=== PATIENT | female | born 1940 | race Caucasian/White ===

== ENCOUNTER → 2017-12-05 09:23 | Outpatient (CLI) | payer MEDICARE, OTHER, SELFPAY ==
[2017-12-05 10:15] LABS: Add Manual Diff / Slide Review NO; Basophils Percent Auto 2.5 % (0-2); Eosinophils Percent Auto 4.9 % (2-4); Hematocrit 39.7 % (36-46); Hemoglobin 13.7 g/dL (12.0-16.0); Mean Corpuscular HGB Conc 34.6 % (30-36); Mean Corpuscular Hemoglobin 31.8 PG (26-34); Monocytes Percent Auto 9.1 % (3-14); Neutrophils Absolute Auto 3900 /uL (3000-5900); Neutrophils Percent Auto 57.5 % (50-75); Platelet Count 231 X10^3/uL (150-400); Red Blood Cell Count 4.32 X10^6/uL (4.0-5.2); Red Cell Distribution Width 13.4 % (11.6-14.8); White Blood Cell Count 6.8 X10^3/uL (4.5-11.0)
[2017-12-05 10:31] LABS: BUN Creatinine Ratio 28.8 (6-22); Calcium 9.9 mg/dL (8.4-10.2); Estimated Glomerular Filt Rate > 60.0 mL/min (>60); Glucose 96 mg/dL (80-110); HEMOLYSIS < 15 (0-50); Potassium 4.2 mmol/L (3.4-5.1); Sodium 141 mmol/L (137-145)
== END ==
PROVIDERS: PCP Physician Assistant; Visit Provider Podiatrist
DX: Z01.818 Encounter for other preprocedural examination (principal); Z01.812 Encounter for preprocedural laboratory examination
CPT/HCPCS: 36415; 80048; 85025; 93005

== ENCOUNTER → 2018-02-27 11:41 | Outpatient (CLI) | payer MEDICARE, OTHER, SELFPAY ==
--- NOTE | 2018-02-27 | DI.MG.S_ITS ---
BILATERAL DIGITAL SCREENING MAMMOGRAM 3D/2D WITH CAD: 02/27/2018 CLINICAL: Routine screening. Family history of breast cancer. Comparison is made to exams dated: 02/12/2017 mammogram, 02/12/2016 mammogram, and 02/08/2015 mammogram - [facility]. There are scattered fibroglandular elements in both breasts. Current study was also evaluated with a Computer Aided Detection (CAD) system. No significant masses, calcifications, or other findings are seen in either breast. There has been no significant interval change. IMPRESSION: NEGATIVE There is no mammographic evidence of malignancy. A 1 year screening mammogram is recommended. This exam was interpreted at Station ID: [id number]. NOTE: For mammograms, a report in lay terms will be sent to the patient. Approximately 15% of breast malignancies will not be visualized mammographically. In the management of a palpable breast mass, a negative mammogram must not discourage biopsy of a clinically suspicious lesion. Electronically Signed By: Sherin sinha/jennifer:02/27/2018 14:54:34 letter sent: Normal Exam ACR BI-RADS Category 1: Negative [id number]
== END ==
PROVIDERS: Family Provider Physician Assistant; PCP Physician Assistant; Visit Provider Physician Assistant
DX: Z12.31 Encounter for screening mammogram for malignant neoplasm of breast (principal); Z80.3 Family history of malignant neoplasm of breast
CPT/HCPCS: 77063; 77067

== ENCOUNTER 2018-03-07 18:31 | Emergency (ER) | payer MEDICARE, OTHER, SELFPAY ==
[2018-03-07] VITALS (13 sets, daily range): BP systolic 156–206; BP diastolic 61–94; PULSE 88–104; RESP 14–20; TEMP 36.8; O2SAT 95–100; BMI 26.1
--- NOTE | 2018-03-07 18:52 | DI.RAD.S_ITS ---
PROCEDURE: XR CHEST 1V INDICATIONS: chest pain TECHNIQUE: One view of the chest was acquired. COMPARISON: [facility], , CHEST 1 VIEW, 04/12/2017, 6:09. FINDINGS: Surgical changes and devices: None. Lungs and pleura: No pleural effusions or pneumothorax. Lungs are clear. Mediastinum: Mediastinal contours appear normal. Heart size is normal. Bones and chest wall: No suspicious bony lesions. Overlying soft tissues appear unremarkable. IMPRESSION: No acute process. Dictated by: Emeli John M.D. on 03/07/2018 at 19:10 Approved by: Emeli John M.D. on 03/07/2018 at 19:11
[2018-03-07] MEDS: ASPIRIN 81 MG TAB 324 MG PO (18:55)
[2018-03-07 18:58] LABS: Add Manual Diff / Slide Review NO; Basophils Percent Auto 1.3 % (0-2); Eosinophils Percent Auto 5.8 % (2-4); Hemoglobin 14.3 g/dL (12.0-16.0); Lymphocytes Percent Auto 30.1 % (25-40); Mean Corpuscular Hemoglobin 31.5 PG (26-34); Mean Corpuscular Volume 92.5 fL (80-100); Monocytes Percent Auto 9.4 % (3-14); Neutrophils Absolute Auto 3900 /uL (3000-5900); Neutrophils Percent Auto 53.4 % (50-75); Platelet Count 296 X10^3/uL (150-400); Red Blood Cell Count 4.54 X10^6/uL (4.0-5.2); Red Cell Distribution Width 13.1 % (11.6-14.8); White Blood Cell Count 7.2 X10^3/uL (4.5-11.0)
[2018-03-07] MEDS: ONDANSETRON 4 MG/2 ML INJ IV (18:59)
[2018-03-07] MEDS: NITROGLYCERIN 0.4 MG SL TAB SL ×3 (19:00→19:24)
[2018-03-07 19:04] LABS: INR 0.9 (0.9-1.3); Prothrombin Time 9.7 SECONDS (10.1-12.7)
[2018-03-07 19:07] LABS: PTT Partial Thromboplastin Tim 27 SECONDS (26.4-36.2)
[2018-03-07 19:22] LABS: Troponin I < 0.012 ng/mL (0.01-0.034)
[2018-03-07 19:24] LABS: Creatine Kinase MB 2.25 ng/mL (<2.37)
--- NOTE | 2018-03-07 19:35 | ED.GENADULT ---
HPI - General Adult General Chief complaint: Hypertension Stated complaint: high BP Time Seen by Provider: 03/07/18 18:50 Source: patient Mode of arrival: ambulatory Limitations: no limitations History of Present Illness HPI narrative: 77-year-old female arrives to the emergency department for evaluation of nausea, abdominal tenderness, high blood pressure, generally not feeling very well, and which she describes as a chest discomfort and anxiety. Patient states that before noon today she started to have these symptoms. She states that it occurred after she had a large coffee with CBD oil in it. She states that she has had CBD well in the past and has never had any problems. She states that she took her blood pressure and states that it was ?high? she then laid down to try to sleep and calm down and after period of time took her blood pressure again and again she reported that it was higher than before. She then waited a little bit longer took her blood pressure again and was still continued to be high. She states that her symptoms were not improving so she came to the emergency department for evaluation. No prior cardiac history. Patient is a nonsmoker. She does have a history of high blood pressure and is taking her medicines for this. Is not a diabetic. Nonsmoker. Related Data Home Medications Medication Instructions Recorded Confirmed L. acidophilus-L. rhamnosus 1 cap PO DAILY 03/07/18 03/07/18 [Probiotic] azelastine 1 - 2 spray INTRANASAL BID PRN 03/07/18 03/07/18 Previous Rx's Medication Instructions Recorded potassium chloride 15 ml PO QDAY #450 ml 11/12/16 rosuvastatin 10 mg PO HS #90 tab 09/30/17 hydrochlorothiazide 25 mg PO QDAY #90 tab 11/18/17 levothyroxine 75 mcg tablet 75 mcg PO QDAY #90 tab 12/24/17 estradiol [Vagifem] 10 mcg VG 2XWEEKLY #12 tab 01/01/18 diltiazem HCl 300 mg PO QDAY #90 cap 03/05/18 lorazepam 0.5 mg PO BID-TID PRN #7 tab 03/07/18 Allergies Allergy/AdvReac Type Severity Reaction Status Date / Time lisinopril [LISINOPRIL] Allergy Severe COUGH Verified 03/07/18 18:55 meloxicam [MELOXICAM] Allergy Severe DYSPNEA Verified 03/07/18 18:55 olmesartan [OLMESARTAN] Allergy Severe DYSPNEA Verified 03/07/18 18:55 adhesive [ADHESIVE] Allergy Intermediate ITCHY RASH Verified 03/07/18 18:55 iodine [IODINE] Allergy Mild BLISTERS Verified 03/07/18 18:55 latex [LATEX] Allergy Mild ITCH Verified 03/07/18 18:55 amitriptyline [AMITRIPTYLINE] AdvReac Intermediate HALLUCINATI Verified 03/07/18 18:55 ON metoprolol [METOPROLOL] AdvReac Intermediate SEVERE Verified 03/07/18 18:55 COUGHING clarithromycin AdvReac Mild NAUSEA AND Verified 03/07/18 18:55 [CLARITHROMYCIN] FELT BAD Review of Systems Constitutional Denies chills, Reports fatigue, Denies headache(s) and Reports lethargy ENT Ears, Nose, Mouth, and Throat: Denies vertigo, Denies dizziness and Denies headache(s) Cardiovascular Reports chest pain, Denies syncope, Denies pedal edema, Denies edema, Denies irregular heart rhythm, Denies palpitations and Denies dyspnea Respiratory Denies cough and Denies dyspnea Gastrointestinal Gastrointestinal: Denies change in bowel habits, Denies diarrhea, Reports nausea and Denies vomiting Genitourinary Denies dysuria Musculoskeletal Denies back pain, Denies myalgias and Denies arthralgias Integumentary/Breasts Denies lesions and Denies rash Neurologic Denies vertigo, Denies dizziness, Denies syncope and Denies headache(s) Psychiatric Reports anxiety Endocrine Reports fatigue and Denies palpitations Hematologic/Lymphatic Denies easy bleeding and Denies easy bruising [facility] Medical History Hypertension (Acute) Hypothyroid (Acute) Surgical History No pertinent past surgical history (Acute) Social History Smoking Status: Never smoker Exam Initial Vital Signs Initial Vital Signs: Vital Signs Temperature 98.2 F 03/07/18 18:36 Pulse Rate 93 H 03/07/18 18:36 Respiratory Rate 20 03/07/18 18:36 Blood Pressure 204/94 H 03/07/18 18:36 Pulse Oximetry 98 03/07/18 18:36 Const General: cooperative, well developed, well groomed and No acute distress Orientation: alert, awake and oriented x3 HENMT Head: normal to inspection and normocephalic Resp Effort & Inspection: normal respiratory effort Auscultation: clear to auscultation bilaterally Cardio Rate: regular rate Rhythm: regular rhythm Heart Sounds: no murmurs Pulses: radial pulses present GI Inspection: normal to inspection and non-distended Palpation: soft, No firm and No tender Skin Lesions: no lesions Rashes: no rashes Neuro General: alert, awake and oriented x3 Cognition: normal cognition Speech: speech normal Extrem General: normal to inspection, capillary refill normal and No edema Psych Appearance: grossly normal and well kempt Affect: normal affect Attitude: cooperative Thought Process: normal Thought Content: normal Judgment: judgment good Scores GCS [place] coma scale eye opening: Spontaneous [place] coma scale verbal response: Orientated Levon coma scale motor response: Obey commands Levon coma scale total score: 15 HEART Score Heart Score history: Moderately Suspicious Heart Score EKG: Non-Specific repolarization disturbance Heart Score Age: > or = 65 years old Heart Score risk factors: 1-2 risk factors Heart Score troponin: < or = to normal limit Heart Score Total: 5 Course Orders Ordered: ED Orders 03/07/18 18:50 Complete Blood Count AUTO DIFF Stat Partial Thromboplastin Time Stat Prothrombin Time INR Stat 03/07/18 18:52 XR chest 1V Stat 03/07/18 19:25 Comprehensive Metabolic Panel Stat Lipase Stat TSH w/ Reflex to FT4 Stat Troponin & CK Cardiac Panel Stat 03/07/18 22:33 Troponin I Stat Discontinued Medications Aspirin (Aspirin Chew) 324 mg PO NOW ONE Stop: 03/07/18 18:53 Last Admin: 03/07/18 18:55 Dose: 324 mg Al Hydrox/Mg Hydrox/Simethicone 20 ml/ Lidocaine HCl 15 ml 0 ml PO NOW ONE Stop: 03/07/18 19:34 Last Admin: 03/07/18 19:37 Dose: 35 ml Lorazepam (Ativan) 0.5 mg PO NOW ONE Stop: 03/07/18 21:10 Last Admin: 03/07/18 21:27 Dose: 0.5 mg Nitroglycerin (Nitrostat) 0.4 mg SL [id number] PRN PRN Reason: Chest Pain Last Admin: 03/07/18 19:24 Dose: 0.4 mg Admin: 03/07/18 19:09 Dose: 0.4 mg Admin: 03/07/18 19:00 Dose: 0.4 mg Ondansetron HCl (Zofran) 4 mg IV NOW ONE Stop: 03/07/18 18:58 Last Admin: 03/07/18 18:59 Dose: 4 mg Vital Signs - 8 hr 03/07/18 18:36 03/07/18 18:57 03/07/18 19:00 Temperature 98.2 F Pulse Rate 93 H 88 94 H Respiratory Rate 20 14 Blood Pressure 204/94 H 181/70 H Blood Pressure [Left Arm] 190/71 H Blood Pressure [Right Arm] 206/67 H 181/70 H Pulse Oximetry 98 100 03/07/18 19:08 03/07/18 19:09 03/07/18 19:18 Temperature Pulse Rate 96 H 94 H Respiratory Rate 14 Blood Pressure 183/76 H 183/76 H Blood Pressure [Left Arm] Blood Pressure [Right Arm] 181/71 H Pulse Oximetry 96 03/07/18 19:21 03/07/18 19:24 03/07/18 19:34 Temperature Pulse Rate 95 H 95 H Respiratory Rate Blood Pressure 181/71 H 181/71 H 167/65 H Blood Pressure [Left Arm] Blood Pressure [Right Arm] Pulse Oximetry 03/07/18 19:57 03/07/18 20:30 03/07/18 22:44 Temperature Pulse Rate 90 104 H 92 H Respiratory Rate 14 14 14 Blood Pressure Blood Pressure [Left Arm] 173/64 H Blood Pressure [Right Arm] 167/65 H 193/74 H Pulse Oximetry 99 98 95 03/07/18 23:55 Temperature 98.2 F Pulse Rate 88 Respiratory Rate 14 Blood Pressure 156/61 H Blood Pressure [Left Arm] Blood Pressure [Right Arm] Pulse Oximetry 98 Medical Decision Making MDM Narrative Medical decision making narrative: Patient with a heart score of 5. EKGs today compared with 2 prior EKGs unremarkable. Has 2 negative troponins with the 1st and 2nd one greater than 6 hr after the onset of her symptoms. Patient reports minimal improvement after the nitro. Does report some improvement after the GI cocktail and reports a great improvement after the Ativan here in the ER. I discussed with her her risk factors and the concern I have regarding her presenting symptoms and the concern for ACS. After discussion with the patient she stated that she did not want to be admitted to the hospital because she had ?2 sick animals ?at home and no intent take care of them. She did agree to stay here in the emergency department for the 2nd troponin. I informed her that the unchanged EKG is in the 2 troponins were reassuring that this was not ACS however I did recommend to her that she stay here for admission to the hospital for a stress test however she again declined. She had a GCS of 15 in my opinion had the capacity to make decisions. She expressed her understanding of the risks she had with regard to ACS. She does have a senior data architect that she sees. She is taking an aspirin on a daily basis. Patient was instructed that she needed to call her primary care doctor on Friday and also her senior data architect to discuss an urgent stress test. She was given return precautions. Will send home with a couple doses of Ativan since that seemed to help her symptoms quite a bit. Also informed her that she should stop taking the CBD oil as this may also be the cause of some of her symptoms today. She expressed understanding and agreement with plan. She had a friend with her at bedside who also expressed agreement with plan. Lab Data Lab results reviewed: Yes I reviewed the patient's lab results. Result diagrams: 03/07/18 18:50 03/07/18 19:25 Lab Results 03/07/18 03/07/18 03/07/18 Range/Units 18:50 18:50 19:25 WBC 7.2 (4.5-11.0) X10^3/uL RBC 4.54 (4.0-5.2) X10^6/uL Hgb 14.3 (12.0-16.0) g/dL Hct 42.0 (36-46) % MCV 92.5 (80-100) fL MCH 31.5 (26-34) PG MCHC 34.0 (30-36) % RDW 13.1 (11.6-14.8) % Plt Count 296 (150-400) X10^3/uL Neut % (Auto) 53.4 (50-75) % Lymph % (Auto) 30.1 (25-40) % Mcminn % (Auto) 9.4 (3-14) % Eos % (Auto) 5.8 H (2-4) % Baso % (Auto) 1.3 (0-2) % Neut # (Auto) 3900 (1985-5186) /uL PT 9.7 L (10.1-12.7) SECONDS INR 0.9 (0.9-1.3) APTT 27 (26.4-36.2) SECONDS Sodium 137 (137-145) mmol/L Potassium 3.3 L (3.4-5.1) mmol/L Chloride 97 L (98-107) mmol/L Carbon Dioxide 31 (22-32) mmol/L BUN 23 H (7-17) mg/dL Creatinine 0.80 (0.52-1.04) mg/dL Estimated GFR > 60.0 (>60) mL/min BUN/Creatinine Ratio 28.8 H (6-22) Glucose 116 H (80-110) mg/dL Calcium 10.2 (8.4-10.2) mg/dL Total Bilirubin 0.5 (0.2-1.3) mg/dL AST 27 (14-36) IU/L ALT 28 (9-52) IU/L Alkaline Phosphatase 92 (38-126) U/L Total Creatine Kinase 113 (30-135) U/L CK-MB (CK-2) 2.25 (<2.37) ng/mL CK-MB (CK-2) Rel Index 2.0 (1.5-5.0) % Troponin I < 0.012 (0.01-0.034) ng/mL Total Protein 6.4 (6.3-8.2) g/dL Albumin 4.1 (3.5-5.0) g/dL Globulin 2.3 (1.7-4.1) g/dL Albumin/Globulin Ratio 1.8 (1.0-2.8) Lipase 108 (23-300) U/L TSH (0.47-4.68) uIU/mL 03/07/18 03/07/18 Range/Units 19:25 22:33 WBC (4.5-11.0) X10^3/uL RBC (4.0-5.2) X10^6/uL Hgb (12.0-16.0) g/dL Hct (36-46) % MCV (80-100) fL MCH (26-34) PG MCHC (30-36) % RDW (11.6-14.8) % Plt Count (150-400) X10^3/uL Neut % (Auto) (50-75) % Lymph % (Auto) (25-40) % Mcminn % (Auto) (3-14) % Eos % (Auto) (2-4) % Baso % (Auto) (0-2) % Neut # (Auto) (8729-6552) /uL PT (10.1-12.7) SECONDS INR (0.9-1.3) APTT (26.4-36.2) SECONDS Sodium (137-145) mmol/L Potassium (3.4-5.1) mmol/L Chloride (98-107) mmol/L Carbon Dioxide (22-32) mmol/L BUN (7-17) mg/dL Creatinine (0.52-1.04) mg/dL Estimated GFR (>60) mL/min BUN/Creatinine Ratio (6-22) Glucose (80-110) mg/dL Calcium (8.4-10.2) mg/dL Total Bilirubin (0.2-1.3) mg/dL AST (14-36) IU/L ALT (9-52) IU/L Alkaline Phosphatase (38-126) U/L Total Creatine Kinase (30-135) U/L CK-MB (CK-2) (<2.37) ng/mL CK-MB (CK-2) Rel Index (1.5-5.0) % Troponin I < 0.012 (0.01-0.034) ng/mL Total Protein (6.3-8.2) g/dL Albumin (3.5-5.0) g/dL Globulin (1.7-4.1) g/dL Albumin/Globulin Ratio (1.0-2.8) Lipase (23-300) U/L TSH 2.45 (0.47-4.68) uIU/mL Imaging Data Chest x-ray: Radiologist's impression: PROCEDURE: XR CHEST 1V INDICATIONS: chest pain TECHNIQUE: One view of the chest was acquired. COMPARISON: [facility], , CHEST 1 VIEW, 04/12/2017, 6:09. FINDINGS: Surgical changes and devices: None. Lungs and pleura: No pleural effusions or pneumothorax. Lungs are clear. Mediastinum: Mediastinal contours appear normal. Heart size is normal. Bones and chest wall: No suspicious bony lesions. Overlying soft tissues appear unremarkable. IMPRESSION: No acute process. Dictated by: Emeli John M.D. on 03/07/2018 at 19:10 Approved by: Emeli John M.D. on 03/07/2018 at 19:11 ECG Data Attestation: I personally reviewed and interpreted this ECG as follows: Prior ECG tracings: available for review Interpretation: Sinus rhythm Ventricular rate in 96 First degree AV block with as needed oval at 0221 Normal QRS Normal QTC Normal axis Nonspecific ST T wave changes Comparison EKG dated 12/05/2017 and also 04/12/2017 Minimal if any changes from today's EKG compared to these 2 prior EKGs Discharge Plan Departure Patient Disposition: Home Clinical Impression: Hypertension, Chest pain, Nausea Discharge Date/Time: 03/07/18 23:58 Interventions: ED Discharge Assessment Last Done: 03/07/18 23:55 Instructions: DI for High Blood Pressure, DI for Atypical Chest Pain Activity Restrictions/Additional Instructions: Continue all of your medications as directed. On Friday morning you do need to contact your primary doctor and/or senior data architect to discuss scheduling a stress test. Return to the emergency department for any new symptoms, worsening symptoms, shortness of breath, chest pain, or any other concerning symptoms. Prescriptions: New lorazepam 0.5 mg tablet 0.5 mg PO BID-TID PRN (Reason: anxiety) Qty: 7 RF: 0 No Action potassium chloride 20 MEQ/15 ML liquid 15 ml PO QDAY Qty: 450 RF: 3 rosuvastatin 10 MG tablet 10 mg PO HS Qty: 90 RF: 3 hydrochlorothiazide 25 mg tablet 25 mg PO QDAY Qty: 90 RF: 1 levothyroxine [Synthroid] 75 mcg tablet 75 mcg PO QDAY Qty: 90 RF: 1 estradiol [Vagifem] 10 mcg tablet 10 mcg VG 2XWEEKLY Qty: 12 RF: 3 diltiazem HCl 300 mg capsule,extended release 24hr 300 mg PO QDAY Qty: 90 RF: 3 L. acidophilus-L. rhamnosus [Probiotic] 15 billion cell Capsule 1 cap PO DAILY RF: 0 azelastine 137 mcg (0.1 %) aerosol,spray 1 - 2 spray Intranasal BID PRN (Reason: allergies) RF: 0
[2018-03-07] MEDS: MAG HYDROX/ALUMINUM/SIMETH SUS 20 ML, LIDOCAINE VISCOUS 2% 15 ML PO (19:37)
[2018-03-07 20:08] LABS: Alanine Aminotransferase 28 IU/L (9-52); Albumin 4.1 g/dL (3.5-5.0); Albumin Globulin Ratio 1.8 (1.0-2.8); Alkaline Phosphatase 92 U/L (38-126); Aspartate Aminotransferase 27 IU/L (14-36); BUN Creatinine Ratio 28.8 (6-22); Bilirubin Total 0.5 mg/dL (0.2-1.3); Blood Urea Nitrogen 23 mg/dL (7-17); Calcium 10.2 mg/dL (8.4-10.2); Carbon Dioxide 31 mmol/L (22-32); Chloride 97 mmol/L (98-107); Creatine Kinase 113 U/L (30-135); Estimated Glomerular Filt Rate > 60.0 mL/min (>60); Globulin 2.3 g/dL (1.7-4.1); Glucose 116 mg/dL (80-110); Lipase 108 U/L (23-300); Potassium 3.3 mmol/L (3.4-5.1); Sodium 137 mmol/L (137-145); Total Protein 6.4 g/dL (6.3-8.2)
[2018-03-07 20:11] LABS: HEMOLYSIS < 15 (0-50)
[2018-03-07 20:37] LABS: TSH w/ Reflex to FT4 2.45 uIU/mL (0.47-4.68)
[2018-03-07] MEDS: LORazepam 0.5 MG TABLET PO (21:27)
[2018-03-07 23:11] LABS: Troponin I < 0.012 ng/mL (0.01-0.034)
== END 2018-03-07 23:58 | disposition home or self-care (01) ==
PROVIDERS: Emergency Provider Emergency Medicine; Family Provider Physician Assistant; PCP Physician Assistant
DX: I10 Essential (primary) hypertension (principal); R07.89 Other chest pain; R11.0 Nausea
CPT/HCPCS: 36415; 36591; 71045; 80053; 82550; 82553; 83690; 84443; 84484; 85025; 85610; 85730; 93005; 93010; 96374; 99284; 99285; J2405

== ENCOUNTER → 2018-06-25 12:51 | Outpatient (CLI) | payer MEDICARE, OTHER, SELFPAY ==
--- NOTE | 2018-06-25 12:54 | DI.RAD.S_ITS ---
PROCEDURE: XR HIP W PEL IF DONE LT MIN 4V INDICATIONS: Bilateral hip pain L >R; suspect OA of left hip TECHNIQUE: AP pelvis with lateral view(s) of the left and right hip(s). COMPARISON: None. FINDINGS: Bones: No fractures or dislocations. Pelvic ring appears intact. No suspicious bony lesions. There is moderately severe bilateral hip and sacroiliac joint degeneration. Soft tissues: The visualized bowel gas pattern is normal. Soft tissue calcifications in pelvis are likely phleboliths. 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 Dictated by: Shannon Glaser M.D. on 06/25/2018 at 17:27 Approved by: Shannon Glaser M.D. on 06/25/2018 at 17:28
--- NOTE | 2018-06-25 12:54 | DI.RAD.S_ITS ---
PROCEDURE: XR LUMBAR SPINE MIN 4V INDICATIONS: Bilateral hip pain L >R; suspect OA of left hip TECHNIQUE: 5 views of the lumbar spine were acquired. COMPARISON: None. FINDINGS: Bones: 5 nonrib-bearing vertebrae are present. L5 is partially sacralized. Mild scoliosis. There is grade one anterolisthesis at L3-L4. Degenerative disc disease is present, severe at L4-L5, and mild at other levels. There is severe facet arthropathy at L3 at L4, L4-L5 and L5-S1. No vertebral body compression fractures. No suspicious bony lesions. Soft tissues: Overlying bowel gas pattern is normal. Vascular calcifications consistent with of osclerosis. There are cholecystectomy clips. Oblique images: No pars defects. IMPRESSION: 1. Transitional anatomy with sacralization of L5. 2. Degenerative disc and facet disease at described. If clinical symptoms persist or clinical suspicion for spinal stenosis or foraminal stenosis, advanced MRI is suggested for further evaluation. Dictated by: Shannon Glaser M.D. on 06/25/2018 at 16:31 Approved by: Shannon Glaser M.D. on 06/25/2018 at 16:35
== END ==
PROVIDERS: Family Provider Physician Assistant; PCP Physician Assistant; Visit Provider Physician Assistant
DX: M54.5 Low back pain (principal); M25.552 Pain in left hip; M16.0 Bilateral primary osteoarthritis of hip; M43.16 Spondylolisthesis, lumbar region; M47.816 Spondylosis without myelopathy or radiculopathy, lumbar region; M47.817 Spondylosis without myelopathy or radiculopathy, lumbosacral region; M47.818 Spondylosis without myelopathy or radiculopathy, sacral and sacrococcygeal region; M51.36 Other intervertebral disc degeneration, lumbar region; M43.27 Fusion of spine, lumbosacral region
CPT/HCPCS: 72110; 73522

== ENCOUNTER → 2018-07-09 12:40 | Outpatient (CLI) | payer MEDICARE, OTHER, SELFPAY ==
[2018-07-09 13:07] LABS: Add Manual Diff / Slide Review NO; Basophils Percent Auto 1.1 % (0-2); Eosinophils Percent Auto 5.3 % (2-4); Hematocrit 42.5 % (36-46); Hemoglobin 14.1 g/dL (12.0-16.0); Lymphocytes Percent Auto 32.5 % (25-40); Mean Corpuscular HGB Conc 33.3 % (30-36); Mean Corpuscular Hemoglobin 30.9 PG (26-34); Mean Corpuscular Volume 92.9 fL (80-100); Monocytes Percent Auto 8.9 % (3-14); Neutrophils Absolute Auto 4200 /uL (1500-7000); Neutrophils Percent Auto 52.2 % (50-75); Platelet Count 329 X10^3/uL (150-400); Red Blood Cell Count 4.57 X10^6/uL (4.0-5.2); Red Cell Distribution Width 13.4 % (11.6-14.8); White Blood Cell Count 8.1 X10^3/uL (4.5-11.0)
[2018-07-09 13:33] LABS: Alanine Aminotransferase 24 IU/L (9-52); Albumin 4.7 g/dL (3.5-5.0); Albumin Globulin Ratio 1.6 (1.0-2.8); Alkaline Phosphatase 111 U/L (38-126); Aspartate Aminotransferase 28 IU/L (14-36); BUN Creatinine Ratio 28.8 (6-22); Bilirubin Total 0.6 mg/dL (0.2-1.3); Blood Urea Nitrogen 23 mg/dL (7-17); Calcium 10.3 mg/dL (8.4-10.2); Carbon Dioxide 32 mmol/L (22-32); Chloride 97 mmol/L (98-107); Estimated Glomerular Filt Rate > 60.0 mL/min (>60); Glucose 103 mg/dL (80-110); HEMOLYSIS 21 (0-50); Potassium 3.6 mmol/L (3.4-5.1); Sodium 142 mmol/L (137-145); Total Protein 7.7 g/dL (6.3-8.2)
[2018-07-09 17:04] LABS: Thyroid Stimulating Hormone 2.56 uIU/mL (0.47-4.68)
== END ==
PROVIDERS: PCP Physician Assistant; Visit Provider Physician Assistant
DX: E03.9 Hypothyroidism, unspecified (principal); I10 Essential (primary) hypertension; R00.2 Palpitations; R53.83 Other fatigue
CPT/HCPCS: 36415; 80053; 84443; 85025

== ENCOUNTER → 2018-08-03 13:37 | Outpatient (CLI) | payer MEDICARE, OTHER, SELFPAY ==
--- NOTE | 2018-08-03 13:43 | DI.US.S_ITS ---
PROCEDURE: US CAROTID DOPPLER BI INDICATIONS: PALPITATIONS TECHNIQUE: Color and pulse Doppler interrogation was performed of both carotid systems, with image documentation and velocity measurements. COMPARISON: None. FINDINGS: Stenosis calculations are based on SRU (Society of Radiologists in Ultrasound) criteria. Right side: Brachial blood pressure: 193/83 mm Hg. Common carotid artery peak systolic velocity: 99 cm/sec. Internal carotid artery peak systolic velocity: 67 cm/sec. Internal carotid artery end diastolic velocity: 9 cm/sec. External carotid artery peak systolic velocity: 90 cm/sec. ICA/CCA peak systolic ratio: 0.7. Lobo scale imaging description: Mild scattered plaque. Percent internal carotid artery stenosis: Less than 50%. Vertebral artery: Flow direction is antegrade. Left side: Brachial blood pressure: 182/82 mm Hg. Common carotid artery peak systolic velocity: 103 cm/sec. Internal carotid artery peak systolic velocity: 98 cm/sec. Internal carotid artery end diastolic velocity: 21 cm/sec. External carotid artery peak systolic velocity: 101 cm/sec. ICA/CCA peak systolic ratio: 1.0. Lobo scale imaging description: Mild scattered plaque. Percent internal carotid artery stenosis: Less than 50%. Vertebral artery: Flow direction is antegrade. IMPRESSION: Less than 50% bilateral internal carotid artery stenosis. Hypertension at time of exam. Dictated by: Jay Cruz [facility] Interpreted: Angeliat Bruner MD on 08/03/2018 at 15:51 Approved by: Angelita Bruner M.D. on 08/03/2018 at 16:59
== END ==
PROVIDERS: PCP Physician Assistant; Visit Provider Physician Assistant
DX: R00.2 Palpitations (principal); I65.23 Occlusion and stenosis of bilateral carotid arteries; I10 Essential (primary) hypertension; E03.9 Hypothyroidism, unspecified; R53.83 Other fatigue
CPT/HCPCS: 93880

== ENCOUNTER → 2018-09-11 16:28 | Outpatient (CLI) | payer MEDICARE, OTHER, SELFPAY ==
[2018-09-15 08:02] LABS: Aldosterone/Renin Activity Rat 3.9 Ratio (0.9-28.9); Plama Renin, LC/MS/MS 3.05 ng/mL/h (0.25-5.82)
== END ==
PROVIDERS: PCP Physician Assistant; Visit Provider Internal Medicine Cardiovascular Disease
DX: I10 Essential (primary) hypertension (principal)
CPT/HCPCS: 36415; 82088; 84244

== ENCOUNTER → 2018-09-17 08:07 | Outpatient (CLI) | payer MEDICARE, OTHER, SELFPAY ==
--- NOTE | 2018-09-17 | DI.ECHO.S_ITS ---
[place] +---------+ [facility] +---------+ : : [address] : : : : [id number] : : : : Phone: [phone] Echocardiogram Report + + :Name: ELIZABETH FELIX Seth Study Date: 09/17/2018 Height: 66 in : :[facility] Weight: 167 lb : : Gender: Female BSA: 1.9 m2 : :: 1940 Age: 77 yrs BP: 164/64 mmHg: :Reason For Study: Murmur : :Ordering Physician: Baltazar : :All Escalera Performed By: Lynda Torres : :Referring: LEE ANN Spears : + + Interpretation Summary 1) Normal left ventricular thickness, size, wall motion, and systolic function (EF 60-65%). 2) Normal right ventricular size and function. 3) Diastolic parameters suggest a pseudonormalization pattern, consistent with probable elevated filling pressures. 4) No significant valvular abnormalities. 5) There is mild luminal irregularity and echogenicity in the abdominal aorta, suggestive of aortic atherosclerotic disease. 6) Hypertension present during the study (BP 164/64mmHg). 7) Compared to the Echo done 01/28/2017, no significant cardiac change. Procedure: A two-dimensional transthoracic echocardiogram with color flow and Doppler was performed. The study quality was technically adequate. Comparison is made with the echocardiogram of 01-28-17. The patient was in normal sinus rhythm during the exam. Left Ventricle: The left ventricle is normal in size, wall thickness, and systolic function without any focal wall motion abnormalities. Proximal septal thickening is noted. The ejection fraction is estimated to be 60-65%. Left ventricular systolic function is normal without focal wall motion abnormalities. Diastolic parameters suggest a pseudonormalization pattern, consistent with probable elevated filling pressures. Right Ventricle: The right ventricle grossly appears normal in size with probable normal systolic function. Atria: The left atrium is mildly dilated. Right atrial size is normal. The interatrial septum is intact with no evidence for an atrial septal defect. Mitral Valve: The mitral valve is normal in structure and function. There is no mitral regurgitation noted. Aortic Valve: The aortic valve opens well. The aortic valve is trileaflet. The aortic valve is slightly calcified. There is no aortic valve stenosis. No aortic regurgitation is present. Tricuspid Valve: The tricuspid valve is normal in structure and function. There is trace tricuspid regurgitation. The right ventricular systolic pressure is estimated to be at least 44 mmHg based on an estimated right atrial pressure of 3 mm Hg. Pulmonic Valve: The pulmonic valve is not well visualized. Great Vessels: The aortic root is normal size. The dimensions of the ascending aorta are normal. The aortic arch is normal in size. There is mild luminal irregularity and echogenicity in the abdominal aorta, suggestive of aortic atherosclerotic disease. The IVC is of normal diameter and collapses greater than 50% with a sniff. This suggests a low right atrial pressure of 3 mm Hg. Pericardium/ Pleura There is no pericardial effusion. There is no pleural effusion. MMode/2D Measurements & Calculations LVIDd: 3.8 cm Ao root diam: 2.7 cm LVIDs: 2.3 cm Aortic Jxn: 2.5 cm FS: 39.7 % asc Aorta Diam: 3.3 cm IVSd: 0.97 cm Ao Arch Diam (Prox Trans): 2.6 cm LVPWd: 1.0 cm LV khan. diameter/BSA (cm/m^2): 2.1 LV sys. diameter/BSA (cm/m^2): 1.3 LA dimension: 3.5 cm RA long axis: 4.7 cm LA A2 area: 18.1 cm2 RA area: 16.5 cm2 LA A4 area: 22.0 cm2 RA vol: 49.4 ml LA length (vol): 5.3 cm RA : 26.7 ml/m2 LA vol: 64.2 ml IVC diam: 0.76 cm LA vol index: 34.6 ml/m2 RVDd major: 5.2 cm RVD1 (basal): 4.0 cm RVD2 (mid): 3.7 cm Doppler Measurements & Calculations Ao V2 max: 173.2 cm/sec MV E max brendan: 100.6 cm/sec Ao V2 mean: 125.1 cm/sec MV A max brendan: 134.1 cm/sec Ao max P.0 mmHg MV E/A: 0.75 Ao mean P.9 mmHg Med Peak E' Brendan: 6.6 cm/sec Ao V2 VTI: 42.3 cm E/E' med: 15.2 Lat Peak E' Brendan: 8.0 cm/sec E/E' lat: 12.6 E/e' average: 13.9 MV dec time: 0.29 sec MV P1/2t: 85.9 msec TR max brendan: 319.9 cm/sec MV P1/2t max brendan: 100.9 cm/sec TR max P.9 mmHg MVA(P1/2t): 2.6 cm2 PA V2 max: 119.3 cm/sec PA V2 mean: 79.3 cm/sec PA mean P.9 mmHg PA Accel Time: 0.16 sec Reading Physician:02:24 PM
== END ==
PROVIDERS: PCP Physician Assistant; Visit Provider Internal Medicine Cardiovascular Disease
DX: R01.1 Cardiac murmur, unspecified (principal); I10 Essential (primary) hypertension
CPT/HCPCS: 93306

== ENCOUNTER → 2018-11-09 08:51 | Outpatient (CLI) | payer MEDICARE, OTHER, SELFPAY ==
[2018-11-09 10:40] LABS: BUN Creatinine Ratio 25.6 (6-22); Blood Urea Nitrogen 23 mg/dL (7-17); Carbon Dioxide 31 mmol/L (22-32); Chloride 102 mmol/L (98-107); Estimated Glomerular Filt Rate > 60.0 mL/min (>60); Glucose 75 mg/dL (80-110); HEMOLYSIS < 15 (0-50); Potassium 4.3 mmol/L (3.4-5.1); Sodium 140 mmol/L (137-145)
== END ==
PROVIDERS: PCP Physician Assistant; Visit Provider Internal Medicine Cardiovascular Disease
DX: I10 Essential (primary) hypertension (principal)
CPT/HCPCS: 36415; 80048

== ENCOUNTER → 2018-12-29 08:45 | Outpatient (CLI) | payer MEDICARE, OTHER, SELFPAY ==
[2018-12-29 10:30] LABS: Ferritin 54.1 ng/mL (11.1-264)
== END ==
PROVIDERS: PCP Physician Assistant; Visit Provider Nurse Practitioner Family
DX: G25.81 Restless legs syndrome (principal)
CPT/HCPCS: 36415; 82728

== ENCOUNTER → 2019-01-08 08:57 | Outpatient (CLI) | payer MEDICARE, OTHER, SELFPAY ==
[2019-01-08 10:43] LABS: BUN Creatinine Ratio 24.4 (6-22); Blood Urea Nitrogen 22 mg/dL (7-17); Calcium 10.2 mg/dL (8.4-10.2); Carbon Dioxide 33 mmol/L (22-32); Chloride 100 mmol/L (98-107); Cholesterol 178 mg/dL (140-199); Estimated Glomerular Filt Rate > 60.0 mL/min (>60); Glucose 94 mg/dL (80-110); HDL Cholesterol 98 mg/dL (40-60); HEMOLYSIS < 15 (0-50); LDL Cholesterol Calculated 62 mg/dL (<100); Potassium 4.3 mmol/L (3.4-5.1); Sodium 139 mmol/L (137-145); Triglycerides 90 mg/dL (35-150)
== END ==
PROVIDERS: PCP Physician Assistant; Visit Provider Internal Medicine Cardiovascular Disease
DX: E78.5 Hyperlipidemia, unspecified (principal); I10 Essential (primary) hypertension
CPT/HCPCS: 36415; 80048; 80061

== ENCOUNTER 2019-02-16 20:46 | Inpatient (IN) | payer MEDICARE, OTHER, SELFPAY ==
[2019-02-16 20:48] VITALS: BP 177/71; PULSE 91; RESP 20; TEMP 36.6; O2SAT 100; BMI 26.4
--- NOTE | 2019-02-16 21:10 | ED_ITS ---
HPI - Abdominal Pain General Chief Complaint: Abdominal Pain Stated Complaint: ABDOMINAL PAINS Time Seen by Provider: 02/16/19 20:49 Source: patient Mode of arrival: ambulatory Limitations: no limitations History of Present Illness HPI narrative: 78-year-old female whose had a history of a Calvin fundoplication, hysterectomy, cholecystectomy, appendectomy here for evaluation of abdominal pain and distention. Has also had some nausea but no vomiting. States symptoms have been going on for the past week if not little bit longer however worsening over the past 24 hours. No fevers. No vomiting. Still passing flatus. Also having small episodes of diarrhea. No urinary symptoms. States that symptoms do get worse after she eats. She feels like her abdomen is distended. Related Data Home Medications Medication Instructions Recorded Confirmed L. acidophilus-L. rhamnosus 1 cap PO DAILY 03/07/18 02/16/19 [Probiotic] azelastine 1 - 2 spray INTRANASAL BID PRN 03/07/18 02/16/19 CO-Q-10 See Rx Instructions .ROUTE .COMPLEX 04/06/18 02/16/19 Mylanta See Rx Instructions .ROUTE .COMPLEX 04/06/18 02/16/19 Tylenol Extra Strength See Rx Instructions .ROUTE .COMPLEX 04/06/18 02/16/19 vitamin B-12 See Rx Instructions .ROUTE .COMPLEX 04/06/18 02/16/19 cyclosporine 0.05 % eye drops 1 drop EYE-BOTH BID ml 06/25/18 02/16/19 naproxen sodium 220 mg capsule 220 mg PO DAILY PRN cap 06/25/18 02/16/19 cholecalciferol (vitamin D3) 2,000 See Rx Instructions PO DAILY 08/12/18 02/16/19 unit capsule losartan 100 mg tablet 100 mg PO DAILY 09/30/18 02/16/19 aspirin 81 mg tablet,delayed 81 mg PO DAILY 11/06/18 02/16/19 release diltiazem ER 420 mg capsule,24 420 mg PO DAILY 11/06/18 02/16/19 hr,extended release chlorthalidone 25 mg tablet 25 mg PO DAILY 01/13/19 02/16/19 omeprazole 20 mg PO DAILY 02/16/19 02/16/19 Previous Rx's Medication Instructions Recorded varicella-zoster glycoE vacc-[id number] 50 mcg IM ONCE #1 each 04/06/18 adj(PF) 50 mcg/0.5 mL IM susp, kit levothyroxine 75 mcg tablet 75 mcg PO QDAY #90 tab 06/22/18 lorazepam 0.5 mg tablet 0.5 mg PO BID-TID PRN #30 tab 07/09/18 rosuvastatin 10 mg PO HS #90 tab 09/07/18 buspirone 5 mg tablet 10 mg PO BID #180 tab 12/21/18 estradiol [Vagifem] 10 mcg VG 2XWEEKLY #12 tab 12/25/18 Allergies Allergy/AdvReac Type Severity Reaction Status Date / Time lisinopril [LISINOPRIL] Allergy Severe COUGH Verified 12/23/18 14:06 meloxicam [MELOXICAM] Allergy Severe DYSPNEA Verified 12/23/18 14:06 olmesartan [OLMESARTAN] Allergy Severe DYSPNEA Verified 12/23/18 14:06 adhesive [ADHESIVE] Allergy Intermediate ITCHY RASH Verified 12/23/18 14:06 iodine [IODINE] Allergy Mild BLISTERS Verified 12/23/18 14:06 latex [LATEX] Allergy Mild ITCH Verified 12/23/18 14:06 amitriptyline [AMITRIPTYLINE] AdvReac Intermediate HALLUCINATI Verified 12/23/18 14:06 ON metoprolol [METOPROLOL] AdvReac Intermediate SEVERE Verified 12/23/18 14:06 COUGHING sertraline AdvReac Intermediate it made Verified 12/23/18 14:06 me feel really bad like I was sick. clarithromycin AdvReac Mild NAUSEA AND Verified 12/23/18 14:06 [CLARITHROMYCIN] FELT BAD Review of Systems Constitutional Denies fever(s) Cardiovascular Denies chest pain and Denies dyspnea Respiratory Denies dyspnea Gastrointestinal Gastrointestinal: Reports abdominal pain, Reports bloating, Denies coffee ground emesis, Reports cramping, Reports diarrhea, Reports nausea and Denies vomiting Genitourinary Denies dysuria and Denies vaginal discharge Musculoskeletal Denies myalgias and Denies arthralgias Integumentary/Breasts Denies lesions and Denies rash Neurologic Denies behavioral changes Psychiatric Denies behavioral changes Hematologic/Lymphatic Denies easy bleeding and Denies easy bruising PFSH Medical History Snoring (Chronic) Fatigue (Chronic) Insomnia (Chronic) Obstructive sleep apnea of adult (Chronic) Asthma (Chronic) Depression (Chronic) GERD (gastroesophageal reflux disease) (Chronic) Graves disease (Chronic) Hyperlipemia (Chronic) Hypertension (Chronic) Hypothyroid (Chronic) Atrial flutter (Resolved ~05/2014) Hx of hysterectomy (Resolved 1985) Iron deficiency anemia (Resolved ~2013) Measles (Resolved) Mumps (Resolved) Osteopenia (Resolved ~2010) Surgical History History of knee replacement (Resolved 05/2008) Hx of cholecystectomy (Resolved 1996) Hx of hernia repair (Resolved 03/2011) Hx of knee surgery (Resolved 09/2008) Hx of knee surgery (Resolved 2006) Hx of rotator cuff surgery (Resolved 2004) Hx of surgical procedure (Resolved 1995) Hx of total knee arthroplasty (Resolved 2009) No pertinent past surgical history (Resolved) Social History Smoking Status: Former smoker Tobacco: How many years used: 6 Smokeless tobacco user: chewing tobacco second hand exposure: Yes (at the [employer] every Friday.) alcohol intake: current substance use type: does not use Social History Smoking Status: Former smoker Tobacco: How many years used: 6 Smokeless tobacco user: chewing tobacco second hand exposure: Yes (at the [employer] every Friday.) alcohol intake: current substance use type: does not use Exam Initial Vital Signs Initial Vital Signs: Vital Signs Temperature 97.8 F 02/16/19 20:48 Pulse Rate 91 H 02/16/19 20:48 Respiratory Rate 20 02/16/19 20:48 Blood Pressure 177/71 H 02/16/19 20:48 Pulse Oximetry 100 02/16/19 20:48 Const General: cooperative, comfortable, well developed, well groomed and No acute distress Orientation: alert, awake and oriented x3 HENMT Head: normal to inspection and normocephalic Resp Effort & Inspection: normal respiratory effort Auscultation: clear to auscultation bilaterally Cardio Rate: regular rate Rhythm: regular rhythm GI Inspection: distended Palpation: soft, No firm, No guarding and tender (Diffuse) Skin Lesions: no lesions Rashes: no rashes Neuro General: alert, awake and oriented x3 Cognition: normal cognition Speech: speech normal Motor: muscle tone normal throughout Sensory Exam: no sensory deficits noted Extrem General: normal to inspection and capillary refill normal Psych Appearance: grossly normal and well kempt Scores GCS Levon coma scale eye opening: Spontaneous Levon coma scale verbal response: Orientated Levon coma scale motor response: Obey commands [place] coma scale total score: 15 Course Orders Ordered: ED Orders 02/16/19 21:02 EKG-12 Lead Stat 02/16/19 21:11 CT abdomen pelvis w con Stat 02/16/19 21:14 Complete Blood Count AUTO DIFF Stat Comprehensive Metabolic Panel Stat Lipase Stat Partial Thromboplastin Time Stat Prothrombin Time INR Stat 02/16/19 22:59 Lactate (Lactic Acid) Stat 02/16/19 23:06 XR chest 1V Stat Discontinued Medications Sodium Chloride (Normal Saline 0.9%) 1,000 mls @ 1,000 mls/hr IV BOLUS ONE Stop: 02/16/19 22:10 Last Infusion: 02/16/19 22:10 Dose: 1,000 mls/hr Infusion: 02/16/19 21:42 Dose: 0 mls/hr Admin: 02/16/19 21:21 Dose: 1,000 mls/hr Morphine Sulfate (Morphine) 4 mg IV NOW ONE Stop: 02/16/19 21:12 Last Admin: 02/16/19 21:21 Dose: 4 mg Ondansetron HCl (Zofran) 4 mg IV NOW ONE Stop: 02/16/19 21:12 Last Admin: 02/16/19 21:21 Dose: 4 mg Vital Signs - 8 hr 02/16/19 20:48 02/16/19 21:30 02/16/19 22:00 Temperature 97.8 F Pulse Rate 91 H 80 81 Respiratory Rate 20 16 Blood Pressure 177/71 H Blood Pressure [Left Arm] 144/47 H 156/55 H Pulse Oximetry 100 96 96 02/16/19 22:30 Temperature Pulse Rate 88 Respiratory Rate 16 Blood Pressure Blood Pressure [Left Arm] 133/50 L Pulse Oximetry 96 MDM - Abdominal Pain Lab Data Attestation: I reviewed the patient's lab results. Result diagrams: 02/16/19 21:14 02/16/19 21:14 Lab Results 02/16/19 02/16/19 02/16/19 Range/Units 21:14 21:14 21:14 WBC 10.8 (4.5-11.0) X10^3/uL RBC 4.39 (4.0-5.2) X10^6/uL Hgb 13.8 (12.0-16.0) g/dL Hct 40.3 (36-46) % MCV 91.9 (80-100) fL MCH 31.4 (26-34) PG MCHC 34.2 (30-36) % RDW 12.8 (11.6-14.8) % Plt Count 321 (150-400) X10^3/uL Neut % (Auto) 82.4 H (50-75) % Lymph % (Auto) 11.5 L (25-40) % [place] % (Auto) 4.7 (3-14) % Eos % (Auto) 0.4 L (2-4) % Baso % (Auto) 1.0 (0-2) % Neut # (Auto) 8900 H (0643-5945) /uL Lymph # (Auto) 1200 (0664-1705) /uL [place] # (Auto) 500 (0-900) /uL Eos # (Auto) 0 (0-450) /uL Baso # (Auto) 100 (0-100) /uL PT 9.8 L (10.1-12.7) SECONDS INR 0.9 (0.9-1.3) APTT 28 (26.4-36.2) SECONDS Sodium 131 L (137-145) mmol/L Potassium 3.1 L (3.4-5.1) mmol/L Chloride 91 L (98-107) mmol/L Carbon Dioxide 30 (22-32) mmol/L BUN 25 H (7-17) mg/dL Creatinine 0.90 (0.52-1.04) mg/dL Estimated GFR > 60.0 (>60) mL/min BUN/Creatinine Ratio 27.8 H (6-22) Glucose 135 H (80-110) mg/dL Lactate (0.7-2.1) mmol/L Calcium 10.5 H (8.4-10.2) mg/dL Total Bilirubin 0.5 (0.2-1.3) mg/dL AST 32 (14-36) IU/L ALT 27 (9-52) IU/L Alkaline Phosphatase 125 (38-126) U/L Total Protein 7.9 (6.3-8.2) g/dL Albumin 4.6 (3.5-5.0) g/dL Globulin 3.3 (1.7-4.1) g/dL Albumin/Globulin Ratio 1.4 (1.0-2.8) Lipase 72 (23-300) U/L 02/16/19 Range/Units 22:59 WBC (4.5-11.0) X10^3/uL RBC (4.0-5.2) X10^6/uL Hgb (12.0-16.0) g/dL Hct (36-46) % MCV (80-100) fL MCH (26-34) PG MCHC (30-36) % RDW (11.6-14.8) % Plt Count (150-400) X10^3/uL Neut % (Auto) (50-75) % Lymph % (Auto) (25-40) % [place] % (Auto) (3-14) % Eos % (Auto) (2-4) % Baso % (Auto) (0-2) % Neut # (Auto) (8044-9044) /uL Lymph # (Auto) (9415-3072) /uL [place] # (Auto) (0-900) /uL Eos # (Auto) (0-450) /uL Baso # (Auto) (0-100) /uL PT (10.1-12.7) SECONDS INR (0.9-1.3) APTT (26.4-36.2) SECONDS Sodium (137-145) mmol/L Potassium (3.4-5.1) mmol/L Chloride (98-107) mmol/L Carbon Dioxide (22-32) mmol/L BUN (7-17) mg/dL Creatinine (0.52-1.04) mg/dL Estimated GFR (>60) mL/min BUN/Creatinine Ratio (6-22) Glucose (80-110) mg/dL Lactate 0.7 (0.7-2.1) mmol/L Calcium (8.4-10.2) mg/dL Total Bilirubin (0.2-1.3) mg/dL AST (14-36) IU/L ALT (9-52) IU/L Alkaline Phosphatase (38-126) U/L Total Protein (6.3-8.2) g/dL Albumin (3.5-5.0) g/dL Globulin (1.7-4.1) g/dL Albumin/Globulin Ratio (1.0-2.8) Lipase (23-300) U/L Imaging Data CT scan - abdomen: Radiologist's impression: [address] [address] [address] Scan Report Signed Patient: Nanci Lainez [facility]#: [id number] : 1941Acct:[id number] Age/Sex: 78 / FDate of Service: 02/16/19 Loc: ED Accession Number: [id number] Procedure: CT abdomen pelvis w con Ordering Provider: Mesfin Brambila D.O. PROCEDURE: CT ABDOMEN PELVIS W CON INDICATIONS: Generalized abdominal pain TECHNIQUE: After the administration of intravenous contrast, 5 mm thick sections acquired from the diaphragm to the symphysis. 5 mm coronal and sagittal reformats were acquired. For radiation dose reduction, the following was used: automated exposure control, adjustment of mA and/or kV according to patient size. COMPARISON: [facility], CT, ABDOMEN/PELVIS WITH CONTRAST, 02/08/2008, 9:48. FINDINGS: Image quality: Excellent. ABDOMEN: Lung bases: Lung bases are clear. Heart size is normal. Solid organs: Liver is normal in size and enhancement. Gallbladder is surgically absent. Biliary system is dilated. Pancreas enhances normally. Spleen is normal in size and enhancement. No adrenal nodules. Kidneys demonstrate normal size and enhancement, without hydronephrosis. Peritoneum and bowel: Post surgical changes in the left upper quadrant and GE junction. There is mild gaseous distention of stomach. Small intestines are distended and filled with fluid. There multiple air-fluid levels. There is a transitional point in the mid abdomen just left of midline. The distal small bowel and loops are decompressed. The CT findings are consistent with small bowel obstruction. No free fluid or air. Nodes and vessels: No retroperitoneal or mesenteric adenopathy by size criteria. Aorta and inferior vena cava are normal in size. Miscellaneous: No ventral hernias. PELVIS: Genitourinary: Bladder wall thickness is normal. Uterus is absent. Ovaries are not visualized. No pathological free fluid in cul-de-sac. Miscellaneous: No inguinal hernias or adenopathy. Bones: No suspicious bony lesions. No vertebral body compression fractures. Severe degenerative disc disease at L4-L5. 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 IMPRESSION: 1. High-grade small bowel obstruction. 2. There is intrahepatic and extrahepatic biliary dilation, likely related to cholecystectomy. Please correlate with serum to rule out biliary obstruction. The result was discussed with Dr. Brambila. Dictated by: Shannon Glaser M.D. on 02/16/2019 at 22:14 Approved by: Shannon Glaser M.D. on 02/16/2019 at 22:23 Chest x-ray: Attestation: I personally reviewed and interpreted this imaging study as follows: My impression: NG tube in appropriate position. No other acute pathology ECG Data Attestation: I personally reviewed and interpreted this ECG as follows: Prior ECG tracings: not available for review Interpretation: Sinus rhythm Ventricular rate 84 First degree AV block with APR interval of 232 milliseconds LVH Normal QTC Nonspecific ST T wave changes MDM Narrative Medical decision making narrative: Patient is nontoxic appearing. Has not been vomiting since arrival here in the emergency department. CT scan is concerning for small bowel obstruction. Discussed the case with Dr. Gilbert who evaluated the patient here in the emergency department and stated that she is not an emergent surgical issue. Discussed the case with ANA Nguyễn with Internal Medicine who will admit the patient for further evaluation and treatment. NG tube was placed. Patient was informed of diagnosis and need for admission. She expressed understanding and agreement with plan. Discharge Plan Departure Patient Disposition: Admitted As Inpatient Clinical Impression: Small bowel obstruction
[2019-02-16] MEDS: ONDANSETRON 4 MG/2 ML INJ IV (21:21)
[2019-02-16] MEDS: MORPHINE 4 MG/ML INJ IV (21:21)
[2019-02-16] MEDS: SODIUM CHLORIDE 0.9% 1,000 ML 1000 ML IV (21:21)
[2019-02-16 21:22] LABS: Add Manual Diff / Slide Review NO; Basophils Absolute Auto 100 /uL (0-100); Eosinophils Absolute Auto 0 /uL (0-450); Eosinophils Percent Auto 0.4 % (2-4); Hematocrit 40.3 % (36-46); Hemoglobin 13.8 g/dL (12.0-16.0); Lymphocytes Absolute Auto 1200 /uL (1100-4500); Lymphocytes Percent Auto 11.5 % (25-40); Mean Corpuscular HGB Conc 34.2 % (30-36); Mean Corpuscular Hemoglobin 31.4 PG (26-34); Mean Corpuscular Volume 91.9 fL (80-100); Monocytes Absolute Auto 500 /uL (0-900); Monocytes Percent Auto 4.7 % (3-14); Neutrophils Absolute Auto 8900 /uL (1500-7000); Neutrophils Percent Auto 82.4 % (50-75); Platelet Count 321 X10^3/uL (150-400); Red Blood Cell Count 4.39 X10^6/uL (4.0-5.2); Red Cell Distribution Width 12.8 % (11.6-14.8); White Blood Cell Count 10.8 X10^3/uL (4.5-11.0)
[2019-02-16 21:27] LABS: INR 0.9 (0.9-1.3); Prothrombin Time 9.8 SECONDS (10.1-12.7)
[2019-02-16 21:30] VITALS: BP 144/47; PULSE 80; RESP 16; O2SAT 96
[2019-02-16 21:30] LABS: PTT Partial Thromboplastin Tim 28 SECONDS (26.4-36.2)
[2019-02-16 21:36] LABS: Alanine Aminotransferase 27 IU/L (9-52); Albumin 4.6 g/dL (3.5-5.0); Albumin Globulin Ratio 1.4 (1.0-2.8); Alkaline Phosphatase 125 U/L (38-126); Aspartate Aminotransferase 32 IU/L (14-36); BUN Creatinine Ratio 27.8 (6-22); Bilirubin Total 0.5 mg/dL (0.2-1.3); Blood Urea Nitrogen 25 mg/dL (7-17); Calcium 10.5 mg/dL (8.4-10.2); Carbon Dioxide 30 mmol/L (22-32); Chloride 91 mmol/L (98-107); Estimated Glomerular Filt Rate > 60.0 mL/min (>60); Globulin 3.3 g/dL (1.7-4.1); Glucose 135 mg/dL (80-110); HEMOLYSIS < 15 (0-50); Lipase 72 U/L (23-300); Potassium 3.1 mmol/L (3.4-5.1); Sodium 131 mmol/L (137-145); Total Protein 7.9 g/dL (6.3-8.2)
[2019-02-16 22:00] VITALS: BP 156/55; PULSE 81; O2SAT 96
[2019-02-16 22:30] VITALS: BP 133/50; PULSE 88; RESP 16; O2SAT 96
--- NOTE | 2019-02-16 23:06 | DI.RAD.S_ITS ---
PROCEDURE: XR CHEST 1V INDICATIONS: Post NG tube placement TECHNIQUE: One view of the chest was acquired. COMPARISON: [facility], CR, XR CHEST 1V, 03/07/2018, 19:02. FINDINGS: Surgical changes and devices: Interval placement of a nasogastric tube is identified with the tip overlying expected location of the body of the stomach. Surgical clips at the gastroesophageal junction may be present. Lungs and pleura: Lungs are clear. No pleural effusions or pneumothorax. Mediastinum: Mediastinal contours appear normal. Heart size is normal. There is aortic atherosclerosis. Bones and chest wall: No suspicious bony lesions. Overlying soft tissues appear unremarkable. IMPRESSION: 1. NG tube appears to be a properly positioned. 2. No acute cardiopulmonary process is evident. Note: The preliminary ED physician interpretation and the final report are concordant. Dictated by: Abdoul Rodriguez M.D. on 02/17/2019 at 8:35 Approved by: Abdoul Rodriguez M.D. on 02/17/2019 at 8:36
[2019-02-16 23:17] LABS: Lactate (Lactic Acid) 0.7 mmol/L (0.7-2.1)
--- NOTE | 2019-02-16 23:21 | PC.NURSE ---
Dr. Gilbert at bedside.
--- NOTE | 2019-02-16 23:27 | PM.CN ---
History of Present Illness Date Patient Seen: 02/16/19 Time Patient Seen: 23:27 Chief complaint: ABDOMINAL PAINS Reason for consult: SBO Requesting provider: Mesfin Brambila Narrative: 78yo F accompanied by with increasing pain today after a few weeks of bowel bloating and nausea after eating. Variable response with meals for this, has never had similar symptoms. Had not vomited until today and got nothing but frothy fluid. She is currently in no distress and is fairly comfortable. Still having flatus and some diarrhea today. NGT just placed with gastric contents in cannister. CT shows fairly high grade SBO with no free fluid or signs of ischemia. She has mild electrolyte abnormalities but no elevated lactate nor leukotyosis but does have a left shift. Afebrile, vitals unremarkable. Abd exam with moderate distension but soft and no significant tenderness. Has had multiple abd surgeries, only hysterectomy open via pfannenstiel incision. Never had SBOs. Last colonoscopy was around 1.5 years ago and was unremarkable although she heard mention of a stricture of some kind. She was told she was clear and did not have to have it repeated. [facility] Medical History Snoring (Chronic) Fatigue (Chronic) Insomnia (Chronic) Obstructive sleep apnea of adult (Chronic) Asthma (Chronic) Depression (Chronic) GERD (gastroesophageal reflux disease) (Chronic) Graves disease (Chronic) Hyperlipemia (Chronic) Hypertension (Chronic) Hypothyroid (Chronic) Atrial flutter (Resolved ~05/2014) Hx of hysterectomy (Resolved 1985) Iron deficiency anemia (Resolved ~2013) Measles (Resolved) Mumps (Resolved) Osteopenia (Resolved ~2010) Surgical History History of knee replacement (Resolved 05/2008) Hx of cholecystectomy (Resolved 1996) Hx of hernia repair (Resolved 03/2011) Hx of knee surgery (Resolved 09/2008) Hx of knee surgery (Resolved 2006) Hx of rotator cuff surgery (Resolved 2004) Hx of surgical procedure (Resolved 1995) Hx of total knee arthroplasty (Resolved 2009) No pertinent past surgical history (Resolved) Social History Smoking Status: Former smoker Tobacco: How many years used: 6 Smokeless tobacco user: chewing tobacco second hand exposure: Yes (at [employer] every Friday[facility] alcohol intake: current substance use type: does not use Social History Smoking Status: Former smoker Tobacco: How many years used: 6 Smokeless tobacco user: chewing tobacco second hand exposure: Yes (at [employer] every Friday.) alcohol intake: current substance use type: does not use Meds Home Medications Medication Instructions Recorded Confirmed Type L. acidophilus-L. rhamnosus 1 cap PO DAILY 03/07/18 02/16/19 History [Probiotic] azelastine 1 - 2 spray INTRANASAL BID PRN 03/07/18 02/16/19 History CO-Q-10 See Rx Instructions .ROUTE .COMPLEX 04/06/18 02/16/19 History Mylanta See Rx Instructions .ROUTE .COMPLEX 04/06/18 02/16/19 History Tylenol Extra Strength See Rx Instructions .ROUTE .COMPLEX 04/06/18 02/16/19 History varicella-zoster glycoE vacc-[id number] 50 mcg IM ONCE #1 each 04/06/18 02/16/19 Rx adj(PF) 50 mcg/0.5 mL IM susp, kit vitamin B-12 See Rx Instructions .ROUTE .COMPLEX 04/06/18 02/16/19 History levothyroxine 75 mcg tablet 75 mcg PO QDAY #90 tab 06/22/18 02/16/19 Rx cyclosporine 0.05 % eye drops 1 drop EYE-BOTH BID ml 06/25/18 02/16/19 History naproxen sodium 220 mg capsule 220 mg PO DAILY PRN cap 06/25/18 02/16/19 History lorazepam 0.5 mg tablet 0.5 mg PO BID-TID PRN #30 tab 07/09/18 02/16/19 Rx cholecalciferol (vitamin D3) 2,000 See Rx Instructions PO DAILY 08/12/18 02/16/19 History unit capsule rosuvastatin 10 mg PO HS #90 tab 09/07/18 02/16/19 Rx losartan 100 mg tablet 100 mg PO DAILY 09/30/18 02/16/19 History aspirin 81 mg tablet,delayed 81 mg PO DAILY 11/06/18 02/16/19 History release diltiazem ER 420 mg capsule,24 420 mg PO DAILY 11/06/18 02/16/19 History hr,extended release buspirone 5 mg tablet 10 mg PO BID #180 tab 12/21/18 02/16/19 Rx estradiol [Vagifem] 10 mcg VG 2XWEEKLY #12 tab 12/25/18 02/16/19 Rx chlorthalidone 25 mg tablet 25 mg PO DAILY 01/13/19 02/16/19 History omeprazole 20 mg PO DAILY 02/16/19 02/16/19 History Allergies Allergy/AdvReac Type Severity Reaction Status Date / Time lisinopril [LISINOPRIL] Allergy Severe COUGH Verified 12/23/18 14:06 meloxicam [MELOXICAM] Allergy Severe DYSPNEA Verified 12/23/18 14:06 olmesartan [OLMESARTAN] Allergy Severe DYSPNEA Verified 12/23/18 14:06 adhesive [ADHESIVE] Allergy Intermediate ITCHY RASH Verified 12/23/18 14:06 iodine [IODINE] Allergy Mild BLISTERS Verified 12/23/18 14:06 latex [LATEX] Allergy Mild ITCH Verified 12/23/18 14:06 amitriptyline [AMITRIPTYLINE] AdvReac Intermediate HALLUCINATI Verified 12/23/18 14:06 ON metoprolol [METOPROLOL] AdvReac Intermediate SEVERE Verified 12/23/18 14:06 COUGHING sertraline AdvReac Intermediate it made Verified 12/23/18 14:06 me feel really bad like I was sick. clarithromycin AdvReac Mild NAUSEA AND Verified 12/23/18 14:06 [CLARITHROMYCIN] FELT BAD Review of Systems Constitutional Constitutional: Reports as per HPI Exam Vital Signs (past 8 hours): - 02/16/19 20:48 02/16/19 21:30 02/16/19 22:00 Temperature 97.8 F Pulse Rate 91 H 80 81 Respiratory Rate 20 16 Blood Pressure 177/71 H Blood Pressure [Left Arm] 144/47 H 156/55 H Pulse Oximetry 100 96 96 02/16/19 22:30 Temperature Pulse Rate 88 Respiratory Rate 16 Blood Pressure Blood Pressure [Left Arm] 133/50 L Pulse Oximetry 96 Oxygen Delivery Method Room Air Narrative Exam Narrative: AAO, NAD, overweight female EOMI, MMM, no scleral icterus NGT in place, light gastric contents in cannister unlabored RA soft, moderate distension, no signficant ttp MAEW visible skin dry and intact Objective Labs Result Diagrams: 02/16/19 21:14 02/16/19 21:14 Labs: Laboratory Results - last 24 hr 02/16/19 02/16/19 02/16/19 21:14 21:14 21:14 WBC 10.8 RBC 4.39 Hgb 13.8 Hct 40.3 MCV 91.9 MCH 31.4 MCHC 34.2 RDW 12.8 Plt Count 321 Neut % (Auto) 82.4 H Lymph % (Auto) 11.5 L [place] % (Auto) 4.7 Eos % (Auto) 0.4 L Baso % (Auto) 1.0 Neut # (Auto) 8900 H Lymph # (Auto) 1200 [place] # (Auto) 500 Eos # (Auto) 0 Baso # (Auto) 100 PT 9.8 L INR 0.9 APTT 28 Sodium 131 L Potassium 3.1 L Chloride 91 L Carbon Dioxide 30 BUN 25 H Creatinine 0.90 Estimated GFR > 60.0 BUN/Creatinine Ratio 27.8 H Glucose 135 H Lactate Calcium 10.5 H Total Bilirubin 0.5 AST 32 ALT 27 Alkaline Phosphatase 125 Total Protein 7.9 Albumin 4.6 Globulin 3.3 Albumin/Globulin Ratio 1.4 Lipase 72 02/16/19 22:59 WBC RBC Hgb Hct MCV MCH MCHC RDW Plt Count Neut % (Auto) Lymph % (Auto) [place] % (Auto) Eos % (Auto) Baso % (Auto) Neut # (Auto) Lymph # (Auto) [place] # (Auto) Eos # (Auto) Baso # (Auto) PT INR APTT Sodium Potassium Chloride Carbon Dioxide BUN Creatinine Estimated GFR BUN/Creatinine Ratio Glucose Lactate 0.7 Calcium Total Bilirubin AST ALT Alkaline Phosphatase Total Protein Albumin Globulin Albumin/Globulin Ratio Lipase Assessment & Plan Assessment & Plan narrative: - SBO, likely from adhesive disease given history --> sounds like this has been progressing for some time --> no distress, no peritoneal signs --> fairly impressive CT before decompression but no signs indicating ischemia or perforation --> exam benign - NPO except ice chips, NGT decompression, resuscitation then MIVFs - discussed plan with pt about decompression with surgery for worsening of exam or failure to improve, she understands and agrees
[2019-02-16 23:30] VITALS: BP 147/49; PULSE 85; RESP 16; O2SAT 100
--- NOTE | 2019-02-16 23:50 | PC.NURSE ---
GEOVANNA Nguyễn at bedside
[2019-02-16 23:52] VITALS: BMI 26.5
[2019-02-17] VITALS (9 sets, daily range): BP systolic 132–153; BP diastolic 51–85; PULSE 84–95; RESP 16–17; TEMP 36.6–37.1; O2SAT 96–100
[2019-02-17] MEDS: DEXTROSE 5%-0.9% NS 1,000 ML 100 ML IV (00:41)
--- NOTE | 2019-02-17 01:13 | PM.HP.1 ---
History of Present Illness Date Patient Seen: 02/16/19 Time Patient Seen: 23:40 Chief complaint: Abdominal pain found to have a SBO Narrative: Nanci Shoemaker is a 78-year-old female with a history of multiple abdominal surgeries including a Coy fundoplication, gallbladder removal who presented with fairly gradual onset abdominal distention, pain particularly with eating, diarrhea least with solid stool, passing gas, nausea for a number of months but worsening over the past several days. She states that eating certain foods or overeating seem to trigger becoming bloated. In the last couple of days she had Iron sure which triggered the pain and a bowl of soup which also triggered the pain. In the emergency department they did a CT scan which indicated a high grade small bowel obstruction with a transition point in the mid abdomen. They placed an NG tube and consulted Dr. Ricks of General surgery. The thought was to try to conservatively manage this but there may be possibility she may need surgery. The patient has past medical history of GERD, peripheral vascular disease, hypothyroidism, hypertension, a flutter, and sleep apnea that was recently diagnosed. Patient History Medical History Snoring (Chronic) Fatigue (Chronic) Insomnia (Chronic) Obstructive sleep apnea of adult (Chronic) Asthma (Chronic) Depression (Chronic) GERD (gastroesophageal reflux disease) (Chronic) Graves disease (Chronic) Hyperlipemia (Chronic) Hypertension (Chronic) Hypothyroid (Chronic) Atrial flutter (Resolved ~05/2014) Hx of hysterectomy (Resolved 1985) Iron deficiency anemia (Resolved ~2013) Measles (Resolved) Mumps (Resolved) Osteopenia (Resolved ~2010) Surgical History History of knee replacement (Resolved 05/2008) Hx of cholecystectomy (Resolved 1996) Hx of hernia repair (Resolved 03/2011) Hx of knee surgery (Resolved 09/2008) Hx of knee surgery (Resolved 2006) Hx of rotator cuff surgery (Resolved 2004) Hx of surgical procedure (Resolved 1995) Hx of total knee arthroplasty (Resolved 2009) No pertinent past surgical history (Resolved) Social History household members: family Smoking Status: Former smoker Tobacco: How many years used: 6 Smokeless tobacco user: chewing tobacco second hand exposure: [place] ([place] [employer] [place] alcohol intake: current substance use type: does not use Family & Social History Social History: household members family Prior Living Arrangements House Safety & Behavioral: Feels Safe in Current Yes Environment Been Physically Hurt or No Threatened By a Person Suicidal Ideation Description None Suicide Plan Description No Plan Tobacco & Substance use: Smoking Status Former smoker alcohol intake current alcohol intake frequency holiday/special occasion Substance Use Type does not use Meds Home Medications Medication Instructions Recorded Confirmed Type L. acidophilus-L. rhamnosus 1 cap PO DAILY 03/07/18 02/16/19 History [Probiotic] azelastine 1 - 2 spray INTRANASAL BID PRN 03/07/18 02/16/19 History CO-Q-10 See Rx Instructions .ROUTE .COMPLEX 04/06/18 02/16/19 History Mylanta See Rx Instructions .ROUTE .COMPLEX 04/06/18 02/16/19 History Tylenol Extra Strength See Rx Instructions .ROUTE .COMPLEX 04/06/18 02/16/19 History varicella-zoster glycoE vacc-[id number] 50 mcg IM ONCE #1 each 04/06/18 02/16/19 Rx adj(PF) 50 mcg/0.5 mL IM susp, kit vitamin B-12 See Rx Instructions .ROUTE .COMPLEX 04/06/18 02/16/19 History levothyroxine 75 mcg tablet 75 mcg PO QDAY #90 tab 06/22/18 02/16/19 Rx cyclosporine 0.05 % eye drops 1 drop EYE-BOTH BID ml 06/25/18 02/16/19 History naproxen sodium 220 mg capsule 220 mg PO DAILY PRN cap 06/25/18 02/16/19 History lorazepam 0.5 mg tablet 0.5 mg PO BID-TID PRN #30 tab 07/09/18 02/16/19 Rx cholecalciferol (vitamin D3) 2,000 See Rx Instructions PO DAILY 08/12/18 02/16/19 History unit capsule rosuvastatin 10 mg PO HS #90 tab 09/07/18 02/16/19 Rx losartan 100 mg tablet 100 mg PO DAILY 09/30/18 02/16/19 History aspirin 81 mg tablet,delayed 81 mg PO DAILY 11/06/18 02/16/19 History release diltiazem ER 420 mg capsule,24 420 mg PO DAILY 11/06/18 02/16/19 History hr,extended release buspirone 5 mg tablet 10 mg PO BID #180 tab 12/21/18 02/16/19 Rx estradiol [Vagifem] 10 mcg VG 2XWEEKLY #12 tab 12/25/18 02/16/19 Rx chlorthalidone 25 mg tablet 25 mg PO DAILY 01/13/19 02/16/19 History omeprazole 20 mg PO DAILY 02/16/19 02/16/19 History Allergies Allergy/AdvReac Type Severity Reaction Status Date / Time lisinopril [LISINOPRIL] Allergy Severe COUGH Verified 12/23/18 14:06 meloxicam [MELOXICAM] Allergy Severe DYSPNEA Verified 12/23/18 14:06 olmesartan [OLMESARTAN] Allergy Severe DYSPNEA Verified 12/23/18 14:06 adhesive [ADHESIVE] Allergy Intermediate ITCHY RASH Verified 12/23/18 14:06 iodine [IODINE] Allergy Mild BLISTERS Verified 12/23/18 14:06 latex [LATEX] Allergy Mild ITCH Verified 12/23/18 14:06 amitriptyline [AMITRIPTYLINE] AdvReac Intermediate HALLUCINATI Verified 12/23/18 14:06 ON metoprolol [METOPROLOL] AdvReac Intermediate SEVERE Verified 12/23/18 14:06 COUGHING sertraline AdvReac Intermediate it made Verified 12/23/18 14:06 me feel really bad like I was sick. clarithromycin AdvReac Mild NAUSEA AND Verified 12/23/18 14:06 [CLARITHROMYCIN] FELT BAD Review of Systems Review of Systems The patient states she has felt flushed on and off but denies fever, she does have chronic dry eye, she has an irritation on the right side of her throat from previous placement of NG tubes, she denies palpitations or chest pain, but does have a previous diagnosis of a flutter, she denies shortness of breath or cough, she does state she has significant heartburn, she denies dysuria or polyuria, she states that she does ache all over and has dry skin she denies any neurological symptoms, she states she has anxiety, she has a history of hypothyroidism, and she states she bruises easily. Exam Vital Signs (past 8 hours): - 02/16/19 20:48 02/16/19 21:30 02/16/19 22:00 Temperature 97.8 F Pulse Rate 91 H 80 81 Respiratory Rate 20 16 Blood Pressure 177/71 H Blood Pressure [Left Arm] 144/47 H 156/55 H Pulse Oximetry 100 96 96 02/16/19 22:30 02/16/19 23:30 02/17/19 00:05 Temperature Pulse Rate 88 85 90 Respiratory Rate 16 16 16 Blood Pressure Blood Pressure [Left Arm] 133/50 L 147/49 H 143/51 H Pulse Oximetry 96 100 100 02/17/19 00:23 Temperature 98.2 F Pulse Rate 90 Respiratory Rate 16 Blood Pressure 153/68 H Blood Pressure [Left Arm] Pulse Oximetry Oxygen Delivery Method Room Air Narrative Exam Narrative: Gen: Alert, oriented 78 y.o. well-developed female, appears slightly uncomfortable but is nontoxic appearing HEENT: normocephalic, atraumatic, conjunctiva clear, sclera non-icteric, oral mucosa pink and moist. NG tube is in place in the left nares and is draining clear fluid with brown flecks in it. Neck: supple, full ROM Resp: Lungs CTA, non-labored breathing CV: RRR, no murmur or rubs Abd: ypoactive bowel tones, diffusely tender, and mildly distended but soft Skin: Has a quarter sized bruise on her right dorsal wrist, no other lesions or rashes, dry and intact Neuro: Alert and oriented X 4 w/no focal deficits Extremities: moves all 4 extremities, is ambulatory Psyche: normal mood and affect. Objective Labs Result Diagrams: 02/16/19 21:14 02/16/19 21:14 Labs: Laboratory Results - last 24 hr 02/16/19 02/16/19 02/16/19 21:14 21:14 21:14 WBC 10.8 RBC 4.39 Hgb 13.8 Hct 40.3 MCV 91.9 MCH 31.4 MCHC 34.2 RDW 12.8 Plt Count 321 Neut % (Auto) 82.4 H Lymph % (Auto) 11.5 L [place] % (Auto) 4.7 Eos % (Auto) 0.4 L Baso % (Auto) 1.0 Neut # (Auto) 8900 H Lymph # (Auto) 1200 [place] # (Auto) 500 Eos # (Auto) 0 Baso # (Auto) 100 PT 9.8 L INR 0.9 APTT 28 Sodium 131 L Potassium 3.1 L Chloride 91 L Carbon Dioxide 30 BUN 25 H Creatinine 0.90 Estimated GFR > 60.0 BUN/Creatinine Ratio 27.8 H Glucose 135 H Lactate Calcium 10.5 H Total Bilirubin 0.5 AST 32 ALT 27 Alkaline Phosphatase 125 Total Protein 7.9 Albumin 4.6 Globulin 3.3 Albumin/Globulin Ratio 1.4 Lipase 72 02/16/19 22:59 WBC RBC Hgb Hct MCV MCH MCHC RDW Plt Count Neut % (Auto) Lymph % (Auto) [place] % (Auto) Eos % (Auto) Baso % (Auto) Neut # (Auto) Lymph # (Auto) [place] # (Auto) Eos # (Auto) Baso # (Auto) PT INR APTT Sodium Potassium Chloride Carbon Dioxide BUN Creatinine Estimated GFR BUN/Creatinine Ratio Glucose Lactate 0.7 Calcium Total Bilirubin AST ALT Alkaline Phosphatase Total Protein Albumin Globulin Albumin/Globulin Ratio Lipase Assessment & Plan Assessment & Plan narrative: Nanci Shoemaker will be admitted as an inpatient, her SBO will be medically managed. General surgery will be following. 1. High-grade small-bowel obstruction, acute, present on admission Dr. Gilbert has been notified and has already consulted on the patient. Patient will continue with NG tube and remain NPO Mild pain control with IV acetaminophen, moderate pain control with IV ketorolac, severe pain control with IV morphine. 2. Hypokalemia with a level of 3.1, acute, present on admission She is ordered for D5 half normal saline with 40 mEq KCL 3. Essential hypertension, stable IV hydralazine IV labetalol for elevated blood pressures. This is not ordered currently she is normotensive. 4. History of a flutter, chronic and stable, present on admission Patient will be on telemetry over night and discontinued in the morning if no events. She takes diltiazem for this. If she develops a flutter, we can treat with IV diltiazem 5. Hypothyroidism, chronic low, present on admission Levothyroxine is currently being held. If she needs to be NPO for more than 3 days, we will institute IV levothyroxine at 37.5 mg daily. 6. Anxiety, chronic, present on admission Buspirone is being held due to NPO status, she may have Ativan for acute events. 7. Recent diagnosis of obstructive sleep apnea, active, present on admission Due to the NG tube it is unlikely that the patient will be able to wear a CPAP mask. If she develops long pauses, respiratory therapy will be consulted for management. Patient is admitted as an inpatient as her stay is anticipated to exceed 2 midnights. FEN: D5 half normal saline with 40 mEq of K, NPO, chemistries in the morning. VTE Prophylaxis: Bilateral SCDs Disposition: Likely discharge to home eventually. Code status: Full code Admission time: 65 minutes Meds reconciled: Yes/No/Partial based on current med list Time Spent With Patient Time with patient: 25 - 35 minutes Quality VTE Deep Vein Thrombosis/Pulmonary Embolism Present on Admission: No
[2019-02-17] MEDS: DEXTROSE 5%-0.45NS W/KCL 40MEQ 1,000 ML 100 MEQ IV (01:26)
--- NOTE | 2019-02-17 01:26 | P.HP_ITS ---
History of Present Illness Date Patient Seen: 02/16/19 Time Patient Seen: 23:40 Chief complaint: Abdominal pain found to have a SBO Narrative: Nanci Shoemaker is a 78-year-old female with a history of multiple abdominal surgeries including a Coy fundoplication, gallbladder removal who presented with fairly gradual onset abdominal distention, pain particularly with eating, diarrhea least with solid stool, passing gas, nausea for a number of months but worsening over the past several days. She states that eating certain foods or overeating seem to trigger becoming bloated. In the last couple of days she had Iron sure which triggered the pain and a bowl of soup which also triggered the pain. In the emergency department they did a CT scan which indicated a high grade small bowel obstruction with a transition point in the mid abdomen. They placed an NG tube and consulted Dr. Ricks of General surgery. The thought was to try to conservatively manage this but there may be possibility she may need surgery. The patient has past medical history of GERD, peripheral vascular disease, hypothyroidism, hypertension, a flutter, and sleep apnea that was recently diagnosed. Patient History Medical History Snoring (Chronic) Fatigue (Chronic) Insomnia (Chronic) Obstructive sleep apnea of adult (Chronic) Asthma (Chronic) Depression (Chronic) GERD (gastroesophageal reflux disease) (Chronic) Graves disease (Chronic) Hyperlipemia (Chronic) Hypertension (Chronic) Hypothyroid (Chronic) Atrial flutter (Resolved ~05/2014) Hx of hysterectomy (Resolved 1985) Iron deficiency anemia (Resolved ~2013) Measles (Resolved) Mumps (Resolved) Osteopenia (Resolved ~2010) Surgical History History of knee replacement (Resolved 05/2008) Hx of cholecystectomy (Resolved 1996) Hx of hernia repair (Resolved 03/2011) Hx of knee surgery (Resolved 09/2008) Hx of knee surgery (Resolved 2006) Hx of rotator cuff surgery (Resolved 2004) Hx of surgical procedure (Resolved 1995) Hx of total knee arthroplasty (Resolved 2009) No pertinent past surgical history (Resolved) Social History household members: family Smoking Status: Former smoker Tobacco: How many years used: 6 Smokeless tobacco user: chewing tobacco second hand exposure: [place] ([place] [employer] [place] alcohol intake: current substance use type: does not use Family & Social History Social History: household members family Prior Living Arrangements House Safety & Behavioral: Feels Safe in Current Yes Environment Been Physically Hurt or No Threatened By a Person Suicidal Ideation Description None Suicide Plan Description No Plan Tobacco & Substance use: Smoking Status Former smoker alcohol intake current alcohol intake frequency holiday/special occasion Substance Use Type does not use Meds Home Medications Medication Instructions Recorded Confirmed Type L. acidophilus-L. rhamnosus 1 cap PO DAILY 03/07/18 02/16/19 History [Probiotic] azelastine 1 - 2 spray INTRANASAL BID PRN 03/07/18 02/16/19 History CO-Q-10 See Rx Instructions .ROUTE .COMPLEX 04/06/18 02/16/19 History Mylanta See Rx Instructions .ROUTE .COMPLEX 04/06/18 02/16/19 History Tylenol Extra Strength See Rx Instructions .ROUTE .COMPLEX 04/06/18 02/16/19 History varicella-zoster glycoE vacc-AS01B 50 mcg IM ONCE #1 each 04/06/18 02/16/19 Rx adj(PF) 50 mcg/0.5 mL IM susp, kit vitamin B-12 See Rx Instructions .ROUTE .COMPLEX 04/06/18 02/16/19 History levothyroxine 75 mcg tablet 75 mcg PO QDAY #90 tab 06/22/18 02/16/19 Rx cyclosporine 0.05 % eye drops 1 drop EYE-BOTH BID ml 06/25/18 02/16/19 History naproxen sodium 220 mg capsule 220 mg PO DAILY PRN cap 06/25/18 02/16/19 History lorazepam 0.5 mg tablet 0.5 mg PO BID-TID PRN #30 tab 07/09/18 02/16/19 Rx cholecalciferol (vitamin D3) 2,000 See Rx Instructions PO DAILY 08/12/18 02/16/19 History unit capsule rosuvastatin 10 mg PO HS #90 tab 09/07/18 02/16/19 Rx losartan 100 mg tablet 100 mg PO DAILY 09/30/18 02/16/19 History aspirin 81 mg tablet,delayed 81 mg PO DAILY 11/06/18 02/16/19 History release diltiazem ER 420 mg capsule,24 420 mg PO DAILY 11/06/18 02/16/19 History hr,extended release buspirone 5 mg tablet 10 mg PO BID #180 tab 12/21/18 02/16/19 Rx estradiol [Vagifem] 10 mcg VG 2XWEEKLY #12 tab 12/25/18 02/16/19 Rx chlorthalidone 25 mg tablet 25 mg PO DAILY 01/13/19 02/16/19 History omeprazole 20 mg PO DAILY 02/16/19 02/16/19 History Allergies Allergy/AdvReac Type Severity Reaction Status Date / Time lisinopril [LISINOPRIL] Allergy Severe COUGH Verified 12/23/18 14:06 meloxicam [MELOXICAM] Allergy Severe DYSPNEA Verified 12/23/18 14:06 olmesartan [OLMESARTAN] Allergy Severe DYSPNEA Verified 12/23/18 14:06 adhesive [ADHESIVE] Allergy Intermediate ITCHY RASH Verified 12/23/18 14:06 iodine [IODINE] Allergy Mild BLISTERS Verified 12/23/18 14:06 latex [LATEX] Allergy Mild ITCH Verified 12/23/18 14:06 amitriptyline [AMITRIPTYLINE] AdvReac Intermediate HALLUCINATI Verified 12/23/18 14:06 ON metoprolol [METOPROLOL] AdvReac Intermediate SEVERE Verified 12/23/18 14:06 COUGHING sertraline AdvReac Intermediate it made Verified 12/23/18 14:06 me feel really bad like I was sick. clarithromycin AdvReac Mild NAUSEA AND Verified 12/23/18 14:06 [CLARITHROMYCIN] FELT BAD Review of Systems Review of Systems The patient states she has felt flushed on and off but denies fever, she does have chronic dry eye, she has an irritation on the right side of her throat from previous placement of NG tubes, she denies palpitations or chest pain, but does have a previous diagnosis of a flutter, she denies shortness of breath or cough, she does state she has significant heartburn, she denies dysuria or polyuria, she states that she does ache all over and has dry skin she denies any neurological symptoms, she states she has anxiety, she has a history of hypothyroidism, and she states she bruises easily. Exam Vital Signs (past 8 hours): - 02/16/19 20:48 02/16/19 21:30 02/16/19 22:00 Temperature 97.8 F Pulse Rate 91 H 80 81 Respiratory Rate 20 16 Blood Pressure 177/71 H Blood Pressure [Left Arm] 144/47 H 156/55 H Pulse Oximetry 100 96 96 02/16/19 22:30 02/16/19 23:30 02/17/19 00:05 Temperature Pulse Rate 88 85 90 Respiratory Rate 16 16 16 Blood Pressure Blood Pressure [Left Arm] 133/50 L 147/49 H 143/51 H Pulse Oximetry 96 100 100 02/17/19 00:23 Temperature 98.2 F Pulse Rate 90 Respiratory Rate 16 Blood Pressure 153/68 H Blood Pressure [Left Arm] Pulse Oximetry Oxygen Delivery Method Room Air Narrative Exam Narrative: Gen: Alert, oriented 78 y.o. well-developed female, appears slightly uncomfortable but is nontoxic appearing HEENT: normocephalic, atraumatic, conjunctiva clear, sclera non-icteric, oral mucosa pink and moist. NG tube is in place in the left nares and is draining clear fluid with brown flecks in it. Neck: supple, full ROM Resp: Lungs CTA, non-labored breathing CV: RRR, no murmur or rubs Abd: ypoactive bowel tones, diffusely tender, and mildly distended but soft Skin: Has a quarter sized bruise on her right dorsal wrist, no other lesions or rashes, dry and intact Neuro: Alert and oriented X 4 w/no focal deficits Extremities: moves all 4 extremities, is ambulatory Psyche: normal mood and affect. Objective Labs Result Diagrams: 02/16/19 21:14 02/16/19 21:14 Labs: Laboratory Results - last 24 hr 02/16/19 02/16/19 02/16/19 21:14 21:14 21:14 WBC 10.8 RBC 4.39 Hgb 13.8 Hct 40.3 MCV 91.9 MCH 31.4 MCHC 34.2 RDW 12.8 Plt Count 321 Neut % (Auto) 82.4 H Lymph % (Auto) 11.5 L [place] % (Auto) 4.7 Eos % (Auto) 0.4 L Baso % (Auto) 1.0 Neut # (Auto) 8900 H Lymph # (Auto) 1200 [place] # (Auto) 500 Eos # (Auto) 0 Baso # (Auto) 100 PT 9.8 L INR 0.9 APTT 28 Sodium 131 L Potassium 3.1 L Chloride 91 L Carbon Dioxide 30 BUN 25 H Creatinine 0.90 Estimated GFR > 60.0 BUN/Creatinine Ratio 27.8 H Glucose 135 H Lactate Calcium 10.5 H Total Bilirubin 0.5 AST 32 ALT 27 Alkaline Phosphatase 125 Total Protein 7.9 Albumin 4.6 Globulin 3.3 Albumin/Globulin Ratio 1.4 Lipase 72 02/16/19 22:59 WBC RBC Hgb Hct MCV MCH MCHC RDW Plt Count Neut % (Auto) Lymph % (Auto) [place] % (Auto) Eos % (Auto) Baso % (Auto) Neut # (Auto) Lymph # (Auto) [place] # (Auto) Eos # (Auto) Baso # (Auto) PT INR APTT Sodium Potassium Chloride Carbon Dioxide BUN Creatinine Estimated GFR BUN/Creatinine Ratio Glucose Lactate 0.7 Calcium Total Bilirubin AST ALT Alkaline Phosphatase Total Protein Albumin Globulin Albumin/Globulin Ratio Lipase Assessment & Plan Assessment & Plan narrative: Nanci Shoemaker will be admitted as an inpatient, her SBO will be medically managed. General surgery will be following. 1. High-grade small-bowel obstruction, acute, present on admission * Dr. Gilbert has been notified and has already consulted on the patient. * Patient will continue with NG tube and remain NPO * Mild pain control with IV acetaminophen, moderate pain control with IV ketorolac, severe pain control with IV morphine. 2. Hypokalemia with a level of 3.1, acute, present on admission * She is ordered for D5 half normal saline with 40 mEq KCL 3. Essential hypertension, stable * IV hydralazine IV labetalol for elevated blood pressures. This is not ordered currently she is normotensive. 4. History of a flutter, chronic and stable, present on admission * Patient will be on telemetry over night and discontinued in the morning if no events. * She takes diltiazem for this. If she develops a flutter, we can treat with IV diltiazem 5. Hypothyroidism, chronic low, present on admission * Levothyroxine is currently being held. If she needs to be NPO for more than 3 days, we will institute IV levothyroxine at 37.5 mg daily. 6. Anxiety, chronic, present on admission * Buspirone is being held due to NPO status, she may have Ativan for acute events. 7. Recent diagnosis of obstructive sleep apnea, active, present on admission * Due to the NG tube it is unlikely that the patient will be able to wear a CPAP mask. If she develops long pauses, respiratory therapy will be consulted for management. Patient is admitted as an inpatient as her stay is anticipated to exceed 2 midnights. FEN: D5 half normal saline with 40 mEq of K, NPO, chemistries in the morning. VTE Prophylaxis: Bilateral SCDs Disposition: Likely discharge to home eventually. Code status: Full code Admission time: 65 minutes Meds reconciled: Yes/No/Partial based on current med list Time Spent With Patient Time with patient: 25 - 35 minutes Quality VTE Deep Vein Thrombosis/Pulmonary Embolism Present on Admission: No
[2019-02-17] MEDS: PHENOL LIQUID 100 SPRAYS/BOTTLE SPRAY MM (04:00)
--- NOTE | 2019-02-17 06:19 | PC.NURSE ---
Pt is AxOx3, VSS, slightly hypertensive, tolerating room air. NGT to right nare connected to Low intermittent suction as ordered by GEOVANNA Nguyễn. NGT with 150mL brownish green output. Complaints of a sore throat due to NGT. Sore throat spray ordered and given. IVF running as ordered. Kept NPO No complaints of nausea. Pt says her stomach feels a bit better however. Tele: NSR, 1st AVB
[2019-02-17 06:56] LABS: INR 0.9 (0.9-1.3); Prothrombin Time 10.7 SECONDS (10.1-12.7)
[2019-02-17 07:01] LABS: Alanine Aminotransferase 27 IU/L (9-52); Albumin Globulin Ratio 1.4 (1.0-2.8); Alkaline Phosphatase 88 U/L (38-126); Aspartate Aminotransferase 29 IU/L (14-36); BUN Creatinine Ratio 25.7 (6-22); Bilirubin Total 0.4 mg/dL (0.2-1.3); Blood Urea Nitrogen 18 mg/dL (7-17); Calcium 9.7 mg/dL (8.4-10.2); Carbon Dioxide 32 mmol/L (22-32); Chloride 91 mmol/L (98-107); Estimated Glomerular Filt Rate > 60.0 mL/min (>60); Globulin 2.8 g/dL (1.7-4.1); Glucose 123 mg/dL (80-110); HEMOLYSIS < 15 (0-50); Potassium 3.2 mmol/L (3.4-5.1); Sodium 133 mmol/L (137-145); Total Protein 6.8 g/dL (6.3-8.2)
[2019-02-17] MEDS: KCL 40 MEQ IN NS 1,000 ML 100 MEQ IV ×2 (09:39→19:29)
--- NOTE | 2019-02-17 11:11 | P.PN_ITS ---
Subjective Date Patient Seen: 02/17/19 Time Patient Seen: 09:40 Interval history: Doing well this morning, no abd pain, no nausea. Is still passing diarrhea. Gastric contents in NGT, only 350cc recorded output. Minimal distension of abd. Pt comfortable other than NGT throat irritation. Exam Vital Signs (past 8 hours): - 02/17/19 06:22 02/17/19 08:00 02/17/19 08:15 Temperature 97.9 F 98.7 F Pulse Rate 85 84 Respiratory Rate 16 16 Blood Pressure 139/64 132/59 L Pulse Oximetry 97 97 Oxygen Delivery Method Room Air Oxygen Flow Rate 0 Narrative Exam Narrative: AAO, NAD, overweight female EOMI, MMM, no scleral icterus unlabored RA NGT with low volume gastric contents in cannister soft, nt, minimal distension MAEW visible skin dry and intact Objective Labs Result Diagrams: 02/16/19 21:14 02/17/19 06:25 Labs: Laboratory Results - last 24 hr 02/16/19 02/16/19 02/16/19 21:14 21:14 21:14 WBC 10.8 RBC 4.39 Hgb 13.8 Hct 40.3 MCV 91.9 MCH 31.4 MCHC 34.2 RDW 12.8 Plt Count 321 Neut % (Auto) 82.4 H Lymph % (Auto) 11.5 L [place] % (Auto) 4.7 Eos % (Auto) 0.4 L Baso % (Auto) 1.0 Neut # (Auto) 8900 H Lymph # (Auto) 1200 [place] # (Auto) 500 Eos # (Auto) 0 Baso # (Auto) 100 PT 9.8 L INR 0.9 APTT 28 Sodium 131 L Potassium 3.1 L Chloride 91 L Carbon Dioxide 30 BUN 25 H Creatinine 0.90 Estimated GFR > 60.0 BUN/Creatinine Ratio 27.8 H Glucose 135 H Lactate Calcium 10.5 H Total Bilirubin 0.5 AST 32 ALT 27 Alkaline Phosphatase 125 Total Protein 7.9 Albumin 4.6 Globulin 3.3 Albumin/Globulin Ratio 1.4 Lipase 72 02/16/19 02/17/19 02/17/19 22:59 06:25 06:25 WBC RBC Hgb Hct MCV MCH MCHC RDW Plt Count Neut % (Auto) Lymph % (Auto) [place] % (Auto) Eos % (Auto) Baso % (Auto) Neut # (Auto) Lymph # (Auto) [place] # (Auto) Eos # (Auto) Baso # (Auto) PT 10.7 INR 0.9 APTT Sodium 133 L Potassium 3.2 L Chloride 91 L Carbon Dioxide 32 BUN 18 H Creatinine 0.70 Estimated GFR > 60.0 BUN/Creatinine Ratio 25.7 H Glucose 123 H Lactate 0.7 Calcium 9.7 Total Bilirubin 0.4 AST 29 ALT 27 Alkaline Phosphatase 88 Total Protein 6.8 Albumin 4.0 Globulin 2.8 Albumin/Globulin Ratio 1.4 Lipase Assessment & Plan Assessment & Plan narrative: - NGT for decompression, minimal output and ongoing diarrhea this morning --> may be relieving but has had a few weeks of intermittent symptoms and may be a partial obstruction that worsened acutely but has not fully resolved --> ok to clamp to ambulate and shower --> ok for ice chips, water sips, hard candies - prn chloraseptic spray for throat - SCDs, lovenox Quality VTE Deep Vein Thrombosis/Pulmonary Embolism Present on Admission: No
--- NOTE | 2019-02-17 16:04 | CM.DANOTE ---
Discharge Planning/Care Management DCP: assessment: case received, EMR reviewed. Discussed in Team Rounds. Documentation reveals that pt is a 78 year old female who admitted late last night to care of hospitalist team. [facility] team is consulting. DR. Ferrer saw pt today. PCP: Love Spears [facility] Admission status: INPT: confirmed by UR RN Chance. Pt is being treated for a small bowel obstruction and at this point is being managed medically. NGT is in place and ok'd today for clamping to ambulate and shower. She is ok'd for ice. Due to lateness of hour will check in with her in the morning to continue the dcp assessment process. CM Discharge Assessment Start: 02/17/19 16:03 Freq: Status: Active Protocol: Document 02/17/19 16:03 ITV (Rec: 02/17/19 16:04 ITV [id number]) Discharge Planning Assessment Advance Directives? No Has Patient been admitted in last 30 No days? Prior Living Arrangements House Household Members family Whiteboard Updated in Patient Room with Yes name and ext. # of Mis Director Review Status In Process
[2019-02-17] MEDS: ENOXAPARIN 40 MG/0.4 ML SYRINGE SUBCUT (17:14)
[2019-02-18] VITALS (7 sets, daily range): BP systolic 144–173; BP diastolic 73–90; PULSE 83–102; RESP 16; TEMP 36.3–37.1; O2SAT 95–98
[2019-02-18] MEDS: KETOROLAC 30 MG/ML VIAL 15 MG IV ×2 (05:03→18:38)
[2019-02-18] MEDS: KCL 40 MEQ IN NS 1,000 ML 100 MEQ IV ×2 (05:39→18:32)
--- NOTE | 2019-02-18 06:04 | PC.NURSE ---
Patient is doing well. No complaints of abdominal pain or nausea. Complained of a bad headache this morning and was given Toradol with some relief. Her BP at that time was 169/74. NGT with 150mL of brown gastric drainage. IVF running as ordered. Reports passing flatus. Ambulates in room independently
[2019-02-18 06:50] LABS: Add Manual Diff / Slide Review NO; Basophils Absolute Auto 100 /uL (0-100); Basophils Percent Auto 1.6 % (0-2); Eosinophils Absolute Auto 200 /uL (0-450); Eosinophils Percent Auto 3.4 % (2-4); Hematocrit 36.6 % (36-46); Hemoglobin 12.2 g/dL (12.0-16.0); Lymphocytes Absolute Auto 1200 /uL (1100-4500); Lymphocytes Percent Auto 23.7 % (25-40); Mean Corpuscular HGB Conc 33.4 % (30-36); Mean Corpuscular Hemoglobin 30.9 PG (26-34); Mean Corpuscular Volume 92.7 fL (80-100); Monocytes Absolute Auto 500 /uL (0-900); Monocytes Percent Auto 8.8 % (3-14); Neutrophils Absolute Auto 3300 /uL (1500-7000); Neutrophils Percent Auto 62.5 % (50-75); Platelet Count 246 X10^3/uL (150-400); Red Blood Cell Count 3.95 X10^6/uL (4.0-5.2); White Blood Cell Count 5.3 X10^3/uL (4.5-11.0)
[2019-02-18 06:59] LABS: BUN Creatinine Ratio 18.3 (6-22); Blood Urea Nitrogen 11 mg/dL (7-17); Calcium 9.1 mg/dL (8.4-10.2); Carbon Dioxide 31 mmol/L (22-32); Chloride 102 mmol/L (98-107); Estimated Glomerular Filt Rate > 60.0 mL/min (>60); Glucose 85 mg/dL (80-110); HEMOLYSIS < 15 (0-50); Potassium 4.1 mmol/L (3.4-5.1); Sodium 138 mmol/L (137-145)
[2019-02-18] MEDS: Cyclosporine [Restasis Multidose] 1 DROP 1 EACH EYE-BOTH ×2 (08:52→22:05)
[2019-02-18] MEDS: ENOXAPARIN 40 MG/0.4 ML SYRINGE SUBCUT (08:52)
--- NOTE | 2019-02-18 09:07 | CM.DPC ---
DCP: continued: met in followup with pt as planned. Introduced self and role. Pt still has NG to suction in place and small amount of brown liquid noted in canister. She says she feels well, wishes she was able to be home but understands she is not ready yet. She says she has been up independently in the room. Got ready at the sink; did a spit bath. She confirms that she does live alone but that Chidi Duarte, her self identified boyfriend: [phone] does live nearby (in [facility]) and is currently at her home attending to her ill elderly dog. P: at this point plan if home when medically stable for same. Will follow prn.
--- NOTE | 2019-02-18 13:17 | DI.RAD.S_ITS ---
PROCEDURE: XR ACUTE ABDOMEN SERIES INDICATIONS: small bowel obstruction TECHNIQUE: One view chest and two views of the abdomen were acquired. COMPARISON: [facility], CR, XR CHEST 1V, 02/16/2019, 23:05. FINDINGS: Surgical changes and devices: Esophagogastric tube extends in normal position into the gastric lumen. Chest: Lungs are abnormal with a mild interstitial prominence as has been previously present in this patient. Heart size is normal. No pleural effusions. No pneumoperitoneum. Abdomen: Bowel gas pattern is nonspecific but with gas prominence of multiple small bowel loops over the mid and lower abdomen. Colonic gas distention is not found. Ileus may explain this appearance. No suspicious calcifications. Visualized solid organ contours appear normal. Bones: No suspicious bony lesions. IMPRESSION: Suspect ileus as the cause of the small bowel gas prominence over the abdomen and upper pelvis. No free air found. Esophagogastric tube in normal position. Chronic mild interstitial prominence over the lung parenchyma. Dictated by: Jann Garland M.D. on 02/18/2019 at 13:52 Approved by: Jann Garland M.D. on 02/18/2019 at 13:53
--- NOTE | 2019-02-18 14:48 | P.PN_ITS ---
Subjective Date Patient Seen: 02/18/19 Interval history: The patient is a 78-year-old female admitted to the hospital for partial small-bowel obstruction. She has had significant decrease in her NG output. She reports some rumbling in feels hungry. She has had no further nausea, no further abdominal pain, patient is anxious to try and eat. Exam Vital Signs (past 8 hours): - 02/18/19 07:32 02/18/19 08:00 02/18/19 12:00 Temperature 98.0 F 98.0 F Pulse Rate 83 87 Respiratory Rate 16 16 Blood Pressure 157/73 H 144/90 H Pulse Oximetry 97 97 98 Oxygen Delivery Method Room Air Oxygen Flow Rate 0 Narrative Exam Narrative: Pleasant female resting comfortably Lungs: Clear to auscultation Cardiac exam: Regular rate and rhythm normal S1-S2 Abdomen: Soft, nontender, hypoactive bowel tones, no palpable masses no board- like rigidity Extremities: No edema Objective Labs Result Diagrams: 02/18/19 06:25 02/18/19 06:25 Labs: Laboratory Results - last 24 hr 02/18/19 02/18/19 06:25 06:25 WBC 5.3 D RBC 3.95 L Hgb 12.2 Hct 36.6 MCV 92.7 MCH 30.9 MCHC 33.4 RDW 13.0 Plt Count 246 Neut % (Auto) 62.5 Lymph % (Auto) 23.7 L [place] % (Auto) 8.8 Eos % (Auto) 3.4 Baso % (Auto) 1.6 Neut # (Auto) 3300 Lymph # (Auto) 1200 [place] # (Auto) 500 Eos # (Auto) 200 Baso # (Auto) 100 Sodium 138 Potassium 4.1 Chloride 102 Carbon Dioxide 31 BUN 11 Creatinine 0.60 Estimated GFR > 60.0 BUN/Creatinine Ratio 18.3 Glucose 85 Calcium 9.1 Assessment & Plan Assessment & Plan narrative: 1. Partial small-bowel obstruction. Await repeat x-ray and to determine whether NG tube should be removed. The patient will remain NPO. 2. Hypertension continue current treated 3. Hypothyroid continue Once the patient's diet can be advanced and she is able to tolerate this anticipate discharge home. Quality VTE Deep Vein Thrombosis/Pulmonary Embolism Present on Admission: No
--- NOTE | 2019-02-18 16:14 | DI.RAD.S_ITS ---
PROCEDURE: FL SMALL BOWEL FOLLOW THROUGH INDICATIONS: Small bowel follow thru/diagnostic/therapeutic/water soluble COMPARISON: None. FINDINGS: KUB: Preprocedural label printer film demonstrates a normal bowel gas pattern. No suspicious abdominal calcifications. Visualized solid organ contours appear normal. No suspicious bony abnormalities. Small bowel: There is normal transit time of barium through the small bowel. Small bowel loops are of normal caliber throughout. Mucosal folds are smooth and of normal thickness. No strictures, intraluminal masses, or extrinsic mass effects are noted. The terminal ileum is identified, and is normal in morphology. IMPRESSION: A normal small bowel follow-through utilizing water-soluble oral contrast through the esophagogastric tube. Oral contrast has transited into the colon at termination of the study approximately 2 hours after beginning. Note is made of right upper quadrant surgical clips consistent with prior cholecystectomy. Dictated by: Jann Garland M.D. on 02/18/2019 at 18:56 Approved by: Jann Garland M.D. on 02/18/2019 at 18:56
--- NOTE | 2019-02-18 16:24 | P.PN_ITS ---
Subjective Date Patient Seen: 02/18/19 Time Patient Seen: 16:22 Interval history: Patient was seen earlier today and again now. She is feeling pretty normal she said. Had a little bit of burning pain in her upper abdomen that is gone away. That she might have had some reflux through the night. She is not feeling particularly distended any longer and has no abdominal pain. Exam Vital Signs (past 8 hours): - 02/18/19 12:00 02/18/19 15:15 Temperature 98.0 F 98.8 F Pulse Rate 87 94 H Respiratory Rate 16 16 Blood Pressure 144/90 H 173/79 H Pulse Oximetry 98 97 Oxygen Delivery Method Room Air Oxygen Flow Rate 0 Narrative Exam Narrative: Her abdomen is soft there is no tenderness. It is not d istended. Objective Imaging Abdominal x-ray: My impression: Extensive amount of gas in the small bowel but is not particularly distended. Difficult to see gas in the colon. Gastric bubble is not particularly large. Labs Result Diagrams: 02/18/19 06:25 02/18/19 06:25 Labs: Laboratory Results - last 24 hr 02/18/19 02/18/19 06:25 06:25 WBC 5.3 D RBC 3.95 L Hgb 12.2 Hct 36.6 MCV 92.7 MCH 30.9 MCHC 33.4 RDW 13.0 Plt Count 246 Neut % (Auto) 62.5 Lymph % (Auto) 23.7 L [place] % (Auto) 8.8 Eos % (Auto) 3.4 Baso % (Auto) 1.6 Neut # (Auto) 3300 Lymph # (Auto) 1200 [place] # (Auto) 500 Eos # (Auto) 200 Baso # (Auto) 100 Sodium 138 Potassium 4.1 Chloride 102 Carbon Dioxide 31 BUN 11 Creatinine 0.60 Estimated GFR > 60.0 BUN/Creatinine Ratio 18.3 Glucose 85 Calcium 9.1 Assessment & Plan Assessment & Plan narrative: Suspect patient's problem is nearly resolved. However I would like to make sure with small-bowel follow-through with water contrast material. This is been ordered and will be done through the evening. I would like to see if there any points that are hung up or truly obstructed. If not then the contrast should get through fairly quickly and she may be able to have the NG tube out and start p.o. intake. Discussed the study with the radiology technicians. Quality VTE Deep Vein Thrombosis/Pulmonary Embolism Present on Admission: No
--- NOTE | 2019-02-18 16:37 | PC.NURSE ---
small bowel follow through 1628 NG clamped for small bowel follow through.
[2019-02-19] VITALS (10 sets, daily range): BP systolic 146–177; BP diastolic 69–91; PULSE 82–105; RESP 14–18; TEMP 36.4–37.1; O2SAT 95–99
[2019-02-19] MEDS: LORazepam 2 MG/ML INJ 0.5 MG IV (01:33)
[2019-02-19] MEDS: KETOROLAC 30 MG/ML VIAL 15 MG IV ×2 (01:34→07:34)
--- NOTE | 2019-02-19 02:35 | PC.NURSE ---
Addendum entered by Gutierrez Marcos R.N. 02/19/19 07:29: Pt had 1 more loose watery stool mixed w/ urine 400ml. Pt still has head pain this AM, Carlos AUSTIN notifed. Waiting for Dr. Alvarez to round and Surgical Dr. Flood. Addendum entered by Gutierrez Marcos R.N. 02/19/19 03:50: Pt has had 2 BM's of loose watery stool approximately 400ml each, could be mixed urine and stool. Addendum entered by Gutierrez Marcos R.N. 02/19/19 03:42: Pt denies nausea on this shift. If pt becomes nausea, unclamp NG and hook to intermittent suction. Original Note: Pt VSS, except hypertensive and Tachy, BP 177/91, P105, she states that she usually takes 420mg of diltiazem at home. Carlos AUSTIN notified of pt's BP, and HR and stated headache pain 7/10. Carlos ordered 0.5 ativan and changed the toradol to Q6 hrs. Pt given medications at 0134. Pt is now sleeping peacefully at 0230. Carlos instructed me to clamp NG tube this night, since there was low output, 50ml. Hoping to pull in the AM. Pt's lung sounds are clear. CMS intact, SCD's on.
[2019-02-19] MEDS: KCL 40 MEQ IN NS 1,000 ML 100 MEQ IV ×2 (04:37→17:16)
[2019-02-19] MEDS: ENOXAPARIN 40 MG/0.4 ML SYRINGE SUBCUT (07:35)
[2019-02-19] MEDS: Cyclosporine [Restasis Multidose] 1 DROP 1 EACH EYE-BOTH ×2 (07:35→21:18)
--- NOTE | 2019-02-19 11:58 | PC.NURSE ---
Addendum entered by Thao Gleason R.N. 02/19/19 13:37: Assessment after lunch, pt tolerated 100% of apple juice, broth, jello, and tea. Pt stated feeling her abdomen rumble more, no nausea, abd distention, cramping. Original Note: Day Shift- Pt NPO this Am, few ice chips given. Pt C/O sore throat and anterior headache 7/10. PRN Toradol given at 0734 with satisfactory effect. Headache decreased from 7/10 to 4-5/10. NGT currently clamped, pt denies abd pain, bloating, nausea. NGT removed per Dr's order at 1055, pt did have some nare bleeding after into kleenex. Pt then given chicken broth, apple, juice and water and asked pt to intake slowly. Checked in with pt at 1150, tolerated cup of chicken broth and apple juice, no change, asymptomatic at this time and states that her headache is also better, again for lunch time tray reminded to intake slowly.
--- NOTE | 2019-02-19 13:52 | PM.PN.1 ---
Subjective Date Patient Seen: 02/19/19 Interval history: Patient reports feeling much better. She has had several loose and formed bowel movements. She is hungry and anxious to have her NGT removed. No specific complaints at this time Exam Vital Signs (past 8 hours): - 02/19/19 07:15 02/19/19 08:00 02/19/19 12:00 Temperature 98.4 F 97.8 F Pulse Rate 92 H 92 H Respiratory Rate 16 18 Blood Pressure 159/69 H 147/77 H Pulse Oximetry 97 97 97 Oxygen Delivery Method Room Air Oxygen Flow Rate 0 Narrative Exam Narrative: Pleasant female in no distress Lungs: clear to auscultation CV: RRR nl Sl S2 2/6 MERVIN ABd: soft/ non tender/ non distended, no rigidity or rebound tenderness No palpable masses Ext: no edema Objective Labs Result Diagrams: 02/18/19 06:25 02/18/19 06:25 Assessment & Plan Assessment & Plan narrative: 1. Partial Small Bowel Obstruction- Abdominal XRAy: Bowel gas pattern is nonspecific but with gas prominence of multiple small bowel loops over the mid and lower abdomen. Colonic gas distention is not found. Ileus may explain this appearance. No suspicious calcifications. Visualized solid organ contours appear normal. Bones: No suspicious bony lesions. IMPRESSION: Suspect ileus as the cause of the small bowel gas prominence over the abdomen and upper pelvis. No free air found. Esophagogastric tube in normal position. Plan: Advance Diet per surgery, NGT clamped at this time Hypertension-Continue diltiazem, when taking PO Hypothyroidism-continue Levothyroxine when taking PO Hyperlipidemia- resume rosuvastatin GERD-resume omeprazole Chronic mild interstitial prominence over the lung parenchyma. Small Bowel Study Quality VTE Deep Vein Thrombosis/Pulmonary Embolism Present on Admission: No
--- NOTE | 2019-02-19 17:15 | PM.PN.1 ---
Subjective Date Patient Seen: 02/19/19 Time Patient Seen: 13:00 Interval history: Patient seen earlier today. I reviewed her x-ray tests from yesterday. Contrast flowed without difficulty into the cyst colon. It was there within 2 hours. There is not really any dilatation of her intestine. She has no complaints of pain. Exam Vital Signs (past 8 hours): - 02/19/19 12:00 02/19/19 16:00 Temperature 97.8 F 98.1 F Pulse Rate 92 H 82 Respiratory Rate 18 14 Blood Pressure 147/77 H 157/73 H Pulse Oximetry 97 96 Oxygen Delivery Method Room Air Oxygen Flow Rate 0 Narrative Exam Narrative: Abdomen is soft nontender without mass. Objective Labs Result Diagrams: 02/18/19 06:25 02/18/19 06:25 Assessment & Plan Assessment & Plan narrative: Small bowel obstruction which appears to have been partial seems to have resolved. She has been begun on a diet. Will advance as tolerated. We will sign off at this time. Please re-consult if condition worsens. Quality VTE Deep Vein Thrombosis/Pulmonary Embolism Present on Admission: No
[2019-02-19] MEDS: SODIUM CHLORIDE 0.9% FLUSH 10 ML IV (17:17)
[2019-02-20 00:55] VITALS: BP 150/73; PULSE 83; RESP 18; TEMP 36.6; O2SAT 95
[2019-02-20 04:00] VITALS: BP 157/68; PULSE 80; RESP 18; TEMP 36.9; O2SAT 96
[2019-02-20] MEDS: KETOROLAC 30 MG/ML VIAL 15 MG IV (04:08)
[2019-02-20 07:28] VITALS: O2SAT 98
--- NOTE | 2019-02-20 07:31 | PC.NURSE ---
PATIENT IS WITHOUT COMPLAINTS. ABD SOFT AND NON-TENDER, POSITIVE BOWEL TONES, PASSING FLATUS, YELLOW LIQUID STOOLS. PER MD, IF TOLERATES DIET FOR BREAKFAST, MAY DC HOME.
[2019-02-20 08:00] VITALS: BP 149/69; PULSE 80; RESP 16; TEMP 36.5; O2SAT 97
--- NOTE | 2019-02-20 09:01 | PM.DS.1 ---
History of Present Illness Date Patient Seen: 02/20/19 Chief complaint: Abdominal pain found to have a SBO Narrative: bdominal pain found to have a SBO Narrative: Nanci Shoemaker is a 78-year-old female with a history of multiple abdominal surgeries including a Ocy fundoplication, gallbladder removal who presented with fairly gradual onset abdominal distention, pain particularly with eating, diarrhea least with solid stool, passing gas, nausea for a number of months but worsening over the past several days. She states that eating certain foods or overeating seem to trigger becoming bloated. In the last couple of days she had Iron sure which triggered the pain and a bowl of soup which also triggered the pain. In the emergency department they did a CT scan which indicated a high grade small bowel obstruction with a transition point in the mid abdomen. They placed an NG tube and consulted Dr. Ricks of General surgery. The thought was to try to conservatively manage this but there may be possibility she may need surgery. The patient has past medical history of GERD, peripheral vascular disease, hypothyroidism, hypertension, a flutter, and sleep apnea that was recently diagnosed. Discharge Providers Date of admission: 02/16/19 23:36 Discharge Date: 02/20/19 Primary care physician: Daniela Spears PA-C Consults: 02/17/19 00:16 Consult to Physician Routine Comment: Consulting Provider: Roxana Gilbert Reason for consultation: SBO Has provider been notified: Yes Discharge provider: Lavinia Alvarez MD Summary Discharge Diagnosis: 1. Partial small-bowel obstruction 2. Hypertension 3. Hypothyroidism 4. Hyperlipidemia 5. GERD 6. History of atrial flutter 7. History of Ocy fundoplication 8. Remote cholecystectomy 9. Obstructive sleep apnea Hospital Course: The patient is a 78-year-old female with a history of a Coy fundoplication, cholecystectomy who presented with abrupt onset abdominal pain distension and vomiting. CT scan of the abdomen confirmed a small-bowel obstruction. The patient was seen in consultation by General surgery. NG tube was placed to low intermittent suction. Patient was given IV hydration antiemetics, and pain medication. Slowly but surely she had improvement of her symptoms. The patient underwent an upper GI study with small bowel follow showed some mild abnormalities. Ultimately she was able to have her diet advanced. She did have a bowel movement she had decreased abdominal distention. Her NG tube was clamped. It she tolerate this without difficulty and was deemed appropriate for discharge home. Exam Vital Signs (past 8 hours): - 02/20/19 04:00 02/20/19 07:28 Temperature 98.5 F Pulse Rate 80 Respiratory Rate 18 Blood Pressure 157/68 H Pulse Oximetry 96 98 Oxygen Delivery Method Room Air Oxygen Flow Rate 0 Narrative Exam Narrative: Pleasant female resting comfortably in no distress Lungs: Clear to auscultation Cardiac exam: Regular rate and rhythm normal S1-S2 with a 2/6 systolic ejection murmur Abdomen: Soft, nontender, nondistended no board-like rigidity, no masses palpated normoactive bowel tones Extremities: No edema Objective Labs Result Diagrams: 02/18/19 06:25 02/18/19 06:25 Discharge Plan Discharge Plan Discharge Problem: Small bowel obstruction Patient Disposition: Home Discharge Med Rec/Prescriptions Prescriptions: Continued CO-Q-10 See Patient Comments .ROUTE .COMPLEX RF: 0 vitamin B-12 See Patient Comments .ROUTE .COMPLEX RF: 0 Mylanta See Patient Comments .ROUTE .COMPLEX RF: 0 Tylenol Extra Strength See Patient Comments .ROUTE .COMPLEX RF: 0 cholecalciferol (vitamin D3) 2,000 unit capsule See Patient Comments PO DAILY RF: 0 cyclosporine [Restasis MultiDose] 0.05 % drops 1 drop EYE-BOTH BID RF: 0 naproxen sodium [Aleve] 220 mg capsule 220 mg PO DAILY PRN (Reason: Pain (Scale Score 1-3)) RF: 0 lorazepam 0.5 mg tablet 0.5 mg PO BID-TID PRN (Reason: anxiety) Qty: 30 RF: 0 levothyroxine [Synthroid] 75 mcg tablet 75 mcg PO QDAY Qty: 90 RF: 2 rosuvastatin 10 mg tablet 10 mg PO HS Qty: 90 RF: 3 buspirone 5 mg tablet 10 mg PO BID Qty: 180 RF: 0 estradiol [Vagifem] 10 mcg tablet 10 mcg VG 2XWEEKLY Qty: 12 RF: 3 chlorthalidone 25 mg tablet 25 mg PO DAILY RF: 0 omeprazole 20 mg capsule,delayed release(DR/EC) 20 mg PO DAILY RF: 0 Probiotic 15 billion cell Capsule 1 cap PO DAILY RF: 0 azelastine 137 mcg (0.1 %) aerosol,spray 1 - 2 spray Intranasal BID PRN (Reason: allergies) RF: 0 losartan 100 mg tablet 100 mg PO DAILY RF: 0 aspirin 81 mg tablet,delayed release (DR/EC) 81 mg PO DAILY RF: 0 diltiazem HCl 420 mg capsule,extended release 24 hr 420 mg PO DAILY RF: 0 Discontinued varicella-zoster [id number] (PF) [Shingrix (PF)] 50 mcg/0.5 mL suspension for reconstitution 50 mcg IM ONCE Qty: 1 RF: 1 Follow up/Referrals: Daniela Spears PA-C [Primary Care Provider] - Provider Discharge Instructions Diet: Low-fat and Low-sodium Discharge Data Primary Care Provider: Daniela Spears Attending Provider: Chely Nguyễn Admit Date/Time: 02/16/19 23:36 Quality VTE Deep Vein Thrombosis/Pulmonary Embolism Present on Admission: No
--- NOTE | 2019-02-20 09:07 | PC.NURSE ---
Addendum entered by Yamileth Gordon R.N. 02/20/19 09:39: continues to tolerate her breakfast, eager to dc hm. her boyfriend is present. reviewed all dc paperwork w/ patient. she confirms understanding. left ambulatory w/ this public relations writer to escort in no s/sx's of distress. Original Note: ATE 100% OF BREAKFAST WITHOUT ADVERSE S/SX'S. MD STATED PATIENT COULD DC HOME IF TOLERATED BREAKFAST. IV OCCLUDED, DC'D INTACT.
--- NOTE | 2019-02-20 16:34 | CM.DPC ---
DCP Cont: Patient was discharged home. Called patient to check on her, for she had not signed IMM, had already left. She gave a verbal ok, regarding the IMM, did not dispute discharge, and was pleased with the care she received here. P: Patient was discharged home today, verbal given on her IMM. Erika Robert RN/Flanging Machine Operator
== END 2019-02-20 09:42 | disposition home or self-care (01) | DRG 389 ==
LOC: ED 22:13 → AC 23:37
PROVIDERS: Internal Medicine; Admitting Provider Nurse Practitioner Family; Emergency Provider Emergency Medicine; PCP Physician Assistant; Visit Provider Nurse Practitioner Family
DX: K56.51 Intestinal adhesions [bands], with partial obstruction (principal); I48.92 Unspecified atrial flutter; E87.6 Hypokalemia; G47.33 Obstructive sleep apnea (adult) (pediatric); I10 Essential (primary) hypertension; I73.9 Peripheral vascular disease, unspecified; K21.9 Gastro-esophageal reflux disease without esophagitis; E03.9 Hypothyroidism, unspecified; F41.9 Anxiety disorder, unspecified
CPT/HCPCS: 36415; 36591; 71045; 74022; 74177; 74250; 80048; 80053; 83605; 83690; 85025; 85610; 85730; 93005; 96374; 96375; 99222; 99231; 99284; 99285; J1650; J1885; J2060; J2270; J2405; J3480; Q9967

== ENCOUNTER → 2019-03-04 16:32 | Outpatient (CLI) | payer MEDICARE, OTHER, SELFPAY ==
[2019-02-16 23:52] VITALS: BMI 26.5
--- NOTE | 2019-03-04 | DI.MG.S_ITS ---
BILATERAL DIGITAL SCREENING MAMMOGRAM 3D/2D WITH CAD: 03/04/2019 CLINICAL: Routine screening. Family history of breast cancer. Comparison is made to exams dated: 02/27/2018 mammogram, 02/12/2017 mammogram, 02/12/2016 mammogram, 02/08/2015 mammogram, 06/20/2014, and 12/17/2013 mammogram - Located Within [facility]. There are scattered fibroglandular elements in both breasts. Current study was also evaluated with a Computer Aided Detection (CAD) system. No significant masses, calcifications, or other findings are seen in either breast. There has been no significant interval change. IMPRESSION: NEGATIVE There is no mammographic evidence of malignancy. A 1 year screening mammogram is recommended. This exam was interpreted at Station ID: [id number]. NOTE: For mammograms, a report in lay terms will be sent to the patient. Approximately 15% of breast malignancies will not be visualized mammographically. In the management of a palpable breast mass, a negative mammogram must not discourage biopsy of a clinically suspicious lesion. Electronically Signed By: Luis sepulveda/jennifer:03/05/2019 08:23:52 letter sent: Normal Exam ACR BI-RADS Category 1: Negative [id number]
== END ==
PROVIDERS: Family Provider Physician Assistant; PCP Physician Assistant; Visit Provider Physician Assistant
DX: Z12.31 Encounter for screening mammogram for malignant neoplasm of breast (principal); Z80.3 Family history of malignant neoplasm of breast
CPT/HCPCS: 77063; 77067

== ENCOUNTER → 2019-05-04 08:27 | Outpatient (CLI) | payer MEDICARE, OTHER, SELFPAY ==
[2019-05-04 09:36] LABS: BUN Creatinine Ratio 27.5 (6-22); Blood Urea Nitrogen 22 mg/dL (7-17); Calcium 10.3 mg/dL (8.4-10.2); Carbon Dioxide 34 mmol/L (22-32); Chloride 98 mmol/L (98-107); Estimated Glomerular Filt Rate > 60.0 mL/min (>60); Glucose 82 mg/dL (80-110); HEMOLYSIS < 15 (0-50); Potassium 4.2 mmol/L (3.4-5.1); Sodium 139 mmol/L (137-145)
== END ==
PROVIDERS: Family Provider Physician Assistant; PCP Physician Assistant; Visit Provider Internal Medicine Cardiovascular Disease
DX: I10 Essential (primary) hypertension (principal)
CPT/HCPCS: 36415; 80048

== ENCOUNTER → 2019-07-02 16:15 | Outpatient (CLI) | payer MEDICARE, OTHER, SELFPAY ==
--- NOTE | 2019-07-02 16:17 | DI.RAD.S_ITS ---
PROCEDURE: XR CHEST 2V INDICATIONS: Persistant cough; chest congestion TECHNIQUE: 2 views of the chest were acquired. COMPARISON: [facility], CT, CT ABDOMEN PELVIS W CON, 02/16/2019, 21:37. [facility], CR, XR CHEST 1V, 02/16/2019, 23:05. FINDINGS: Surgical changes and devices: None. Lungs and pleura: Scattered subsegmental atelectasis and/or scarring. No focal consolidation. No pleural effusions or pneumothorax. Subcentimeter nodule opacity with associated calcification projects in the right lung base, technically non-specific although appears slightly more conspicuous. This measures approximately 4-5 mm. Mediastinum: Mediastinal contours are normal. Heart size is normal. Bones and chest wall: No suspicious bony abnormalities. Right shoulder calcific tendinitis. Soft tissues appear unremarkable. IMPRESSION: Scattered subsegmental atelectasis and/or scarring. No focal consolidation Ill-defined partially calcified subcentimeter nodule opacity projects in the right lung base. As clinically warranted, 6 month interval followup with PA and lateral chest radiograph recommended to exclude early malignant or metastatic possibilities. Dictated by: Robert Nguyễn M.D. on 07/02/2019 at 17:32 Approved by: Robert Nguyễn M.D. on 07/02/2019 at 17:36
[2019-07-02 16:47] LABS: Add Manual Diff / Slide Review NO; Basophils Absolute Auto 0 /uL (0-100); Basophils Percent Auto 0.4 % (0-2); Eosinophils Absolute Auto 500 /uL (0-450); Eosinophils Percent Auto 5.6 % (2-4); Hematocrit 39.7 % (36-46); Hemoglobin 13.4 g/dL (12.0-16.0); Lymphocytes Absolute Auto 2900 /uL (1100-4500); Lymphocytes Percent Auto 31.8 % (25-40); Mean Corpuscular HGB Conc 33.7 % (30-36); Mean Corpuscular Hemoglobin 31.6 PG (26-34); Mean Corpuscular Volume 93.7 fL (80-100); Monocytes Absolute Auto 900 /uL (0-900); Monocytes Percent Auto 9.5 % (3-14); Neutrophils Absolute Auto 4800 /uL (1500-7000); Neutrophils Percent Auto 52.7 % (50-75); Platelet Count 305 X10^3/uL (150-400); Red Blood Cell Count 4.23 X10^6/uL (4.0-5.2); White Blood Cell Count 9.1 X10^3/uL (4.5-11.0)
== END ==
PROVIDERS: PCP Physician Assistant; Visit Provider Physician Assistant
DX: R05 Cough (principal); J01.90 Acute sinusitis, unspecified; R09.89 Other specified symptoms and signs involving the circulatory and respiratory systems; R91.1 Solitary pulmonary nodule
CPT/HCPCS: 36415; 71046; 85025

== ENCOUNTER → 2019-07-29 11:43 | Outpatient (CLI) | payer MEDICARE, OTHER, SELFPAY ==
--- NOTE | 2019-07-29 11:55 | DI.CT.S_ITS ---
PROCEDURE: CT SINUS SCREEN WO CON INDICATIONS: Recurrent sinusitis TECHNIQUE: Noncontrast 3.0 mm axial images acquired from the frontal sinuses to the mid-sella, with coronal and sagittal reformats. For radiation dose reduction, the following was used: automated exposure control, adjustment of mA and/or kV according to patient size. COMPARISON: [facility], CT, HEAD WITHOUT CONTRAST, 04/12/2017, 7:56. [facility], CT, SINUS SCREEN WO CONTRAST, 11/26/2012, 10:20. FINDINGS: Image quality: Excellent. Maxillary Sinuses: Moderate mucosal thickening is seen within the inferior maxillary sinuses, right worse than left and no definite abnormal bony remodeling can be seen. Ethmoid Air Cells: No bony remodeling or destruction. Sinuses are clear. Inferiorly projecting ethmoid air cells can be seen. Sphenoid Sinuses: No bony remodeling or destruction. Sinuses are clear. Frontal Sinuses: No bony remodeling or destruction. Sinuses are clear. Ostiomeatal Complexes: Ostiomeatal complexes are patent. However, they are constitutionally narrowed by inferiorly projecting ethmoid air cells, particularly on the left side. Miscellaneous: Visualized intra-orbital contents are normal. No curt bullosa or paradoxical turbinate curvature. There is mild leftward nasal septal deviation. IMPRESSION: Focal maxillary sinus disease. Narrowed ostiomeatal complexes, with posteriorly projecting ethmoid air cells. Previously seen focal sphenoid sinus disease has resolved. Dictated by: Cresencio Cordova M.D. on 07/29/2019 at 11:58 Approved by: Cresencio Cordova M.D. on 07/29/2019 at 12:00
== END ==
PROVIDERS: PCP Physician Assistant; Visit Provider Physician Assistant
DX: J01.11 Acute recurrent frontal sinusitis (principal); J32.0 Chronic maxillary sinusitis; R19.7 Diarrhea, unspecified
CPT/HCPCS: 70486; 87493

== ENCOUNTER 2019-12-21 09:00 | Inpatient (IN) | payer MEDICARE, OTHER, SELFPAY ==
[2019-12-21] VITALS (9 sets, daily range): BP systolic 143–179; BP diastolic 61–77; PULSE 86–110; RESP 11–18; TEMP 36.3–36.8; O2SAT 93–100; BMI 26.4
--- NOTE | 2019-12-21 09:31 | DI.RAD.S_ITS ---
PROCEDURE: XR ABDOMEN MIN 2V INDICATIONS: severe pain, hx obstruction TECHNIQUE: 2 views of the abdomen were acquired. COMPARISON: [facility], CR, XR ACUTE ABDOMEN SERIES, 02/18/2019, 13:20. FINDINGS: Surgical changes and devices: Previously identified nasogastric tube has been removed in the interim. Multiple surgical clips are seen within the upper abdomen. Bowel: No pneumoperitoneum. Multiple air-filled distended small bowel loops are seen within the upper abdomen demonstrating air-fluid levels with small bowel loops measuring up to at least 5 cm in diameter. There is relative paucity of bowel gas within the colon. No definite air or stool is seen overlying the expected location of the rectum. Soft tissues: No masses; visualized solid organ contours appear normal in size. No suspicious abdominal calcifications. Bones: No suspicious bony abnormalities. IMPRESSION: Findings are suggestive of a small bowel obstruction. A CT of the abdomen/pelvis with oral and intravenous contrast would be helpful for better characterization. Dictated by: Abdoul Rodriguez M.D. on 12/21/2019 at 9:29 Approved by: Abdoul Rodriguez M.D. on 12/21/2019 at 9:31
--- NOTE | 2019-12-21 09:41 | ED_ITS ---
HPI - Abdominal Pain General Chief Complaint: Abdominal Pain Stated Complaint: stomach pain/nausea Time Seen by Provider: 12/21/19 09:00 Source: patient and family Mode of arrival: Ambulatory Limitations: no limitations History of Present Illness HPI narrative: 79-year-old female former smoker with history of hypertension, prior bowel obstructions, GERD presents with her in the chief complaint of severe right-sided abdominal pain nausea and vomiting since this morning. She went to bed in her normal state of health and awoke with this pain. Her pain is worse with motion and improves with rest. It is generally on the right side and she denies radiation of the pain. She has had no fever or chills. She denies chest pain or shortness of breath. She denies exposure to persons known to have COVID-19 nor has she had symptoms herself. Her most recent hospitalization for bowel obstruction was about 4-5 years ago and thought to be secondary to adhesions from her multiple abdominal surgeries. She had similar symptoms a few weeks ago that resolved on their own. She attempted to have a bowel movement this morning but was unable and states that she has been passing gas. Her last oral intake was some home and milk this morning to help settle her stomach. MD complaint: abdominal pain Onset (ago): hour(s) Pain Consistency: constant Location: RUQ and RLQ Severity: severe Severity scale (1-10): 9 Quality: cramping, stabbing and aching Radiation: none Relieving factors: nothing Exacerbating factors: movement Associated symptoms: nausea and vomiting Related Data Home Medications Medication Instructions Recorded Confirmed Probiotic 1 cap PO DAILY 03/07/18 07/27/19 CO-Q-10 See Rx Instructions .ROUTE .COMPLEX 04/06/18 07/27/19 Mylanta See Rx Instructions .ROUTE .COMPLEX 04/06/18 07/27/19 Tylenol Extra Strength See Rx Instructions .ROUTE .COMPLEX 04/06/18 07/27/19 vitamin B-12 See Rx Instructions .ROUTE .COMPLEX 04/06/18 07/27/19 cyclosporine 0.05 % eye drops 1 drop EYE-BOTH BID ml 06/25/18 07/27/19 naproxen sodium 220 mg capsule 220 mg PO DAILY PRN cap 06/25/18 07/27/19 cholecalciferol (vitamin D3) 50 See Rx Instructions PO DAILY 08/12/18 07/27/19 mcg (2,000 unit) capsule losartan 100 mg tablet 100 mg PO DAILY 09/30/18 07/27/19 aspirin 81 mg tablet,delayed 81 mg PO DAILY 11/06/18 07/27/19 release diltiazem HCl 420 mg capsule,24 420 mg PO DAILY 11/06/18 07/27/19 hr,extended release chlorthalidone 25 mg tablet 25 mg PO DAILY 01/13/19 07/27/19 omeprazole 20 mg PO DAILY 02/16/19 07/27/19 cetirizine 10 mg tablet 10 mg PO DAILY PRN tab 03/01/19 07/27/19 simethicone 125 mg chewable tablet 125 mg PO ONCE PRN tab 03/01/19 07/27/19 Stool softener See Rx Instructions .ROUTE .COMPLEX 04/08/19 07/27/19 Previous Rx's Medication Instructions Recorded polyethylene glycol 3350 17 17 gram PO DAILY #527 gram 03/01/19 gram/dose oral powder lorazepam 0.5 mg tablet 0.5 mg PO BID-TID PRN #30 tab 05/05/19 azelastine 137 mcg (0.1 %) nasal See Rx Instructions .ROUTE 05/18/19 spray aerosol .COMPLEX #30 milliliter estradiol 10 mcg vaginal tablet 10 mcg VAGINAL 2XW PRN #12 tab 06/09/19 buspirone 10 mg tablet 10 mg PO BID #180 tab 06/10/19 levothyroxine 75 mcg tablet 75 mcg PO DAILY #90 tab 08/24/19 rosuvastatin 10 mg tablet See Rx Instructions .ROUTE 12/01/19 .COMPLEX #90 tablet Allergies Allergy/AdvReac Type Severity Reaction Status Date / Time lisinopril [LISINOPRIL] Allergy Severe COUGH Verified 07/27/19 09:04 meloxicam [MELOXICAM] Allergy Severe DYSPNEA Verified 07/27/19 09:04 olmesartan [OLMESARTAN] Allergy Severe DYSPNEA Verified 07/27/19 09:04 adhesive [ADHESIVE] Allergy Intermediate ITCHY RASH Verified 07/27/19 09:04 iodine [IODINE] Allergy Mild BLISTERS Verified 07/27/19 09:04 latex [LATEX] Allergy Mild ITCH Verified 07/27/19 09:04 amitriptyline [AMITRIPTYLINE] AdvReac Intermediate HALLUCINATI Verified 07/27/19 09:04 ON metoprolol [METOPROLOL] AdvReac Intermediate SEVERE Verified 07/27/19 09:04 COUGHING sertraline AdvReac Intermediate it made Verified 07/27/19 09:04 me feel really bad like I was sick. clarithromycin AdvReac Mild NAUSEA AND Verified 07/27/19 09:04 [CLARITHROMYCIN] FELT BAD Review of Systems Constitutional Constitutional: Denies chills, Denies fatigue, Denies fever(s), Denies frequent falls, Denies lethargy and Denies weakness Eyes Eyes: Denies change in vision, Denies eye discharge, Denies irritation and Denies loss of vision ENT Ears, Nose, Mouth, and Throat: Denies change in voice, Denies dizziness, Denies neck pain, Denies sore throat and Denies throat swelling Cardiovascular Cardiovascular: Denies chest pain, Denies irregular heart rhythm, Denies l ightheadedness, Denies palpitations, Denies dyspnea, Denies dyspnea on exertion and Denies orthopnea Respiratory Respiratory: Denies cough, Denies dyspnea, Denies dyspnea on exertion and Denies wheezing Gastrointestinal Gastrointestinal: Reports abdominal pain, Denies change in bowel habits, Denies diarrhea, Reports nausea and Reports vomiting Genitourinary Genitourinary: Denies hematuria, Denies flank pain, Denies urinary incontinence and Denies urinary urgency Musculoskeletal Musculoskeletal: Denies back pain, Denies muscle weakness, Denies neck pain, Denies numbness and Denies tingling Integumentary/Breasts Skin/Breast: Denies pruritus, Denies erythema, Denies rash and Denies wounds Neurologic Neurologic: Denies behavioral changes, Denies confusion, Denies dizziness, Denies frequent falls, Denies loss of vision, Denies numbness, Denies tingling and Denies weakness Psychiatric Psychiatric: Denies anxiety, Denies behavioral changes, Denies confusion, Denies depression, Denies homicidal ideation and Denies suicidal ideation Endocrine Endocrine: Denies fatigue, Denies flushing and Denies palpitations Hematologic/Lymphatic Hematologic/Lymphatic: Denies easy bruising Allergic/Immunologic Allergic/Immunologic: Denies urticaria, Denies throat swelling and Denies whee zing Patient History Medical History Asthma (Chronic) Atrial flutter (Resolved ~05/2014) Depression (Chronic) Fatigue (Resolved) GERD (gastroesophageal reflux disease) (Chronic) Graves disease (Chronic) Hyperlipemia (Chronic) Hypertension (Chronic) Hypothyroid (Chronic) Insomnia (Resolved) Iron deficiency anemia (Resolved ~2013) Measles (Resolved) Mumps (Resolved) Obstructive sleep apnea of adult (Chronic) Osteopenia (Resolved ~2010) Restless legs syndrome (RLS) (Suspected) Snoring (Resolved) Surgical History History of knee replacement (Resolved 05/2008) Hx of cholecystectomy (Resolved 1996) Hx of hernia repair (Resolved 03/2011) Hx of hysterectomy (Resolved 1985) Hx of knee surgery (Resolved 09/2008) Hx of knee surgery (Resolved 2006) Hx of rotator cuff surgery (Resolved 2004) Hx of surgical procedure (Resolved 1995) Hx of total knee arthroplasty (Resolved 2009) No pertinent past surgical history (Resolved) Family History Mother Diabetes mellitus CVA (cerebral vascular accident) Sister Diabetes mellitus Father Malignant neoplasm of mesothelial tissue Social History household members: family Smoking Status: Former smoker Tobacco: How many years used: 6 Smokeless tobacco user: chewing tobacco second hand exposure: Yes (at the [employer] [facility] every Friday.) alcohol intake: current substance use type: does not use Smoking Status: Former smoker alcohol intake frequency: holidays/special occasions only Substance Use Type: does not use Exam Narrative Exam Narrative: GENERAL: [79] year old patient appears stated age. Well-n ourished, well-developed patient, in obvious distress. Walking slowly, unable to stand upright HEAD: Atraumatic. Normocephalic. EYES: Pupils equal round and reactive. Extraocular motions intact. No scleral icterus. No injection or drainage. ENT: Nose without bleeding, purulent drainage. Throat without erythema, tonsillar hypertrophy or exudate. Airway patent. NECK: Trachea midline. Non tender CARDIOVASCULAR: Regular rate and rhythm without murmurs, gallops, or rubs. RESPIRATORY: Clear to auscultation. Breath sounds equal bilaterally. No wheezes, rales, or rhonchi. GASTROINTESTINAL: Abdomen soft, generally tender, but moreso on Right side, moderate distention. Decreased Bowel sounds on left lower abdomen, typmany on right EXTREMITIES: No edema or joint tenderness. BACK: Nontender without deformity or crepitance. No flank tenderness. NEURO: AOx3. SKIN: No rash or erythema of visible areas Initial Vital Signs Initial Vital Signs: Vital Signs Temperature 97.3 F L 12/21/19 09:05 Pulse Rate 110 H 12/21/19 09:05 Respiratory Rate 15 12/21/19 09:05 Blood Pressure 179/77 H 12/21/19 09:05 Pulse Oximetry 97 12/21/19 09:05 Course Orders Ordered: ED Orders 12/21/19 09:19 Lactate (Lactic Acid) Stat 12/21/19 09:31 XR abdomen min 2V Stat 12/21/19 09:50 Complete Blood Count AUTO DIFF Stat Comprehensive Metabolic Panel Stat Lipase Stat 12/21/19 11:13 XR abdomen 1V Stat Discontinued Medications Hydromorphone HCl (Dilaudid) 0.5 mg IV NOW ONE Stop: 12/21/19 09:31 Last Admin: 12/21/19 09:43 Dose: 0.5 mg Documented by: JOSHUA Sodium Chloride (Normal Saline 0.9%) 1,000 mls @ 1,000 mls/hr IV BOLUS ONE Stop: 12/21/19 10:29 Last Infusion: 12/21/19 11:26 Dose: 0 mls/hr Documented by: Admin: 12/21/19 09:42 Dose: 1,000 mls/hr Documented by: JOSHUA Ondansetron HCl (Zofran) 4 mg IV NOW ONE Stop: 12/21/19 09:31 Last Admin: 12/21/19 09:42 Dose: 4 mg Documented by: JOSHUA Consultations Consultation #1: call to gen surgery and NG placed on completion of Xray given improvement with NG, lack of elevated WBC or lactate and history of resolving obstruction without surgery he recommends against CT for now, and admission to medicine with consult if needed to surgery Dr. Alvarez is happy to accept Vital Signs Vital signs: Vital Signs - 8 hr 12/21/19 09:05 12/21/19 09:30 12/21/19 10:15 Temperature 97.3 F L Pulse Rate 110 H 88 86 Respiratory Rate 15 11 L 15 Blood Pressure 179/77 H Blood Pressure [Right Arm] 166/74 H 157/71 H Pulse Oximetry 97 96 100 06/02/20 11:00 12/21/19 11:30 Temperature Pulse Rate 93 H 92 H Respiratory Rate 12 11 L Blood Pressure Blood Pressure [Right Arm] 167/72 H 159/69 H Pulse Oximetry 96 98 MDM - Abdominal Pain Lab Data Result diagrams: 12/21/19 09:50 12/21/19 09:50 Labs: Lab Results 12/21/19 12/21/19 12/21/19 Range/Units 09:19 09:50 09:50 WBC 9.6 (4.5-11.0) X10^3/uL RBC 4.64 (4.0-5.2) X10^6/uL Hgb 14.9 (12.0-16.0) g/dL Hct 42.8 (36-46) % MCV 92.1 (80-100) fL MCH 32.1 (26-34) PG MCHC 34.8 (30-36) % RDW 12.8 (11.6-14.8) % Plt Count 323 (150-400) X10^3/uL Neut % (Auto) 83.7 H (50-75) % Lymph % (Auto) 9.8 L (25-40) % Brooks % (Auto) 5.2 (3-14) % Eos % (Auto) 0.4 L (2-4) % Baso % (Auto) 0.9 (0-2) % Neut # (Auto) 8000 H (6753-2687) /uL Lymph # (Auto) 900 L (3158-6405) /uL Brooks # (Auto) 500 (0-900) /uL Eos # (Auto) 0 (0-450) /uL Baso # (Auto) 100 (0-100) /uL Sodium 132 L (137-145) mmol/L Potassium 3.4 (3.4-5.1) mmol/L Chloride 88 L (98-107) mmol/L Carbon Dioxide 34 H (22-32) mmol/L BUN 25 H (7-17) mg/dL Creatinine 1.02 (0.52-1.04) mg/dL Estimated GFR 52.5 L (>60) mL/min BUN/Creatinine Ratio 24.5 H (6-22) Glucose 148 H (80-110) mg/dL Lactate 1.3 (0.7-2.1) mmol/L Calcium 11.3 H (8.4-10.2) mg/dL Total Bilirubin 0.5 (0.2-1.3) mg/dL AST 34 (14-36) IU/L ALT 23 (<35) IU/L Alkaline Phosphatase 119 (38-126) U/L Total Protein 8.4 H (6.3-8.2) g/dL Albumin 5.0 (3.5-5.0) g/dL Globulin 3.4 (1.7-4.1) g/dL Albumin/Globulin Ratio 1.5 (1.0-2.8) Lipase 115 (23-300) U/L Discharge Plan Departure Patient Disposition: Admitted As Inpatient Clinical Impression: Bowel obstruction Qualifiers: Intestinal obstruction type: unspecified Intestinal obstruction extent: unspecified extent Qualified Code(s): K56.609 - Unspecified intestinal obstruction, unspecified as to partial versus complete obstruction Referrals: Daniela Spears PA-C [Primary Care Provider] - Admit Date/Time: 12/21/19 11:45 Admit Provider: Lavinia Alvarez
[2019-12-21] MEDS: ONDANSETRON 4 MG/2 ML INJ IV ×2 (09:42→16:17)
[2019-12-21] MEDS: SODIUM CHLORIDE 0.9% 1,000 ML 1000 ML IV (09:42)
[2019-12-21] MEDS: HYDROMORPHONE 0.5 MG INJ IV (09:43)
[2019-12-21 09:45] LABS: Lactate (Lactic Acid) 1.3 mmol/L (0.7-2.1)
[2019-12-21 10:05] LABS: Add Manual Diff / Slide Review NO; Basophils Absolute Auto 100 /uL (0-100); Basophils Percent Auto 0.9 % (0-2); Eosinophils Absolute Auto 0 /uL (0-450); Eosinophils Percent Auto 0.4 % (2-4); Hematocrit 42.8 % (36-46); Hemoglobin 14.9 g/dL (12.0-16.0); Lymphocytes Absolute Auto 900 /uL (1100-4500); Lymphocytes Percent Auto 9.8 % (25-40); Mean Corpuscular HGB Conc 34.8 % (30-36); Mean Corpuscular Hemoglobin 32.1 PG (26-34); Mean Corpuscular Volume 92.1 fL (80-100); Monocytes Absolute Auto 500 /uL (0-900); Monocytes Percent Auto 5.2 % (3-14); Neutrophils Absolute Auto 8000 /uL (1500-7000); Neutrophils Percent Auto 83.7 % (50-75); Platelet Count 323 X10^3/uL (150-400); Red Blood Cell Count 4.64 X10^6/uL (4.0-5.2); Red Cell Distribution Width 12.8 % (11.6-14.8); White Blood Cell Count 9.6 X10^3/uL (4.5-11.0)
[2019-12-21 10:21] LABS: Alanine Aminotransferase 23 IU/L (<35); Albumin Globulin Ratio 1.5 (1.0-2.8); Alkaline Phosphatase 119 U/L (38-126); Aspartate Aminotransferase 34 IU/L (14-36); BUN Creatinine Ratio 24.5 (6-22); Bilirubin Total 0.5 mg/dL (0.2-1.3); Blood Urea Nitrogen 25 mg/dL (7-17); Calcium 11.3 mg/dL (8.4-10.2); Carbon Dioxide 34 mmol/L (22-32); Chloride 88 mmol/L (98-107); Estimated Glomerular Filt Rate 52.5 mL/min (>60); Globulin 3.4 g/dL (1.7-4.1); Glucose 148 mg/dL (80-110); HEMOLYSIS < 15 (0-50); Lipase 115 U/L (23-300); Potassium 3.4 mmol/L (3.4-5.1); Sodium 132 mmol/L (137-145); Total Protein 8.4 g/dL (6.3-8.2)
--- NOTE | 2019-12-21 11:13 | DI.RAD.S_ITS ---
PROCEDURE: XR ABDOMEN 1V INDICATIONS: ng tube placement TECHNIQUE: One view of the abdomen acquired. COMPARISON: [facility], CR, XR ABDOMEN MIN 2V, 12/21/2019, 9:53. FINDINGS: Surgical changes and devices: Tip of NG tube adjacent to GE junction with side-port in the distal esophagus. NG tube could be advanced 8-10 cm. Bowel: Multiple dilated loops of small bowel noted with loops dilated up to 4.1 cm compatible with small bowel obstruction. Soft tissues: No suspicious abdominal calcifications. Visualized solid organ contours appear normal in size. Bones: No suspicious bony lesions. IMPRESSION: Tip of NG tube at GE junction with side-port in distal esophagus. Dictated by: Laly Clark MD, PhD on 12/21/2019 at 11:46 Approved by: Laly Clark MD, PhD on 12/21/2019 at 11:48
--- NOTE | 2019-12-21 12:23 | PC.NURSE ---
Pt feeling better after 800ml out NT tube,pt having burning. Dr Maza aware
--- NOTE | 2019-12-21 14:28 | PC.ADMIT ---
[email or web address] Admission Note: The patient,Nanci Lainez,79 y/o, was given written information regarding hospital policies, unit procedures and contact persons. Patient's smoking status: Former smoker. Vital Signs - 8 hr 12/21/19 09:05 12/21/19 09:30 12/21/19 10:15 Temperature 97.3 F L Pulse Rate 110 H 88 86 Respiratory Rate 15 11 L 15 Blood Pressure 179/77 H Blood Pressure [Right Arm] 166/74 H 157/71 H Pulse Oximetry 97 96 100 12/21/19 11:00 12/21/19 11:30 12/21/19 12:30 Temperature Pulse Rate 93 H 92 H 98 H Respiratory Rate 12 11 L 15 Blood Pressure Blood Pressure [Right Arm] 167/72 H 159/69 H 155/67 H Pulse Oximetry 96 98 98 12/21/19 13:15 Temperature 98.3 F Pulse Rate 109 H Respiratory Rate 18 Blood Pressure 143/76 H Blood Pressure [Right Arm] Pulse Oximetry 99 PATIENT AWAKE, CONVERSANT. RATES ABD PAIN RUQ 5/10. DENIES N/V AT THIS TIME. NGT TO LIS. NPO. AWAITING FURTHER ORDERS FROM DR. DE LEON.
--- NOTE | 2019-12-21 16:00 | P.HP_ITS ---
History of Present Illness History of Present Illness Date Patient Seen: 12/21/19 Chief complaint: stomach pain/nausea Narrative: The patient is a 79-year-old female with a history of small-bowel obstruction related to adhesions. She has had a cholecystectomy, hysterectomy, Coy fundoplication. The patient states that last evening she noted abdominal distension. She is on BiPAP at night which at times causes this. However today she developed severe pain radiating around to her back. She had nausea and dry heaves. No fever. She did have some chills. She was nauseated. She had no hematemesis melena or bright red blood per rectum. The patient was brought into the emergency room for evaluation in the ED the patient was found to have a small-bowel obstruction. She has previously been admitted for bowel obstructions they resolved with NG tube decompression and IV fluids. Surgery was consulted from the emergency department and recommended conservative medical management. The patient is admitted to the hospital for further evaluation. Patient History Medical History Asthma (Chronic) Atrial flutter (Resolved ~05/2014) Depression (Chronic) Fatigue (Resolved) GERD (gastroesophageal reflux disease) (Chronic) Graves disease (Chronic) Hyperlipemia (Chronic) Hypertension (Chronic) Hypothyroid (Chronic) Insomnia (Resolved) Iron deficiency anemia (Resolved ~2013) Measles (Resolved) Mumps (Resolved) Obstructive sleep apnea of adult (Chronic) Osteopenia (Resolved ~2010) Restless legs syndrome (RLS) (Suspected) Snoring (Resolved) Surgical History History of knee replacement (Resolved 05/2008) Hx of cholecystectomy (Resolved 1996) Hx of hernia repair (Resolved 03/2011) Hx of hysterectomy (Resolved 1985) Hx of knee surgery (Resolved 09/2008) Hx of knee surgery (Resolved 2006) Hx of rotator cuff surgery (Resolved 2004) Hx of surgical procedure (Resolved 1995) Hx of total knee arthroplasty (Resolved 2009) No pertinent past surgical history (Resolved) Family & Social History Family History Mother Diabetes mellitus CVA (cerebral vascular accident) Sister Diabetes mellitus Father Malignant neoplasm of mesothelial tissue Social History: household members none Prior Living Arrangements House Safety & Behavioral: Feels Safe in Current Yes Environment Been Physically Hurt or No Threatened By a Person Suicidal Ideation Description None Suicide Plan Description No Plan Tobacco & Substance use: Smoking Status Former smoker alcohol intake current alcohol intake frequency holiday/special occasion Substance Use Type does not use Meds Home Medications and Allergies Home Medications Medication Instructions Recorded Confirmed Type Probiotic 1 cap PO DAILY 03/07/18 12/21/19 History CO-Q-10 See Rx Instructions .ROUTE .COMPLEX 04/06/18 12/21/19 History Mylanta See Rx Instructions .ROUTE .COMPLEX 04/06/18 12/21/19 History Tylenol Extra Strength See Rx Instructions .ROUTE .COMPLEX 04/06/18 12/21/19 History vitamin B-12 See Rx Instructions .ROUTE .COMPLEX 04/06/18 12/21/19 History cyclosporine 0.05 % eye drops 1 drop EYE-BOTH BID ml 06/25/18 12/21/19 History naproxen sodium 220 mg capsule 220 mg PO DAILY PRN cap 06/25/18 12/21/19 History cholecalciferol (vitamin D3) 50 See Rx Instructions PO DAILY 08/12/18 12/21/19 History mcg (2,000 unit) capsule losartan 100 mg tablet 100 mg PO BEDTIME 09/30/18 12/21/19 History aspirin 81 mg tablet,delayed 81 mg PO DAILY 11/06/18 12/21/19 History release diltiazem HCl 420 mg capsule,24 420 mg PO DAILY 11/06/18 12/21/19 History hr,extended release chlorthalidone 25 mg tablet 25 mg PO DAILY 01/13/19 12/21/19 History omeprazole 20 mg PO DAILY 02/16/19 12/21/19 History cetirizine 10 mg tablet 10 mg PO DAILY PRN tab 03/01/19 12/21/19 History simethicone 125 mg chewable tablet 125 mg PO ONCE PRN tab 03/01/19 12/21/19 History Stool softener See Rx Instructions .ROUTE .COMPLEX 04/08/19 12/21/19 History lorazepam 0.5 mg tablet 0.5 mg PO BID-TID PRN #30 tab 05/05/19 12/21/19 Rx azelastine 137 mcg (0.1 %) nasal See Rx Instructions .ROUTE 05/18/19 12/21/19 Rx spray aerosol .COMPLEX #30 milliliter estradiol 10 mcg vaginal tablet 10 mcg VAGINAL 2XW PRN #12 tab 06/09/19 12/21/19 Rx buspirone 10 mg tablet 10 mg PO BID #180 tab 06/10/19 12/21/19 Rx levothyroxine 75 mcg tablet 75 mcg PO DAILY #90 tab 08/24/19 12/21/19 Rx rosuvastatin 10 mg tablet See Rx Instructions .ROUTE 12/01/19 12/21/19 Rx .COMPLEX #90 tablet docusate sodium 100 mg PO BID 12/21/19 12/21/19 History Allergies Allergy/AdvReac Type Severity Reaction Status Date / Time lisinopril [LISINOPRIL] Allergy Severe COUGH Verified 07/27/19 09:04 meloxicam [MELOXICAM] Allergy Severe DYSPNEA Verified 07/27/19 09:04 olmesartan [OLMESARTAN] Allergy Severe DYSPNEA Verified 07/27/19 09:04 adhesive [ADHESIVE] Allergy Intermediate ITCHY RASH Verified 07/27/19 09:04 iodine [IODINE] Allergy Mild BLISTERS Verified 07/27/19 09:04 latex [LATEX] Allergy Mild ITCH Verified 07/27/19 09:04 amitriptyline [AMITRIPTYLINE] AdvReac Intermediate HALLUCINATI Verified 07/27/19 09:04 ON metoprolol [METOPROLOL] AdvReac Intermediate SEVERE Verified 07/27/19 09:04 COUGHING sertraline AdvReac Intermediate it made Verified 07/27/19 09:04 me feel really bad like I was sick. clarithromycin AdvReac Mild NAUSEA AND Verified 07/27/19 09:04 [CLARITHROMYCIN] FELT BAD Review of Systems Review of Systems Narrative: Patient reports chronic arthritis all other review of systems is negative ROS: Yes All systems reviewed with the patient and are negative except as otherwise documented Exam Vital Signs (past 8 hours): - 12/21/19 09:05 12/21/19 09:30 12/21/19 10:15 Temperature 97.3 F L Pulse Rate 110 H 88 86 Respiratory Rate 15 11 L 15 Blood Pressure 179/77 H Blood Pressure [Right Arm] 166/74 H 157/71 H Pulse Oximetry 97 96 100 12/21/19 11:00 12/21/19 11:30 12/21/19 12:30 Temperature Pulse Rate 93 H 92 H 98 H Respiratory Rate 12 11 L 15 Blood Pressure Blood Pressure [Right Arm] 167/72 H 159/69 H 155/67 H Pulse Oximetry 96 98 98 12/21/19 13:15 Temperature 98.3 F Pulse Rate 109 H Respiratory Rate 18 Blood Pressure 143/76 H Blood Pressure [Right Arm] Pulse Oximetry 99 Oxygen Delivery Method Room Air Oxygen Flow Rate 0 Narrative Exam Narrative: Ill-appearing female lying in bed in no obvious distress HEENT: Normocephalic atraumatic, sclerae anicteric, oropharynx is clear, moist mucous membrane, neck is supple without adenopathy Lungs: Clear to auscultation Cardiac exam: Regular rate and rhythm normal S1-S2 with a 2/6 systolic ejection murmur Abdomen: Distended, soft tender to palpation, hyperactive bowel tones are noted no palpable masses, no board-like rigidity, no rebound tenderness Extremities: No edema Neuro exam: Nonfocal Objective Labs Result Diagrams: 12/21/19 09:50 12/21/19 09:50 Labs: Laboratory Results - last 24 hr 12/21/19 12/21/19 12/21/19 09:19 09:50 09:50 WBC 9.6 RBC 4.64 Hgb 14.9 Hct 42.8 MCV 92.1 MCH 32.1 MCHC 34.8 RDW 12.8 Plt Count 323 Neut % (Auto) 83.7 H Lymph % (Auto) 9.8 L [place] % (Auto) 5.2 Eos % (Auto) 0.4 L Baso % (Auto) 0.9 Neut # (Auto) 8000 H Lymph # (Auto) 900 L [place] # (Auto) 500 Eos # (Auto) 0 Baso # (Auto) 100 Sodium 132 L Potassium 3.4 Chloride 88 L Carbon Dioxide 34 H BUN 25 H Creatinine 1.02 Estimated GFR 52.5 L BUN/Creatinine Ratio 24.5 H Glucose 148 H Lactate 1.3 Calcium 11.3 H Total Bilirubin 0.5 AST 34 ALT 23 Alkaline Phosphatase 119 Total Protein 8.4 H Albumin 5.0 Globulin 3.4 Albumin/Globulin Ratio 1.5 Lipase 115 Assessment & Plan Assessment & Plan narrative: Impression 1. 79-year-old female admitted to the hospital with small bowel obstruction -SBO confirmed on x-ray -patient with multiple abdominal surgeries putting her at risk for adhesion -will concert surgery -continue IV hydration, antiemetics and pain medication, NPO, NG tube -no CT of the abdomen at this time, will defer to surgery whether upper GI small-bowel follow-through is indicated 2. Hypertension -all oral meds are on hold -will utilize IV hydralazine if needed as needed 3. Hypothyroid -given the long half-life of Synthroid will hold at this time -consider IV L-thyroxine if the patient remains NPO in 2-3 days 4. GERD -continue PPI IV 5. Hyperlipidemia -statin on hold while the patient remains NPO Patient indicates she is a full code, will note that her record accordingly Anticipate patient will be here for more than 2 days. Patient will be an inpatient Quality VTE Deep Vein Thrombosis/Pulmonary Embolism Present on Admission: No
[2019-12-21] MEDS: HYDROMORPHONE 1 MG INJ IV (16:17)
[2019-12-21] MEDS: KCL 20 MEQ IN NS 1,000 ML 100 MEQ IV (17:05)
--- NOTE | 2019-12-21 18:57 | PC.NURSE ---
Addendum entered by Zoë Ortiz R.N. 12/21/19 20:10: Patient setting up in bed, talking on the phone. Denies any pain. Original Note: Patient has been resting in bed this shift. Dozing off occasionally. IVP dilaudid and zofran effective for pain and nausea. Ng tube with brown fluid, on low intermittent suction. Patient has been A&O, calm and cooperative.
--- NOTE | 2019-12-21 21:43 | PM.CN ---
History of Present Illness Consult details Date Patient Seen: 12/21/19 Time Patient Seen: 21:44 Chief complaint: stomach pain/nausea Reason for consult: SBO Requesting provider: Carlos Maza Narrative: The patient is a woman who has been having intermittent symptoms of bowel obstructions. A couple weeks ago she started to have similar symptoms today but they resolved on their own. She developed abdominal pain this morning with dry heaves and persistent nausea. She is very cognizant of the symptoms and came to the emergency room. She has had a Calvin fundoplication laparoscopic cholecystectomy hysterectomy followed by re-exploration shortly after the hysterectomy for complication. She had pain earlier today but that has resolved she is not in pain at all right now. She had tightness and swelling of her upper abdomen earlier today and that too has improved. Meds Home Medications and Allergies Home Medications Medication Instructions Recorded Confirmed Type Probiotic 1 cap PO DAILY 03/07/18 12/21/19 History CO-Q-10 See Rx Instructions .ROUTE .COMPLEX 04/06/18 12/21/19 History Mylanta See Rx Instructions .ROUTE .COMPLEX 04/06/18 12/21/19 History Tylenol Extra Strength See Rx Instructions .ROUTE .COMPLEX 04/06/18 12/21/19 History vitamin B-12 See Rx Instructions .ROUTE .COMPLEX 04/06/18 12/21/19 History cyclosporine 0.05 % eye drops 1 drop EYE-BOTH BID ml 06/25/18 12/21/19 History naproxen sodium 220 mg capsule 220 mg PO DAILY PRN cap 06/25/18 12/21/19 History cholecalciferol (vitamin D3) 50 See Rx Instructions PO DAILY 08/12/18 12/21/19 History mcg (2,000 unit) capsule losartan 100 mg tablet 100 mg PO BEDTIME 09/30/18 12/21/19 History aspirin 81 mg tablet,delayed 81 mg PO DAILY 11/06/18 12/21/19 History release diltiazem HCl 420 mg capsule,24 420 mg PO DAILY 11/06/18 12/21/19 History hr,extended release chlorthalidone 25 mg tablet 25 mg PO DAILY 01/13/19 12/21/19 History omeprazole 20 mg PO DAILY 02/16/19 12/21/19 History cetirizine 10 mg tablet 10 mg PO DAILY PRN tab 03/01/19 12/21/19 History simethicone 125 mg chewable tablet 125 mg PO ONCE PRN tab 03/01/19 12/21/19 History Stool softener See Rx Instructions .ROUTE .COMPLEX 04/08/19 12/21/19 History lorazepam 0.5 mg tablet 0.5 mg PO BID-TID PRN #30 tab 05/05/19 12/21/19 Rx azelastine 137 mcg (0.1 %) nasal See Rx Instructions .ROUTE 05/18/19 12/21/19 Rx spray aerosol .COMPLEX #30 milliliter estradiol 10 mcg vaginal tablet 10 mcg VAGINAL 2XW PRN #12 tab 06/09/19 12/21/19 Rx buspirone 10 mg tablet 10 mg PO BID #180 tab 06/10/19 12/21/19 Rx levothyroxine 75 mcg tablet 75 mcg PO DAILY #90 tab 08/24/19 12/21/19 Rx rosuvastatin 10 mg tablet See Rx Instructions .ROUTE 12/01/19 12/21/19 Rx .COMPLEX #90 tablet docusate sodium 100 mg PO BID 12/21/19 12/21/19 History Allergies Allergy/AdvReac Type Severity Reaction Status Date / Time lisinopril [LISINOPRIL] Allergy Severe COUGH Verified 07/27/19 09:04 meloxicam [MELOXICAM] Allergy Severe DYSPNEA Verified 07/27/19 09:04 olmesartan [OLMESARTAN] Allergy Severe DYSPNEA Verified 07/27/19 09:04 adhesive [ADHESIVE] Allergy Intermediate ITCHY RASH Verified 07/27/19 09:04 iodine [IODINE] Allergy Mild BLISTERS Verified 07/27/19 09:04 latex [LATEX] Allergy Mild ITCH Verified 07/27/19 09:04 amitriptyline [AMITRIPTYLINE] AdvReac Intermediate HALLUCINATI Verified 07/27/19 09:04 ON metoprolol [METOPROLOL] AdvReac Intermediate SEVERE Verified 07/27/19 09:04 COUGHING sertraline AdvReac Intermediate it made Verified 07/27/19 09:04 me feel really bad like I was sick. clarithromycin AdvReac Mild NAUSEA AND Verified 07/27/19 09:04 [CLARITHROMYCIN] FELT BAD Review of Systems Review of Systems Narrative: She does not have any breathing issues at this time. No cough or cold. No chest pain. No she does have hypertension. No black or bloody bowel movements. She did have a small bowel movement this afternoon and her upper abdomen was swollen and hard earlier today but it is softened. No seizures or blackouts. Exam Vital Signs (past 8 hours): - 12/21/19 16:02 12/21/19 19:37 Temperature 97.6 F 98.0 F Pulse Rate 102 H 97 H Respiratory Rate 16 16 Blood Pressure 146/66 H 146/61 H Pulse Oximetry 97 93 Oxygen Delivery Method Room Air Oxygen Flow Rate 0 Narrative Exam Narrative: Cooperative pleasant woman in no apparent distress she has an NG-tube in. It is on intermittent suction. Her eyes are nonicteric. Lungs are clear to auscultation without rales or rhonchi. Heart regular rate and rhythm no murmur gallop. No bruit in the neck. Abdomen is little distended in the upper abdomen and scaphoid in the lower. There is no tenderness. I do not appreciate any hernias. No masses are felt. She is alert and oriented x3. Speech rate and content are appropriate. Affect is appropriate. Objective Labs Result Diagrams: 12/21/19 09:50 12/21/19 09:50 Labs: Laboratory Results - last 24 hr 12/21/19 12/21/19 12/21/19 09:19 09:50 09:50 WBC 9.6 RBC 4.64 Hgb 14.9 Hct 42.8 MCV 92.1 MCH 32.1 MCHC 34.8 RDW 12.8 Plt Count 323 Neut % (Auto) 83.7 H Lymph % (Auto) 9.8 L [place] % (Auto) 5.2 Eos % (Auto) 0.4 L Baso % (Auto) 0.9 Neut # (Auto) 8000 H Lymph # (Auto) 900 L [place] # (Auto) 500 Eos # (Auto) 0 Baso # (Auto) 100 Sodium 132 L Potassium 3.4 Chloride 88 L Carbon Dioxide 34 H BUN 25 H Creatinine 1.02 Estimated GFR 52.5 L BUN/Creatinine Ratio 24.5 H Glucose 148 H Lactate 1.3 Calcium 11.3 H Total Bilirubin 0.5 AST 34 ALT 23 Alkaline Phosphatase 119 Total Protein 8.4 H Albumin 5.0 Globulin 3.4 Albumin/Globulin Ratio 1.5 Lipase 115 Assessment & Plan Assessment & Plan narrative: X-rays were reviewed. Patient has evidence of a small-bowel obstruction. With decompression of her stomach her upper abdomen by her history has improved and she is presently pain-free. We will repeat her x-rays in the morning. If there is persistent evidence of some obstruction will perform a small bowel follow-through. In the interim keep her NPO continue IV fluids and correct any electrolyte abnormalities. Blood pressure control etc up by the primary providers.
[2019-12-22] VITALS (8 sets, daily range): BP systolic 134–151; BP diastolic 59–76; PULSE 86–98; RESP 14–18; TEMP 35.8–37.1; O2SAT 92–100
[2019-12-22] MEDS: KCL 20 MEQ IN NS 1,000 ML 100 MEQ IV ×2 (03:42→13:16)
[2019-12-22 05:55] LABS: Add Manual Diff / Slide Review NO; Basophils Absolute Auto 100 /uL (0-100); Basophils Percent Auto 1.1 % (0-2); Eosinophils Absolute Auto 200 /uL (0-450); Hematocrit 34.5 % (36-46); Hemoglobin 12.1 g/dL (12.0-16.0); Lymphocytes Absolute Auto 2000 /uL (1100-4500); Lymphocytes Percent Auto 25.7 % (25-40); Mean Corpuscular Hemoglobin 32.2 PG (26-34); Monocytes Absolute Auto 800 /uL (0-900); Monocytes Percent Auto 10.2 % (3-14); Neutrophils Absolute Auto 4800 /uL (1500-7000); Platelet Count 246 X10^3/uL (150-400); Red Blood Cell Count 3.75 X10^6/uL (4.0-5.2); Red Cell Distribution Width 12.9 % (11.6-14.8); White Blood Cell Count 7.9 X10^3/uL (4.5-11.0)
[2019-12-22 05:56] LABS: Alanine Aminotransferase 15 IU/L (<35); Albumin 3.4 g/dL (3.5-5.0); Albumin Globulin Ratio 1.4 (1.0-2.8); Alkaline Phosphatase 72 U/L (38-126); Aspartate Aminotransferase 25 IU/L (14-36); BUN Creatinine Ratio 22.5 (6-22); Bilirubin Total 0.4 mg/dL (0.2-1.3); Blood Urea Nitrogen 18 mg/dL (7-17); Calcium 8.9 mg/dL (8.4-10.2); Carbon Dioxide 33 mmol/L (22-32); Chloride 98 mmol/L (98-107); Estimated Glomerular Filt Rate > 60.0 mL/min (>60); Globulin 2.4 g/dL (1.7-4.1); Glucose 90 mg/dL (80-110); HEMOLYSIS < 15 (0-50); Potassium 3.3 mmol/L (3.4-5.1); Sodium 136 mmol/L (137-145); Total Protein 5.8 g/dL (6.3-8.2)
--- NOTE | 2019-12-22 07:50 | DI.RAD.S_ITS ---
PROCEDURE: XR ACUTE ABDOMEN SERIES INDICATIONS: Follow-up small bowel obstruction TECHNIQUE: One view chest and two views of the abdomen were acquired. COMPARISON: [facility], CR, XR ABDOMEN MIN 2V, 12/21/2019, 9:53. [facility], CR, XR ACUTE ABDOMEN SERIES, 02/18/2019, 13:20. FINDINGS: Surgical changes and devices: NG tube extends just beyond the GE junction. Chest: Lungs are clear. Heart size is normal. No pleural effusions. No pneumoperitoneum. Abdomen: Bowel gas pattern is significantly improved. There is a single prominent loop of bowel in the midabdomen, likely transverse colon. Bones: No suspicious bony lesions. IMPRESSION: 1. NG tube extends just beyond the GE junction. Advancement may be helpful. 2. Significant interval improvement in bowel gas pattern. Dictated by: Jamari Hdez M.D. on 12/22/2019 at 10:00 Approved by: Jamari Hdez M.D. on 12/22/2019 at 10:04
[2019-12-22] MEDS: ENOXAPARIN 40 MG/0.4 ML SYRINGE SUBCUT (08:23)
[2019-12-22] MEDS: HYDROMORPHONE 1 MG INJ IV (08:23)
[2019-12-22] MEDS: PANTOPRAZOLE 40 MG VIAL IV (08:24)
--- NOTE | 2019-12-22 11:25 | PC.NURSE ---
Pt sitting up in chair c/o mid-epigastric/sub-sternal pain that spreads across her chest. Denies nausea, shortness of breath, or dizziness. States the pain has decreased to 3/10 and describes pain as a burning pain, denies movement of pain up her jaw or down her arms. Dr. Rosario aware-Pt commented on this when he was removing her NG. Dr. Alvarez notified and stat EKG performed.
--- NOTE | 2019-12-22 11:30 | P.PN_ITS ---
Subjective Subjective Date Patient Seen: 12/22/19 Time Patient Seen: 11:30 Interval history: The patient is a woman who was admitted for small bowel obstruction. She had a bowel movement yesterday and is still passing flatus. She says her abdomen feels pretty normal. She has lot of pain due to the NG in swallowing. But she also has some midsternal chest pain that is radiating up across her chest. Exam Vital Signs (past 8 hours): - 12/22/19 07:30 12/22/19 11:00 Temperature 98.8 F 97.2 F L Pulse Rate 88 91 H Respiratory Rate 16 14 Blood Pressure 142/61 H 142/72 H Pulse Oximetry 95 100 Oxygen Delivery Method Room Air Oxygen Flow Rate 0 Narrative Exam Narrative: Abdomen is mildly protuberant but quite soft and nontender with vigorous exam. Objective Imaging Abdominal x-ray: My impression: X-rays markedly improved. I think they gas pattern is a ctually pretty normal at this time. Radiologist's impression: Similar to my own Labs Result Diagrams: 12/22/19 04:58 12/22/19 04:58 Labs: Laboratory Results - last 24 hr 12/22/19 12/22/19 04:58 04:58 WBC 7.9 RBC 3.75 L Hgb 12.1 Hct 34.5 L MCV 92.0 MCH 32.2 MCHC 35.0 RDW 12.9 Plt Count 246 Neut % (Auto) 61.0 D Lymph % (Auto) 25.7 [place] % (Auto) 10.2 Eos % (Auto) 2.0 Baso % (Auto) 1.1 Neut # (Auto) 4800 Lymph # (Auto) 2000 [place] # (Auto) 800 Eos # (Auto) 200 Baso # (Auto) 100 Sodium 136 L Potassium 3.3 L Chloride 98 Carbon Dioxide 33 H BUN 18 H Creatinine 0.80 Estimated GFR > 60.0 BUN/Creatinine Ratio 22.5 H Glucose 90 Calcium 8.9 Total Bilirubin 0.4 AST 25 ALT 15 Alkaline Phosphatase 72 Total Protein 5.8 L Albumin 3.4 L Globulin 2.4 Albumin/Globulin Ratio 1.4 Assessment & Plan Assessment & Plan narrative: I removed her NG tube. I alerted nursing to her chest pain and asked that they contact her primary doctor who should manage any issues here. I am not familiar enough with her medical issues to intervene in a significant way though I will do so if they are in and able to reach the doctor promptly Quality VTE Deep Vein Thrombosis/Pulmonary Embolism Present on Admission: No
--- NOTE | 2019-12-22 11:32 | PC.NURSE ---
Pt denies pain, nausea, chest pain, dizziness, or shortness of breath. Pt reports pain lasted about 5 minutes and is now gone.
[2019-12-22 12:11] LABS: Creatine Kinase 56 U/L (30-135)
[2019-12-22 12:24] LABS: Troponin I < 0.012 ng/mL (0.01-0.034)
--- NOTE | 2019-12-22 13:11 | PM.PN.1 ---
Subjective Subjective Date Patient Seen: 12/22/19 Interval history: 79-year-old female admitted to the hospital for small bowel obstruction. Patient has had significant output from the NG tube. It she had significant pain with the NG tube. She is had significant flatus. A repeat KUB today showed improvement in her bowel obstruction. The patient did complain of some substernal chest pain. This lasted about 5 minutes. It was about 8/10 in intensity and radiated to her back. She had no other associated symptoms including shortness of breath or palpitations. She felt this pain was different from her usual pain from reflux and from the NG tube. Patient has no history of myocardial infarction. Exam Vital Signs (past 8 hours): - 12/22/19 07:30 12/22/19 11:00 Temperature 98.8 F 97.2 F L Pulse Rate 88 91 H Respiratory Rate 16 14 Blood Pressure 142/61 H 142/72 H Pulse Oximetry 95 100 Oxygen Delivery Method Room Air Oxygen Flow Rate 0 Narrative Exam Narrative: Pleasant female resting comfortably in no obvious distress Her lungs: Are clear to auscultation Cardiac exam: Regular rate and rhythm normal S1-S2 Abdomen: Soft nontender nondistended, no rebound tenderness, no board-like rigidity, its normal active bowel tones, overall belly exam improved since yesterday Extremities: No edema Objective Labs Result Diagrams: 12/22/19 04:58 12/22/19 04:58 Labs: Laboratory Results - last 24 hr 12/22/19 12/22/19 12/22/19 04:58 04:58 11:39 WBC 7.9 RBC 3.75 L Hgb 12.1 Hct 34.5 L MCV 92.0 MCH 32.2 MCHC 35.0 RDW 12.9 Plt Count 246 Neut % (Auto) 61.0 D Lymph % (Auto) 25.7 [place] % (Auto) 10.2 Eos % (Auto) 2.0 Baso % (Auto) 1.1 Neut # (Auto) 4800 Lymph # (Auto) 2000 [place] # (Auto) 800 Eos # (Auto) 200 Baso # (Auto) 100 Sodium 136 L Potassium 3.3 L Chloride 98 Carbon Dioxide 33 H BUN 18 H Creatinine 0.80 Estimated GFR > 60.0 BUN/Creatinine Ratio 22.5 H Glucose 90 Calcium 8.9 Total Bilirubin 0.4 AST 25 ALT 15 Alkaline Phosphatase 72 Total Creatine Kinase 56 CK-MB (CK-2) TNP CK-MB (CK-2) Rel Index TNP Troponin I < 0.012 Total Protein 5.8 L Albumin 3.4 L Globulin 2.4 Albumin/Globulin Ratio 1.4 Assessment & Plan Assessment & Plan narrative: Impression 1. 79-year-old female with a history of hypertension hyperlipidemia who developed abrupt onset of chest pain -12 lead EKG reviewed reveals sinus rhythm with first-degree AV block and moderate ST depression in the lateral leads. This was compared to her prior EKG and is essentially unchanged -cardiac enzymes including troponin and CPK were obtained and are negative -patient's pain completely resolved -recommend following the patient symptomatically. She would she have recurrent chest pain will consider stress test prior to discharge 2. Small-bowel obstruction -improved -NG tube removed -continue IV hydration -advance diet per surgery 3. Hypertension -resume usual oral medication 4. Hyperlipidemia -resume statin Anticipate discharge home in 1-2 days once the patient has resumed a regular diet without any recurrence of her bowel obstruction . Will continue to monitor her chest pain. Recommend outpatient stress test. Quality VTE Deep Vein Thrombosis/Pulmonary Embolism Present on Admission: No
[2019-12-22] MEDS: POTASSIUM CHLORIDE 40 MEQ in SODIUM CHLORIDE 0.9% 500 ML 130 ML IV (13:28)
--- NOTE | 2019-12-22 15:06 | CM.DANOTE ---
Patient is a 79 year old female who was admitted on 12/21/19 for SBO. Pt has MCR and [employer] for insurance and her PCP is Dr. Dnaiela Spears. EMR was reviewed. Per MD, pt with bipap at baseline and hx of SBO and per Surgeon pt with current SBO and recommending conservative tx of NG tube and fluids. Pt with new chest pain and Hospitalist following and pt on tele but has not had more pain. Per RN, Surgeon rounded this afternoon and pt's NG tube removed and good bowel sounds. SW met bedside with pt and explained role and she confirms that she lives alone in [place] with local supportive friends and boyfriend who can assist if needed and pt has two sisters near [place] and her DPOA is her son in [place]. Pt states she plans to update her Living Will and DPOA pwk but she doesn't plan to change her DPOA. Pt denies any hx of HH or SNF and is quite active in her garden and with local friends and does not anticipate any needs at d/c. Pt is aware of in-home CG agencies, HH, etc as her needed these resources. Plan: SW to follow for pt's advancing diet to confirm she can tolerate and safe d/c home with no needs. Pt's boyfriend can provide transport at d/c. APPLE Br[place] Discharge Planning/Care Management Advanced directive, confirm from FAMILY Start: 12/21/19 13:55 Freq: Q24H Status: Active Protocol: Document 12/21/19 13:55 [facility] (Rec: 12/21/19 13:55 [facility] [id number]) Advance Directive, confirm on record Time 13:55 Person contacted PATIENT Copy received No CM Discharge Assessment Start: 12/22/19 15:04 Freq: Status: Active Protocol: Document 12/22/19 15:04 BF (Rec: 12/22/19 15:06 BF [id number]) Discharge Planning Assessment Assigned [employer] Furn[employer] APPLE Guerra DPOA/Assigned Designee Name son in [place] Advance Directives? Yes Advance Directives on File No History Provided By Patient,Medical Record Has Patient been admitted in last 30 No days? Prior Living Arrangements House Household Members none Type of transporation used prior to Drives own vehicle admit Comment Lives alone independently with supportive friends locally Independent with ADL's Yes Is patient alert and oriented? Yes Caregiver for Another No Barriers to Discharge No Discharge Plan Home Transportation Arrangement Boyfriend can provide transport at d/c Referrals Initiated None needed Whiteboard Updated in Patient Room with Yes name and ext. # of [employer] Operator Review Status In Process Please Provide Date Initial DC 12/22/19 Assessment Was Performed Next Review Type Continued Stay Review
[2019-12-23] MEDS: KCL 20 MEQ IN NS 1,000 ML 100 MEQ IV ×3 (03:35→22:43)
[2019-12-23 05:17] LABS: Blood Urea Nitrogen 13 mg/dL (7-17); Carbon Dioxide 27 mmol/L (22-32); Chloride 103 mmol/L (98-107); Estimated Glomerular Filt Rate > 60.0 mL/min (>60); Glucose 86 mg/dL (80-110); HEMOLYSIS < 15 (0-50); Potassium 3.9 mmol/L (3.4-5.1); Sodium 136 mmol/L (137-145)
[2019-12-23 05:19] VITALS: BP 143/70; PULSE 84; RESP 16; TEMP 36.6; O2SAT 95
[2019-12-23 07:45] VITALS: BP 150/69; PULSE 86; RESP 18; TEMP 36.4; O2SAT 96
--- NOTE | 2019-12-23 08:57 | PC.NURSE ---
Addendum entered by Tiffanie Taylor R.N. 12/23/19 12:14: Up ambulating in [place], flatus +. Denies pain, continues with clear liquids and no concerns. Addendum entered by Tiffanie Taylor R.N. 12/23/19 10:47: 1030-Pt given clear liquids per order. Tolerating well with no c/o nausea or pain. Original Note: Am shift Pt A/o x4, expresses frustration about not being able to advance diet now that NG is out. Will address with Surgeon as Pt is hopeful to d/c today or tomorrow.BT+ R side more than left. Flatus + no further BM over night. Denies pain or nausea.
--- NOTE | 2019-12-23 11:36 | CM.DPC ---
DCP: continued: case received, EMR reviewed and met pt today during Team Rounds. Introduced self and role. Dr. Alvarez confirmed that pt is progressing well and that the team will continue to defer to Dr. Rosario for diet advancement, etc. Pt expresses eagerness to go home and is hopeful this will be later today or tomorrow. P: remains: home when stable for same. Pt anticipates that her friend Chidi Duarte: [phone] will be taking her home at d/c.
--- NOTE | 2019-12-23 11:42 | PC.NURSE ---
Pt. went for a walk and was steady on her feet
[2019-12-23] MEDS: ENOXAPARIN 40 MG/0.4 ML SYRINGE SUBCUT (12:13)
[2019-12-23] MEDS: PANTOPRAZOLE 40 MG VIAL IV (12:13)
[2019-12-23] MEDS: HYDROMORPHONE 1 MG INJ IV (13:27)
--- NOTE | 2019-12-23 13:34 | PM.PN.1 ---
Subjective Subjective Date Patient Seen: 12/23/19 Interval history: The patient is a 79-year-old female who was admitted to the hospital for small bowel obstruction. Patient had her NG tube removed yesterday. She reports having flatus, and decreased abdominal distension. She feels much better. She has been able to ambulate. Her diet has been upgraded to a clear liquid diet. She has no significant abdominal pain. Exam Vital Signs (past 8 hours): - 12/23/19 07:45 Temperature 97.6 F Pulse Rate 86 Respiratory Rate 18 Blood Pressure 150/69 H Pulse Oximetry 96 Oxygen Delivery Method Room Air Oxygen Flow Rate 0 Narrative Exam Narrative: Pleasant female resting comfortably in no obvious distress Lungs: Clear to auscultation Cardiac exam: Regular rate and rhythm normal S1-S2 Abdomen soft, nondistended, nontender, no board-like rigidity, no rebound tenderness, no palpable masses Extremities: No edema Objective Labs Result Diagrams: 12/22/19 04:58 12/23/19 04:52 Labs: Laboratory Results - last 24 hr 12/23/19 04:52 Sodium 136 L Potassium 3.9 Chloride 103 Carbon Dioxide 27 BUN 13 Creatinine 0.65 Estimated GFR > 60.0 BUN/Creatinine Ratio 20.0 Glucose 86 Calcium 9.0 Assessment & Plan Assessment & Plan narrative: 9-year-old female admitted to the hospital with small bowel obstruction -significant improvement based on x-ray yes -improved abdominal pain, positive flatus, no further abdominal distension, NG tube pulled yesterday -clear liquid diet today 2. Hypertension -continue usual home medication 3. Hypothyroid -resume L-thyroxine 4. GERD -continue PPI will switch to p.o. 5. Hyperlipidemia -will resume statin Will advance diet to full liquid diet later and possible low residue diet tomorrow. Patient will be discharged home once she is able to tolerate a regular diet without pain or further abdominal distension Quality VTE Deep Vein Thrombosis/Pulmonary Embolism Present on Admission: No
[2019-12-23 15:31] VITALS: BP 152/72; PULSE 81; RESP 18; TEMP 36.4
[2019-12-23 15:35] VITALS: BP 162/91; PULSE 87; RESP 18; TEMP 36.3; O2SAT 99
[2019-12-23] MEDS: dilTIAZem CD 180 MG CAP PO (15:41)
[2019-12-23] MEDS: dilTIAZem CD 240 MG CAP PO (15:41)
[2019-12-23 19:52] VITALS: BP 148/63; PULSE 82; RESP 20; TEMP 36.1
[2019-12-23] MEDS: BUSPIRONE 5 MG TABLET 10 MG PO (21:24)
[2019-12-23] MEDS: MAGNESIUM HYDROXIDE 30 ML UDC PO (21:24)
[2019-12-23] MEDS: ROSUVASTATIN 10 MG TABLET PO (21:24)
[2019-12-24 00:07] VITALS: BP 131/63; PULSE 76; RESP 18; TEMP 36.7; O2SAT 97
--- NOTE | 2019-12-24 02:16 | PC.NURSE ---
Patient passed two small formed brown bowel mora without difficulty.
[2019-12-24 05:50] VITALS: BP 136/63; PULSE 76; RESP 16; TEMP 36.4; O2SAT 94
[2019-12-24] MEDS: PANTOPRAZOLE 20 MG TABLET PO (06:23)
[2019-12-24] MEDS: LEVOTHYROXINE 75 MCG TABLET PO (06:23)
[2019-12-24 08:05] VITALS: BP 140/68; PULSE 73; RESP 17; TEMP 36.3; O2SAT 99
[2019-12-24] MEDS: LOSARTAN 50 MG TABLET 100 MG PO (08:24)
[2019-12-24] MEDS: dilTIAZem CD 240 MG CAP PO ×2 (08:24→10:30)
[2019-12-24] MEDS: ENOXAPARIN 40 MG/0.4 ML SYRINGE SUBCUT (08:24)
[2019-12-24] MEDS: BUSPIRONE 5 MG TABLET 10 MG PO (08:24)
[2019-12-24] MEDS: dilTIAZem CD 180 MG CAP PO ×2 (08:24→10:30)
[2019-12-24 12:07] VITALS: BP 136/63; PULSE 68; RESP 16; TEMP 36.2; O2SAT 100
--- NOTE | 2019-12-24 13:32 | PM.DS.1 ---
History of Present Illness History of Present Illness Date Patient Seen: 12/24/19 Time Patient Seen: 13:32 Chief complaint: stomach pain/nausea Narrative: The patient is a 79-year-old female with a history of small-bowel obstruction related to adhesions. She has had a cholecystectomy, hysterectomy, Coy fundoplication. The patient states that last evening she noted abdominal distension. She is on BiPAP at night which at times causes this. However today she developed severe pain radiating around to her back. She had nausea and dry heaves. No fever. She did have some chills. She was nauseated. She had no hematemesis melena or bright red blood per rectum. The patient was brought into the emergency room for evaluation in the ED the patient was found to have a small-bowel obstruction. She has previously been admitted for bowel obstructions they resolved with NG tube decompression and IV fluids. Surgery was consulted from the emergency department and recommended conservative medical management. The patient is admitted to the hospital for further evaluation. Discharge Providers Provider Date of admission: 12/21/19 11:45 Discharge Date: 12/24/19 Primary care physician: Daniela Spears PA-C Consults: 12/21/19 13:54 Consult to Pastoral Services Routine Comment: PER PATIENT REQUEST 12/21/19 16:43 Consult to Physician Routine Comment: Consulting Provider: Lemuel Rosario Reason for consultation: SBO Has provider been notified: Yes Discharge provider: Sara Poole MD Summary Hospital Course Discharge Diagnosis: 1. Small bowel obstruction 2. Hypertension 3. Hypothyroid 4. GERD 5. Hyperlipidemia Hospital Course: 1. 79-year-old female admitted to the hospital with Small bowel obstruction -6/5 resolved, eating regular diet today -NGT and bowel rest/IVF effective -appreciate general surgery consultation 2. Hypertension -continue usual home medication 3. Hypothyroid -continue L-thyroxine 4. GERD -continue PPI 5. Hyperlipidemia -continue statin Status at Discharge Cognitive/behavioral status at discharge: oriented Functional status at discharge: independent ambulation Overall status at discharge: patient is back to baseline Time Spent with Patient Time spent: Less than 30 minutes Exam Vital Signs (past 8 hours): - 12/24/19 05:50 12/24/19 08:05 12/24/19 12:07 Temperature 97.5 F L 97.4 F L 97.1 F L Pulse Rate 76 73 68 Respiratory Rate 16 17 16 Blood Pressure 136/63 140/68 136/63 Pulse Oximetry 94 99 100 Oxygen Delivery Method Room Air Oxygen Flow Rate 0 Narrative Exam Narrative: Alert and oriented x3 without apparent distress Heart is regular rate and rhythm without murmur Lungs are clear to auscultation bilaterally Extremities have no ankle edema Abdomen is soft, bowel sounds positive, nontender, no organomegaly. Objective Labs Result Diagrams: 12/22/19 04:58 12/23/19 04:52 Discharge Plan Discharge Plan Patient Disposition: Home Discharge comment: Follow up with your new primary care doctor soon. Discharge orders & Medications Prescriptions: Continued CO-Q-10 See Rx Instructions .ROUTE .COMPLEX RF: 0 vitamin B-12 See Rx Instructions .ROUTE .COMPLEX RF: 0 Mylanta See Rx Instructions .ROUTE .COMPLEX RF: 0 Tylenol Extra Strength See Rx Instructions .ROUTE .COMPLEX RF: 0 cholecalciferol (vitamin D3) 2,000 unit capsule See Rx Instructions PO DAILY RF: 0 cyclosporine [Restasis MultiDose] 0.05 % drops 1 drop EYE-BOTH BID RF: 0 naproxen sodium [Aleve] 220 mg capsule 220 mg PO DAILY PRN (Reason: Pain (Scale Score 1-3)) RF: 0 chlorthalidone 25 mg tablet 25 mg PO DAILY RF: 0 azelastine 137 mcg (0.1 %) aerosol,spray See Rx Instructions .ROUTE .COMPLEX Qty: 30 RF: 12 estradiol 10 mcg tablet 10 mcg vaginal 2XW PRN (Reason: atrophic vaginitis) Qty: 12 RF: 6 buspirone 10 mg tablet 10 mg PO BID Qty: 180 RF: 3 levothyroxine 75 mcg tablet 75 mcg PO DAILY Qty: 90 RF: 4 rosuvastatin 10 mg tablet See Rx Instructions .ROUTE .COMPLEX Qty: 90 RF: 3 cetirizine [Zyrtec] 10 mg tablet 10 mg PO DAILY PRN (Reason: Allergic Symptoms) RF: 0 simethicone [Gas-X Extra Strength] 125 mg tablet,chewable 125 mg PO ONCE PRN (Reason: Indigestion) RF: 0 Stool softener See Rx Instructions .ROUTE .COMPLEX RF: 0 lorazepam 0.5 mg tablet 0.5 mg PO BID-TID PRN (Reason: anxiety) Qty: 30 RF: 0 omeprazole 20 mg capsule,delayed release(DR/EC) 20 mg PO DAILY RF: 0 Probiotic 15 billion cell Capsule 1 cap PO DAILY RF: 0 docusate sodium 100 mg Capsule 100 mg PO BID RF: 0 losartan 100 mg tablet 100 mg PO BEDTIME RF: 0 aspirin 81 mg tablet,delayed release (DR/EC) 81 mg PO DAILY RF: 0 diltiazem HCl 420 mg capsule,extended release 24 hr 420 mg PO DAILY RF: 0 Follow up/Referrals: Daniela Spears PA-C [Primary Care Provider] - Visit Report/Discharge Packet Instructions: DI for Small Bowel Obstruction Visit Report Forms: Patient Portal/API, Stroke Signs & Symptoms Discharge Data Primary Care Provider: Daniela Spears Discharges patient from system. Discharge Date/Time: 12/24/19 14:17 Quality VTE Deep Vein Thrombosis/Pulmonary Embolism Present on Admission: No
--- NOTE | 2019-12-24 14:03 | PC.NURSE ---
Addendum entered by Yamileth Gordon R.N. 12/24/19 14:16: PATIENT LEFT BY WC W/ ALL BELONGINGS AND PAPERWORK IN NO S/SX'S OF DISTRESS W/ MATTRESS AND FOUNDATION SEWER ESCORT. Original Note: DISCHARGE: PATIENT TOLERATED FULL LIQUID BREAKFAST W/O N/V AND WITHOUT ABD PAIN OR TENDERNESS. ADVANCED TO REGULAR DIET FOR LUNCH BY MD. PATIENT TOLERATED SAME WITHOUT ANY PROBLEMS AT ALL. MD NOTIFIED AND WROTE [facility] HOME INSTRUCTIONS. PATIENT EAGER TO BE GOING HOME AND STATES SHE FEELS COMPLETELY RESOLVED. VERBALIZES UNDERSTANDING OF ALL [facility] HOME INSTRUCTIONS.
== END 2019-12-24 14:17 | disposition home or self-care (01) | DRG 390 ==
LOC: ED 11:14 → AC 11:46
PROVIDERS: Admitting Provider Internal Medicine; Emergency Provider Emergency Medicine; PCP Physician Assistant; Referring Provider Emergency Medicine; Visit Provider Internal Medicine
DX: K56.50 Intestinal adhesions [bands], unspecified as to partial versus complete obstruction (principal); I44.0 Atrioventricular block, first degree; I10 Essential (primary) hypertension; E03.9 Hypothyroidism, unspecified; G47.33 Obstructive sleep apnea (adult) (pediatric); G25.81 Restless legs syndrome; E78.5 Hyperlipidemia, unspecified; F32.9 Major depressive disorder, single episode, unspecified; K21.9 Gastro-esophageal reflux disease without esophagitis; R07.9 Chest pain, unspecified; Z87.891 Personal history of nicotine dependence
CPT/HCPCS: 36415; 74018; 74019; 74022; 80048; 80053; 82550; 83605; 83690; 84484; 85025; 93005; 93010; 94760; 94762; 96361; 96374; 96375; 99284; 99285; C9113; J1170; J1650; J2405; J3480

== ENCOUNTER 2020-03-02 18:52 | Inpatient (IN) | payer MEDICARE, OTHER, SELFPAY ==
[2019-12-21 13:36] VITALS: BMI 26.4
[2020-03-02] VITALS (12 sets, daily range): BP systolic 140–163; BP diastolic 57–69; PULSE 78–91; RESP 13–25; TEMP 36.2–37.2; O2SAT 92–100; BMI 25.9
--- NOTE | 2020-03-02 19:13 | DI.RAD.S_ITS ---
PROCEDURE: XR ACUTE ABDOMEN SERIES INDICATIONS: Abdominal pain, hx SBO TECHNIQUE: One view chest and two views of the abdomen were acquired. COMPARISON: [facility], CR, XR ACUTE ABDOMEN SERIES, 12/22/2019, 9:33. FINDINGS: Surgical changes and devices: None. Chest: Lungs are clear. Heart size is normal. No pleural effusions. No pneumoperitoneum. Abdomen: Bowel gas pattern demonstrates significantly dilated loops of small bowel with air-fluid levels. No suspicious calcifications. Visualized solid organ contours appear normal. Bones: No suspicious bony lesions. IMPRESSION: Significantly dilated loops of small bowel with air-fluid levels most consistent with small bowel obstruction. Dictated by: Angelita Bruner M.D. on 03/02/2020 at 19:44 Approved by: Angelita Bruner M.D. on 03/02/2020 at 19:44
[2020-03-02] MEDS: ONDANSETRON 4 MG/2 ML INJ IV (19:21)
[2020-03-02 19:36] LABS: INR 0.9 (0.9-1.3); Prothrombin Time 10.3 SECONDS (10.1-12.7)
[2020-03-02 19:37] LABS: Add Manual Diff / Slide Review NO; Basophils Absolute Auto 100 /uL (0-100); Basophils Percent Auto 0.4 % (0-2); Eosinophils Absolute Auto 100 /uL (0-450); Eosinophils Percent Auto 0.4 % (2-4); Hematocrit 40.9 % (36-46); Hemoglobin 14.2 g/dL (12.0-16.0); Lymphocytes Absolute Auto 1200 /uL (1100-4500); Lymphocytes Percent Auto 7.3 % (25-40); Mean Corpuscular HGB Conc 34.7 % (30-36); Mean Corpuscular Hemoglobin 31.8 PG (26-34); Mean Corpuscular Volume 91.7 fL (80-100); Monocytes Absolute Auto 800 /uL (0-900); Monocytes Percent Auto 4.8 % (3-14); Neutrophils Absolute Auto 13700 /uL (1500-7000); Neutrophils Percent Auto 87.1 % (50-75); Platelet Count 433 X10^3/uL (150-400); Red Blood Cell Count 4.46 X10^6/uL (4.0-5.2); Red Cell Distribution Width 13.2 % (11.6-14.8); White Blood Cell Count 15.8 X10^3/uL (4.5-11.0)
[2020-03-02 19:39] LABS: Alanine Aminotransferase 22 IU/L (<35); Albumin 4.9 g/dL (3.5-5.0); Albumin Globulin Ratio 1.3 (1.0-2.8); Alkaline Phosphatase 155 U/L (38-126); Aspartate Aminotransferase 36 IU/L (14-36); BUN Creatinine Ratio 21.7 (6-22); Bilirubin Total 0.6 mg/dL (0.2-1.3); Blood Urea Nitrogen 23 mg/dL (7-17); Calcium 10.9 mg/dL (8.4-10.2); Carbon Dioxide 32 mmol/L (22-32); Chloride 84 mmol/L (98-107); Estimated Glomerular Filt Rate 50.3 mL/min (>60); Globulin 3.7 g/dL (1.7-4.1); Glucose 161 mg/dL (80-110); HEMOLYSIS 15 (0-50); Lipase 109 U/L (23-300); PTT Partial Thromboplastin Tim 27 SECONDS (26.4-36.2); Potassium 3.3 mmol/L (3.4-5.1); Sodium 128 mmol/L (137-145); Total Protein 8.6 g/dL (6.3-8.2)
--- NOTE | 2020-03-02 19:40 | ED.ABDPAIN ---
HPI - Abdominal Pain General Chief Complaint: Abdominal Pain Stated Complaint: thinks possible bowel obstruction Time Seen by Provider: 03/02/20 19:08 Source: patient Mode of arrival: Ambulatory Limitations: no limitations History of Present Illness HPI narrative: 79-year-old female former smoker with a history of prior bowel obstructions, Calvin fundoplication, cholecystectomy, hysterectomy, appendectomy presents with a chief complaint of severe, worsening abdominal pain over the course the day with nausea and decreased bowel output. She has had bowel obstructions before and states this feels the same. She was last admitted in December under similar circumstances, and was admitted for a few days and had resolution without surgical intervention. She denies any runny nose, sore throat, cough or chest pain. She denies any fever or chills. MD complaint: abdominal pain Onset (ago): hour(s) Pain Consistency: constant Location: diffuse Severity: severe Radiation: none Relieving factors: nothing Exacerbating factors: movement Associated symptoms: nausea and vomiting Related Data Home Medications Medication Instructions Recorded Confirmed Probiotic 1 cap PO DAILY 03/07/18 01/07/20 CO-Q-10 See Rx Instructions .ROUTE .COMPLEX 04/06/18 01/07/20 Mylanta See Rx Instructions .ROUTE .COMPLEX 04/06/18 01/07/20 Tylenol Extra Strength See Rx Instructions .ROUTE .COMPLEX 04/06/18 01/07/20 vitamin B-12 See Rx Instructions .ROUTE .COMPLEX 04/06/18 01/07/20 cyclosporine 0.05 % eye drops 1 drop EYE-BOTH BID ml 06/25/18 01/07/20 naproxen sodium 220 mg capsule 220 mg PO DAILY PRN cap 06/25/18 01/07/20 cholecalciferol (vitamin D3) 50 See Rx Instructions PO DAILY 08/12/18 01/07/20 mcg (2,000 unit) capsule losartan 100 mg tablet 100 mg PO BEDTIME 09/30/18 01/07/20 aspirin 81 mg tablet,delayed 81 mg PO DAILY 11/06/18 01/07/20 release diltiazem HCl 420 mg capsule,24 420 mg PO DAILY 11/06/18 01/07/20 hr,extended release chlorthalidone 25 mg tablet 25 mg PO DAILY 01/13/19 01/07/20 omeprazole 20 mg PO DAILY 02/16/19 01/07/20 cetirizine 10 mg tablet 10 mg PO DAILY PRN tab 03/01/19 01/07/20 simethicone 125 mg chewable tablet 125 mg PO ONCE PRN tab 03/01/19 01/07/20 Stool softener See Rx Instructions .ROUTE .COMPLEX 04/08/19 01/07/20 docusate sodium 100 mg PO BID 12/21/19 01/07/20 Previous Rx's Medication Instructions Recorded azelastine 137 mcg (0.1 %) nasal See Rx Instructions .ROUTE 05/18/19 spray aerosol .COMPLEX #30 milliliter estradiol 10 mcg vaginal tablet 10 mcg VAGINAL 2XW PRN #12 tab 06/09/19 buspirone 10 mg tablet 10 mg PO BID #180 tab 06/10/19 levothyroxine 75 mcg tablet 75 mcg PO DAILY #90 tab 08/24/19 rosuvastatin 10 mg tablet See Rx Instructions .ROUTE 12/01/19 .COMPLEX #90 tablet polyethylene glycol 3350 17 17 gram PO DAILY #527 gram 12/30/19 gram/dose oral powder hydroxyzine pamoate 25 mg capsule 25 mg PO QID PRN #30 cap 01/07/20 lorazepam 0.5 mg tablet 0.5 mg PO BID-TID PRN #30 tab 01/07/20 Allergies Allergy/AdvReac Type Severity Reaction Status Date / Time lisinopril [LISINOPRIL] Allergy Severe COUGH Verified 01/07/20 09:08 meloxicam [MELOXICAM] Allergy Severe DYSPNEA Verified 01/07/20 09:08 olmesartan [OLMESARTAN] Allergy Severe DYSPNEA Verified 01/07/20 09:08 adhesive [ADHESIVE] Allergy Intermediate ITCHY RASH Verified 01/07/20 09:08 iodine [IODINE] Allergy Mild BLISTERS Verified 01/07/20 09:08 latex [LATEX] Allergy Mild ITCH Verified 01/07/20 09:08 amitriptyline [AMITRIPTYLINE] AdvReac Intermediate HALLUCINATI Verified 01/07/20 09:08 ON metoprolol [METOPROLOL] AdvReac Intermediate SEVERE Verified 01/07/20 09:08 COUGHING sertraline AdvReac Intermediate it made Verified 01/07/20 09:08 me feel really bad like I was sick. clarithromycin AdvReac Mild NAUSEA AND Verified 01/07/20 09:08 [CLARITHROMYCIN] FELT BAD Review of Systems Constitutional Constitutional: Denies chills, Denies fatigue, Denies fever(s), Denies frequent falls, Denies lethargy and Denies weakness Eyes Eyes: Denies change in vision, Denies eye discharge, Denies irritation and Denies loss of vision ENT Ears, Nose, Mouth, and Throat: Denies change in voice, Denies dizziness, Denies neck pain, Denies sore throat and Denies throat swelling Cardiovascular Cardiovascular: Denies chest pain, Denies irregular heart rhythm, Denies lightheadedness, Denies palpitations, Denies dyspnea, Denies dyspnea on exertion and Denies orthopnea Respiratory Respiratory: Denies cough, Denies dyspnea, Denies dyspnea on exertion and Denies wheezing Gastrointestinal Gastrointestinal: Reports abdominal pain, Reports change in bowel habits, Denies diarrhea, Reports nausea and Reports vomiting Musculoskeletal Musculoskeletal: Denies neck pain and Denies numbness Integumentary/Breasts Skin/Breast: Denies pruritus, Denies erythema, Denies rash and Denies wounds Neurologic Neurologic: Denies behavioral changes, Denies confusion, Denies dizziness, Denies frequent falls, Denies loss of vision, Denies numbness and Denies weakness Psychiatric Psychiatric: Denies anxiety, Denies behavioral changes, Denies confusion, Denies depression, Denies homicidal ideation and Denies suicidal ideation Endocrine Endocrine: Denies fatigue, Denies flushing and Denies palpitations Hematologic/Lymphatic Hematologic/Lymphatic: Denies easy bruising Allergic/Immunologic Allergic/Immunologic: Denies urticaria, Denies throat swelling and Denies wheezing Patient History Medical History Abdominal adhesions (Acute) Asthma (Chronic) Atrial flutter (Resolved ~05/2014) Chronic constipation (Acute) Depression (Chronic) Fatigue (Resolved) GERD (gastroesophageal reflux disease) (Chronic) Graves disease (Chronic) Hard stool (Acute) Hyperlipemia (Chronic) Hypertension (Chronic) Hypothyroid (Chronic) Insomnia (Resolved) Iron deficiency anemia (Resolved ~2013) Measles (Resolved) Mumps (Resolved) Obstructive sleep apnea of adult (Chronic) Osteopenia (Resolved ~2010) Restless legs syndrome (RLS) (Suspected) Snoring (Resolved) Surgical History H/O abdominal surgery (Acute) History of knee replacement (Resolved 05/2008) Hx of cholecystectomy (Resolved 1996) Hx of hernia repair (Resolved 03/2011) Hx of hysterectomy (Resolved 1985) Hx of knee surgery (Resolved 09/2008) Hx of knee surgery (Resolved 2006) Hx of rotator cuff surgery (Resolved 2004) Hx of surgical procedure (Resolved 1995) Hx of total knee arthroplasty (Resolved 2009) No pertinent past surgical history (Resolved) Family History Mother Diabetes mellitus CVA (cerebral vascular accident) Sister Diabetes mellitus Father Malignant neoplasm of mesothelial tissue Social History household members: none Smoking Status: Former smoker Tobacco: How many years used: 6 Smokeless tobacco user: chewing tobacco second hand exposure: [place] alcohol intake: current substance use type: does not use Smoking Status: Former smoker alcohol intake frequency: holidays/special occasions only Substance Use Type: does not use Exam Narrative Exam Narrative: GENERAL: [79] year old patient appears stated age. Well-nourished, well-developed patient, in obvious distress. Complaining of abdominal pain, holding an emesis bag HEAD: Atraumatic. Normocephalic. EYES: Pupils equal round and reactive. Extraocular motions intact. No scleral icterus. No injection or drainage. ENT: Nose without bleeding, purulent drainage. Throat without erythema, tonsillar hypertrophy or exudate. Airway patent. NECK: Trachea midline. Non tender CARDIOVASCULAR: Regular rate and rhythm without murmurs, gallops, or rubs. RESPIRATORY: Clear to auscultation. Breath sounds equal bilaterally. No wheezes, rales, or rhonchi. GASTROINTESTINAL: Abdomen soft, significantly tender, decrease bowel sounds, distended EXTREMITIES: No edema or joint tenderness. BACK: Nontender without deformity or crepitance. No flank tenderness. NEURO: AOx3. SKIN: No rash or erythema of visible areas Initial Vital Signs Initial Vital Signs: Vital Signs Temperature 97.2 F L 03/02/20 18:58 Pulse Rate 85 03/02/20 18:58 Respiratory Rate 25 H 03/02/20 18:58 Blood Pressure 160/68 H 03/02/20 18:58 Pulse Oximetry 96 03/02/20 18:58 Course Orders Ordered: ED Orders 03/02/20 18:55 EKG-12 Lead Stat 03/02/20 19:06 Complete Blood Count AUTO DIFF Stat Comprehensive Metabolic Panel Stat Lactate (Lactic Acid) Stat Lipase Stat Partial Thromboplastin Time Stat Prothrombin Time INR Stat 03/02/20 19:13 XR acute abdomen series Stat 03/02/20 20:08 CT abdomen pelvis w con Stat 03/02/20 21:35 Respiratory Panel (Film Array) Stat Discontinued Medications Diphenhydramine HCl (Benadryl) 25 mg IV NOW ONE Stop: 03/02/20 20:12 Last Admin: 03/02/20 20:18 Dose: 25 mg Documented by: MACO Hydromorphone HCl (Dilaudid) 0.5 mg IV NOW ONE Stop: 03/02/20 19:37 Last Admin: 03/02/20 19:45 Dose: 0.5 mg Documented by: MACO Sodium Chloride (Normal Saline 0.9%) 1,000 mls @ 1,000 mls/hr IV BOLUS ONE Stop: 03/02/20 20:46 Last Infusion: 03/02/20 22:09 Dose: 0 mls/hr Documented by: Admin: 03/02/20 20:20 Dose: 1,000 mls/hr Documented by: MACO Famotidine (Pepcid) 20 mg in 50 mls @ 200 mls/hr IV NOW ONE Stop: 03/02/20 20:26 Last Infusion: 03/02/20 20:41 Dose: 0 mls/hr Documented by: Admin: 03/02/20 20:17 Dose: 200 mls/hr Documented by: MACO Methylprednisolone (Solu-Medrol 125 Mg Vial) 125 mg IV NOW ONE Stop: 03/02/20 20:12 Last Admin: 03/02/20 20:18 Dose: 125 mg Documented by: MACO Ondansetron HCl (Zofran) 4 mg IV NOW ONE Stop: 03/02/20 19:18 Last Admin: 03/02/20 19:21 Dose: 4 mg Documented by: MACO Vital Signs Vital signs: Vital Signs - 8 hr 03/02/20 18:58 03/02/20 18:59 03/02/20 19:00 Temperature 97.2 F L Pulse Rate 85 86 85 Respiratory Rate 25 H 24 14 Blood Pressure 160/68 H 163/69 H Pulse Oximetry 96 99 95 03/02/20 19:34 03/02/20 20:00 03/02/20 20:01 Temperature Pulse Rate 78 81 82 Respiratory Rate 20 20 Blood Pressure 140/64 Pulse Oximetry 98 96 99 03/02/20 20:30 03/02/20 20:54 03/02/20 21:00 Temperature Pulse Rate 82 84 Respiratory Rate 16 13 Blood Pressure 145/67 H 151/68 H 155/67 H Pulse Oximetry 100 92 100 03/02/20 21:30 Temperature Pulse Rate 81 Respiratory Rate 16 Blood Pressure 153/67 H Pulse Oximetry 95 MDM - Abdominal Pain Lab Data Result diagrams: 03/02/20 19:06 03/02/20 19:06 Labs: Lab Results 03/02/20 03/02/20 03/02/20 Range/Units 19:06 19:06 19:06 WBC 15.8 H (4.5-11.0) X10^3/uL RBC 4.46 (4.0-5.2) X10^6/uL Hgb 14.2 (12.0-16.0) g/dL Hct 40.9 (36-46) % MCV 91.7 (80-100) fL MCH 31.8 (26-34) PG MCHC 34.7 (30-36) % RDW 13.2 (11.6-14.8) % Plt Count 433 H (150-400) X10^3/uL Neut % (Auto) 87.1 H (50-75) % Lymph % (Auto) 7.3 L (25-40) % Sheridan % (Auto) 4.8 (3-14) % Eos % (Auto) 0.4 L (2-4) % Baso % (Auto) 0.4 (0-2) % Neut # (Auto) 74520 H (4413-6917) /uL Lymph # (Auto) 1200 (7099-6097) /uL Sheridan # (Auto) 800 (0-900) /uL Eos # (Auto) 100 (0-450) /uL Baso # (Auto) 100 (0-100) /uL PT 10.3 (10.1-12.7) SECONDS INR 0.9 (0.9-1.3) APTT 27 (26.4-36.2) SECONDS Sodium 128 L (137-145) mmol/L Potassium 3.3 L (3.4-5.1) mmol/L Chloride 84 L (98-107) mmol/L Carbon Dioxide 32 (22-32) mmol/L BUN 23 H (7-17) mg/dL Creatinine 1.06 H (0.52-1.04) mg/dL Estimated GFR 50.3 L (>60) mL/min BUN/Creatinine Ratio 21.7 (6-22) Glucose 161 H (80-110) mg/dL Lactate (0.7-2.1) mmol/L Calcium 10.9 H (8.4-10.2) mg/dL Total Bilirubin 0.6 (0.2-1.3) mg/dL AST 36 (14-36) IU/L ALT 22 (<35) IU/L Alkaline Phosphatase 155 H (38-126) U/L Total Protein 8.6 H (6.3-8.2) g/dL Albumin 4.9 (3.5-5.0) g/dL Globulin 3.7 (1.7-4.1) g/dL Albumin/Globulin Ratio 1.3 (1.0-2.8) Lipase 109 (23-300) U/L COVID-19 PCR (Negative) 03/02/20 03/02/20 Range/Units 19:06 20:07 WBC (4.5-11.0) X10^3/uL RBC (4.0-5.2) X10^6/uL Hgb (12.0-16.0) g/dL Hct (36-46) % MCV (80-100) fL MCH (26-34) PG MCHC (30-36) % RDW (11.6-14.8) % Plt Count (150-400) X10^3/uL Neut % (Auto) (50-75) % Lymph % (Auto) (25-40) % Sheridan % (Auto) (3-14) % Eos % (Auto) (2-4) % Baso % (Auto) (0-2) % Neut # (Auto) (2929-2887) /uL Lymph # (Auto) (1373-2576) /uL Sheridan # (Auto) (0-900) /uL Eos # (Auto) (0-450) /uL Baso # (Auto) (0-100) /uL PT (10.1-12.7) SECONDS INR (0.9-1.3) APTT (26.4-36.2) SECONDS Sodium (137-145) mmol/L Potassium (3.4-5.1) mmol/L Chloride (98-107) mmol/L Carbon Dioxide (22-32) mmol/L BUN (7-17) mg/dL Creatinine (0.52-1.04) mg/dL Estimated GFR (>60) mL/min BUN/Creatinine Ratio (6-22) Glucose (80-110) mg/dL Lactate 1.6 (0.7-2.1) mmol/L Calcium (8.4-10.2) mg/dL Total Bilirubin (0.2-1.3) mg/dL AST (14-36) IU/L ALT (<35) IU/L Alkaline Phosphatase (38-126) U/L Total Protein (6.3-8.2) g/dL Albumin (3.5-5.0) g/dL Globulin (1.7-4.1) g/dL Albumin/Globulin Ratio (1.0-2.8) Lipase (23-300) U/L COVID-19 PCR Negative (Negative) Imaging Data Abdominal x-ray: Attestation: I personally reviewed and interpreted this imaging study as follows: Radiologist's Impression: [address] [address] XRay Report Signed Patient: Nanci Lainez [facility]#: [id number] : 3Acct:[id number] Age/Sex: 79 / FDate of Service: 03/02/20 Loc: ED Accession Number: [id number] Procedure: XR acute abdomen series Ordering Provider: Carlos Maza D.O. PROCEDURE: XR ACUTE ABDOMEN SERIES INDICATIONS: Abdominal pain, hx SBO TECHNIQUE: One view chest and two views of the abdomen were acquired. COMPARISON: [facility], , XR ACUTE ABDOMEN SERIES, 12/22/2019, 9:33. FINDINGS: Surgical changes and devices: None. Chest: Lungs are clear. Heart size is normal. No pleural effusions. No pneumoperitoneum. Abdomen: Bowel gas pattern demonstrates significantly dilated loops of small bowel with air-fluid levels. No suspicious calcifications. Visualized solid organ contours appear normal. Bones: No suspicious bony lesions. IMPRESSION: Significantly dilated loops of small bowel with air-fluid levels most consistent with small bowel obstruction. Dictated by: Angelita Bruner M.D. on 03/02/2020 at 19:44 CT scan - abdomen/pelvis: Radiologist's Impression: Nanci Lainez 79 F [address] [address] [address] Scan Report Signed Patient: Nanci Lainez DMR#: [id number] : 1940cct:[id number] Age/Sex: 79 / FDate of Service: 03/02/20 Loc: ED Accession Number: [id number] Procedure: CT abdomen pelvis w con Ordering Provider: Carlos Maza D.O. PROCEDURE: CT ABDOMEN PELVIS W CON INDICATIONS: recurrent bowel obstruction TECHNIQUE: After the administration of intravenous contrast, 5 mm thick sections acquired from the diaphragm to the symphysis. 5 mm coronal and sagittal reformats were acquired. For radiation dose reduction, the following was used: automated exposure control, adjustment of mA and/or kV according to patient size. COMPARISON: [facility], CT, CT ABDOMEN PELVIS W CON, 02/16/2019, 21:37. [facility], CR, XR ACUTE ABDOMEN SERIES, 03/02/2020, 19:04. FINDINGS: Image quality: Excellent. ABDOMEN: Lung bases: Lung bases are clear. Heart size is normal. Solid organs: Liver is normal in size and enhancement. Gallbladder has been removed . Common bile duct is mildly prominent measuring 15 mm. Mild intrahepatic biliary dilation is identified. Overall appearance is not changed since 2019. Pancreas enhances normally. Spleen is normal in size and enhancement. No adrenal nodules. Kidneys demonstrate normal size and enhancement, without hydronephrosis. Peritoneum and bowel: There are markedly dilated fluid-filled loops of small bowel with air-fluid levels. Largest bowel loop diameter is in the right lower pelvis measuring 6.1 cm in transverse dimension. Colon is collapsed. Transition point is not clearly identified although potentially within the right lower abdomen. Nasogastric tube is present within the stomach. Nodes and vessels: No retroperitoneal or mesenteric adenopathy by size criteria. Aorta and inferior vena cava are normal in size. Miscellaneous: No ventral hernias. PELVIS: Genitourinary: Bladder wall thickness is normal. Miscellaneous: No inguinal hernias or adenopathy. Bones: No suspicious bony lesions. No vertebral body compression fractures. IMPRESSION: 1. Significant small bowel obstruction with dilated, fluid-filled loops of small bowel as above. No free air. Dictated by: Angelita Bruner M.D. on 03/02/2020 at 20:55 Approved by: Angelita Bruner M.D. on 03/02/2020 at 20:59 MDM Narrative Medical decision making narrative: severe pain worsening over the day. Feels like prior SBO. Xray notes significant SBO. Improved after NG. CT shows no fluid or free air. Rahel happy to accept. Patient and in complete agreement with diagnosis and plan. Discharge Plan Departure Clinical Impression: Bowel obstruction, Acute hyponatremia, Acute hypokalemia Admit Date/Time: 03/02/20 21:35 Admit Provider: Alber Mcginnis
[2020-03-02] MEDS: HYDROMORPHONE 0.5 MG INJ IV (19:45)
--- NOTE | 2020-03-02 20:08 | DI.CT.S_ITS ---
PROCEDURE: CT ABDOMEN PELVIS W CON INDICATIONS: recurrent bowel obstruction TECHNIQUE: After the administration of intravenous contrast, 5 mm thick sections acquired from the diaphragm to the symphysis. 5 mm coronal and sagittal reformats were acquired. For radiation dose reduction, the following was used: automated exposure control, adjustment of mA and/or kV according to patient size. COMPARISON: [facility], CT, CT ABDOMEN PELVIS W CON, 02/16/2019, 21:37. [facility], CR, XR ACUTE ABDOMEN SERIES, 03/02/2020, 19:04. FINDINGS: Image quality: Excellent. ABDOMEN: Lung bases: Lung bases are clear. Heart size is normal. Solid organs: Liver is normal in size and enhancement. Gallbladder has been removed . Common bile duct is mildly prominent measuring 15 mm. Mild intrahepatic biliary dilation is identified. Overall appearance is not changed since 2019. Pancreas enhances normally. Spleen is normal in size and enhancement. No adrenal nodules. Kidneys demonstrate normal size and enhancement, without hydronephrosis. Peritoneum and bowel: There are markedly dilated fluid-filled loops of small bowel with air-fluid levels. Largest bowel loop diameter is in the right lower pelvis measuring 6.1 cm in transverse dimension. Colon is collapsed. Transition point is not clearly identified although potentially within the right lower abdomen. Nasogastric tube is present within the stomach. Nodes and vessels: No retroperitoneal or mesenteric adenopathy by size criteria. Aorta and inferior vena cava are normal in size. Miscellaneous: No ventral hernias. PELVIS: Genitourinary: Bladder wall thickness is normal. Miscellaneous: No inguinal hernias or adenopathy. Bones: No suspicious bony lesions. No vertebral body compression fractures. IMPRESSION: 1. Significant small bowel obstruction with dilated, fluid-filled loops of small bowel as above. No free air. Dictated by: Angelita Bruner M.D. on 03/02/2020 at 20:55 Approved by: Angelita Bruner M.D. on 03/02/2020 at 20:59
[2020-03-02 20:09] LABS: Lactate (Lactic Acid) 1.6 mmol/L (0.7-2.1)
[2020-03-02] MEDS: FAMOTIDINE 20 MG/50 ML PIGGYBACK 200 MG IV (20:17)
[2020-03-02] MEDS: methylPREDNISolone 125 MG/2 ML VIAL IV (20:18)
[2020-03-02] MEDS: diphenhydrAMINE 50 MG/ML VIAL 25 MG IV (20:18)
[2020-03-02] MEDS: SODIUM CHLORIDE 0.9% 1,000 ML 1000 ML IV (20:20)
[2020-03-02 21:35] LABS: COVID19 -Nasal RAPID Negative (Negative)
[2020-03-02] MEDS: SODIUM CHLORIDE 0.9% 1,000 ML 125 ML IV (23:57)
[2020-03-03] VITALS (13 sets, daily range): BP systolic 138–158; BP diastolic 59–84; PULSE 89–96; RESP 16–18; TEMP 36.6–37.4; O2SAT 93–97
[2020-03-03] MEDS: HYDROMORPHONE 0.5 MG INJ IV ×3 (03:21→15:44)
[2020-03-03] MEDS: ONDANSETRON 4 MG/2 ML INJ IV (03:21)
--- NOTE | 2020-03-03 06:52 | DI.RAD.S_ITS ---
PROCEDURE: FL SMALL BOWEL FOLLOW THROUGH INDICATIONS: small bowel obstruction. Perform with gastrografin COMPARISON: [facility], CT, CT ABDOMEN PELVIS W CON, 03/02/2020, 20:31. FINDINGS: KUB: Preprocedural primer inserting machine adjuster film demonstrates a normal bowel gas pattern. No suspicious abdominal calcifications. Visualized solid organ contours appear normal. No suspicious bony abnormalities. Small bowel: Small bowel loops are dilated measuring up to 5 cm. There is mildly delayed transit time of barium through the small bowel. Mucosal folds are smooth and of normal thickness. No strictures, intraluminal masses, or extrinsic mass effects are noted. The terminal ileum is suboptimally visualized due to dilated small bowel loops. IMPRESSION: 1. Moderately dilated dilated small intestine and delayed small bowel transit time consistent with partial small bowel obstruction. 2. Terminal ileum is suboptimally visualized because of dilated small intestine. Barium has reached to colon in approximately 2-1/2 hours. Dictated by: Shannon Glaser M.D. on 03/03/2020 at 17:04 Approved by: Shannon Glaser M.D. on 03/03/2020 at 17:11
--- NOTE | 2020-03-03 07:17 | PM.HP.1 ---
History of Present Illness History of Present Illness Date Patient Seen: 03/03/20 Time Patient Seen: 07:17 Chief complaint: thinks possible bowel obstruction Narrative: This is a 79-year-old woman who is seen in consultation for a small-bowel obstruction. She has a history of cholecystectomy, Calvin fundoplication, hysterectomy in who's had multiple small bowel obstructions which have resolved without surgical intervention. Her most recent obstruction was December 2019. Yesterday she developed abdominal pain distension nausea and dry heaving and was presented to the emergency room. She said that she was having some small amount of bowel movement yesterday. A CT abdomen pelvis was performed which demonstrates small-bowel obstruction with significantly dilated loops of small bowel. Nasogastric tube was placed yesterday and she feels better this morning but not resolved. Currently not passing flatus. Patient History Medical History Abdominal adhesions (Acute) Asthma (Chronic) Atrial flutter (Resolved ~05/2014) Chronic constipation (Acute) Depression (Chronic) Fatigue (Resolved) GERD (gastroesophageal reflux disease) (Chronic) Graves disease (Chronic) Hard stool (Acute) Hyperlipemia (Chronic) Hypertension (Chronic) Hypothyroid (Chronic) Insomnia (Resolved) Iron deficiency anemia (Resolved ~2013) Measles (Resolved) Mumps (Resolved) Obstructive sleep apnea of adult (Chronic) Osteopenia (Resolved ~2010) Restless legs syndrome (RLS) (Suspected) Snoring (Resolved) Surgical History H/O abdominal surgery (Acute) History of knee replacement (Resolved 05/2008) Hx of cholecystectomy (Resolved 1996) Hx of hernia repair (Resolved 03/2011) Hx of hysterectomy (Resolved 1985) Hx of knee surgery (Resolved 09/2008) Hx of knee surgery (Resolved 2006) Hx of rotator cuff surgery (Resolved 2004) Hx of surgical procedure (Resolved 1995) Hx of total knee arthroplasty (Resolved 2009) No pertinent past surgical history (Resolved) Family & Social History Family History Mother Diabetes mellitus CVA (cerebral vascular accident) Sister Diabetes mellitus Father Malignant neoplasm of mesothelial tissue Social History: household members none Prior Living Arrangements House Safety & Behavioral: Feels Safe in Current Yes Environment Been Physically Hurt or No Threatened By a Person Suicidal Ideation Description None Suicide Plan Description No Plan Tobacco & Substance use: Smoking Status Former smoker alcohol intake current alcohol intake frequency holiday/special occasion Substance Use Type does not use Meds Home Medications and Allergies Home Medications Medication Instructions Recorded Confirmed Type Probiotic 1 cap PO DAILY 03/07/18 03/02/20 History CO-Q-10 1 tab BEDTIME 04/06/18 03/02/20 History Mylanta See Rx Instructions .ROUTE .COMPLEX 04/06/18 03/02/20 History Tylenol Extra Strength 500 mg PO TID-QID PRN 04/06/18 03/02/20 History vitamin B-12 See Rx Instructions .ROUTE .COMPLEX 04/06/18 03/02/20 History cyclosporine 0.05 % eye drops 1 drop EYE-BOTH BID ml 06/25/18 03/02/20 History naproxen sodium 220 mg capsule 220 mg PO DAILY PRN cap 06/25/18 03/02/20 History cholecalciferol (vitamin D3) 50 See Rx Instructions PO DAILY 08/12/18 03/02/20 History mcg (2,000 unit) capsule losartan 100 mg tablet 100 mg PO BEDTIME 09/30/18 03/02/20 History aspirin 81 mg tablet,delayed 81 mg PO DAILY 11/06/18 03/02/20 History release diltiazem HCl 420 mg capsule,24 420 mg PO DAILY 11/06/18 03/02/20 History hr,extended release chlorthalidone 25 mg tablet 25 mg PO DAILY 01/13/19 03/02/20 History omeprazole 20 mg PO DAILY 02/16/19 03/02/20 History cetirizine 10 mg tablet 10 mg PO DAILY PRN tab 03/01/19 03/02/20 History simethicone 125 mg chewable tablet 125 mg PO ONCE PRN tab 03/01/19 03/02/20 History azelastine 137 mcg (0.1 %) nasal See Rx Instructions .ROUTE 05/18/19 03/02/20 Rx spray aerosol .COMPLEX #30 milliliter estradiol 10 mcg vaginal tablet 10 mcg VAGINAL 2XW PRN #12 tab 06/09/19 03/02/20 Rx buspirone 10 mg tablet 10 mg PO BID #180 tab 06/10/19 03/02/20 Rx levothyroxine 75 mcg tablet 75 mcg PO DAILY #90 tab 08/24/19 03/02/20 Rx rosuvastatin 10 mg tablet See Rx Instructions .ROUTE 12/01/19 03/02/20 Rx .COMPLEX #90 tablet docusate sodium 100 mg PO BID 12/21/19 03/02/20 History polyethylene glycol 3350 17 17 gram PO DAILY #527 gram 12/30/19 03/02/20 Rx gram/dose oral powder hydroxyzine pamoate 25 mg capsule 25 mg PO QID PRN #30 cap 01/07/20 01/07/20 Rx lorazepam 0.5 mg tablet 0.5 mg PO BID-TID PRN #30 tab 01/07/20 03/02/20 Rx Allergies Allergy/AdvReac Type Severity Reaction Status Date / Time lisinopril [LISINOPRIL] Allergy Severe COUGH Verified 01/07/20 09:08 meloxicam [MELOXICAM] Allergy Severe DYSPNEA Verified 01/07/20 09:08 olmesartan [OLMESARTAN] Allergy Severe DYSPNEA Verified 01/07/20 09:08 adhesive [ADHESIVE] Allergy Intermediate ITCHY RASH Verified 01/07/20 09:08 iodine [IODINE] Allergy Mild BLISTERS Verified 01/07/20 09:08 latex [LATEX] Allergy Mild ITCH Verified 01/07/20 09:08 amitriptyline [AMITRIPTYLINE] AdvReac Intermediate HALLUCINATI Verified 01/07/20 09:08 ON metoprolol [METOPROLOL] AdvReac Intermediate SEVERE Verified 01/07/20 09:08 COUGHING sertraline AdvReac Intermediate it made Verified 01/07/20 09:08 me feel really bad like I was sick. clarithromycin AdvReac Mild NAUSEA AND Verified 01/07/20 09:08 [CLARITHROMYCIN] FELT BAD Review of Systems Review of Systems Narrative: A 10 point review of systems is negative except as noted in the HPI Exam Vital Signs (past 8 hours): - 03/02/20 23:45 03/03/20 04:10 03/03/20 06:50 Temperature 98.9 F 99.3 F Pulse Rate 85 91 H Respiratory Rate 18 18 Blood Pressure 144/57 H 139/64 Pulse Oximetry 98 96 96 Oxygen Delivery Method Room Air Oxygen Flow Rate 0 Narrative Exam Narrative: General-no acute distress, well nourished elderly female HEENT-moist mucous membranes, no scleral icterus Neck-supple, no lymphadenopathy Chest- non labored respirations, clear to auscultation bilaterally Cardiac-regular rate no peripheral edema Abdomen-moderately distended compressible no peritonitis, nasogastric tube with gastric content Extremities-warm, well perfused Neurological-alert and oriented, no focal deficits Objective Labs Result Diagrams: 03/02/20 19:06 03/02/20 19:06 Labs: Laboratory Results - last 24 hr 03/02/20 03/02/20 03/02/20 19:06 19:06 19:06 WBC 15.8 H RBC 4.46 Hgb 14.2 Hct 40.9 MCV 91.7 MCH 31.8 MCHC 34.7 RDW 13.2 Plt Count 433 H Neut % (Auto) 87.1 H Lymph % (Auto) 7.3 L [place] % (Auto) 4.8 Eos % (Auto) 0.4 L Baso % (Auto) 0.4 Neut # (Auto) 37132 H Lymph # (Auto) 1200 [place] # (Auto) 800 Eos # (Auto) 100 Baso # (Auto) 100 PT 10.3 INR 0.9 APTT 27 Sodium 128 L Potassium 3.3 L Chloride 84 L Carbon Dioxide 32 BUN 23 H Creatinine 1.06 H Estimated GFR 50.3 L BUN/Creatinine Ratio 21.7 Glucose 161 H Lactate Calcium 10.9 H Total Bilirubin 0.6 AST 36 ALT 22 Alkaline Phosphatase 155 H Total Protein 8.6 H Albumin 4.9 Globulin 3.7 Albumin/Globulin Ratio 1.3 Lipase 109 COVID-19 PCR 03/02/20 03/02/20 19:06 20:07 WBC RBC Hgb Hct MCV MCH MCHC RDW Plt Count Neut % (Auto) Lymph % (Auto) [place] % (Auto) Eos % (Auto) Baso % (Auto) Neut # (Auto) Lymph # (Auto) [place] # (Auto) Eos # (Auto) Baso # (Auto) PT INR APTT Sodium Potassium Chloride Carbon Dioxide BUN Creatinine Estimated GFR BUN/Creatinine Ratio Glucose Lactate 1.6 Calcium Total Bilirubin AST ALT Alkaline Phosphatase Total Protein Albumin Globulin Albumin/Globulin Ratio Lipase COVID-19 PCR Negative Assessment & Plan Assessment and plan (1) Bowel obstruction: Status: Acute Assessment & Plan narrative: 79-year-old woman with history of multiple prior abdominal surgeries here with a small-bowel obstruction likely secondary to adhesive disease. She is afebrile without peritonitis and can be treated with non operative management at this time. -NPO NG tube IV fluids -small-bowel follow-through ordered -SCDs for VT prophylaxis Quality VTE Deep Vein Thrombosis/Pulmonary Embolism Present on Admission: No
[2020-03-03] MEDS: METOPROLOL TARTRATE 5 MG/5 ML INJ IV ×3 (07:54→18:56)
[2020-03-03] MEDS: SODIUM CHLORIDE 0.9% 1,000 ML 125 ML IV (07:57)
--- NOTE | 2020-03-03 14:59 | PC.NURSE ---
Day shift note: Patient off floor to DI for sm. bowel follow through, for 3rd time at 1500. Awake, alert, and very pleasant. NGT to right nare, IVF infusing. Calls appropriately for staff assist. Abdomen mildly distended, firm, active BS, and non tender, + flatus, states distention is much improved from previous day and overall feels better.
--- NOTE | 2020-03-03 15:07 | CM.DANOTE ---
Discharge Planning/Care Management DCP: case received, EMR reviewed and met just now with pt and her long time male friend Chidi Duarte for brief introduction of self and role. Pt was just being taken back down to radiology for further imaging. NGT in place. Pt is a 79 year old female who admitted late last night to care of [facility]: Dr. Mcginnis. She has a history of bowel obstructions which has always resolved with medical treatment and is hoping for same outcome this time. PCP: was Love Spears. Love is no longer at [facility] and she has been assigned to Reena Sun and has seen her her in clinic. Payer: Medicare and [facility] Admission status: in review: per UR RN Rukhsana Pt is described in EMR as active and independent but have not yet been able to confirm this with her. DCP team will be following to assist with any d/c needs that may arise. Chidi will be taking her home at d/c. cell: [phone]. When pt was last here in December she lived alone in her home. This is likely still the same but not verified at this time. Advanced directive, confirm from FAMILY Start: 03/02/20 23:02 Freq: Q24H Status: Active Protocol: Document 03/03/20 06:54 DL (Rec: 03/03/20 06:54 DL [id number]) Advance Directive, confirm on record Time 06:53 Person contacted patient Copy received No Advanced directive available on record No CM Discharge Assessment Start: 03/03/20 15:05 Freq: Status: Active Protocol: Document 03/03/20 15:05 ITV (Rec: 03/03/20 15:06 ITV [id number]) Discharge Planning Assessment Advance Directives? Yes Advance Directives on File No History Provided By Patient,Medical Record Prior Living Arrangements House Household Members none Is patient alert and oriented? Yes Review Status In Process
[2020-03-03 16:57] LABS: Add Manual Diff / Slide Review NO; Basophils Absolute Auto 0 /uL (0-100); Basophils Percent Auto 0.1 % (0-2); Eosinophils Absolute Auto 0 /uL (0-450); Hematocrit 38.1 % (36-46); Hemoglobin 13.1 g/dL (12.0-16.0); Lymphocytes Absolute Auto 800 /uL (1100-4500); Lymphocytes Percent Auto 7.1 % (25-40); Mean Corpuscular HGB Conc 34.4 % (30-36); Mean Corpuscular Hemoglobin 31.5 PG (26-34); Mean Corpuscular Volume 91.6 fL (80-100); Monocytes Absolute Auto 800 /uL (0-900); Monocytes Percent Auto 7.3 % (3-14); Neutrophils Absolute Auto 9300 /uL (1500-7000); Neutrophils Percent Auto 85.5 % (50-75); Platelet Count 373 X10^3/uL (150-400); Red Blood Cell Count 4.15 X10^6/uL (4.0-5.2); Red Cell Distribution Width 13.3 % (11.6-14.8); White Blood Cell Count 10.9 X10^3/uL (4.5-11.0)
[2020-03-03 17:08] LABS: Phosphorous 2.8 mg/dL (2.8-4.1)
[2020-03-03 17:21] LABS: BUN Creatinine Ratio 20.2 (6-22); Blood Urea Nitrogen 20 mg/dL (7-17); Calcium 9.6 mg/dL (8.4-10.2); Carbon Dioxide 35 mmol/L (22-32); Chloride 99 mmol/L (98-107); Estimated Glomerular Filt Rate 54.4 mL/min (>60); Glucose 123 mg/dL (80-110); HEMOLYSIS < 15 (0-50); Magnesium 2.2 mg/dL (1.6-2.3); Potassium 3.5 mmol/L (3.4-5.1); Sodium 137 mmol/L (137-145)
[2020-03-03 17:27] LABS: Procalcitonin < 0.05 ng/mL (<0.5)
[2020-03-03] MEDS: KCL 40 MEQ IN NS 1,000 ML 100 MEQ IV (18:55)
[2020-03-03] MEDS: HEPARIN 5,000 UNIT/ML VIAL 5000 UNIT SUBCUT (20:27)
[2020-03-03] MEDS: CYCLOSPORINE 0.05% 0.05 EACH EYE-BOTH (20:27)
[2020-03-03] MEDS: LOSARTAN 50 MG TABLET 100 MG PO (20:27)
[2020-03-03] MEDS: dilTIAZem CD 180 MG CAP PO (20:28)
[2020-03-03] MEDS: BUSPIRONE 5 MG TABLET 10 MG PO (20:34)
--- NOTE | 2020-03-03 22:12 | PC.NURSE ---
Pt has had several loose stools, denies pain and nausea and enjoyed a clear liquid diet this evening. + BT x 4 and passing gas. She is voiding qs. S1, S2, LS clear. VSS, A and O x 4.
[2020-03-04 01:15] VITALS: BP 132/72; PULSE 82; RESP 16; TEMP 36.7; O2SAT 95
[2020-03-04] MEDS: METOPROLOL TARTRATE 5 MG/5 ML INJ IV (01:20)
[2020-03-04 02:00] VITALS: O2SAT 95
[2020-03-04 06:00] VITALS: O2SAT 97
[2020-03-04 06:17] LABS: BUN Creatinine Ratio 21.4 (6-22); Blood Urea Nitrogen 18 mg/dL (7-17); Calcium 8.7 mg/dL (8.4-10.2); Carbon Dioxide 34 mmol/L (22-32); Chloride 96 mmol/L (98-107); Estimated Glomerular Filt Rate > 60.0 mL/min (>60); Glucose 90 mg/dL (80-110); HEMOLYSIS < 15 (0-50); Phosphorous 2.8 mg/dL (2.8-4.1); Potassium 3.2 mmol/L (3.4-5.1); Sodium 133 mmol/L (137-145)
[2020-03-04 06:24] LABS: Add Manual Diff / Slide Review NO; Basophils Absolute Auto 100 /uL (0-100); Basophils Percent Auto 0.7 % (0-2); Eosinophils Absolute Auto 0 /uL (0-450); Eosinophils Percent Auto 0.3 % (2-4); Hemoglobin 11.3 g/dL (12.0-16.0); Lymphocytes Absolute Auto 2200 /uL (1100-4500); Mean Corpuscular HGB Conc 34.3 % (30-36); Mean Corpuscular Hemoglobin 31.5 PG (26-34); Mean Corpuscular Volume 91.7 fL (80-100); Monocytes Absolute Auto 1000 /uL (0-900); Monocytes Percent Auto 8.9 % (3-14); Neutrophils Absolute Auto 7800 /uL (1500-7000); Neutrophils Percent Auto 70.1 % (50-75); Platelet Count 292 X10^3/uL (150-400); Red Blood Cell Count 3.59 X10^6/uL (4.0-5.2); Red Cell Distribution Width 13.3 % (11.6-14.8); White Blood Cell Count 11.2 X10^3/uL (4.5-11.0)
[2020-03-04 06:25] VITALS: BP 124/54; PULSE 78; RESP 16; TEMP 36.9; O2SAT 97
[2020-03-04] MEDS: LEVOTHYROXINE 75 MCG TABLET PO (06:51)
[2020-03-04 07:50] VITALS: BP 147/68; PULSE 72; RESP 16; TEMP 36.2; O2SAT 99
[2020-03-04] MEDS: POTASSIUM CHLORIDE 20 MEQ TAB 40 MEQ PO (09:01)
[2020-03-04] MEDS: CHLORTHALIDONE 25 MG TABLET PO (09:01)
[2020-03-04] MEDS: ROSUVASTATIN 10 MG TABLET PO (09:01)
[2020-03-04] MEDS: PANTOPRAZOLE 40 MG VIAL IV (09:01)
[2020-03-04] MEDS: BUSPIRONE 5 MG TABLET 10 MG PO (09:01)
[2020-03-04] MEDS: CYCLOSPORINE 0.05% 0.05 EACH EYE-BOTH (09:02)
[2020-03-04] MEDS: HEPARIN 5,000 UNIT/ML VIAL 5000 UNIT SUBCUT (09:02)
[2020-03-04] MEDS: dilTIAZem CD 240 MG CAP PO (09:34)
[2020-03-04 10:00] VITALS: O2SAT 99
--- NOTE | 2020-03-04 10:55 | PC.NURSE ---
Addendum entered by Gutierrez Marcos R.N. 03/04/20 11:39: Discharge teaching done about low residual diet/low fiber, small bowel obstruction, VTE prophylaxis and Signs and symptoms of stroke. Patient and verbalized understanding. Patient will be leaving via wheelchair and private vehicle with . Patient does not have any prescriptions to bring home. Original Note: Patient passing gas and watery stools. Bowel tones positive in all quadrants, belly soft and tender, mild distention. Denies nausea, has some cramping. VSS, lung sounds clear.
--- NOTE | 2020-03-04 11:01 | P.DS_ITS ---
History of Present Illness History of Present Illness Date Patient Seen: 03/04/20 Time Patient Seen: 11:01 Chief complaint: thinks possible bowel obstruction Narrative: Admission HPI: This is a 79-year-old woman who is seen in consultation for a small-bowel obstruction. She has a history of cholecystectomy, Calvin fundoplication, hysterectomy in who's had multiple small bowel obstructions which have resolved without surgical intervention. Her most recent obstruction was December 2019. Yesterday she developed abdominal pain distension nausea and dry heaving and was presented to the emergency room. She said that she was having some small amount of bowel movement yesterday. A CT abdomen pelvis was performed which demonstrates small-bowel obstruction with significantly dilated loops of small bowel. Nasogastric tube was placed yesterday and she feels better this morning but not resolved. Currently not passing flatus. PE: General-no acute distress, well nourished elderly female HEENT-moist mucous membranes, no scleral icterus Neck-supple, no lymphadenopathy Chest- non labored respirations, clear to auscultation bilaterally Cardiac-regular rate no peripheral edema Abdomen-moderately distended compressible no peritonitis, nasogastric tube with gastric content Extremities-warm, well perfused Neurological-alert and oriented, no focal deficits Discharge Providers Provider Date of admission: 03/02/20 21:35 Discharge Date: 03/04/20 Primary care physician: GEOVANNA Shen Discharge provider: Lynne Porras MD Summary Hospital Course Discharge Diagnosis: SBO Hospital Course: Admitted for SBO. Treated with IV fluids, NGT, SBFT. Resolved SBO and passing gas/stool on HD2. Advanced to fulls. Tolerated well. Exam Vital Signs (past 8 hours): - 03/04/20 06:00 03/04/20 06:25 03/04/20 07:50 Temperature 98.4 F 97.2 F L Pulse Rate 78 72 Respiratory Rate 16 16 Blood Pressure 124/54 L 147/68 H Pulse Oximetry 97 97 99 03/04/20 10:00 Temperature Pulse Rate Respiratory Rate Blood Pressure Pulse Oximetry 99 Oxygen Delivery Method Room Air Oxygen Flow Rate 0 Narrative Exam Narrative: GENERAL: Alert, comfortable. Appears stated age. Answers questions promptly and appropriately. Vital signs noted. HENT: Normocephalic, atraumatic. Hearing intact. EYES: Conjunctiva pink, sclera white, no periorbital swelling. CARDIOVASCULAR: Regular rate. No pedal edema. RESPIRATORY: Non-tachypneic, breathing comfortably on room air. GASTROINTESTINAL: Abdomen soft and non-distended GENITALURINARY: No flank tenderness. MUSCULOSKELETAL: Equal tone and mass bilaterally. SKIN: Warm, dry, soft, appropriate color for ethnicity. No other lesions, rashes, or wounds. NEURO: Alert and Oriented X 3. No gross sensory deficits, or cognitive issues. PSYCH: Appropriate affect and mood. Objective Imaging Abdominal x-ray: My impression: SBFT: contrast passing through to colon Radiologist's impression: [address] [address] XRay Report Signed Patient: Nanci Lainez [facility]#: [id number] : 3Acct:[id number] Age/Sex: 79 / FDate of Service: 03/03/20 Loc: [id number] Accession Number: [id number] Procedure: FL small bowel follow through Ordering Provider: Alber Mcginnis MD PROCEDURE: FL SMALL BOWEL FOLLOW THROUGH INDICATIONS: small bowel obstruction. Perform with gastrografin COMPARISON: [facility], CT, CT ABDOMEN PELVIS W CON, 03/02/2020, 20:31. 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 No suspicious abdominal calcifications. Visualized solid organ contours appear normal. No suspicious bony abnormalities. Small bowel: Small bowel loops are dilated measuring up to 5 cm. There is mildly delayed transit time of barium through the small bowel. Mucosal folds are smooth and of normal thickness. No strictures, intraluminal masses, or extrinsic mass effects are noted. The terminal ileum is suboptimally visualized due to dilated small bowel loops. IMPRESSION: 1. Moderately dilated dilated small intestine and delayed small bowel transit t urmila consistent with partial small bowel obstruction. 2. Terminal ileum is suboptimally visualized because of dilated small intestine. Barium has reached to colon in approximately 2-1/2 hours. Dictated by: Shannon Glaser M.D. on 03/03/2020 at 17:04 Approved by: Shannon Glaser M.D. on 03/03/2020 at 17:11 Labs Result Diagrams: 03/04/20 05:45 03/04/20 05:45 Labs: Laboratory Results - last 24 hr 03/03/20 03/03/20 03/03/20 16:45 16:45 16:45 WBC 10.9 RBC 4.15 Hgb 13.1 Hct 38.1 MCV 91.6 MCH 31.5 MCHC 34.4 RDW 13.3 Plt Count 373 Neut % (Auto) 85.5 H Lymph % (Auto) 7.1 L [place] % (Auto) 7.3 Eos % (Auto) 0.0 L Baso % (Auto) 0.1 Neut # (Auto) 9300 H Lymph # (Auto) 800 L [place] # (Auto) 800 Eos # (Auto) 0 Baso # (Auto) 0 Sodium 137 Potassium 3.5 Chloride 99 Carbon Dioxide 35 H BUN 20 H Creatinine 0.99 Estimated GFR 54.4 L BUN/Creatinine Ratio 20.2 Glucose 123 H Calcium 9.6 Phosphorus Magnesium 2.2 Procalcitonin < 0.05 03/03/20 03/04/20 03/04/20 16:45 05:45 05:45 WBC 11.2 H RBC 3.59 L Hgb 11.3 L Hct 33.0 L MCV 91.7 MCH 31.5 MCHC 34.3 RDW 13.3 Plt Count 292 Neut % (Auto) 70.1 Lymph % (Auto) 20.0 L [place] % (Auto) 8.9 Eos % (Auto) 0.3 L Baso % (Auto) 0.7 Neut # (Auto) 7800 H Lymph # (Auto) 2200 [place] # (Auto) 1000 H Eos # (Auto) 0 Baso # (Auto) 100 Sodium 133 L Potassium 3.2 L Chloride 96 L Carbon Dioxide 34 H BUN 18 H Creatinine 0.84 Estimated GFR > 60.0 BUN/Creatinine Ratio 21.4 Glucose 90 Calcium 8.7 Phosphorus 2.8 2.8 Magnesium 2.0 Procalcitonin Discharge Assessment & Plan Assessment and Plan Assessment: Clinically resolved SBO. Pt feels much better. Passing gas and stool. Tolerating PO. Plan of Treatment: Discharge home on full liquid diet, advance as tolerated to low residual. Follow up PRN. Keep well hydrated. Low residual diet. Discharge Plan Discharge Plan Patient Disposition: Home Discharge comment: You were admitted for a small bowel obstruction. You have had recurrent bowel obstructions, and you may have another in the future. The things you can do to reduce the risk of recurrent bowel obstructions are: 1) keep well hydrated 2) avoid hard to digest foods such as uncooked/raw vegetables, fruit peels, and hard meats/steak (follow low residual diet) 3) If you start to get any obstructive symptoms, switch to clear liquids until the symptoms pass. If the symptoms do not pass, come into the ER. 4) Metamucil daily with 8 oz of water 5) Miralax as needed for hard stools/constipation (will not prevent or resolve small bowel obstruction) Discharge orders & Medications Prescriptions: Continued CO-Q-10 1 tab BEDTIME RF: 0 vitamin B-12 See Rx Instructions .ROUTE .COMPLEX RF: 0 Mylanta See Rx Instructions .ROUTE .COMPLEX RF: 0 Tylenol Extra Strength 500 mg PO TID-QID PRN (Reason: Moderate Pain (Scale Score 5-6)) RF: 0 cholecalciferol (vitamin D3) 2,000 unit capsule See Rx Instructions PO DAILY RF: 0 cyclosporine [Restasis MultiDose] 0.05 % drops 1 drop EYE-BOTH BID RF: 0 naproxen sodium [Aleve] 220 mg capsule 220 mg PO DAILY PRN (Reason: Pain (Scale Score 1-3)) RF: 0 chlorthalidone 25 mg tablet 25 mg PO DAILY RF: 0 azelastine 137 mcg (0.1 %) aerosol,spray See Rx Instructions .ROUTE .COMPLEX Qty: 30 RF: 12 estradiol 10 mcg tablet 10 mcg vaginal 2XW PRN (Reason: atrophic vaginitis) Qty: 12 RF: 6 buspirone 10 mg tablet 10 mg PO BID Qty: 180 RF: 3 levothyroxine 75 mcg tablet 75 mcg PO DAILY Qty: 90 RF: 4 rosuvastatin 10 mg tablet See Rx Instructions .ROUTE .COMPLEX Qty: 90 RF: 3 cetirizine [Zyrtec] 10 mg tablet 10 mg PO DAILY PRN (Reason: Allergic Symptoms) RF: 0 simethicone [Gas-X Extra Strength] 125 mg tablet,chewable 125 mg PO ONCE PRN (Reason: Indigestion) RF: 0 polyethylene glycol 3350 [Miralax] 17 gram/dose powder 17 gram PO DAILY Qty: 527 RF: 11 lorazepam 0.5 mg tablet 0.5 mg PO BID-TID PRN (Reason: anxiety) Qty: 30 RF: 0 omeprazole 20 mg capsule,delayed release(DR/EC) 20 mg PO DAILY RF: 0 Probiotic 15 billion cell Capsule 1 cap PO DAILY RF: 0 docusate sodium 100 mg Capsule 100 mg PO BID RF: 0 Restasis MultiDose 0.05 % Drops 0.05 % OPHTHALMIC (EYE) BID RF: 0 losartan 100 mg tablet 100 mg PO BEDTIME RF: 0 aspirin 81 mg tablet,delayed release (DR/EC) 81 mg PO DAILY RF: 0 diltiazem HCl 420 mg capsule,extended release 24 hr 420 mg PO DAILY RF: 0 Follow up/Referrals: Reena Sun ARNP [Primary Care Provider] - Diet/Activity/Treatments Diet: Diet as Tolerated Diet comment: Low residual diet Activity: Activity as tolerated Visit Report/Discharge Packet Instructions: Small Bowel Obstruction, Low-Fiber/Low-Residue Diet Discharge Data Primary Care Provider: Reena Sun Quality VTE Deep Vein Thrombosis/Pulmonary Embolism Present on Admission: No
== END 2020-03-04 11:49 | disposition home or self-care (01) | DRG 390 ==
LOC: ED 21:34 → AC 21:35
PROVIDERS: Surgery; Admitting Provider Surgery; Emergency Provider Emergency Medicine; PCP Nurse Practitioner; Referring Provider Nurse Practitioner; Visit Provider Surgery
DX: K56.50 Intestinal adhesions [bands], unspecified as to partial versus complete obstruction (principal); F32.9 Major depressive disorder, single episode, unspecified; E03.9 Hypothyroidism, unspecified; E78.5 Hyperlipidemia, unspecified; I10 Essential (primary) hypertension; K21.9 Gastro-esophageal reflux disease without esophagitis; Z11.59 Encounter for screening for other viral diseases
CPT/HCPCS: 36415; 36592; 74022; 74177; 74250; 80048; 80053; 83605; 83690; 83735; 84100; 84145; 85025; 85610; 85730; 87635; 93005; 96361; 96365; 96375; 99222; 99238; 99285; C9113; J1170; J1200; J1644; J2405; J2930; J3480; Q9967

== ENCOUNTER → 2020-03-07 10:38 | Outpatient (CLI) | payer MEDICARE, OTHER, SELFPAY ==
[2019-12-21 13:36] VITALS: BMI 26.4
[2020-03-02 21:39] VITALS: BMI 25.9
--- NOTE | 2020-03-07 | DI.MG.S_ITS ---
BILATERAL DIGITAL SCREENING MAMMOGRAM 3D/2D WITH CAD: 03/07/2020 CLINICAL: Routine screening. Family history of breast cancer. Comparison is made to exams dated: 03/04/2019 mammogram, 02/27/2018 mammogram, and 02/12/2017 mammogram - [facility]. There are scattered fibroglandular elements in both breasts. Current study was also evaluated with a Computer Aided Detection (CAD) system. There are benign calcifications in both breasts. No significant masses, calcifications, or other findings are seen in either breast. There has been no significant interval change. IMPRESSION: BENIGN There is no mammographic evidence of malignancy. A 1 year screening mammogram is recommended. This exam was interpreted at Station ID: [id number]. NOTE: For mammograms, a report in lay terms will be sent to the patient. Approximately 15% of breast malignancies will not be visualized mammographically. In the management of a palpable breast mass, a negative mammogram must not discourage biopsy of a clinically suspicious lesion. Electronically Signed By: Fabian gonzalez/jennifer:03/07/2020 12:18:55 letter sent: Normal Exam ACR BI-RADS Category 2: Benign Finding(s) 3342F
== END ==
PROVIDERS: PCP Nurse Practitioner; Referring Provider Nurse Practitioner; Visit Provider Nurse Practitioner
DX: Z12.31 Encounter for screening mammogram for malignant neoplasm of breast (principal); Z80.3 Family history of malignant neoplasm of breast
CPT/HCPCS: 77063; 77067

== ENCOUNTER 2020-04-18 14:58 | Inpatient (IN) | payer MEDICARE, OTHER, SELFPAY ==
[2020-03-02 21:39] VITALS: BMI 25.9
[2020-04-18] VITALS (16 sets, daily range): BP systolic 142–201; BP diastolic 62–90; PULSE 97–122; RESP 12–35; TEMP 36.6–36.8; O2SAT 93–100; BMI 23.3
--- NOTE | 2020-04-18 | DI.RAD.S_ITS ---
PROCEDURE: XR CHEST 1V INDICATIONS: NGT retracted and advanced; check placement TECHNIQUE: One view of the chest was acquired. COMPARISON: [facility], CR, XR CHEST 1V, 04/18/2020, 20:28. FINDINGS: Surgical changes and devices: The nasogastric tube is advanced. The tip is seen within the stomach.. Lungs and pleura: Lungs are clear. No pleural effusions or pneumothorax. Mediastinum: Mediastinal contours appear normal. Heart size is normal. Bones and chest wall: No suspicious bony lesions. Overlying soft tissues appear unremarkable. Calcification over the right humeral head suggest calcific tendinitis of the rotator cuff tendons. IMPRESSION: The tip of the nasogastric tube is within the stomach. Dictated by: Shannon Glaser M.D. on 04/18/2020 at 22:00 Approved by: Shannon Glaser M.D. on 04/18/2020 at 22:01
--- NOTE | 2020-04-18 15:15 | ED_ITS ---
HPI - Abdominal Pain General Chief Complaint: Abdominal Pain Stated Complaint: thinks getting a bowel obstruction Time Seen by Provider: 04/18/20 15:09 Source: patient Mode of arrival: Ambulatory Limitations: no limitations History of Present Illness HPI narrative: The patient presents with abdominal distention, abdominal discomfort, and nausea vomiting. Onset of symptoms started yesterday, increased today. She has nausea and vomiting. She did have a bowel movement today. She had no hematemesis. She has a prior history of 2 SBOs. She has a history of multiple surgeries. She had a hysterectomy due to endometriosis. She has also undergone use Infant location, cholecystectomy, and hernia repair. She has no respiratory illness. She has no fever chills. Related Data Home Medications Medication Instructions Recorded Confirmed Probiotic 1 cap PO DAILY 03/07/18 03/02/20 CO-Q-10 1 tab BEDTIME 04/06/18 03/02/20 Mylanta See Rx Instructions .ROUTE .COMPLEX 04/06/18 03/02/20 Tylenol Extra Strength 500 mg PO TID-QID PRN 04/06/18 03/02/20 vitamin B-12 See Rx Instructions .ROUTE .COMPLEX 04/06/18 03/02/20 cyclosporine 0.05 % eye drops 1 drop EYE-BOTH BID ml 06/25/18 03/02/20 naproxen sodium 220 mg capsule 220 mg PO DAILY PRN cap 06/25/18 03/02/20 cholecalciferol (vitamin D3) 50 See Rx Instructions PO DAILY 08/12/18 03/02/20 mcg (2,000 unit) capsule losartan 100 mg tablet 100 mg PO BEDTIME 09/30/18 03/02/20 aspirin 81 mg tablet,delayed 81 mg PO DAILY 11/06/18 03/02/20 release diltiazem HCl 420 mg capsule,24 420 mg PO DAILY 11/06/18 03/02/20 hr,extended release chlorthalidone 25 mg tablet 25 mg PO DAILY 01/13/19 03/02/20 omeprazole 20 mg PO DAILY 02/16/19 03/02/20 cetirizine 10 mg tablet 10 mg PO DAILY PRN tab 03/01/19 03/02/20 simethicone 125 mg chewable tablet 125 mg PO ONCE PRN tab 03/01/19 03/02/20 docusate sodium 100 mg PO BID 12/21/19 03/02/20 Restasis MultiDose 0.05 % OPHTHALMIC (EYE) BID 03/03/20 03/03/20 Previous Rx's Medication Instructions Recorded azelastine 137 mcg (0.1 %) nasal See Rx Instructions .ROUTE 05/18/19 spray aerosol .COMPLEX #30 milliliter estradiol 10 mcg vaginal tablet 10 mcg VAGINAL 2XW PRN #12 tab 06/09/19 buspirone 10 mg tablet 10 mg PO BID #180 tab 06/10/19 levothyroxine 75 mcg tablet 75 mcg PO DAILY #90 tab 08/24/19 rosuvastatin 10 mg tablet See Rx Instructions .ROUTE 12/01/19 .COMPLEX #90 tablet polyethylene glycol 3350 17 17 gram PO DAILY #527 gram 12/30/19 gram/dose oral powder lorazepam 0.5 mg tablet 0.5 mg PO BID-TID PRN #30 tab 01/07/20 Allergies Allergy/AdvReac Type Severity Reaction Status Date / Time lisinopril [LISINOPRIL] Allergy Severe COUGH Verified 01/07/20 09:08 meloxicam [MELOXICAM] Allergy Severe DYSPNEA Verified 01/07/20 09:08 olmesartan [OLMESARTAN] Allergy Severe DYSPNEA Verified 01/07/20 09:08 adhesive [ADHESIVE] Allergy Intermediate ITCHY RASH Verified 01/07/20 09:08 iodine [IODINE] Allergy Mild BLISTERS Verified 01/07/20 09:08 latex [LATEX] Allergy Mild ITCH Verified 01/07/20 09:08 amitriptyline [AMITRIPTYLINE] AdvReac Intermediate HALLUCINATI Verified 01/07/20 09:08 ON metoprolol [METOPROLOL] AdvReac Intermediate SEVERE Verified 01/07/20 09:08 COUGHING sertraline AdvReac Intermediate it made Verified 01/07/20 09:08 me feel really bad like I was sick. clarithromycin AdvReac Mild NAUSEA AND Verified 01/07/20 09:08 [CLARITHROMYCIN] FELT BAD Review of Systems Constitutional Constitutional: Denies chills, Denies fever(s) and Denies weakness ENT Ears, Nose, Mouth, and Throat: Denies vertigo, Denies dizziness and Denies sore throat Cardiovascular Cardiovascular: Denies chest pain, Denies irregular heart rhythm, Denies lightheadedness, Denies dyspnea and Denies dyspnea on exertion Respiratory Respiratory: Denies cough, Denies dyspnea, Denies dyspnea on exertion and Denies wheezing Gastrointestinal Gastrointestinal: Reports as per HPI Genitourinary Genitourinary: Denies dysuria and Denies urinary urgency Genitourinary: Denies dysuria and Denies urinary urgency Musculoskeletal Musculoskeletal: Denies back pain Integumentary/Breasts Skin/Breast: Denies erythema and Denies rash Neurologic Neurologic: Denies vertigo, Denies dizziness and Denies weakness Allergic/Immunologic Allergic/Immunologic: Denies wheezing Patient History Medical History Abdominal adhesions (Acute) Asthma (Chronic) Atrial flutter (Resolved ~05/2014) Chronic constipation (Acute) Depression (Chronic) Fatigue (Resolved) GERD (gastroesophageal reflux disease) (Chronic) Graves disease (Chronic) Hard stool (Acute) Hyperlipemia (Chronic) Hypertension (Chronic) Hypothyroid (Chronic) Insomnia (Resolved) Iron deficiency anemia (Resolved ~2013) Measles (Resolved) Mumps (Resolved) Obstructive sleep apnea of adult (Chronic) Osteopenia (Resolved ~2010) Restless legs syndrome (RLS) (Suspected) Snoring (Resolved) Surgical History H/O abdominal surgery (Acute) History of knee replacement (Resolved 05/2008) Hx of cholecystectomy (Resolved 1996) Hx of hernia repair (Resolved 03/2011) Hx of hysterectomy (Resolved 1985) Hx of knee surgery (Resolved 09/2008) Hx of knee surgery (Resolved 2006) Hx of rotator cuff surgery (Resolved 2004) Hx of surgical procedure (Resolved 1995) Hx of total knee arthroplasty (Resolved 2009) No pertinent past surgical history (Resolved) Family History Mother Diabetes mellitus CVA (cerebral vascular accident) Sister Diabetes mellitus Father Malignant neoplasm of mesothelial tissue Social History household members: none Smoking Status: Former smoker Tobacco: How many years used: 6 Smokeless tobacco user: chewing tobacco second hand exposure: [place] [employer] [place] alcohol intake: current substance use type: does not use Smoking Status: Former smoker alcohol intake frequency: holidays/special occasions only Substance Use Type: does not use Exam Initial Vital Signs Initial Vital Signs: Vital Signs Temperature 97.8 F 04/18/20 15:03 Pulse Rate 111 H 04/18/20 15:03 Respiratory Rate 20 04/18/20 15:03 Blood Pressure 201/90 H 04/18/20 15:03 Pulse Oximetry 93 04/18/20 15:03 Const General: cooperative and well developed Nutritional Appearance: well nourished [facility] Mouth: oral mucosae normal and mucous membranes abnormal Eyes Conjunctivae: conjunctivae normal Sclera: sclerae normal Neck Neck: No lymphadenopathy and No JVD Chest Chest: normal inspection of the chest Resp Effort & Inspection: normal respiratory effort, able to speak in complete sentences, no respiratory distress and no use of accessory muscles Auscultation: clear to auscultation bilaterally, no rales, no rhonchi and no wheezes Cardio Rate: regular rate Rhythm: regular rhythm Heart Sounds: S1 normal, S2 normal, no click, no gallops, no murmurs and no rubs Pulses: normal peripheral pulses GI Other: Distension. Generalized tenderness. Guarding without rebound. Decreased bowel sounds. No mass Back/Spine/Pelvis Back: normal to inspection Skin General: no rashes or lesions noted, No jaundice and No petechiae Neuro General: patient alert, patient awake, patient oriented x3 and no focal motor deficits Extrem General: No no pedal edema and No no calf tenderness Psych Appearance: well kempt Mental Status: mental status grossly normal Attitude: cooperative Thought Content: normal Judgment: judgment good Course Course Course Narrative: A high-grade Small-bowel obstruction was confirmed by CT. NG was placed. Labs and CT findings reviewed with surgery, Dr. Sullivan. The patient will be admitted. It is noted that she has hypertension, she is on multiple agents. She has tachycardia upon arrival with blood pressures in the 170s to 190s range. It is noted she has hypertension, with mild tachycardia. One her regular medications, Cardizem was given IV. Orders Ordered: ED Orders 04/18/20 15:14 CT abdomen pelvis wo con Stat 04/18/20 15:15 Complete Blood Count AUTO DIFF Stat Comprehensive Metabolic Panel Stat Lipase Stat Partial Thromboplastin Time Stat Prothrombin Time INR Stat 04/18/20 15:25 EKG-12 Lead Stat 04/18/20 18:39 COVID19 -ED/INPAT/OR/L&D Stat Discontinued Medications Diltiazem HCl (Cardizem) 10 mg IV NOW ONE Stop: 04/18/20 18:43 Last Admin: 04/18/20 18:49 Dose: 10 mg Documented by: BERHANE Hydromorphone HCl (Dilaudid) 0.5 mg IV NOW ONE Stop: 04/18/20 15:15 Last Admin: 04/18/20 15:24 Dose: 0.5 mg Documented by: BERHANE Hydromorphone HCl (Dilaudid) 1 mg IV NOW ONE Stop: 04/18/20 18:37 Last Admin: 04/18/20 18:48 Dose: 1 mg Documented by: BERHANE Sodium Chloride (Normal Saline 0.9%) 500 mls @ 1,000 mls/hr IV BOLUS ONE Stop: 04/18/20 15:42 Last Infusion: 04/18/20 18:18 Dose: 0 mls/hr Documented by: Admin: 04/18/20 15:25 Dose: 1,000 mls/hr Documented by: BERHANE Ondansetron HCl (Zofran) 4 mg IV NOW ONE Stop: 04/18/20 15:15 Last Admin: 04/18/20 15:25 Dose: 4 mg Documented by: BERHANE Vital Signs Vital signs: Vital Signs - 8 hr 04/18/20 15:03 04/18/20 15:09 04/18/20 15:30 Temperature 97.8 F Pulse Rate 111 H 122 H 98 H Respiratory Rate 20 35 H 25 H Blood Pressure 201/90 H Pulse Oximetry 93 98 100 04/18/20 15:54 04/18/20 16:00 04/18/20 16:30 Temperature Pulse Rate 98 H 97 H 100 H Respiratory Rate 17 15 13 Blood Pressure 187/81 H 171/76 H Pulse Oximetry 99 94 97 04/18/20 17:00 04/18/20 17:30 04/18/20 18:00 Temperature Pulse Rate 105 H 116 H 107 H Respiratory Rate 14 20 18 Blood Pressure Pulse Oximetry 98 96 96 04/18/20 18:30 04/18/20 18:49 Temperature Pulse Rate 107 H 102 H Respiratory Rate 18 12 Blood Pressure 148/67 H Pulse Oximetry 95 93 MDM - Abdominal Pain Lab Data Result diagrams: 04/18/20 15:15 04/18/20 15:15 Labs: Lab Results 04/18/20 04/18/20 04/18/20 Range/Units 15:15 15:15 15:15 WBC 9.7 (4.5-11.0) X10^3/uL RBC 4.37 (4.0-5.2) X10^6/uL Hgb 13.9 (12.0-16.0) g/dL Hct 40.4 (36-46) % MCV 92.6 (80-100) fL MCH 31.8 (26-34) PG MCHC 34.4 (30-36) % RDW 13.5 (11.6-14.8) % Plt Count 400 (150-400) X10^3/uL Neut % (Auto) 68.1 (50-75) % Lymph % (Auto) 19.8 L (25-40) % [place] % (Auto) 9.6 (3-14) % Eos % (Auto) 2.3 (2-4) % Baso % (Auto) 0.2 (0-2) % Neut # (Auto) 6600 (6527-8005) /uL Lymph # (Auto) 1900 (8182-4775) /uL [place] # (Auto) 900 (0-900) /uL Eos # (Auto) 200 (0-450) /uL Baso # (Auto) 0 (0-100) /uL PT 10.2 (10.1-12.7) SECONDS INR 0.9 (0.9-1.3) APTT 31 D (26.4-36.2) SECONDS Sodium 134 L (137-145) mmol/L Potassium 3.5 (3.4-5.1) mmol/L Chloride 89 L (98-107) mmol/L Carbon Dioxide 35 H (22-32) mmol/L BUN 24 H (7-17) mg/dL Creatinine 1.13 H (0.52-1.04) mg/dL Estimated GFR 46.7 L (>60) mL/min BUN/Creatinine Ratio 21.2 (6-22) Glucose 116 H (80-110) mg/dL Calcium 11.0 H (8.4-10.2) mg/dL Total Bilirubin 0.4 (0.2-1.3) mg/dL AST 34 (14-36) IU/L ALT 25 (<35) IU/L Alkaline Phosphatase 144 H (38-126) U/L Total Protein 8.2 (6.3-8.2) g/dL Albumin 4.9 (3.5-5.0) g/dL Globulin 3.3 (1.7-4.1) g/dL Albumin/Globulin Ratio 1.5 (1.0-2.8) Lipase 107 (23-300) U/L COVID-19 PCR (Negative) 04/18/20 Range/Units 18:39 WBC (4.5-11.0) X10^3/uL RBC (4.0-5.2) X10^6/uL Hgb (12.0-16.0) g/dL Hct (36-46) % MCV (80-100) fL MCH (26-34) PG MCHC (30-36) % RDW (11.6-14.8) % Plt Count (150-400) X10^3/uL Neut % (Auto) (50-75) % Lymph % (Auto) (25-40) % [place] % (Auto) (3-14) % Eos % (Auto) (2-4) % Baso % (Auto) (0-2) % Neut # (Auto) (2202-3348) /uL Lymph # (Auto) (5754-1950) /uL [place] # (Auto) (0-900) /uL Eos # (Auto) (0-450) /uL Baso # (Auto) (0-100) /uL PT (10.1-12.7) SECONDS INR (0.9-1.3) APTT (26.4-36.2) SECONDS Sodium (137-145) mmol/L Potassium (3.4-5.1) mmol/L Chloride (98-107) mmol/L Carbon Dioxide (22-32) mmol/L BUN (7-17) mg/dL Creatinine (0.52-1.04) mg/dL Estimated GFR (>60) mL/min BUN/Creatinine Ratio (6-22) Glucose (80-110) mg/dL Calcium (8.4-10.2) mg/dL Total Bilirubin (0.2-1.3) mg/dL AST (14-36) IU/L ALT (<35) IU/L Alkaline Phosphatase (38-126) U/L Total Protein (6.3-8.2) g/dL Albumin (3.5-5.0) g/dL Globulin (1.7-4.1) g/dL Albumin/Globulin Ratio (1.0-2.8) Lipase (23-300) U/L COVID-19 PCR Negative (Negative) Imaging Data CT scan - abdomen/pelvis: Radiologist's Impression: 232 Adebayo Geronimo MD Find Patient Imaging - Nanci Lainez 79 F 1940 ACTIVITY DATE EXAM STATUS AUTHOR 04/18/20 15:[address] [address] [address] Scan Report Signed Patient: Nanci Lainez DMR#: [id number] : 3Acct:[id number] Age/Sex: 79 / FDate of Service: 04/18/20 Loc: ED Accession Number: [id number] Procedure: CT abdomen pelvis wo con Ordering Provider: Adebayo Geronimo MD PROCEDURE: CT ABDOMEN PELVIS WO CON INDICATIONS: Abdominal pain. Suspect SBO. TECHNIQUE: Noncontrast 5 mm thick sections acquired from the diaphragms to the symphysis. 5 mm coronal and sagittal reformats were then performed. For radiation dose reduction, the following was used: automated exposure control, adjustment of mA and/or kV according to patient size. COMPARISON: None. FINDINGS: Image quality: Excellent. ABDOMEN: Lung bases: Lung bases are clear. Heart size is normal. Solid organs: Liver is normal in size. Gallbladder has been previously resected . Pancreas is normal in contours. Spleen is normal in size. No adrenal nodules. Kidneys are normal in size, without hydronephrosis or nephrolithiasis. Peritoneum and bowel: Unenhanced bowel loops demonstrate normal wall thickness and the colon demonstrates small caliber. The stomach and small bowel is abnormally dilated through the abdomen and much of the pelvis, with a relative collapse of the small bowel as it approaches the ileocecal valve. The colon is relatively collapsed over its entire length. No free fluid or air. Nodes and vessels: No retroperitoneal or mesenteric adenopathy by size criteria. Aorta and inferior vena cava are normal in caliber. Miscellaneous: No ventral hernias. PELVIS: Genitourinary: Bladder wall thickness is normal. Miscellaneous: No inguinal hernias or adenopathy. Bones: No suspicious bony lesions. No vertebral body compression fractures. IMPRESSION: High-grade small-bowel obstruction, with the small bowel prominently dilated measuring up to 5.6 cm in maximal dimension. The stomach also is abnormally dilated. The exact etiology of this asymmetric distention of the small bowel is uncertain, but a discrete mass, volvulus, or intussusception is not seen. An adhesive band or internal hernia is a potential cause in this clinical circumstance. The colon is essentially decompressed completely, small in caliber, indicating a degree of chronicity of the small bowel obstructive process. Abscess or bowel perforation is not seen. Dictated by: Jann Garland M.D. on 04/18/2020 at 16:21 Approved by: Jann Garland M.D. on 04/18/2020 at 16:25 Discharge Plan Departure Patient Disposition: Admitted to Surgery Clinical Impression: Complete small bowel obstruction Hypertension Qualifiers: Hypertension type: essential hypertension Qualified Code(s): I10 - Essential (primary) hypertension Admit Date/Time: 04/18/20 19:24 Admit Provider: Lynne Porras
[2020-04-18 15:24] LABS: Add Manual Diff / Slide Review NO; Basophils Absolute Auto 0 /uL (0-100); Basophils Percent Auto 0.2 % (0-2); Eosinophils Absolute Auto 200 /uL (0-450); Eosinophils Percent Auto 2.3 % (2-4); Hematocrit 40.4 % (36-46); Hemoglobin 13.9 g/dL (12.0-16.0); Lymphocytes Absolute Auto 1900 /uL (1100-4500); Lymphocytes Percent Auto 19.8 % (25-40); Mean Corpuscular HGB Conc 34.4 % (30-36); Mean Corpuscular Hemoglobin 31.8 PG (26-34); Mean Corpuscular Volume 92.6 fL (80-100); Monocytes Absolute Auto 900 /uL (0-900); Monocytes Percent Auto 9.6 % (3-14); Neutrophils Absolute Auto 6600 /uL (1500-7000); Neutrophils Percent Auto 68.1 % (50-75); Platelet Count 400 X10^3/uL (150-400); Red Blood Cell Count 4.37 X10^6/uL (4.0-5.2); Red Cell Distribution Width 13.5 % (11.6-14.8); White Blood Cell Count 9.7 X10^3/uL (4.5-11.0)
[2020-04-18] MEDS: HYDROMORPHONE 0.5 MG INJ IV ×2 (15:24→21:35)
[2020-04-18] MEDS: SODIUM CHLORIDE 0.9% 500 ML 1000 ML IV (15:25)
[2020-04-18] MEDS: ONDANSETRON 4 MG/2 ML INJ IV ×2 (15:25→21:35)
[2020-04-18 15:31] LABS: INR 0.9 (0.9-1.3); Prothrombin Time 10.2 SECONDS (10.1-12.7)
[2020-04-18 15:34] LABS: PTT Partial Thromboplastin Tim 31 SECONDS (26.4-36.2)
[2020-04-18 15:36] LABS: Alanine Aminotransferase 25 IU/L (<35); Albumin 4.9 g/dL (3.5-5.0); Albumin Globulin Ratio 1.5 (1.0-2.8); Alkaline Phosphatase 144 U/L (38-126); Aspartate Aminotransferase 34 IU/L (14-36); BUN Creatinine Ratio 21.2 (6-22); Bilirubin Total 0.4 mg/dL (0.2-1.3); Blood Urea Nitrogen 24 mg/dL (7-17); Carbon Dioxide 35 mmol/L (22-32); Chloride 89 mmol/L (98-107); Estimated Glomerular Filt Rate 46.7 mL/min (>60); Globulin 3.3 g/dL (1.7-4.1); Glucose 116 mg/dL (80-110); HEMOLYSIS < 15 (0-50); Lipase 107 U/L (23-300); Potassium 3.5 mmol/L (3.4-5.1); Sodium 134 mmol/L (137-145); Total Protein 8.2 g/dL (6.3-8.2)
--- NOTE | 2020-04-18 18:18 | PC.NURSE ---
Checked on patient and noted to have hard distended abdomen, reports 10/10 pain and increased nausea, Dr Geronimo made aware. awaiting new orders.
[2020-04-18] MEDS: HYDROMORPHONE 1 MG INJ IV (18:48)
[2020-04-18] MEDS: ONDANSETRON 4 MG/2 ML INJ (18:49)
[2020-04-18] MEDS: dilTIAZem 5 MG/ML SDV 10 MG IV (18:49)
[2020-04-18 19:12] LABS: COVID19 -Nasal RAPID Negative (Negative)
--- NOTE | 2020-04-18 19:42 | PC.NURSE ---
Medication reconciliation attempted pt states she is unaware of mediations dosages as she just came in here and doesn't have it with me. Pt states will try to have get med list for her.
--- NOTE | 2020-04-18 20:24 | DI.RAD.S_ITS ---
PROCEDURE: XR CHEST 1V INDICATIONS: NG tube placement TECHNIQUE: One view of the chest was acquired. COMPARISON: [facility], CT, CT ABDOMEN PELVIS W CON, 03/02/2020, 20:31. [facility], CR, XR CHEST 1V, 02/16/2019, 23:05. FINDINGS: Surgical changes and devices: There is a nasogastric tube with the tip at the GE junction. Lungs and pleura: Lungs are clear. No pleural effusions or pneumothorax. Mediastinum: Mediastinal contours appear normal. Heart size is normal. Bones and chest wall: Note is made of marked small bowel dilation. No suspicious bony lesions. Overlying soft tissues appear unremarkable. IMPRESSION: The tip of the nasogastric tube is at the GE junction. Dictated by: Shannon Glaser M.D. on 04/18/2020 at 21:26 Approved by: Shannon Glaser M.D. on 04/18/2020 at 21:28
--- NOTE | 2020-04-18 20:39 | PM.HP.1 ---
History of Present Illness History of Present Illness Date Patient Seen: 03/04/20 Time Patient Seen: 11:01 Chief complaint: thinks getting a bowel obstruction Narrative: This is a 79-year-old woman who is seen in consultation for a small-bowel obstruction. She has a history of cholecystectomy, Calvin fundoplication, hysterectomy, and multiple small bowel obstructions which have resolved without surgical intervention. Her most recent obstructions were December and February of 2020. Since her discharge in mid February she's been doing well and without obstructive symptoms until this afternoon, when she suddenly became bloated, nauseated, and vomiting. Her last flatus was this morning, and her last BM was this evening. She reports feeling very bloated and tight in her upper abdomen and extremely uncomfortable. A CT abdomen pelvis was performed which demonstrates small-bowel obstruction with significantly dilated loops of small bowel. Nasogastric tube was placed but she does not feel any better. ROS: Constitutional: Denies chills, Denies fever(s) and Denies weakness Ears, Nose, Mouth, and Throat: Denies vertigo, Denies dizziness and Denies sore throat Cardiovascular: Denies chest pain, Denies irregular heart rhythm, Denies lightheadedness, Denies dyspnea and Denies dyspnea on exertion Respiratory: Denies cough, Denies dyspnea, Denies dyspnea on exertion and Denies wheezing Gastrointestinal: Reports as per HPI Genitourinary: Denies dysuria and Denies urinary urgency Musculoskeletal: Denies back pain Skin/Breast: Denies erythema and Denies rash Neurologic: Denies vertigo, Denies dizziness and Denies weakness Allergic/Immunologic: Denies wheezing PE: General-moderate distress due to epigastric pain and fullness, well nourished elderly female HEENT-moist mucous membranes dry, no scleral icterus Neck-supple, no lymphadenopathy Chest- non tachypneic, breathing comfortably on room air Cardiac-mild tachycardia at 104; no peripheral edema Abdomen-moderately distended; mild diffuse TTP; no peritoneal signs, nasogastric tube in place with no output; no return with flush and return to suction Extremities-warm, well perfused Neurological-alert and oriented, no focal deficits Patient History Medical History Abdominal adhesions (Acute) Asthma (Chronic) Atrial flutter (Resolved ~05/2014) Chronic constipation (Acute) Depression (Chronic) Fatigue (Resolved) GERD (gastroesophageal reflux disease) (Chronic) Graves disease (Chronic) Hard stool (Acute) Hyperlipemia (Chronic) Hypertension (Chronic) Hypothyroid (Chronic) Insomnia (Resolved) Iron deficiency anemia (Resolved ~2013) Measles (Resolved) Mumps (Resolved) Obstructive sleep apnea of adult (Chronic) Osteopenia (Resolved ~2010) Restless legs syndrome (RLS) (Suspected) Snoring (Resolved) Surgical History H/O abdominal surgery (Acute) History of knee replacement (Resolved 05/2008) Hx of cholecystectomy (Resolved 1996) Hx of hernia repair (Resolved 03/2011) Hx of hysterectomy (Resolved 1985) Hx of knee surgery (Resolved 09/2008) Hx of knee surgery (Resolved 2006) Hx of rotator cuff surgery (Resolved 2004) Hx of surgical procedure (Resolved 1995) Hx of total knee arthroplasty (Resolved 2009) No pertinent past surgical history (Resolved) Family & Social History Family History Mother Diabetes mellitus CVA (cerebral vascular accident) Sister Diabetes mellitus Father Malignant neoplasm of mesothelial tissue Social History: household members none Tobacco & Substance use: Smoking Status Former smoker alcohol intake current alcohol intake frequency holiday/special occasion Substance Use Type does not use Meds Home Medications and Allergies Home Medications Medication Instructions Recorded Confirmed Type Probiotic 1 cap PO DAILY 03/07/18 03/02/20 History CO-Q-10 1 tab BEDTIME 04/06/18 03/02/20 History Mylanta See Rx Instructions .ROUTE .COMPLEX 04/06/18 03/02/20 History Tylenol Extra Strength 500 mg PO TID-QID PRN 04/06/18 03/02/20 History vitamin B-12 See Rx Instructions .ROUTE .COMPLEX 04/06/18 03/02/20 History cyclosporine 0.05 % eye drops 1 drop EYE-BOTH BID ml 06/25/18 03/02/20 History naproxen sodium 220 mg capsule 220 mg PO DAILY PRN cap 06/25/18 03/02/20 History cholecalciferol (vitamin D3) 50 See Rx Instructions PO DAILY 08/12/18 03/02/20 History mcg (2,000 unit) capsule losartan 100 mg tablet 100 mg PO BEDTIME 09/30/18 03/02/20 History aspirin 81 mg tablet,delayed 81 mg PO DAILY 11/06/18 03/02/20 History release diltiazem HCl 420 mg capsule,24 420 mg PO DAILY 11/06/18 03/02/20 History hr,extended release chlorthalidone 25 mg tablet 25 mg PO DAILY 01/13/19 03/02/20 History omeprazole 20 mg PO DAILY 02/16/19 03/02/20 History cetirizine 10 mg tablet 10 mg PO DAILY PRN tab 03/01/19 03/02/20 History simethicone 125 mg chewable tablet 125 mg PO ONCE PRN tab 03/01/19 03/02/20 History azelastine 137 mcg (0.1 %) nasal See Rx Instructions .ROUTE 05/18/19 03/02/20 Rx spray aerosol .COMPLEX #30 milliliter estradiol 10 mcg vaginal tablet 10 mcg VAGINAL 2XW PRN #12 tab 06/09/19 03/02/20 Rx buspirone 10 mg tablet 10 mg PO BID #180 tab 06/10/19 03/02/20 Rx levothyroxine 75 mcg tablet 75 mcg PO DAILY #90 tab 08/24/19 03/02/20 Rx rosuvastatin 10 mg tablet See Rx Instructions .ROUTE 12/01/19 03/02/20 Rx .COMPLEX #90 tablet docusate sodium 100 mg PO BID 12/21/19 03/02/20 History polyethylene glycol 3350 17 17 gram PO DAILY #527 gram 12/30/19 03/02/20 Rx gram/dose oral powder lorazepam 0.5 mg tablet 0.5 mg PO BID-TID PRN #30 tab 01/07/20 03/02/20 Rx Restasis MultiDose 0.05 % OPHTHALMIC (EYE) BID 03/03/20 03/03/20 History Allergies Allergy/AdvReac Type Severity Reaction Status Date / Time lisinopril [LISINOPRIL] Allergy Severe COUGH Verified 01/07/20 09:08 meloxicam [MELOXICAM] Allergy Severe DYSPNEA Verified 01/07/20 09:08 olmesartan [OLMESARTAN] Allergy Severe DYSPNEA Verified 01/07/20 09:08 adhesive [ADHESIVE] Allergy Intermediate ITCHY RASH Verified 01/07/20 09:08 iodine [IODINE] Allergy Mild BLISTERS Verified 01/07/20 09:08 latex [LATEX] Allergy Mild ITCH Verified 01/07/20 09:08 amitriptyline [AMITRIPTYLINE] AdvReac Intermediate HALLUCINATI Verified 01/07/20 09:08 ON metoprolol [METOPROLOL] AdvReac Intermediate SEVERE Verified 01/07/20 09:08 COUGHING sertraline AdvReac Intermediate it made Verified 01/07/20 09:08 me feel really bad like I was sick. clarithromycin AdvReac Mild NAUSEA AND Verified 01/07/20 09:08 [CLARITHROMYCIN] FELT BAD Exam Vital Signs (past 8 hours): - 04/18/20 15:03 04/18/20 15:09 04/18/20 15:30 Temperature 97.8 F Pulse Rate 111 H 122 H 98 H Respiratory Rate 20 35 H 25 H Blood Pressure 201/90 H Pulse Oximetry 93 98 100 04/18/20 15:54 04/18/20 16:00 04/18/20 16:30 Temperature Pulse Rate 98 H 97 H 100 H Respiratory Rate 17 15 13 Blood Pressure 187/81 H 171/76 H Pulse Oximetry 99 94 97 04/18/20 17:00 04/18/20 17:30 04/18/20 18:00 Temperature Pulse Rate 105 H 116 H 107 H Respiratory Rate 14 20 18 Blood Pressure Pulse Oximetry 98 96 96 04/18/20 18:30 04/18/20 18:49 04/18/20 19:00 Temperature Pulse Rate 107 H 102 H 97 H Respiratory Rate 18 12 18 Blood Pressure 148/67 H 146/67 H Pulse Oximetry 95 93 94 04/18/20 19:30 04/18/20 20:00 Temperature 98.3 F Pulse Rate 99 H 104 H Respiratory Rate 13 16 Blood Pressure 166/72 H 169/71 H Pulse Oximetry 96 98 Oxygen Delivery Method Room Air Objective Imaging CT scan - abdomen: Radiologist's impression: [address] [address] [address] Scan Report Signed Patient: Nanci Lainez [facility]#: [id number] : 3Acct:[id number] Age/Sex: 79 / FDate of Service: 04/18/20 Loc: ED Accession Number: [id number] Procedure: CT abdomen pelvis wo con Ordering Provider: Adebayo Geronimo MD PROCEDURE: CT ABDOMEN PELVIS WO CON INDICATIONS: Abdominal pain. Suspect SBO. TECHNIQUE: Noncontrast 5 mm thick sections acquired from the diaphragms to the symphysis. 5 mm coronal and sagittal reformats were then performed. For radiation dose reduction, the following was used: automated exposure control, adjustment of mA and/or kV according to patient size. COMPARISON: None. FINDINGS: Image quality: Excellent. ABDOMEN: Lung bases: Lung bases are clear. Heart size is normal. Solid organs: Liver is normal in size. Gallbladder has been previously resected . Pancreas is normal in contours. Spleen is normal in size. No adrenal nodules. Kidneys are normal in size, without hydronephrosis or nephrolithiasis. Peritoneum and bowel: Unenhanced bowel loops demonstrate normal wall thickness and the colon demonstrates small caliber. The stomach and small bowel is abnormally dilated through the abdomen and much of the pelvis, with a relative collapse of the small bowel as it approaches the ileocecal valve. The colon is relatively collapsed over its entire length. No free fluid or air. Nodes and vessels: No retroperitoneal or mesenteric adenopathy by size criteria. Aorta and inferior vena cava are normal in caliber. Miscellaneous: No ventral hernias. PELVIS: Genitourinary: Bladder wall thickness is normal. Miscellaneous: No inguinal hernias or adenopathy. Bones: No suspicious bony lesions. No vertebral body compression fractures. IMPRESSION: High-grade small-bowel obstruction, with the small bowel prominently dilated measuring up to 5.6 cm in maximal dimension. The stomach also is abnormally dilated. The exact etiology of this asymmetric distention of the small bowel is uncertain, but a discrete mass, volvulus, or intussusception is not seen. An adhesive band or internal hernia is a potential cause in this clinical circumstance. The colon is essentially decompressed completely, small in caliber, indicating a degree of chronicity of the small bowel obstructive process. Abscess or bowel perforation is not seen. Dictated by: Jann Garland M.D. on 04/18/2020 at 16:21 Approved by: Jann Garland M.D. on 04/18/2020 at 16:25 Labs Result Diagrams: 04/18/20 15:15 04/18/20 15:15 Labs: Laboratory Results - last 24 hr 04/18/20 04/18/20 04/18/20 15:15 15:15 15:15 WBC 9.7 RBC 4.37 Hgb 13.9 Hct 40.4 MCV 92.6 MCH 31.8 MCHC 34.4 RDW 13.5 Plt Count 400 Neut % (Auto) 68.1 Lymph % (Auto) 19.8 L [place] % (Auto) 9.6 Eos % (Auto) 2.3 Baso % (Auto) 0.2 Neut # (Auto) 6600 Lymph # (Auto) 1900 [place] # (Auto) 900 Eos # (Auto) 200 Baso # (Auto) 0 PT 10.2 INR 0.9 APTT 31 D Sodium 134 L Potassium 3.5 Chloride 89 L Carbon Dioxide 35 H BUN 24 H Creatinine 1.13 H Estimated GFR 46.7 L BUN/Creatinine Ratio 21.2 Glucose 116 H Calcium 11.0 H Total Bilirubin 0.4 AST 34 ALT 25 Alkaline Phosphatase 144 H Total Protein 8.2 Albumin 4.9 Globulin 3.3 Albumin/Globulin Ratio 1.5 Lipase 107 COVID-19 PCR 04/18/20 18:39 WBC RBC Hgb Hct MCV MCH MCHC RDW Plt Count Neut % (Auto) Lymph % (Auto) [place] % (Auto) Eos % (Auto) Baso % (Auto) Neut # (Auto) Lymph # (Auto) [place] # (Auto) Eos # (Auto) Baso # (Auto) PT INR APTT Sodium Potassium Chloride Carbon Dioxide BUN Creatinine Estimated GFR BUN/Creatinine Ratio Glucose Calcium Total Bilirubin AST ALT Alkaline Phosphatase Total Protein Albumin Globulin Albumin/Globulin Ratio Lipase COVID-19 PCR Negative Assessment & Plan Assessment and plan (1) Complete small bowel obstruction: Status: Acute (2) Hypertension: Qualifiers: Hypertension type: essential hypertension Qualified Code(s): I10 - Essential (primary) hypertension Status: Acute (3) H/O abdominal surgery: Status: Acute (4) Heart murmur: Problem details: due to atrial sclerosus per Dr. Escalera consult dated 04/2019 Status: Chronic (5) Obstructive sleep apnea of adult: Status: Chronic (6) Hypothyroidism: Status: Chronic Assessment & Plan narrative: 79-year-old woman admitted to the hospital with small bowel obstruction. This is her third admission for SBO in three months. NGT is in place with minimal output. Plan: CXR to check tube placement NGT to LIWS NPO except meds; clamp NGT 30 minutes after giving med PO with sip of water Ambulate IV fluids PRN pain med and antiemetic AM labs hold DVT ppx for possible OR tomorrow Addendum: CXR showed NGT kinked in distal esophagus; put in order for nurse Kristie to retract and re-advance the NGT; she did this and got 1.5L of NGT output; repeat CXR pending COVID-19 COVID-19 status: Negative Result date/Date tested (Pos, Neg/Pending): 04/18/20 Time Spent With Patient Time with patient: 25 - 35 minutes Quality VTE Deep Vein Thrombosis/Pulmonary Embolism Present on Admission: No
[2020-04-18] MEDS: SODIUM CHLORIDE 0.9% 1,000 ML 120 ML IV (21:31)
[2020-04-18] MEDS: BUSPIRONE 5 MG TABLET 10 MG PO (22:25)
[2020-04-18] MEDS: LOSARTAN 50 MG TABLET 100 MG PO (22:26)
--- NOTE | 2020-04-18 22:41 | PC.NURSE ---
Evening Shift Note Patient with continual complaint of pain and nausea despite pain/nausea medication. No significant output from NG tube upon arrival to floor. Verbal order for x-ray to verify placement, per Dr Porras. X-ray ordered and placement of NG tube not in stomach. Per Dr Porras VTORB to pull NG tube 15-20cm and advance 20-30cm. NG tube advanced by this RN per MD orders with immediate output through NG tube. Repeat x-ray ordered to confirm new placement. Per second x-ray NG tube in stomach, ok to give PO medications and clamp NG tube for 30min post administration of meds. Will continue to monitor. NG tube currently at [facility].
[2020-04-19] VITALS (19 sets, daily range): BP systolic 113–154; BP diastolic 47–75; PULSE 82–102; RESP 10–20; TEMP 36.1–36.7; O2SAT 93–100
[2020-04-19] MEDS: HYDROMORPHONE 0.5 MG INJ IV ×4 (00:07→23:34)
[2020-04-19 05:51] LABS: Add Manual Diff / Slide Review NO; Basophils Absolute Auto 0 /uL (0-100); Basophils Percent Auto 0.2 % (0-2); Eosinophils Absolute Auto 0 /uL (0-450); Hemoglobin 12.7 g/dL (12.0-16.0); Lymphocytes Absolute Auto 600 /uL (1100-4500); Lymphocytes Percent Auto 4.2 % (25-40); Mean Corpuscular HGB Conc 34.3 % (30-36); Mean Corpuscular Hemoglobin 31.7 PG (26-34); Mean Corpuscular Volume 92.5 fL (80-100); Monocytes Absolute Auto 600 /uL (0-900); Monocytes Percent Auto 4.4 % (3-14); Neutrophils Absolute Auto 12200 /uL (1500-7000); Neutrophils Percent Auto 91.2 % (50-75); Platelet Count 339 X10^3/uL (150-400); Red Cell Distribution Width 13.4 % (11.6-14.8); White Blood Cell Count 13.4 X10^3/uL (4.5-11.0)
[2020-04-19] MEDS: SODIUM CHLORIDE 0.9% 1,000 ML 120 ML IV (05:54)
[2020-04-19] MEDS: LEVOTHYROXINE 25 MCG TABLET 37.5 MCG PO (05:54)
[2020-04-19 06:02] LABS: Blood Urea Nitrogen 25 mg/dL (7-17); Calcium 9.6 mg/dL (8.4-10.2); Chloride 91 mmol/L (98-107); Estimated Glomerular Filt Rate 51.4 mL/min (>60); Glucose 133 mg/dL (80-110); HEMOLYSIS < 15 (0-50); Magnesium 1.9 mg/dL (1.6-2.3); Phosphorous 5.1 mg/dL (2.8-4.1); Potassium 3.2 mmol/L (3.4-5.1); Sodium 136 mmol/L (137-145)
[2020-04-19 06:28] LABS: Carbon Dioxide 36 mmol/L (22-32)
--- NOTE | 2020-04-19 06:34 | PC.NURSE ---
0554 NGT clamped & admin. Synthroid & placed on suctioned @ 0625. Did not C/O nausea when NGT was clamped. Will cont. POC & monitor,
[2020-04-19] MEDS: KCL 40 MEQ IN NS 1,000 ML 125 MEQ IV ×3 (06:48→23:34)
[2020-04-19] MEDS: MAGNESIUM SULFATE 2 GM/50 ML PIGGYBACK IV ×2 (06:59→17:59)
--- NOTE | 2020-04-19 07:55 | P.PN_ITS ---
Subjective Subjective Date Patient Seen: 04/19/20 Time Patient Seen: 07:55 Interval history: Pt feels much better this AM as NGT was repositioned last night and put out 2600. She denies pain, also denies passing flatus or stool. Exam Vital Signs (past 8 hours): - 04/19/20 00:05 04/19/20 04:54 Temperature 97.8 F 98.1 F Pulse Rate 102 H 101 H Respiratory Rate 18 18 Blood Pressure 146/69 H 152/75 H Pulse Oximetry 98 96 Oxygen Delivery Method Room Air Oxygen Flow Rate 0 Narrative Exam Narrative: GENERAL: Alert, comfortable. Appears stated age. Answers questions promptly and appropriately. Vital signs noted. HENT: Normocephalic, atraumatic. Hearing intact. NGT in place and sumping with bilious output EYES: Conjunctiva pink, sclera white, no periorbital swelling. CARDIOVASCULAR: Tachy at 101, No pedal edema. RESPIRATORY: Non-tachypneic, breathing comfortably on room air. GASTROINTESTINAL: Abdomen soft, mildly TTP, distension much improved GENITALURINARY: No flank tenderness. MUSCULOSKELETAL: Equal tone and mass bilaterally. SKIN: Warm, dry, soft, appropriate color for ethnicity. No other lesions, rashes, or wounds. NEURO: Alert and Oriented X 3. No gross sensory deficits, or cognitive issues. PSYCH: Appropriate affect and mood. Objective Labs Result Diagrams: 04/19/20 05:20 04/19/20 05:20 Labs: Laboratory Results - last 24 hr 04/18/20 04/18/20 04/18/20 15:15 15:15 15:15 WBC 9.7 RBC 4.37 Hgb 13.9 Hct 40.4 MCV 92.6 MCH 31.8 MCHC 34.4 RDW 13.5 Plt Count 400 Neut % (Auto) 68.1 Lymph % (Auto) 19.8 L [place] % (Auto) 9.6 Eos % (Auto) 2.3 Baso % (Auto) 0.2 Neut # (Auto) 6600 Lymph # (Auto) 1900 [place] # (Auto) 900 Eos # (Auto) 200 Baso # (Auto) 0 PT 10.2 INR 0.9 APTT 31 D Sodium 134 L Potassium 3.5 Chloride 89 L Carbon Dioxide 35 H BUN 24 H Creatinine 1.13 H Estimated GFR 46.7 L BUN/Creatinine Ratio 21.2 Glucose 116 H Calcium 11.0 H Phosphorus Magnesium Total Bilirubin 0.4 AST 34 ALT 25 Alkaline Phosphatase 144 H Total Protein 8.2 Albumin 4.9 Globulin 3.3 Albumin/Globulin Ratio 1.5 Lipase 107 COVID-19 PCR 04/18/20 04/19/20 04/19/20 18:39 05:20 05:20 WBC 13.4 H RBC 4.00 Hgb 12.7 Hct 37.0 MCV 92.5 MCH 31.7 MCHC 34.3 RDW 13.4 Plt Count 339 Neut % (Auto) 91.2 H D Lymph % (Auto) 4.2 L [place] % (Auto) 4.4 Eos % (Auto) 0.0 L Baso % (Auto) 0.2 Neut # (Auto) 09[address] H Lymph # (Auto) 600 L [place] # (Auto) 600 Eos # (Auto) 0 Baso # (Auto) 0 PT INR APTT Sodium 136 L Potassium 3.2 L Chloride 91 L Carbon Dioxide 36 H BUN 25 H Creatinine 1.04 Estimated GFR 51.4 L BUN/Creatinine Ratio 24.0 H Glucose 133 H Calcium 9.6 Phosphorus 5.1 H Magnesium 1.9 Total Bilirubin AST ALT Alkaline Phosphatase Total Protein Albumin Globulin Albumin/Globulin Ratio Lipase COVID-19 PCR Negative Assessment & Plan Assessment and plan (1) Complete small bowel obstruction: Status: Acute (2) Hypertension: Problem details: home meds with a sip of water Qualifiers: Hypertension type: essential hypertension Qualified Code(s): I10 - Essential (primary) hypertension Status: Acute (3) Acute hypokalemia: Problem details: repleting potassium and mag today Status: Acute (4) H/O abdominal surgery: Status: Acute (5) Obstructive sleep apnea of adult: Problem details: O2 PRN at night Status: Chronic (6) Essential hypertension: Status: Chronic (7) Hypothyroidism: Problem details: home dose levothyroxine Status: Chronic Assessment & Plan narrative: 79 yo woman with third sbo in three months, history of multiple abdominal surgeries. This morning we discussed doing SBFT vs going ahead with laparoscopic/possible open lysis of adhesions. She refused SBFT and is leaning towards surgery. We will hold DVT ppx and plan for laparoscopic possible open lysis of adhesions, with possible bowel resection this afternoon. I discussed with her the risks of bleeding, infection, damage to nearby s tructures, recurrence of obstruction, prolonged hospital stay, prolonged post op ileus, need for bowel resection, need for ostomy. We will discuss this again later today after she has had time to think about it and discuss with her boyfriend. NPO, NGT, IV fluids replete electrolytes, ambulate, NGT on LIWS; ok to clamp for pills and ambulation Hold DVT ppx for possible surgery COVID-19 COVID-19 status: Negative Result date/Date tested (Pos, Neg/Pending): 04/18/20 Time Spent With Patient Time with patient: 15-24 minutes Quality VTE Deep Vein Thrombosis/Pulmonary Embolism Present on Admission: No
[2020-04-19] MEDS: PANTOPRAZOLE 40 MG VIAL IV (08:52)
[2020-04-19] MEDS: POTASSIUM CHLORIDE 30 MEQ in SODIUM CHLORIDE 0.9% 250 ML 88.333 ML IV (08:52)
[2020-04-19] MEDS: dilTIAZem CD 240 MG CAP PO (08:53)
[2020-04-19] MEDS: dilTIAZem CD 180 MG CAP PO (08:53)
[2020-04-19] MEDS: CHLORTHALIDONE 25 MG TABLET PO (08:53)
[2020-04-19] MEDS: BUSPIRONE 5 MG TABLET 10 MG PO ×2 (09:10→20:11)
--- NOTE | 2020-04-19 09:32 | PC.NURSE ---
Addendum entered by Rebecca Mosher R.N. 04/19/20 12:38: Patient left for surgery around 1215. NG tube clamped and k+rider sent down with patient. Original Note: Patient is pleasant and cooperative with care. She states that her abdomen is not painful at this time but she has a slight headache. NG tube is paced correctly and to low intermittant suction. NG tube clamped at this time for 30 minutes as patient was given her medications oral by small sip of water, she was able to swallow them slowly. Patients abdomen is distended and her bowel tones are only present in her left upper quad. She is putting out green/brown colored bile in suction canister. Up to commode x1 with 1 person assist. She is resting comfortably now.
[2020-04-19] MEDS: LACTATED RINGERS 1,000 ML 42 ML IV ×2 (12:54→14:18)
[2020-04-19] MEDS: PIPERACILLIN-TAZO 3.375 GM/50 ML FROZ.PIGGY IV (13:14)
[2020-04-19] MEDS: BUPIVACAINE 0.25% W/ EPI 30 ML VIAL INJ ×2 (13:40→14:59)
--- NOTE | 2020-04-19 14:01 | SUR.OPER ---
Supine on padded OR bed, head on pillow, arms padded and tucked at side, legs uncrossed, safety belt at thigh, tape over blanket over lower legs .pillow under bilat knees
--- NOTE | 2020-04-19 14:20 | CM.DPC ---
DCP/Brief Assessment: Reviewed chart. Patient is a 79yr old female admitted to [facility] with SBO. PCP listed is Reena Sun. Primary payor is 1)Medicare 2)Alicja Szymanski. Attempted to meet with patient this AM. Per sharepoint web developerpulmonology technician scheduled for 3:45pm today? However, patient off floor at time of visit around noon. P: CM team to assess patient after surgery on 04-19-20 for d/c planning needs. AP[facility] Discharge Planning/Care Management CM Discharge Assessment Start: 04/19/20 12:12 Freq: Status: Active Protocol: Document 04/19/20 14:05 KJS (Rec: 04/19/20 14:20 [id number]) Discharge Planning Assessment Assigned Real Estate Rep AP[facility] Contact Information Angelina Palmer (sister) # [phone] Advance Directives? Yes Advance Directives on File No History Provided By Patient,Medical Record Prior Living Arrangements House Household Members none Is patient alert and oriented? Patient off floor for surgery at time of visit. Comment Care Management assessment pending. Patient has h/o SBO's . One in December and another in February 2020. Patient is currently off floor for surgery. Discharge Plan Home Transportation Arrangement Boyfriend can provide transport at d/c Referrals Initiated None needed Whiteboard Updated in Patient Room with Yes name and ext. # of Real Estate Rep Comment Left name/number of CM valve steamer on whiteboard. Review Status In Process Next Review Type Continued Stay Review
[2020-04-19] MEDS: BUPIVACAINE LIPOSOME 266 MG/20 ML VIAL INJ (14:58)
--- NOTE | 2020-04-19 15:31 | PM.OP.1 ---
Operative Date/Time/Diagnoses Date of procedure: 04/19/20 Time of procedure: 15:31 Pre-op diagnosis: SBO Post-op diagnosis: same Procedure & Clinicians Procedure: Laparoscopic hand assisted lysis of adhesions Same procedure as scheduled: Yes Indications: This is a 79 yo woman with history of multiple SBO's, now with recurrent SBO Surgeon: Lynne Porras Click Yes if Unassisted: Yes Anesthesia Type: General Operative Notes Findings: Dense adhesions in the right lower quadrant with a clear transition point Specimen(s): none sent Estimated Blood Loss (mL): 1 Blood products transfused: none Procedure in detail: The patient was brought into the operating room and placed supine on the OR table. Sequential compression devices were placed on both legs and turned on. Appropriate perioperative antibiotics were given prior to the start of surgery. General anesthesia was induced the patient was intubated. Navas catheter was placed sterilely in the bladder. The abdomen was prepped and draped in sterile fashion. Surgical time-out was conducted. Local anesthetic was injected under the skin just superior to the umbilicus and a 5 mm vertical incision was made at this site. The umbilical stalk was grasped with a Vladimir and elevated. A 5mm zero degree scope was used to place a 5mm laparoscopic port under direct visualization. Once proper positionw as verified, the abdomen was then insufflated in the usual fashion. Once the abdomen was insufflated, I took a look around. There was no injury from port placement. Two additional ports were placed in a similar fashion in the suprapubic position and left lower quadrant. The patient was placed in Trendelenburg position with right side up. Several loops of dilated bowel were seen. The omentum and small bowel was swept the left and the deep right side of the pelvis was exposed. There were dense adhesions contorting loops of small bowel, with adhesions to the pelvis sidewall also evident in the right pelvis. The dilated bowel was too delicate to be handled safely with atraumatic bowel graspers, so a hand port was placed. A new 5mm camera port was placed in the epigastric midline and a hand port was placed in the periumbilical midline. This was done by first injecting the skin with local anesthetic, and then dissecting down to the fascia using a 15 blade. Once the skin and fascia were opened for the full length of the incision, a [employer] handport was placed. I then resinsufflated the abdomen and using my right hand in the hand port I was able to safely maneuver the dilated bowel to address the adhesions. Using ligasure and laparoscopic scissors I took down the adhesions of the bowel to the abdominal wall and the interloop adhesions in the right lower quadrant. As I took down the adhesions, the dilated loops of bowel began to decompress, and the decompressed loops became slightly dilated and gas filled. Once the adhesions were freed, I brought the bowel up through the hand port and ran the bowel from ligament of Trietz to ileocecal valve. I took down remaining clinically relevant adhesions, and then replaced the bowel into the abdomen. The fascia of the midline incision was then infiltrated with the remaining 0.25% Marcaine with epi, for a total of 60mL, and 20 mL of Exparel in small aliquots. The fascia was then closed with running 0-PDS and reinforced with 0-Vicryl figure of 8's. The skin of the midline incision and the port sites were then closed with 4-0 Monocryl and all were sealed with Dermabond. This concluded the procedure. At this point the needle sponge and instrument counts were correct. The patient was awakened from anesthesia and extubated. The navas catheter was removed. The patient was transferred to the postanesthesia care unit in stable condition. Complications: none Post-operative Condition: stable Disposition: PACU
[2020-04-19] MEDS: fentaNYL 100 MCG/2 ML INJ IV ×2 (15:54→16:04)
[2020-04-19] MEDS: HYDROMORPHONE 2 MG INJ IV (16:06)
[2020-04-19 16:10] LABS: BUN Creatinine Ratio 22.9 (6-22); Blood Urea Nitrogen 22 mg/dL (7-17); Calcium 8.4 mg/dL (8.4-10.2); Carbon Dioxide 35 mmol/L (22-32); Chloride 97 mmol/L (98-107); Estimated Glomerular Filt Rate 56.4 mL/min (>60); Glucose 158 mg/dL (80-110); HEMOLYSIS < 15 (0-50); Magnesium 1.9 mg/dL (1.6-2.3); Phosphorous 2.9 mg/dL (2.8-4.1); Potassium 2.9 mmol/L (3.4-5.1); Sodium 136 mmol/L (137-145)
--- NOTE | 2020-04-19 16:14 | SUR.PHASEI ---
Assumed care from ALCIRA Romeo to LIS. States pain is there but bearable. Chap stick applied to lips and mouth swabbed with cool water.
[2020-04-19] MEDS: POTASSIUM CHLORIDE 30 MEQ in SODIUM CHLORIDE 0.9% 250 ML 44.167 ML IV (18:00)
[2020-04-19] MEDS: LOSARTAN 50 MG TABLET 100 MG PO (20:10)
[2020-04-19] MEDS: BENZOCAINE/MENTHOL 1 LOZ PKT 1 EACH PO (20:10)
[2020-04-20] MEDS: POTASSIUM CHLORIDE 30 MEQ in SODIUM CHLORIDE 0.9% 250 ML 44.167 ML IV (00:39)
--- NOTE | 2020-04-20 00:49 | PC.NURSE ---
Seen and assessed at 2338. Is alert and oriented. Breath sounds diminished but CTA with RA sat of 93%. HRR. Denies nausea. NG patent; on intermittent suction. BT hypoactive; patient states she has passed a little flatus but none recently. Laps sites X 4 to abdomen are dermabonded and without redness. Abdomen is soft but tender. Did complain pain was increasing and at 6/10 so medicated with Dilaudid. Denies dysuria, frequency or urgency with urination. Is able to turn herself in bed. SBA when up to [facility] for safety although patient denies unsteadiness or weakness. Wearing bilateral calf SCD's. Fall risk score is moderate and bed alarm is activated.
[2020-04-20] MEDS: HYDROMORPHONE 0.5 MG INJ IV ×4 (04:07→23:51)
--- NOTE | 2020-04-20 04:11 | PC.NURSE ---
Patient reports abd. pain and throat discomfort 7-02/27. Medicated with Dilaudid 0.5mg IV.
[2020-04-20 05:32] LABS: Add Manual Diff / Slide Review NO; Basophils Absolute Auto 0 /uL (0-100); Basophils Percent Auto 0.3 % (0-2); Eosinophils Absolute Auto 0 /uL (0-450); Hematocrit 33.9 % (36-46); Hemoglobin 11.3 g/dL (12.0-16.0); Lymphocytes Absolute Auto 600 /uL (1100-4500); Lymphocytes Percent Auto 4.5 % (25-40); Mean Corpuscular HGB Conc 33.3 % (30-36); Mean Corpuscular Hemoglobin 31.4 PG (26-34); Mean Corpuscular Volume 94.3 fL (80-100); Monocytes Absolute Auto 1300 /uL (0-900); Monocytes Percent Auto 9.5 % (3-14); Neutrophils Absolute Auto 11800 /uL (1500-7000); Neutrophils Percent Auto 85.7 % (50-75); Platelet Count 278 X10^3/uL (150-400); Red Blood Cell Count 3.59 X10^6/uL (4.0-5.2); Red Cell Distribution Width 13.6 % (11.6-14.8); White Blood Cell Count 13.8 X10^3/uL (4.5-11.0)
[2020-04-20] MEDS: LEVOTHYROXINE 25 MCG TABLET 37.5 MCG PO (05:37)
[2020-04-20 05:42] LABS: Blood Urea Nitrogen 17 mg/dL (7-17); Calcium 8.2 mg/dL (8.4-10.2); Carbon Dioxide 33 mmol/L (22-32); Chloride 102 mmol/L (98-107); Estimated Glomerular Filt Rate > 60.0 mL/min (>60); Glucose 134 mg/dL (80-110); HEMOLYSIS < 15 (0-50); Magnesium 2.4 mg/dL (1.6-2.3); Phosphorous 2.8 mg/dL (2.8-4.1); Potassium 4.8 mmol/L (3.4-5.1); Sodium 136 mmol/L (137-145)
[2020-04-20 05:47] VITALS: BP 116/54; PULSE 77; RESP 18; TEMP 36.9; O2SAT 92
[2020-04-20] MEDS: SODIUM CHLORIDE 0.9% 1,000 ML 100 ML IV ×2 (07:20→15:42)
[2020-04-20 08:40] VITALS: BP 129/60; PULSE 85; RESP 16; TEMP 36.7; O2SAT 95
--- NOTE | 2020-04-20 08:52 | PM.PN.1 ---
Subjective Subjective Date Patient Seen: 04/20/20 Time Patient Seen: 08:52 Interval history: No acute events overnight. Pt feels much better, but sore in the abdominal wall. Denies flatus, nausea, vomiting. Reports some gurgling in the abdomen; denies crampy pain. Has not been up to ambulate. Exam Vital Signs (past 8 hours): - 04/20/20 05:47 Temperature 98.4 F Pulse Rate 77 Respiratory Rate 18 Blood Pressure 116/54 L Pulse Oximetry 92 Oxygen Delivery Method Room Air Oxygen Flow Rate 0 Narrative Exam Narrative: GENERAL: Alert, comfortable. Appears stated age. Answers questions promptly and appropriately. Vital signs noted. HENT: Normocephalic, atraumatic. Hearing intact. NGT in place and sumping with scant bilious output EYES: Conjunctiva pink, sclera white, no periorbital swelling. CARDIOVASCULAR: normal rate, No pedal edema. RESPIRATORY: Non-tachypneic, breathing comfortably on room air. GASTROINTESTINAL: Abdomen soft, mildly TTP, distension much improved; incisions c/d/i GENITALURINARY: No flank tenderness. MUSCULOSKELETAL: Equal tone and mass bilaterally. SKIN: Warm, dry, soft, appropriate color for ethnicity. No other lesions, rashes, or wounds. NEURO: Alert and Oriented X 3. No gross sensory deficits, or cognitive issues. PSYCH: Appropriate affect and mood. Objective Labs Result Diagrams: 04/20/20 05:20 04/20/20 05:20 Labs: Laboratory Results - last 24 hr 04/19/20 04/19/20 04/20/20 15:49 15:49 05:20 WBC 13.8 H RBC 3.59 L Hgb 11.3 L Hct 33.9 L MCV 94.3 MCH 31.4 MCHC 33.3 RDW 13.6 Plt Count 278 Neut % (Auto) 85.7 H Lymph % (Auto) 4.5 L [place] % (Auto) 9.5 Eos % (Auto) 0.0 L Baso % (Auto) 0.3 Neut # (Auto) 00114 H Lymph # (Auto) 600 L [place] # (Auto) 1300 H Eos # (Auto) 0 Baso # (Auto) 0 Sodium 136 L Potassium 2.9 L Chloride 97 L Carbon Dioxide 35 H BUN 22 H Creatinine 0.96 Estimated GFR 56.4 L BUN/Creatinine Ratio 22.9 H Glucose 158 H Calcium 8.4 Phosphorus 2.9 D Magnesium 1.9 04/20/20 05:20 WBC RBC Hgb Hct MCV MCH MCHC RDW Plt Count Neut % (Auto) Lymph % (Auto) [place] % (Auto) Eos % (Auto) Baso % (Auto) Neut # (Auto) Lymph # (Auto) [place] # (Auto) Eos # (Auto) Baso # (Auto) Sodium 136 L Potassium 4.8 D Chloride 102 Carbon Dioxide 33 H BUN 17 Creatinine 0.74 Estimated GFR > 60.0 BUN/Creatinine Ratio 23.0 H Glucose 134 H Calcium 8.2 L Phosphorus 2.8 Magnesium 2.4 H Assessment & Plan Assessment and plan (1) Complete small bowel obstruction: Status: Acute (2) Hypertension: Problem details: home meds with a sip of water Qualifiers: Hypertension type: essential hypertension Qualified Code(s): I10 - Essential (primary) hypertension Status: Acute (3) Acute hypokalemia: Problem details: repleting potassium and mag today Status: Acute (4) H/O abdominal surgery: Status: Acute (5) Obstructive sleep apnea of adult: Problem details: O2 PRN at night Status: Chronic (6) Essential hypertension: Status: Chronic (7) Hypothyroidism: Problem details: home dose levothyroxine Status: Chronic Assessment & Plan narrative: 79 yo woman with third sbo in three months, history of multiple abdominal surgeries. She is now POD#1 s/p laparoscopic lysis of adhesions. Feeling better but now has ileus, as expected after SBO and FAZAL. Will keep NGT until passing flatus or BM. NPO, NGT, IV fluids ambulate, NGT on LIWS; ok to clamp for pills and ambulation DVTppx home meds pain meds PRN anti emetic PRN throat lozenges PRN COVID-19 COVID-19 status: Negative Result date/Date tested (Pos, Neg/Pending): 04/18/20 Time Spent With Patient Time with patient: 15-24 minutes Quality VTE Deep Vein Thrombosis/Pulmonary Embolism Present on Admission: No
[2020-04-20] MEDS: ENOXAPARIN 40 MG/0.4 ML SYRINGE SUBCUT (09:36)
[2020-04-20] MEDS: CHLORTHALIDONE 25 MG TABLET PO (09:37)
[2020-04-20] MEDS: BUSPIRONE 5 MG TABLET 10 MG PO ×2 (09:37→19:08)
[2020-04-20] MEDS: BENZOCAINE/MENTHOL 1 LOZ PKT 1 EACH PO ×4 (09:37→23:57)
[2020-04-20] MEDS: PANTOPRAZOLE 40 MG VIAL IV (09:37)
[2020-04-20] MEDS: BISACODYL 10 MG SUPP PR (09:37)
[2020-04-20] MEDS: dilTIAZem CD 240 MG CAP PO (09:38)
[2020-04-20] MEDS: dilTIAZem CD 180 MG CAP PO (09:38)
--- NOTE | 2020-04-20 10:50 | CM.DPNOTE ---
DCP Cont Patient now POD#1 s/p laparoscopic lysis of adhesions. Met w/patient and her friend/partner Chidi, introduced SW role. Patient appreciative of visit, explains she does not expect any needs from this [employer] upon DC. patient indp at baseline, states she does not have any adult children but partner Chidi can assist her as needed. Patient hopeful this surgery will bring her relief since she has had multiple SBOs in a few months time. P: DC home expected when medically cleared Will follow closely for any DC needs or concerns that may arise. KEVIN
[2020-04-20 15:35] VITALS: BP 133/55; PULSE 82; RESP 17; TEMP 37; O2SAT 92
[2020-04-20] MEDS: LOSARTAN 50 MG TABLET 100 MG PO (19:07)
[2020-04-20 19:39] VITALS: BP 143/67; PULSE 89; RESP 17; TEMP 37; O2SAT 91
[2020-04-20 23:45] VITALS: BP 139/63; PULSE 87; RESP 18; TEMP 36.9; O2SAT 92
[2020-04-21] MEDS: SODIUM CHLORIDE 0.9% 1,000 ML 100 ML IV (01:57)
[2020-04-21] MEDS: BENZOCAINE/MENTHOL 1 LOZ PKT 1 EACH PO ×2 (05:32→12:49)
[2020-04-21] MEDS: HYDROMORPHONE 0.5 MG INJ IV ×4 (05:32→19:18)
[2020-04-21] MEDS: LEVOTHYROXINE 25 MCG TABLET 37.5 MCG PO (05:33)
[2020-04-21 05:55] LABS: Add Manual Diff / Slide Review NO; Basophils Absolute Auto 100 /uL (0-100); Basophils Percent Auto 0.5 % (0-2); Eosinophils Absolute Auto 100 /uL (0-450); Eosinophils Percent Auto 0.4 % (2-4); Hematocrit 34.4 % (36-46); Hemoglobin 11.3 g/dL (12.0-16.0); Lymphocytes Absolute Auto 1700 /uL (1100-4500); Lymphocytes Percent Auto 11.8 % (25-40); Mean Corpuscular Hemoglobin 31.1 PG (26-34); Mean Corpuscular Volume 94.3 fL (80-100); Monocytes Absolute Auto 1100 /uL (0-900); Monocytes Percent Auto 7.7 % (3-14); Neutrophils Absolute Auto 11700 /uL (1500-7000); Neutrophils Percent Auto 79.6 % (50-75); Platelet Count 283 X10^3/uL (150-400); Red Blood Cell Count 3.65 X10^6/uL (4.0-5.2); Red Cell Distribution Width 13.7 % (11.6-14.8); White Blood Cell Count 14.7 X10^3/uL (4.5-11.0)
[2020-04-21 06:02] LABS: Chloride 101 mmol/L (98-107); HEMOLYSIS < 15 (0-50)
[2020-04-21 06:05] LABS: BUN Creatinine Ratio 18.8 (6-22); Blood Urea Nitrogen 15 mg/dL (7-17); Calcium 8.9 mg/dL (8.4-10.2); Carbon Dioxide 30 mmol/L (22-32); Estimated Glomerular Filt Rate > 60.0 mL/min (>60); Glucose 92 mg/dL (80-110); Magnesium 1.9 mg/dL (1.6-2.3); Phosphorous 2.4 mg/dL (2.8-4.1); Potassium 3.7 mmol/L (3.4-5.1); Sodium 136 mmol/L (137-145)
--- NOTE | 2020-04-21 07:01 | PC.NURSE ---
Pt. C/P throat pain /10 even after a dose od Dilaudid 0.[address] Rosario documentation supervisor for Dr. Porras. He ordered TYlenol elixer 650 mg. every 6 hrs. prn. Will notify day RN.
--- NOTE | 2020-04-21 07:27 | DI.RAD.S_ITS ---
PROCEDURE: XR KUB INDICATIONS: ileus TECHNIQUE: One view of the abdomen acquired. COMPARISON: [facility], CT, CT ABDOMEN PELVIS WO CON, 04/18/2020, 16:09. [facility], CR, XR ACUTE ABDOMEN SERIES, 03/02/2020, 19:04. FINDINGS: Surgical changes and devices: Enteric tube is seen with the tip projecting in the stomach. Bowel: Numerous diffuse dilated bowel loops, and moderate stool. No specific transition point. Overall, this appears similar to minimally improved to recent CT from 04/18/20. Soft tissues: No suspicious abdominal calcifications. Visualized solid organ contours appear normal in size. Bones: No suspicious bony lesions. IMPRESSION: Diffuse dilated small and large bowel loops. No specific transition point identified however cannot entirely exclude distal obstruction versus ileus. This appears grossly unchanged to minimally improved. If the patient's symptoms do not improve, continued surveillance with abdominal series radiographs could be performed. Enteric tube with the tip projecting in the stomach. Dictated by: Robert Nguyễn M.D. on 04/21/2020 at 8:46 Approved by: Robert Nguyễn M.D. on 04/21/2020 at 9:10
[2020-04-21] MEDS: KCL 40 MEQ IN NS 1,000 ML 100 MEQ IV ×2 (07:43→23:43)
[2020-04-21] MEDS: ACETAMINOPHEN SUSP 650 MG/20.3 ML UDC PO (07:48)
[2020-04-21] MEDS: MAGNESIUM SULFATE 2 GM/50 ML PIGGYBACK IV (07:50)
[2020-04-21] MEDS: ENOXAPARIN 40 MG/0.4 ML SYRINGE SUBCUT (08:22)
[2020-04-21] MEDS: BISACODYL 10 MG SUPP PR (08:23)
[2020-04-21] MEDS: CHLORTHALIDONE 25 MG TABLET PO (08:23)
[2020-04-21] MEDS: PANTOPRAZOLE 40 MG VIAL IV (08:23)
[2020-04-21] MEDS: dilTIAZem CD 180 MG CAP PO (08:24)
[2020-04-21] MEDS: dilTIAZem CD 240 MG CAP PO (08:24)
[2020-04-21] MEDS: BUSPIRONE 5 MG TABLET 10 MG PO ×2 (08:29→21:42)
[2020-04-21 09:00] VITALS: BP 134/62; PULSE 83; RESP 16; TEMP 36.8; O2SAT 92
--- NOTE | 2020-04-21 09:56 | PC.NURSE ---
Day shift note: Patient up out of bed and encouraged to ambulate, small amount of watery yellow stool this am. Active BS to Left UQ and LQ, hypoctive to Right UQ,LQ. No flatus as of this am. IVF infusing and electrolyte replacements initiated as ordered. C/O pain to RLQ, described as an ache, surrounding RLQ lap site. C/O throat discomfort, described as soreness and burning, Lozenges admin for relief. NGT to LIS as ordered. No nausea or vomiting. Uses call light appropriately.
[2020-04-21] MEDS: POTASSIUM PHOSPHATE 15 MMOL in DEXTROSE 5% IN WATER 250 ML 63.75 ML IV (10:40)
[2020-04-21 12:50] VITALS: BP 144/60; PULSE 90; RESP 16; TEMP 36.8; O2SAT 93
[2020-04-21] MEDS: METOCLOPRAMIDE 10 MG/2 ML INJ IV ×2 (13:41→21:42)
--- NOTE | 2020-04-21 13:59 | P.PN_ITS ---
Subjective Subjective Date Patient Seen: 04/21/20 Time Patient Seen: 12:25 Interval history: The patient is complaining of significant pain in her sinuses in her throat and her neck. She denies passing any gas or stool. Exam Vital Signs (past 8 hours): - 04/21/20 09:00 04/21/20 12:50 Temperature 98.2 F 98.2 F Pulse Rate 83 90 Respiratory Rate 16 16 Blood Pressure 134/62 144/60 H Pulse Oximetry 92 93 Oxygen Delivery Method Room Air Oxygen Flow Rate 0 Narrative Exam Narrative: GENERAL: Alert, in moderate distress due to her NG tube. Appears stated age. Answers questions promptly and appropriately. Vital signs noted. HENT: Normocephalic, atraumatic. Hearing intact. NGT in place and sumping with scant bilious output. NG tube removed during exam. EYES: Conjunctiva pink, sclera white, no periorbital swelling. CARDIOVASCULAR: normal rate, No pedal edema. RESPIRATORY: Non-tachypneic, breathing comfortably on room air. GASTROINTESTINAL: Abdomen soft, mildly TTP, distension much improved; incisions c/d/i GENITALURINARY: No flank tenderness. MUSCULOSKELETAL: Equal tone and mass bilaterally. SKIN: Warm, dry, soft, appropriate color for ethnicity. No other lesions, rashes, or wounds. NEURO: Alert and Oriented X 3. No gross sensory deficits, or cognitive issues. PSYCH: Appropriate affect and mood. Objective Imaging Abdominal x-ray: My impression: Significant ileus Radiologist's impression: Unchanged from prior Labs Result Diagrams: 04/21/20 05:45 04/21/20 05:45 Labs: Laboratory Results - last 24 hr 04/21/20 04/21/20 05:45 05:45 WBC 14.7 H RBC 3.65 L Hgb 11.3 L Hct 34.4 L MCV 94.3 MCH 31.1 MCHC 33.0 RDW 13.7 Plt Count 283 Neut % (Auto) 79.6 H Lymph % (Auto) 11.8 L [place] % (Auto) 7.7 Eos % (Auto) 0.4 L Baso % (Auto) 0.5 Neut # (Auto) 20846 H Lymph # (Auto) 1700 [place] # (Auto) 1100 H Eos # (Auto) 100 Baso # (Auto) 100 Sodium 136 L Potassium 3.7 Chloride 101 Carbon Dioxide 30 BUN 15 Creatinine 0.80 Estimated GFR > 60.0 BUN/Creatinine Ratio 18.8 Glucose 92 Calcium 8.9 Phosphorus 2.4 L Magnesium 1.9 Assessment & Plan Assessment and plan (1) Complete small bowel obstruction: Status: Acute (2) Hypertension: Problem details: home meds with a sip of water Qualifiers: Hypertension type: essential hypertension Qualified Code(s): I10 - Essential (primary) hypertension Status: Acute (3) Acute hypokalemia: Problem details: repleting potassium and mag today Status: Acute (4) H/O abdominal surgery: Status: Acute (5) Obstructive sleep apnea of adult: Problem details: O2 PRN at night Status: Chronic (6) Essential hypertension: Status: Chronic (7) Hypothyroidism: Problem details: home dose levothyroxine Status: Chronic Assessment & Plan narrative: 79 yo woman with third sbo in three months, history of multiple abdominal surgeries. She is now POD#2 s/p laparoscopic lysis of adhesions. Reglan was started today. She appears to have an ongoing ileus, but after the NG tube was removed, she did pass some stool. She denies any nausea with the NG tube out for about 5 hours. We will advance her to clear liquid diet. Continue IV fluids until taking adequate p.o. Ambulate 20 minutes 3 times a day DVTppx home meds pain meds PRN anti emetic PRN throat lozenges PRN COVID-19 COVID-19 status: Negative Result date/Date tested (Pos, Neg/Pending): 04/18/20 Time Spent With Patient Time with patient: 15-24 minutes Quality VTE Deep Vein Thrombosis/Pulmonary Embolism Present on Admission: No
[2020-04-21 15:35] VITALS: BP 125/52; PULSE 78; RESP 17; TEMP 36.9; O2SAT 93
[2020-04-21] MEDS: ONDANSETRON 4 MG/2 ML INJ IV (19:18)
[2020-04-21 19:22] VITALS: BP 153/64; PULSE 84; RESP 17; TEMP 37.1; O2SAT 95
[2020-04-21 21:42] VITALS: BP 153/64; PULSE 85
[2020-04-21] MEDS: LOSARTAN 50 MG TABLET 100 MG PO (21:42)
[2020-04-21 23:45] VITALS: BP 129/55; PULSE 75; RESP 12; TEMP 37.3; O2SAT 91
[2020-04-22] VITALS (8 sets, daily range): BP systolic 137–173; BP diastolic 56–78; PULSE 82–90; RESP 16–18; TEMP 36.6–37.1; O2SAT 89–99
--- NOTE | 2020-04-22 00:16 | PC.NURSE ---
Addendum entered by Na Mariscal R.N. 04/22/20 06:25: Patient started passing flatus this morning. Addendum entered by Na Mariscal R.N. 04/22/20 05:03: Patient's O2 sat 89% earlier so rechecked now and is 94%. Patient states she has sleep apnea and uses a CPAP at home. Discussed importance of having CPAP brought in for her to use. Is reluctant to do so as it's so big. Addendum entered by Na Mariscal R.N. 04/22/20 01:21: Complains of 7/10 abdominal/back pain; medicated with Dilaudid. Original Note: 2345 Patient is alert and oriented. Breath sounds CTA with RA sat of 91%. HRR w/murmur. Denies nausea. BT hypoactive and denies flatus but did have 2 BM's on previous shift. Is voiding on toilet; denies dysuria, frequency or urgency. Is able to turn herself. Up to bathroom with SBA for safety; denies weakness. Lap sites x 4 to abdomen are well approximated with surrounding bruising. Abdomen is soft but tender and mildly distended. Refusing SCD's so reminded to ankle wave. States incisional pain is 6/10 but tolerable and declines offer of pain medication. Fall risk score is moderate and bed alarm is activated.
[2020-04-22] MEDS: HYDROMORPHONE 0.5 MG INJ IV (01:19)
[2020-04-22] MEDS: LEVOTHYROXINE 25 MCG TABLET 37.5 MCG PO (06:20)
[2020-04-22] MEDS: METOCLOPRAMIDE 10 MG/2 ML INJ IV ×3 (06:20→20:09)
[2020-04-22 06:48] LABS: Add Manual Diff / Slide Review NO; Basophils Absolute Auto 100 /uL (0-100); Basophils Percent Auto 0.6 % (0-2); Eosinophils Absolute Auto 300 /uL (0-450); Eosinophils Percent Auto 3.2 % (2-4); Hematocrit 34.6 % (36-46); Hemoglobin 11.6 g/dL (12.0-16.0); Lymphocytes Absolute Auto 1200 /uL (1100-4500); Lymphocytes Percent Auto 14.6 % (25-40); Mean Corpuscular HGB Conc 33.6 % (30-36); Mean Corpuscular Hemoglobin 31.4 PG (26-34); Mean Corpuscular Volume 93.4 fL (80-100); Monocytes Absolute Auto 700 /uL (0-900); Monocytes Percent Auto 8.8 % (3-14); Neutrophils Absolute Auto 5800 /uL (1500-7000); Neutrophils Percent Auto 72.8 % (50-75); Platelet Count 271 X10^3/uL (150-400); Red Cell Distribution Width 13.7 % (11.6-14.8)
[2020-04-22 06:53] LABS: BUN Creatinine Ratio 13.5 (6-22); Blood Urea Nitrogen 10 mg/dL (7-17); Calcium 8.9 mg/dL (8.4-10.2); Carbon Dioxide 29 mmol/L (22-32); Chloride 101 mmol/L (98-107); Estimated Glomerular Filt Rate > 60.0 mL/min (>60); Glucose 85 mg/dL (80-110); HEMOLYSIS < 15 (0-50); Magnesium 1.7 mg/dL (1.6-2.3); Phosphorous 2.4 mg/dL (2.8-4.1); Potassium 3.7 mmol/L (3.4-5.1); Sodium 135 mmol/L (137-145)
--- NOTE | 2020-04-22 07:28 | DI.RAD.S_ITS ---
PROCEDURE: XR KUB INDICATIONS: ileus; equivocal return of bowel function TECHNIQUE: One view of the abdomen acquired. COMPARISON: [facility], , XR KUB, 04/21/2020, 7:05. FINDINGS: Surgical changes and devices: The previously seen enteric tube has been removed. Surgical clips are again seen in the right upper quadrant. Bowel: Multiple dilated air-filled loops of small and large bowel are again seen throughout the abdomen and pelvis, not significantly changed when compared to the radiographs from 04/21/2020. Soft tissues: No suspicious abdominal calcifications. Visualized solid organ contours appear normal in size. Bones: No suspicious bony lesions. IMPRESSION: Dilated air-filled loops of small and large bowel are again seen throughout the abdomen, not significantly changed when compared to the radiographs from the day prior. Dictated by: Stevo Kruger M.D. on 04/22/2020 at 8:03 Approved by: Stevo Kruger M.D. on 04/22/2020 at 8:06
[2020-04-22] MEDS: MAGNESIUM SULFATE 2 GM/50 ML PIGGYBACK IV (07:50)
[2020-04-22] MEDS: CHLORTHALIDONE 25 MG TABLET PO (08:03)
[2020-04-22] MEDS: dilTIAZem CD 180 MG CAP PO (08:03)
[2020-04-22] MEDS: PANTOPRAZOLE 40 MG VIAL IV (08:03)
[2020-04-22] MEDS: dilTIAZem CD 240 MG CAP PO (08:03)
[2020-04-22] MEDS: BUSPIRONE 5 MG TABLET 10 MG PO ×2 (08:03→20:08)
[2020-04-22] MEDS: BISACODYL 10 MG SUPP PR (08:04)
[2020-04-22] MEDS: ENOXAPARIN 40 MG/0.4 ML SYRINGE SUBCUT (08:04)
[2020-04-22] MEDS: POTASSIUM PHOSPHATE 15 MMOL in DEXTROSE 5% IN WATER 250 ML 63.75 ML IV (09:52)
--- NOTE | 2020-04-22 11:21 | PM.PNPO.1 ---
Subjective Subjective Date Patient Seen: 04/22/20 Time Patient Seen: 11:21 Interval history: No acute overnight events. Had bowel movement and is passing flatus. Exam Vital Signs (past 8 hours): - 04/22/20 04:50 04/22/20 05:03 04/22/20 07:37 Temperature 98.4 F 97.9 F Pulse Rate 90 87 Respiratory Rate 16 18 Blood Pressure 151/58 H 173/78 H Pulse Oximetry 89 L 94 99 Oxygen Delivery Method Room Air Oxygen Flow Rate 0 Narrative Exam Narrative: General adult female alert oriented no acute distress Abdomen appropriately tender to palpation incisions clean dry intact mild distension Objective Labs Result Diagrams: 04/22/20 06:30 04/22/20 06:30 Labs: Laboratory Results - last 24 hr 04/22/20 04/22/20 04/22/20 06:30 06:30 06:30 WBC 8.0 RBC 3.70 L Hgb 11.6 L Hct 34.6 L MCV 93.4 MCH 31.4 MCHC 33.6 RDW 13.7 Plt Count 271 Neut % (Auto) 72.8 Lymph % (Auto) 14.6 L [place] % (Auto) 8.8 Eos % (Auto) 3.2 Baso % (Auto) 0.6 Neut # (Auto) 5800 Lymph # (Auto) 1200 [place] # (Auto) 700 Eos # (Auto) 300 Baso # (Auto) 100 Sodium 135 L Potassium 3.7 Chloride 101 Carbon Dioxide 29 BUN 10 Creatinine 0.74 Estimated GFR > 60.0 BUN/Creatinine Ratio 13.5 Glucose 85 Calcium 8.9 Phosphorus 2.4 L Magnesium 1.7 Assessment & Plan Post-op Postoperative Procedures: Procedures Operation Date: 04/19/20 15:45 Actual Procedures Side Surgeon p Laparoscopy Poss. Open Poss. Lysis of adhesions, poss. bowel resection Lynne Porras MD Postoperative plan narrative: 79-year-old female postoperative day 3 after a lysis of adhesions for small-bowel obstruction. She is recovering from the operation appropriately. She has had return of bowel function. Plan -transitional diet -out of bed ambulate -VT prophylaxis -anticipate discharge home tomorrow if tolerates diet. Quality VTE Deep Vein Thrombosis/Pulmonary Embolism Present on Admission: No
[2020-04-22] MEDS: LOSARTAN 50 MG TABLET 100 MG PO (20:08)
[2020-04-22] MEDS: OXYCODONE IR 5 MG TABLET PO (23:40)
--- NOTE | 2020-04-23 00:39 | PC.NURSE ---
Patient seen at 2340. Is alert and oriented. Last noc found patient to have O2 sat in 80's upon waking and she reports hx of sleep apnea but does not have CPAP with her so currently is on oxygen at 0.5L/min per NC for sleep and sat is 97%. HRR w/murmur. Denies nausea. BT hypoactive but has passed flatus and stool. Remains distended and tender with pain increasing from 4/10 to 6/10 with movement; medicated with Oxycodone. Denies dysuria, frequency or urgency with urination. Able to move self in bed and gets up with walker and SBA. Lap sites/incision to abdomen all dermabonded and well approximated; midline incision and lap site to left of midline with slight pinkness surrounding. Fall risk score is moderate and bed alarm is activated for safety.
[2020-04-23 03:35] VITALS: BP 141/70; PULSE 90; RESP 16; TEMP 36.7; O2SAT 95
[2020-04-23 05:46] LABS: BUN Creatinine Ratio 10.7 (6-22); Blood Urea Nitrogen 8 mg/dL (7-17); Carbon Dioxide 34 mmol/L (22-32); Chloride 97 mmol/L (98-107); Estimated Glomerular Filt Rate > 60.0 mL/min (>60); Glucose 102 mg/dL (80-110); HEMOLYSIS < 15 (0-50); Magnesium 1.7 mg/dL (1.6-2.3); Phosphorous 3.4 mg/dL (2.8-4.1); Potassium 3.4 mmol/L (3.4-5.1); Sodium 134 mmol/L (137-145)
[2020-04-23] MEDS: LEVOTHYROXINE 25 MCG TABLET 37.5 MCG PO (06:04)
[2020-04-23] MEDS: METOCLOPRAMIDE 10 MG/2 ML INJ IV (06:05)
[2020-04-23] MEDS: SODIUM CHLORIDE 0.9% FLUSH 10 ML IV ×2 (06:05→08:26)
[2020-04-23 07:11] VITALS: BP 143/65; PULSE 84; RESP 18; TEMP 36.4; O2SAT 95
[2020-04-23] MEDS: dilTIAZem CD 180 MG CAP PO (08:26)
[2020-04-23] MEDS: ENOXAPARIN 40 MG/0.4 ML SYRINGE SUBCUT (08:26)
[2020-04-23] MEDS: PANTOPRAZOLE 40 MG VIAL IV (08:26)
[2020-04-23] MEDS: dilTIAZem CD 240 MG CAP PO (08:26)
[2020-04-23] MEDS: CHLORTHALIDONE 25 MG TABLET PO (08:26)
[2020-04-23] MEDS: BUSPIRONE 5 MG TABLET 10 MG PO (08:26)
[2020-04-23] MEDS: BISACODYL 10 MG SUPP PR (08:27)
--- NOTE | 2020-04-23 08:58 | PC.NURSE ---
Addendum entered by Thao Gleason R.N. 04/23/20 11:13: pt did not want prn med prior to discharge home. Discharge summary packet reviewed with pt and her . Pt aware to potato picker Oxycodone prescription at [facility], aware to call Dr. Porras's office to make follow up appointment. Reviewed S/S of infection. Pt going to [facility] to get stool softeners. No further voiced concerns. States has all her belongings. Pt left unit via wheelchair at 1112 in no distress with [employer]ANIT[employer] escort. Her is present to drive her home. Addendum entered by Thao Gleason R.N. 04/23/20 09:34: pt states having a good amount of BM after scheduled suppository this AM. BM was soft, moderate size, unseen by staff, pt had flushed toilet already. Original Note: Day Shift- Pt A&OX4, able to make her needs known using call light. Ambulating in room indep without issue. Pt states has 4/10 pain to abd with movement, pain management plan discussed, PRN Oxycodone and Tylenol offered, pt declined at this time. Abd lap sites X3 and midline small incision well approximated with surgical glue, incisions area dry and healing. Bruising surrounding incisions. Abd slightly distended, BSX4, pt states passing flatus. Denies nausea. Tolerated breakfast, stating the food is not to her liking, JANITOR and this RN offered alternative choices. Pt states the breakfast has not been my favorite meals here. Pt states has numbness to base of right thumb, starting after her 1st PIV placement. Pt did not have prior to admission. No redness or edema noted, will monitor, non distressing to pt.
--- NOTE | 2020-04-23 10:39 | PM.DS.1 ---
History of Present Illness History of Present Illness Date Patient Seen: 04/23/20 Time Patient Seen: 10:40 Chief complaint: thinks getting a bowel obstruction Narrative: 79-year-old female history of abdominal surgery presented with a recurrent small-bowel obstruction. Discharge Providers Provider Date of admission: 04/18/20 19:24 Discharge Date: 04/23/20 Primary care physician: GEOVANNA Shen Discharge provider: Alber Mcginnis MD Summary Hospital Course Discharge Diagnosis: Small-bowel obstruction Hospital Course: She is taken to the operating room underwent a laparoscopic hand assisted lysis of adhesions. No bowel resection was required. She had a postoperative ileus and this resolved spontaneously. At discharge she is tolerant of a regular diet passing flatus having bowel movements pain is well controlled with oral medication. Status at Discharge Cognitive/behavioral status at discharge: oriented Exam Vital Signs (past 8 hours): - 04/23/20 03:35 04/23/20 07:11 Temperature 98.0 F 97.6 F Pulse Rate 90 84 Respiratory Rate 16 18 Blood Pressure 141/70 H 143/65 H Pulse Oximetry 95 95 Oxygen Delivery Method Room Air Oxygen Flow Rate 0 Narrative Exam Narrative: General elderly woman alert oriented no acute distress Abdomen soft appropriately tender to palpation midline incision clean dry intact. Objective Labs Result Diagrams: 04/22/20 06:30 04/23/20 05:15 Labs: Laboratory Results - last 24 hr 04/23/20 05:15 Sodium 134 L Potassium 3.4 Chloride 97 L Carbon Dioxide 34 H BUN 8 Creatinine 0.75 Estimated GFR > 60.0 BUN/Creatinine Ratio 10.7 Glucose 102 Calcium 9.0 Phosphorus 3.4 D Magnesium 1.7 Discharge Plan Discharge Plan Patient Disposition: Home Discharge orders & Medications Prescriptions: New oxycodone 5 mg tablet 5 mg PO Q6H PRN (Reason: pain) Qty: 20 RF: 0 Continued CO-Q-10 1 tab PO BEDTIME RF: 0 vitamin B-12 1,000 mcg PO DAILY RF: 0 Mylanta See Rx Instructions .ROUTE .COMPLEX RF: 0 Tylenol Extra Strength 500 mg PO QID PRN (Reason: Pain (Scale Score 4-6)) RF: 0 cholecalciferol (vitamin D3) 2,000 unit capsule 2,000 mcg PO DAILY RF: 0 cyclosporine [Restasis MultiDose] 0.05 % drops 1 drop EYE-BOTH BID RF: 0 naproxen sodium [Aleve] 220 mg capsule 220 mg PO DAILY PRN (Reason: Pain (Scale Score 1-3)) RF: 0 chlorthalidone 25 mg tablet 25 mg PO DAILY RF: 0 azelastine 137 mcg (0.1 %) aerosol,spray See Rx Instructions .ROUTE .COMPLEX Qty: 30 RF: 12 estradiol 10 mcg tablet 10 mcg vaginal 2XW PRN (Reason: atrophic vaginitis) Qty: 12 RF: 6 buspirone 10 mg tablet 10 mg PO BID Qty: 180 RF: 3 levothyroxine 75 mcg tablet 75 mcg PO DAILY Qty: 90 RF: 4 rosuvastatin 10 mg tablet See Rx Instructions .ROUTE .COMPLEX Qty: 90 RF: 3 cetirizine [Zyrtec] 10 mg tablet 10 mg PO DAILY PRN (Reason: Allergic Symptoms) RF: 0 simethicone [Gas-X Extra Strength] 125 mg tablet,chewable 125 mg PO DAILY PRN (Reason: Indigestion) RF: 0 polyethylene glycol 3350 [Miralax] 17 gram/dose powder 17 gram PO DAILY Qty: 527 RF: 11 lorazepam 0.5 mg tablet 0.5 mg PO BID-TID PRN (Reason: anxiety) Qty: 30 RF: 0 omeprazole 20 mg capsule,delayed release(DR/EC) 20 mg PO DAILY RF: 0 aspirin 81 mg Tablet,Chewable 81 mg PO DAILY RF: 0 Probiotic 15 billion cell Capsule 1 cap PO DAILY RF: 0 docusate sodium 100 mg Capsule 100 mg PO DAILY PRN (Reason: Constipation) RF: 0 losartan 100 mg tablet 100 mg PO BEDTIME RF: 0 diltiazem HCl 420 mg capsule,extended release 24 hr 420 mg PO DAILY RF: 0 Follow up/Referrals: Reena Sun ARNP [Primary Care Provider] - Lynne Porras MD [Physician] - (Please call office on FridayApril 24 to make a Follow Up appointment for 1-2 weeks) Diet/Activity/Treatments Diet: Diet as Tolerated and Regular Skin/Wound/Dressing Care Report to your healthcare provider any signs of infection, such as:: increased pain Visit Report/Discharge Packet Instructions: DI for Small Bowel Obstruction, DI for Lysis of Adhesions, DI for Postoperative Pain, Oxycodone, [facility]: Wound Care Visit Report Forms: Patient Portal/API, Stroke Signs & Symptoms Discharge Data Primary Care Provider: Reena Sun VTE Deep Vein Thrombosis/Pulmonary Embolism Present on Admission: No
== END 2020-04-23 11:12 | disposition home or self-care (01) | DRG 337 ==
LOC: ED 15:09 → AC 19:25
PROVIDERS: Admitting Provider Surgery; Emergency Provider Emergency Medicine; PCP Nurse Practitioner; Referring Provider Emergency Medicine; Visit Provider Surgery
PROC: 0DN80ZZ Release Small Intestine, Open Approach (ICD-10-PCS; CPT 49320; principal; 2020-04-19 15:45)
DX: K56.52 Intestinal adhesions [bands] with complete obstruction (principal); E87.6 Hypokalemia; K56.7 Ileus, unspecified; G47.33 Obstructive sleep apnea (adult) (pediatric); F32.9 Major depressive disorder, single episode, unspecified; K21.9 Gastro-esophageal reflux disease without esophagitis; E78.5 Hyperlipidemia, unspecified; I10 Essential (primary) hypertension; E03.9 Hypothyroidism, unspecified; Z87.891 Personal history of nicotine dependence; Z11.59 Encounter for screening for other viral diseases
CPT/HCPCS: 36415; 36592; 44180; 71045; 74018; 74176; 80048; 80053; 83690; 83735; 84100; 85025; 85610; 85730; 87635; 93005; 94762; 96361; 96374; 96375; 96376; 99222; 99284; C9113; C9290; J0330; J1100; J1170; J1650; J2405; J2543; J2704; J2765; J3010; J3480

== ENCOUNTER → 2020-05-08 09:25 | Outpatient (CLI) | payer MEDICARE, OTHER, SELFPAY ==
[2020-04-18 21:04] VITALS: BMI 23.3
[2020-05-08 10:14] LABS: Add Manual Diff / Slide Review NO; Basophils Absolute Auto 200 /uL (0-100); Basophils Percent Auto 3.5 % (0-2); Eosinophils Absolute Auto 100 /uL (0-450); Eosinophils Percent Auto 2.3 % (2-4); Hematocrit 35.8 % (36-46); Hemoglobin 12.5 g/dL (12.0-16.0); Lymphocytes Absolute Auto 1600 /uL (1100-4500); Lymphocytes Percent Auto 26.8 % (25-40); Mean Corpuscular Hemoglobin 32.6 PG (26-34); Mean Corpuscular Volume 93.3 fL (80-100); Monocytes Absolute Auto 500 /uL (0-900); Monocytes Percent Auto 8.6 % (3-14); Neutrophils Absolute Auto 3600 /uL (1500-7000); Neutrophils Percent Auto 58.8 % (50-75); Platelet Count 433 X10^3/uL (150-400); Red Blood Cell Count 3.84 X10^6/uL (4.0-5.2); Red Cell Distribution Width 13.3 % (11.6-14.8); White Blood Cell Count 6.1 X10^3/uL (4.5-11.0)
[2020-05-08 10:25] LABS: BUN Creatinine Ratio 18.9 (6-22); Blood Urea Nitrogen 20 mg/dL (7-17); Calcium 9.8 mg/dL (8.4-10.2); Carbon Dioxide 33 mmol/L (22-32); Chloride 92 mmol/L (98-107); Cholesterol 177 mg/dL (140-199); Estimated Glomerular Filt Rate 50.3 mL/min (>60); Glucose 124 mg/dL (80-110); HDL Cholesterol 66 mg/dL (40-60); HEMOLYSIS < 15 (0-50); LDL Cholesterol Calculated 90 mg/dL (<100); Potassium 3.3 mmol/L (3.4-5.1); Sodium 131 mmol/L (137-145); Triglycerides 107 mg/dL (35-150)
== END ==
PROVIDERS: PCP Nurse Practitioner; Referring Provider Internal Medicine Cardiovascular Disease; Visit Provider Internal Medicine Cardiovascular Disease
DX: I10 Essential (primary) hypertension (principal)
CPT/HCPCS: 36415; 80048; 80061; 85025

== ENCOUNTER → 2020-05-09 10:33 | Outpatient (CLI) | payer MEDICARE, OTHER, SELFPAY ==
[2020-04-18 21:04] VITALS: BMI 23.3
--- NOTE | 2020-05-09 10:34 | DI.RAD.S_ITS ---
PROCEDURE: FL BARIUM SWALLOW INDICATIONS: Dysphagia, prior Calvin fundoplication COMPARISON: [facility] , BARIUM SWALLOW, 11/16/2009, 11:25. FINDINGS: Function: There is normal esophageal peristalsis. No elicited gastroesophageal reflux. There is 1.3 minute delayed transit of a calibrated barium tablet through the esophagus into the stomach. Morphology: Air-contrast images demonstrate normal mucosal morphology. Single contrast views show no inflammatory or neoplastic appearing esophageal strictures, extrinsic mass effects, or diverticula. The patient has undergone a fundoplication with expected morphology at the esophagus 0 gastric junction, with persistent narrowing, resulting in a 1.3 minute delay of transit of the barium tablet discussed above into the gastric lumen, assisted by additional water drinking. Limited images of the stomach demonstrate normal appearance. IMPRESSION: Appreciable delay in, transit of a 13 mm calibrated barium tablet through the area of fundoplication, delayed by approximately 1.3 minutes. No reflux found, no malignant-appearing stricture identified. Dictated by: Jann Garland M.D. on 05/09/2020 at 11:25 Approved by: Jann Garland M.D. on 05/09/2020 at 11:27
== END ==
PROVIDERS: PCP Nurse Practitioner; Referring Provider Nurse Practitioner; Visit Provider Surgery
DX: R13.10 Dysphagia, unspecified (principal); Z98.890 Other specified postprocedural states
CPT/HCPCS: 74220

== ENCOUNTER → 2020-05-16 08:21 | Outpatient (CLI) | payer MEDICARE, OTHER, SELFPAY ==
[2020-04-18 21:04] VITALS: BMI 23.3
[2020-05-16 09:18] LABS: BUN Creatinine Ratio 16.3 (6-22); Blood Urea Nitrogen 16 mg/dL (7-17); Calcium 9.8 mg/dL (8.4-10.2); Carbon Dioxide 33 mmol/L (22-32); Chloride 95 mmol/L (98-107); Glucose 80 mg/dL (80-110); HEMOLYSIS < 15 (0-50); Potassium 3.7 mmol/L (3.4-5.1); Sodium 134 mmol/L (137-145)
== END ==
PROVIDERS: PCP Nurse Practitioner; Referring Provider Internal Medicine Cardiovascular Disease; Visit Provider Internal Medicine Cardiovascular Disease
DX: I10 Essential (primary) hypertension (principal)
CPT/HCPCS: 36415; 80048

== ENCOUNTER → 2020-09-06 10:27 | Outpatient (CLI) | payer MEDICARE, OTHER, SELFPAY ==
[2020-04-18 21:04] VITALS: BMI 23.3
== END ==
PROVIDERS: PCP Nurse Practitioner; Referring Provider Nurse Practitioner; Visit Provider Nurse Practitioner
DX: E03.9 Hypothyroidism, unspecified (principal); Z79.899 Other long term (current) drug therapy
CPT/HCPCS: 36415; 84443

== ENCOUNTER 2020-10-10 22:12 | Inpatient (IN) | payer MEDICARE, OTHER, SELFPAY ==
[2020-04-18 21:04] VITALS: BMI 23.3
[2020-10-10] VITALS (13 sets, daily range): BP systolic 157–184; BP diastolic 55–79; PULSE 85–98; RESP 16–28; TEMP 36; O2SAT 96–99
--- NOTE | 2020-10-10 22:10 | PC.NURSE ---
Pt awake opening eyes. Does not appear in distress from the tube. able to follow directions. able to answer yes and no questions with head nods. able to move all extremities with deliberate purposeful movements.
[2020-10-10] MEDS: SODIUM CHLORIDE 0.9% 1,000 ML 125 ML IV (22:20)
--- NOTE | 2020-10-10 22:22 | ED_ITS ---
HPI - General Adult General Chief complaint: Unresponsive Stated complaint: Found unconscious Time Seen by Provider: 10/10/20 22:22 Source: EMS Mode of arrival: EMS Limitations: altered mental status History of Present Illness HPI narrative: Patient is a 79-year-old female who was arrived intubated by EMS after they were called by the patient's boyfriend. Report was that the patient was at her normal state of health. She got up to go to the bathroom and after 30 minutes of not returning her boyfriend went to go check on her and found her lying on the floor. EMS was called. They report that initially she had a GCS of 6. Her blood glucose was greater than 200. She was only minimally responsive to sternal rub. She was intubated with succinylcholine and ketamine with a 7.5 tube. EMS reports that it was a easy intubation with 1st pass success. They reported a bruise on her forehead but no other signs of trauma. No reports of any anticoagulation. Minimal medical history available initially. Related Data Home Medications Medication Instructions Recorded Confirmed Probiotic 1 cap PO DAILY 03/07/18 05/04/20 CO-Q-10 1 tab PO BEDTIME 04/06/18 05/04/20 Mylanta See Rx Instructions .ROUTE .COMPLEX 04/06/18 05/04/20 Tylenol Extra Strength 500 mg PO QID PRN 04/06/18 05/04/20 vitamin B-12 1,000 mcg PO DAILY 04/06/18 05/04/20 cyclosporine 0.05 % eye drops 1 drop EYE-BOTH BID ml 06/25/18 05/04/20 naproxen sodium 220 mg capsule 220 mg PO DAILY PRN cap 06/25/18 05/04/20 cholecalciferol (vitamin D3) 50 2,000 mcg PO DAILY 08/12/18 05/04/20 mcg (2,000 unit) capsule losartan 100 mg tablet 100 mg PO BEDTIME 09/30/18 05/04/20 diltiazem HCl 420 mg capsule,24 420 mg PO DAILY 11/06/18 05/04/20 hr,extended release chlorthalidone 25 mg tablet 25 mg PO DAILY 01/13/19 05/04/20 omeprazole 20 mg PO DAILY 02/16/19 05/04/20 cetirizine 10 mg tablet 10 mg PO DAILY PRN tab 03/01/19 05/04/20 simethicone 125 mg chewable tablet 125 mg PO DAILY PRN tab 03/01/19 05/04/20 docusate sodium 100 mg PO DAILY PRN 12/21/19 05/04/20 aspirin 81 mg PO DAILY 04/22/20 05/04/20 Previous Rx's Medication Instructions Recorded rosuvastatin 10 mg tablet See Rx Instructions .ROUTE 12/01/19 .COMPLEX #90 tablet polyethylene glycol 3350 17 17 gram PO DAILY #527 gram 12/30/19 gram/dose oral powder lorazepam 0.5 mg tablet 0.5 mg PO BID-TID PRN #30 tab 01/07/20 oxycodone 5 mg PO Q6H PRN #20 tab 04/23/20 buspirone 10 mg tablet 10 mg PO BID #180 tab 04/24/20 estradiol 10 mcg vaginal tablet 10 mcg VAGINAL 2XW PRN #12 tab 06/06/20 azelastine 137 mcg (0.1 %) nasal See Rx Instructions .ROUTE 07/03/20 spray aerosol .COMPLEX #30 milliliter levothyroxine 75 mcg tablet 75 mcg PO DAILY #90 tab 09/06/20 Allergies Allergy/AdvReac Type Severity Reaction Status Date / Time lisinopril [LISINOPRIL] Allergy Severe COUGH Verified 05/04/20 11:43 meloxicam [MELOXICAM] Allergy Severe DYSPNEA Verified 05/04/20 11:43 olmesartan [OLMESARTAN] Allergy Severe DYSPNEA Verified 05/04/20 11:43 adhesive [ADHESIVE] Allergy Intermediate ITCHY RASH Verified 05/04/20 11:43 iodine [IODINE] Allergy Mild BLISTERS Verified 05/04/20 11:43 latex [LATEX] Allergy Mild ITCH Verified 05/04/20 11:43 amitriptyline [AMITRIPTYLINE] AdvReac Intermediate HALLUCINATI Verified 05/04/20 11:43 ON metoprolol [METOPROLOL] AdvReac Intermediate SEVERE Verified 05/04/20 11:43 COUGHING sertraline AdvReac Intermediate it made Verified 05/04/20 11:43 me feel really bad like I was sick. clarithromycin AdvReac Mild NAUSEA AND Verified 05/04/20 11:43 [CLARITHROMYCIN] FELT BAD Review of Systems Review of Systems ROS Unobtainable: Unobtainable due to medical condition Patient History Medical History Acute hypokalemia Acute hyponatremia Asthma Atrial flutter (~05/2014) Bowel obstruction Chronic constipation Complete small bowel obstruction Depression Fatigue GERD (gastroesophageal reflux disease) Graves disease Hard stool Hyperlipemia Hypertension Hypothyroid Insomnia Iron deficiency anemia (~2013) Measles Mumps Obstructive sleep apnea of adult Osteopenia (~2010) Restless legs syndrome (RLS) Snoring Surgical History H/O abdominal surgery History of knee replacement (05/2008) Hx of cholecystectomy (1996) Hx of hernia repair (03/2011) Hx of hysterectomy (1985) Hx of knee surgery (09/2008) Hx of knee surgery (2006) Hx of rotator cuff surgery (2004) Hx of surgical procedure (1995) Hx of total knee arthroplasty (2009) No pertinent past surgical history Family History Mother Diabetes mellitus CVA (cerebral vascular accident) Sister Diabetes mellitus Father Malignant neoplasm of mesothelial tissue Social History household members: none Smoking Status: Former smoker Tobacco: How many years used: 6 Smokeless tobacco user: chewing tobacco second hand exposure: [place] ([place] [employer] [place] alcohol intake: current substance use type: does not use Smoking Status: Former smoker alcohol intake frequency: holidays/special occasions only Substance Use Type: does not use Exam Initial Vital Signs Initial Vital Signs: Vital Signs Pulse Rate 97 H 10/10/20 22:17 Respiratory Rate 23 10/10/20 22:17 Pulse Oximetry 98 10/10/20 22:17 Const General: well developed and patient mechanically ventilated Limitations: altered mental status HENMT Head: contusion (Left forehead) Nose: external nose normal Face and sinus: normal facial exam Eyes Pupils: PERRL and pupil size bilaterally 3 Chest Chest: No crepitus Resp Effort & Inspection: other (Intubated) Auscultation: clear to auscultation bilaterally Cardio Rate: regular rate Rhythm: regular rhythm GI Inspection: non-distended Palpation: soft Other: Prior surgical incisions appear well without signs of infection Back/Spine/Pelvis Back: No ecchymosis Cervical Spine: No step off deformity Skin General: No erythema and No jaundice Other: Contusion left forehead Neuro Other: Upon arrival patient is unresponsive. Does not move extremities spontaneously Extrem General: capillary refill normal and No edema Psych Appearance: well kempt Scores GCS Orchard coma scale eye opening: None Orchard coma scale verbal response: None Levon coma scale motor response: None Levon coma scale total score: 3 Course Orders Ordered: ED Orders 10/10/20 22:13 COVID19 - ADMIT (DIGITAL INTERN swab/PCR) Stat 10/10/20 22:24 CT cervical spine wo con Stat CT head/brain wo con Stat Urinalysis and Microscopic Stat Urine Drug Screen, Rapid Stat 10/10/20 22:25 XR chest 1V Stat EKG-12 Lead Stat RT Consult Eval and Treat Now 10/10/20 22:35 Complete Blood Count AUTO DIFF Stat Comprehensive Metabolic Panel Stat Ethanol (ETOH) Stat Lipase Stat Partial Thromboplastin Time Stat Prothrombin Time INR Stat Thyroid Stimulating Hormone Stat Troponin & CK Cardiac Panel Stat 10/10/20 22:37 Arterial Blood Gas Stat 10/10/20 22:50 Ammonia (NH3) Stat 10/10/20 23:05 Blood Culture Stat Propofol (Propofol) 1,000 mg in 100 mls @ 2.301 mls/hr IV TITRATE DENISSE; Protocol Last Admin: 10/11/20 01:13 Dose: Not Given Documented by: RASHID Sodium Chloride (Normal Saline 0.9%) 1,000 mls @ 125 mls/hr IV CONT DENISSE Last Infusion: 10/11/20 01:00 Dose: 125 mls/hr Documented by: Admin: 10/10/20 22:20 Dose: 125 mls/hr Documented by: RASHID Potassium Chloride 40 meq/ (Sodium Chloride) 520 mls @ 130 mls/hr IV NOW ONE Stop: 10/11/20 04:43 Ondansetron HCl (Ondansetron 4 Mg/2 Ml Inj) 4 mg IV Q6HR PRN PRN Reason: Nausea And Vomiting Last Admin: 10/11/20 01:10 Dose: 4 mg Documented by: RASHID Vital Signs Vital signs: Vital Signs - 8 hr 10/10/20 22:17 10/10/20 22:18 10/10/20 22:30 Temperature 96.8 F L Pulse Rate 97 H 98 H 93 H Respiratory Rate 23 16 28 H Blood Pressure 184/79 H Pulse Oximetry 98 99 98 10/10/20 22:52 10/10/20 22:53 10/10/20 22:55 Temperature Pulse Rate 93 H 93 H 91 H Respiratory Rate 20 24 21 Blood Pressure 166/72 H 161/55 H Pulse Oximetry 98 98 98 10/10/20 23:00 10/10/20 23:05 10/10/20 23:10 Temperature Pulse Rate 90 89 87 Respiratory Rate 19 23 17 Blood Pressure 167/72 H 166/70 H 162/70 H Pulse Oximetry 97 98 98 10/10/20 23:15 10/10/20 23:30 10/10/20 23:45 Temperature Pulse Rate 88 85 88 Respiratory Rate 19 17 16 Blood Pressure 159/70 H 157/67 H 167/71 H Pulse Oximetry 98 97 96 10/11/20 00:00 10/11/20 00:15 Temperature Pulse Rate 82 79 Respiratory Rate 16 17 Blood Pressure 161/69 H 149/51 H Pulse Oximetry 96 97 Medical Decision Making Lab Data Lab results reviewed: Yes I reviewed the patient's lab results. Result diagrams: 10/10/20 22:35 10/10/20 22:35 Labs: Lab Results 10/10/20 10/10/20 10/10/20 Range/Units 22:13 22:35 22:35 WBC 12.8 H (4.5-11.0) X10^3/uL RBC 4.14 (4.0-5.2) X10^6/uL Hgb 13.0 (12.0-16.0) g/dL Hct 38.1 (36-46) % MCV 91.9 (80-100) fL MCH 31.5 (26-34) PG MCHC 34.3 (30-36) % RDW 12.9 (11.6-14.8) % Plt Count 375 (150-400) X10^3/uL Neut % (Auto) 77.9 H (50-75) % Lymph % (Auto) 15.1 L (25-40) % [place] % (Auto) 5.1 (3-14) % Eos % (Auto) 1.1 L (2-4) % Baso % (Auto) 0.8 (0-2) % Neut # (Auto) 59205 H (9321-9784) /uL Lymph # (Auto) 1900 (2066-8152) /uL [place] # (Auto) 600 (0-900) /uL Eos # (Auto) 100 (0-450) /uL Baso # (Auto) 100 (0-100) /uL PT (10.1-12.7) SECONDS INR (0.9-1.3) APTT (26.4-36.2) SECONDS ABG pH (7.35-7.45) ABG pCO2 (35-45) mmHg ABG pO2 (80-100) mmHg ABG HCO3 (22-26) mmol/L ABG Total CO2 (21-31) mmol/L ABG O2 Saturation (95-100) % ABG Base Excess (-2-2) mmol/L FiO2 Sodium 113 L* (137-145) mmol/L Potassium 3.2 L (3.4-5.1) mmol/L Chloride 78 L (98-107) mmol/L Carbon Dioxide 16 L (22-32) mmol/L BUN 15 (7-17) mg/dL Creatinine 1.04 (0.52-1.04) mg/dL Estimated GFR 51.4 L (>60) mL/min BUN/Creatinine Ratio 14.4 (6-22) Glucose 290 H (80-110) mg/dL Calcium 9.7 (8.4-10.2) mg/dL Total Bilirubin 0.6 (0.2-1.3) mg/dL AST 50 H (14-36) IU/L ALT 33 (<35) IU/L Alkaline Phosphatase 130 H (38-126) U/L Ammonia (9-30) umol/L Total Creatine Kinase (30-135) U/L CK-MB (CK-2) (<2.37) ng/mL CK-MB (CK-2) Rel Index (1.5-5.0) % Troponin I (0.01-0.034) ng/mL Total Protein 7.6 (6.3-8.2) g/dL Albumin 4.6 (3.5-5.0) g/dL Globulin 3.0 (1.7-4.1) g/dL Albumin/Globulin Ratio 1.5 (1.0-2.8) Lipase (23-300) U/L TSH (0.47-4.68) uIU/mL Ethyl Alcohol < 10 ( - 10) mg/dL SARS-CoV-2 (PCR) Negative (Negative) 10/10/20 10/10/20 10/10/20 Range/Units 22:35 22:35 22:35 WBC (4.5-11.0) X10^3/uL RBC (4.0-5.2) X10^6/uL Hgb (12.0-16.0) g/dL Hct (36-46) % MCV (80-100) fL MCH (26-34) PG MCHC (30-36) % RDW (11.6-14.8) % Plt Count (150-400) X10^3/uL Neut % (Auto) (50-75) % Lymph % (Auto) (25-40) % [place] % (Auto) (3-14) % Eos % (Auto) (2-4) % Baso % (Auto) (0-2) % Neut # (Auto) (3856-5986) /uL Lymph # (Auto) (7955-6043) /uL [place] # (Auto) (0-900) /uL Eos # (Auto) (0-450) /uL Baso # (Auto) (0-100) /uL PT 10.7 (10.1-12.7) SECONDS INR 1.0 (0.9-1.3) APTT 29 (26.4-36.2) SECONDS ABG pH (7.35-7.45) ABG pCO2 (35-45) mmHg ABG pO2 (80-100) mmHg ABG HCO3 (22-26) mmol/L ABG Total CO2 (21-31) mmol/L ABG O2 Saturation (95-100) % ABG Base Excess (-2-2) mmol/L FiO2 Sodium (137-145) mmol/L Potassium (3.4-5.1) mmol/L Chloride (98-107) mmol/L Carbon Dioxide (22-32) mmol/L BUN (7-17) mg/dL Creatinine (0.52-1.04) mg/dL Estimated GFR (>60) mL/min BUN/Creatinine Ratio (6-22) Glucose (80-110) mg/dL Calcium (8.4-10.2) mg/dL Total Bilirubin (0.2-1.3) mg/dL AST (14-36) IU/L ALT (<35) IU/L Alkaline Phosphatase (38-126) U/L Ammonia (9-30) umol/L Total Creatine Kinase 186 H (30-135) U/L CK-MB (CK-2) 1.93 (<2.37) ng/mL CK-MB (CK-2) Rel Index 1.0 L (1.5-5.0) % Troponin I < 0.012 (0.01-0.034) ng/mL Total Protein (6.3-8.2) g/dL Albumin (3.5-5.0) g/dL Globulin (1.7-4.1) g/dL Albumin/Globulin Ratio (1.0-2.8) Lipase 111 (23-300) U/L TSH 4.83 H (0.47-4.68) uIU/mL Ethyl Alcohol ( - 10) mg/dL SARS-CoV-2 (PCR) (Negative) 10/10/20 10/10/20 Range/Units 22:37 22:50 WBC (4.5-11.0) X10^3/uL RBC (4.0-5.2) X10^6/uL Hgb (12.0-16.0) g/dL Hct (36-46) % MCV (80-100) fL MCH (26-34) PG MCHC (30-36) % RDW (11.6-14.8) % Plt Count (150-400) X10^3/uL Neut % (Auto) (50-75) % Lymph % (Auto) (25-40) % [place] % (Auto) (3-14) % Eos % (Auto) (2-4) % Baso % (Auto) (0-2) % Neut # (Auto) (9312-9142) /uL Lymph # (Auto) (6956-4027) /uL [place] # (Auto) (0-900) /uL Eos # (Auto) (0-450) /uL Baso # (Auto) (0-100) /uL PT (10.1-12.7) SECONDS INR (0.9-1.3) APTT (26.4-36.2) SECONDS ABG pH 7.34 L (7.35-7.45) ABG pCO2 42.9 (35-45) mmHg ABG pO2 477 H* (80-100) mmHg ABG HCO3 23 (22-26) mmol/L ABG Total CO2 25 (21-31) mmol/L ABG O2 Saturation 100 (95-100) % ABG Base Excess -2.0 (-2-2) mmol/L FiO2 100 Sodium (137-145) mmol/L Potassium (3.4-5.1) mmol/L Chloride (98-107) mmol/L Carbon Dioxide (22-32) mmol/L BUN (7-17) mg/dL Creatinine (0.52-1.04) mg/dL Estimated GFR (>60) mL/min BUN/Creatinine Ratio (6-22) Glucose (80-110) mg/dL Calcium (8.4-10.2) mg/dL Total Bilirubin (0.2-1.3) mg/dL AST (14-36) IU/L ALT (<35) IU/L Alkaline Phosphatase (38-126) U/L Ammonia < 9 L (9-30) umol/L Total Creatine Kinase (30-135) U/L CK-MB (CK-2) (<2.37) ng/mL CK-MB (CK-2) Rel Index (1.5-5.0) % Troponin I (0.01-0.034) ng/mL Total Protein (6.3-8.2) g/dL Albumin (3.5-5.0) g/dL Globulin (1.7-4.1) g/dL Albumin/Globulin Ratio (1.0-2.8) Lipase (23-300) U/L TSH (0.47-4.68) uIU/mL Ethyl Alcohol ( - 10) mg/dL SARS-CoV-2 (PCR) (Negative) Imaging Data Chest x-ray: Radiologist's Impression: Endotracheal tube in place with tip 3.3 cm above the artie Enteric tube in place with tip below the diaphragm projecting over the stomach No acute findings CT scan - head: Radiologist's Impression: No acute intracranial findings Left frontal scalp soft tissue injury CT - cervical spine: Radiologist's Impression: No emergent findings ECG Data Attestation: I personally reviewed and interpreted this ECG as follows: Prior ECG tracings: not available for review Interpretation: Sinus rhythm Ventricular rate 94 First degree AV block with a NH interval 256 milliseconds LVH QRS 116 milliseconds QTC [address] T wave changes MDM Narrative Medical decision making narrative: Was placed on arrival. Her head CT and C- spine CT show no acute intracranial issues nor cervical spine fractures. During her stay here in the emergency department she did become alert. She was able to follow commands. Was moving all 4 extremities. No Localizing neurologic signs. Labs show hyponatremia. I was able to discuss with her boyfriend her symptoms and does appear that the patient has been on a low/no sodium diet for the past several months. Unknown as to why she has been doing this. Given her presentation she could have potentially had a seizure given her hyponatremia and fallen. She could very well been postictal upon EMS arrival. She has no signs of intracranial hemorrhage. I feel that CVA/TIA is unlikely. I feel that a CVA/TIA that would cause her to lose consciousness and be is unresponsive his which she was would not resolve itself to the point where she was able to follow commands. She was extubated here in the emergency department without issue. Given her clinical presentation and her hyponatremia who will admit for further evaluation. Discussed the case with ANA Forte the night hospitalist who will admit for further evaluation. Discussed this with the patient and her boyfriend at bedside. They both expressed understanding and agreement. Critical Care Time Critical Care Time Critical Care Time: Yes Total Critical Care Time: 40 Attestation: The high probability of a clinically significant, sudden or life threatening deterioration of the neurologic, endocrine system(s) required my full and direct attention, intervention and personal management. The aggregate critical care time was 40 minutes. This time is in addition to time spent performing reported procedures but includes the following: [X] Data Review and interpretation [X] Patient assessment and monitoring of vital signs [X] Documentation [X] Medication orders and management Discharge Plan Departure Patient Disposition: Admitted As Inpatient Clinical Impression: Hyponatremia, Contusion of forehead Admit Date/Time: 10/11/20 01:01 Admit Provider: Norberto Forte
--- NOTE | 2020-10-10 22:24 | DI.CT.S_ITS ---
PROCEDURE: CT CERVICAL SPINE WO CON INDICATIONS: unwitnessed fall now intubated TECHNIQUE: Noncontrast 3 mm thick sections acquired from the skull base to the T4 level. Sagittal and coronal reformats were then constructed. For radiation dose reduction, the following was used: automated exposure control, adjustment of mA and/or kV according to patient size. COMPARISON: None. FINDINGS: Image quality: Excellent. Bones: No fractures or dislocations. Visualized superior ribs are intact. There is straightening of normal cervical curvature. Multilevel degenerative changes are present including severe disc space narrowing at C5-6 and C6-7 with sclerotic endplate changes. Soft tissues: Prevertebral soft tissues are normal in thickness. No paravertebral hematomas. No apical pneumothoraces. Apical lung scarring is noted. Endotracheal and nasogastric tubes are present. IMPRESSION: 1. Degenerative changes without visualized fracture. The above findings are concordant with preliminary report. Dictated by: Angelita Bruner M.D. on 10/11/2020 at 7:34 Approved by: Angelita Bruner M.D. on 10/11/2020 at 7:36
--- NOTE | 2020-10-10 22:24 | DI.CT.S_ITS ---
PROCEDURE: CT HEAD/BRAIN WO CON INDICATIONS: unwitnessed fall now intubated TECHNIQUE: Noncontrast 4.5 mm thick angled axial sections acquired from the foramen magnum to the vertex, with coronal and sagittal reformats. For radiation dose reduction, the following was used: automated exposure control, adjustment of mA and/or kV according to patient size. COMPARISON: None. FINDINGS: Image quality: Excellent. CSF spaces: Basal cisterns are patent. No extra-axial fluid collections. The ventricles are symmetric in size and shape. Brain: No intracranial bleeds or masses. There is cerebral volume loss for age, with resultant ventricular and sulcal prominence. There are periventricular and deep white matter chronic small vessel ischemic changes. There is intracranial internal carotid artery atherosclerosis. Skull and face: Calvarium and visualized facial bones appear intact, without suspicious lesions. Large left frontal scalp hematoma. Sinuses: Visualized sinuses and mastoids are clear. IMPRESSION: No acute intracranial disease process. Dictated by: Laly Clark MD, PhD on 10/11/2020 at 7:20 Approved by: Laly Clark MD, PhD on 10/11/2020 at 7:21
--- NOTE | 2020-10-10 22:25 | DI.RAD.S_ITS ---
PROCEDURE: XR CHEST 1V INDICATIONS: post intubation TECHNIQUE: One view of the chest was acquired. COMPARISON: [facility], CR, XR CHEST 1V, 04/18/2020, 21:22. FINDINGS: Surgical changes and devices: ET tube projects 3.3 centimeters superior to the artie. NG tube projects across the GE junction with tip over the proximal stomach and side port at the GE junction. Surgical clips noted at the GE junction. Lungs and pleura: Lungs are clear. No pleural effusions or pneumothorax. Mediastinum: Mediastinal contours appear normal. Heart size is normal. Bones and chest wall: No suspicious bony lesions. Overlying soft tissues appear unremarkable. IMPRESSION: No acute cardiopulmonary disease process. Dictated by: Laly Clark MD, PhD on 10/11/2020 at 8:35 Approved by: Laly Clark MD, PhD on 10/11/2020 at 8:36
[2020-10-10 22:46] LABS: Add Manual Diff / Slide Review NO; Basophils Absolute Auto 100 /uL (0-100); Basophils Percent Auto 0.8 % (0-2); Eosinophils Absolute Auto 100 /uL (0-450); Eosinophils Percent Auto 1.1 % (2-4); Hematocrit 38.1 % (36-46); Lymphocytes Absolute Auto 1900 /uL (1100-4500); Lymphocytes Percent Auto 15.1 % (25-40); Mean Corpuscular HGB Conc 34.3 % (30-36); Mean Corpuscular Hemoglobin 31.5 PG (26-34); Mean Corpuscular Volume 91.9 fL (80-100); Monocytes Absolute Auto 600 /uL (0-900); Monocytes Percent Auto 5.1 % (3-14); Neutrophils Absolute Auto 10000 /uL (1500-7000); Neutrophils Percent Auto 77.9 % (50-75); Platelet Count 375 X10^3/uL (150-400); Red Blood Cell Count 4.14 X10^6/uL (4.0-5.2); Red Cell Distribution Width 12.9 % (11.6-14.8); White Blood Cell Count 12.8 X10^3/uL (4.5-11.0)
[2020-10-10 22:48] LABS: Prothrombin Time 10.7 SECONDS (10.1-12.7)
[2020-10-10 22:50] LABS: PTT Partial Thromboplastin Tim 29 SECONDS (26.4-36.2)
[2020-10-10 22:53] LABS: Creatine Kinase 186 U/L (30-135); Lipase 111 U/L (23-300)
[2020-10-10 22:54] LABS: Alanine Aminotransferase 33 IU/L (<35); Albumin 4.6 g/dL (3.5-5.0); Albumin Globulin Ratio 1.5 (1.0-2.8); Alkaline Phosphatase 130 U/L (38-126); Aspartate Aminotransferase 50 IU/L (14-36); BUN Creatinine Ratio 14.4 (6-22); Bilirubin Total 0.6 mg/dL (0.2-1.3); Blood Urea Nitrogen 15 mg/dL (7-17); Calcium 9.7 mg/dL (8.4-10.2); Carbon Dioxide 16 mmol/L (22-32); Chloride 78 mmol/L (98-107); Estimated Glomerular Filt Rate 51.4 mL/min (>60); Ethanol (ETOH) < 10 mg/dL; Glucose 290 mg/dL (80-110); Potassium 3.2 mmol/L (3.4-5.1); Total Protein 7.6 g/dL (6.3-8.2)
[2020-10-10 23:01] LABS: HEMOLYSIS 48 (0-50); Sodium 113 mmol/L (137-145)
[2020-10-10 23:02] LABS: Fractionated Inspired Oxygen 100; HCO3 ABG 23 mmol/L (22-26); Oxygen Saturation ABG 100 % (95-100); PCO2 ABG 42.9 mmHg (35-45); TCO2 ABG 25 mmol/L (21-31); pH ABG 7.34 (7.35-7.45)
[2020-10-10 23:06] LABS: Troponin I < 0.012 ng/mL (0.01-0.034)
[2020-10-10 23:08] LABS: Creatine Kinase MB 1.93 ng/mL (<2.37)
[2020-10-10 23:13] LABS: COVID19 - ADMIT (NP swab/PCR) Negative (Negative)
[2020-10-10 23:25] LABS: Thyroid Stimulating Hormone 4.83 uIU/mL (0.47-4.68)
[2020-10-10 23:29] LABS: Ammonia (NH3) < 9 umol/L (9-30)
--- NOTE | 2020-10-10 23:54 | RT ---
Pt extubated to RA @ 2350. Pt is awake and following commands. No distress noted.
--- NOTE | 2020-10-10 23:54 | PC.NURSE ---
Pt maintaining oxygen saturations. Provider in room with RT and pt was extabated. Maintaining oxygen saturations at this time.
[2020-10-11] VITALS (25 sets, daily range): BP systolic 114–161; BP diastolic 51–69; PULSE 76–98; RESP 9–31; TEMP 36.2–37.1; O2SAT 92–98; BMI 27.3
--- NOTE | 2020-10-11 00:15 | PC.NURSE ---
Pt alert, opens eyes on command. able to follow directions. No talking r/t intubation. Answers questions with head movements.
[2020-10-11] MEDS: ONDANSETRON 4 MG/2 ML INJ IV (01:10)
[2020-10-11] MEDS: PANTOPRAZOLE 40 MG VIAL IV ×2 (02:01→08:21)
[2020-10-11] MEDS: POTASSIUM CHLORIDE 40 MEQ in SODIUM CHLORIDE 0.9% 500 ML 130 ML IV (02:07)
--- NOTE | 2020-10-11 02:22 | P.HP_ITS ---
History of Present Illness History of Present Illness Date Patient Seen: 10/11/20 Time Patient Seen: 01:53 Chief complaint: Found unconscious Narrative: Ms. Nanci Fuentes is a 79-year-old female with a past medical history significant for previous episodes of acute hypokalemia and hypo natremia, arrhythmias right related to hypokalemia, bowel obstructions, chronic constipation, hypertension, hyperlipidemia, hypothyroidism and GERD who presents to the ER via EMS intubated following being found down. It is reported that patient was visiting with her boyfriend and and left to go to the restroom. She did not return for approximately 30 minutes S over poor friend went to check on her and found her down on the floor. The patient recalls leaving and going to the bathroom but has no recollection after that until admission into ICU. The patient was unresponsive upon arrival of EMS with little to no response to sternal rub, her serum glucose in the field was 283. . She was intubated in the field with RSI using ketamine. The patient was evaluated upon arrival in the ER with imaging and labs with the patient subsequently waking to responsive and following commands. She moved all extremities with no lateralizing symptoms. Following ABG and vent weaning the patient was extubated in the emergency department. No seizure activity was witnessed, there is no oral trauma or evidence of incontinence. The patient has sustained contusion to the left forehead. She denies complaints of headaches of the in the soft tissue injury has no visual changes or dizziness. She reports no antecedent symptoms of fevers or chills orthostatic dizziness numbness or tingling. She denies complaints of chest pain or palpitations has had no shortness of breath cough or wheezing. He does endorse a history of recent and chronic bowel problems having had multiple obstructions and having irregular stooling. She reports that she has been drinking extra water to help resolve the problem. Apparently the patient has also been on a low-sodium diet as well as taking chlorthalidone. Upon arrival to the ER the patient is afebrile with temperature 96.8?, heart rate of 97, blood pressure 184/79, respirations 16 saturation at 99% with supportive ventilations. Chest x-ray is obtained finding no acute findings, ET tube is 3.3 cm above the artie. CT of the head is obtained which finds no acute intracranial findings, notes left frontal soft tissue injury. CT of the neck also finds no acute findings. Twelve lead EKG finds sinus rhythm at 93 without ectopy, first-degree AV block with a NV interval of 256 milliseconds and LVH. On laboratory analysis she has an elevated white count of 12.8, hemoglobin 13.0, hematocrit 38.1 and platelets 375. Chemistry she has a sodium of 113 and chloride of 78, potassium of 3.2 with a CO of 16. Her BUN is 15 and creatinine is 1.04. Her nonfasting glucose is 290. Liver functions she has a bilirubin 0.6, AST of 50, ALT of 33, alkaline phosphatase of 130. Ammonia is less than 9. Total CK is 186, CK-MB is 1.93 for an index of 1.0. Troponin is negative at less than 0.012. TSH is elevated at 4.83. Alcohol level is less than 10. An ABG finds pH of 7.34, pCO2 of 42.9, PO2 of 477, bicarb 23 with a base excess of -2 on 100% FiO2. Patient was subsequently wean of then extubated successfully and is able to maintain her own airway and is alert and responsive. IV normal saline is running at 125 cc/hour and the patient is admitted to the hospitalist service for syncope, possible seizure, related to severe hyponatremia. Patient History Medical History Acute hypokalemia Acute hyponatremia Asthma Atrial flutter (~05/2014) Bowel obstruction Chronic constipation Complete small bowel obstruction Depression GERD (gastroesophageal reflux disease) Graves disease Hard stool Hyperlipemia Hypertension Hypothyroid Insomnia Iron deficiency anemia (~2013) Measles Mumps Obstructive sleep apnea of adult Osteopenia (~2010) Restless legs syndrome (RLS) Surgical History H/O abdominal surgery History of knee replacement (05/2008) Hx of cholecystectomy (1996) Hx of hernia repair (03/2011) Hx of hysterectomy (1985) Hx of knee surgery (09/2008) Hx of knee surgery (2006) Hx of rotator cuff surgery (2004) Hx of surgical procedure (1995) Hx of total knee arthroplasty (2009) No pertinent past surgical history Family & Social History Family History Mother Diabetes mellitus CVA (cerebral vascular accident) Sister Diabetes mellitus Father Malignant neoplasm of mesothelial tissue Social History: household members none Tobacco & Substance use: Smoking Status Former smoker alcohol intake current alcohol intake frequency holiday/special occasion Substance Use Type does not use Meds Home Medications and Allergies Home Medications Medication Instructions Recorded Confirmed Type Probiotic 1 cap PO DAILY 03/07/18 05/04/20 History CO-Q-10 1 tab PO BEDTIME 04/06/18 05/04/20 History Mylanta See Rx Instructions .ROUTE .COMPLEX 04/06/18 05/04/20 History Tylenol Extra Strength 500 mg PO QID PRN 04/06/18 05/04/20 History vitamin B-12 1,000 mcg PO DAILY 04/06/18 05/04/20 History cyclosporine 0.05 % eye drops 1 drop EYE-BOTH BID ml 06/25/18 05/04/20 History naproxen sodium 220 mg capsule 220 mg PO DAILY PRN cap 06/25/18 05/04/20 History cholecalciferol (vitamin D3) 50 2,000 mcg PO DAILY 08/12/18 05/04/20 History mcg (2,000 unit) capsule losartan 100 mg tablet 100 mg PO BEDTIME 09/30/18 05/04/20 History diltiazem HCl 420 mg capsule,24 420 mg PO DAILY 11/06/18 05/04/20 History hr,extended release chlorthalidone 25 mg tablet 25 mg PO DAILY 01/13/19 05/04/20 History omeprazole 20 mg PO DAILY 02/16/19 05/04/20 History cetirizine 10 mg tablet 10 mg PO DAILY PRN tab 03/01/19 05/04/20 History simethicone 125 mg chewable tablet 125 mg PO DAILY PRN tab 03/01/19 05/04/20 History rosuvastatin 10 mg tablet See Rx Instructions .ROUTE 12/01/19 05/04/20 Rx .COMPLEX #90 tablet docusate sodium 100 mg PO DAILY PRN 12/21/19 05/04/20 History polyethylene glycol 3350 17 17 gram PO DAILY #527 gram 12/30/19 05/04/20 Rx gram/dose oral powder lorazepam 0.5 mg tablet 0.5 mg PO BID-TID PRN #30 tab 01/07/20 05/04/20 Rx aspirin 81 mg PO DAILY 04/22/20 05/04/20 History oxycodone 5 mg PO Q6H PRN #20 tab 04/23/20 05/04/20 Rx buspirone 10 mg tablet 10 mg PO BID #180 tab 04/24/20 05/04/20 Rx estradiol 10 mcg vaginal tablet 10 mcg VAGINAL 2XW PRN #12 tab 06/06/20 Rx azelastine 137 mcg (0.1 %) nasal See Rx Instructions .ROUTE 07/03/20 Rx spray aerosol .COMPLEX #30 milliliter levothyroxine 75 mcg tablet 75 mcg PO DAILY #90 tab 09/06/20 Rx Allergies Allergy/AdvReac Type Severity Reaction Status Date / Time lisinopril [LISINOPRIL] Allergy Severe COUGH Verified 05/04/20 11:43 meloxicam [MELOXICAM] Allergy Severe DYSPNEA Verified 05/04/20 11:43 olmesartan [OLMESARTAN] Allergy Severe DYSPNEA Verified 05/04/20 11:43 adhesive [ADHESIVE] Allergy Intermediate ITCHY RASH Verified 05/04/20 11:43 iodine [IODINE] Allergy Mild BLISTERS Verified 05/04/20 11:43 latex [LATEX] Allergy Mild ITCH Verified 05/04/20 11:43 amitriptyline [AMITRIPTYLINE] AdvReac Intermediate HALLUCINATI Verified 05/04/20 11:43 ON metoprolol [METOPROLOL] AdvReac Intermediate SEVERE Verified 05/04/20 11:43 COUGHING sertraline AdvReac Intermediate it made Verified 05/04/20 11:43 me feel really bad like I was sick. clarithromycin AdvReac Mild NAUSEA AND Verified 05/04/20 11:43 [CLARITHROMYCIN] FELT BAD Review of Systems Review of Systems ROS: Yes All systems reviewed with the patient and are negative except as otherwise documented Exam Vital Signs (past 8 hours): - 10/10/20 22:17 10/10/20 22:18 10/10/20 22:30 Temperature 96.8 F L Pulse Rate 97 H 98 H 93 H Respiratory Rate 23 16 28 H Blood Pressure 184/79 H Pulse Oximetry 98 99 98 10/10/20 22:52 10/10/20 22:53 10/10/20 22:55 Temperature Pulse Rate 93 H 93 H 91 H Respiratory Rate 20 24 21 Blood Pressure 166/72 H 161/55 H Pulse Oximetry 98 98 98 10/10/20 23:00 10/10/20 23:05 10/10/20 23:10 Temperature Pulse Rate 90 89 87 Respiratory Rate 19 23 17 Blood Pressure 167/72 H 166/70 H 162/70 H Pulse Oximetry 97 98 98 10/10/20 23:15 10/10/20 23:30 10/10/20 23:45 Temperature Pulse Rate 88 85 88 Respiratory Rate 19 17 16 Blood Pressure 159/70 H 157/67 H 167/71 H Pulse Oximetry 98 97 96 10/11/20 00:00 10/11/20 00:15 10/11/20 01:00 Temperature 97.4 F L Pulse Rate 82 79 86 Respiratory Rate 16 17 21 Blood Pressure 161/69 H 149/51 H 157/68 H Pulse Oximetry 96 97 97 Oxygen Delivery Method Room Air Oxygen Flow Rate 0 Narrative Exam Narrative: GENERAL APPEARANCE: well developed, overweight female lying semi recumbent in bed in mild discomfort complaining of abdominal pain. HEENT: 6 cm contusion to left forehead, PERRLA, sclera is anicteric, EOMs intact without nystagmus, no sinus tenderness to percussion, no rhinorrhea or epistaxis, mucous membranes are moist and pink no evidence of oral trauma. NECK/THYROID: Nontender to palpation, no palpable step-offs, no JVD, no thyromegaly, trachea midline. LYMPH NODES: no cervical or supraclavicular lymphadenopathy. SKIN: [place], warm and dry, no visible rashes or lesions HEART: regular rate and rhythm, S1-S2, 2/6 systolic murmur most prominent over the left sternal border, no rubs or gallops, brisk capillary refill, no edema LUNGS: clear to auscultation bilaterally, no coarseness crackles or wheezing, no cough present CHEST: Symmetrical movement, no accessory muscle use, good tidal volume no chest pain on AP and lateral compression. ABDOMEN: Soft, no distention, epigastric pain on a patient, no abdominal tenderness, no guarding or peritoneal signs, no organomegaly, no flank or suprapubic tenderness, active bowel tones. BACK: Normal curvature, pain on palpation approximately T4-T6 right perispinal without palpable muscle spasms or step-offs EXTREMITIES: moves all extremities, strength is 5/5 and symmetrical, no deformities or joint effusions, no clubbing or cyanosis. NEUROLOGIC: AAO x3, amnesic to events following going to the bathroom until arriving in ICU, cranial nerves II-XII grossly intact, sensation intact to light touch, hearing grossly normal to speech. PSYCH: Appears withdrawn, poor eye contact, short responses to answers, cooperative stable behavior. Objective Labs Result Diagrams: 10/10/20 22:35 10/10/20 22:35 Labs: Laboratory Results - last 24 hr 10/10/20 10/10/20 10/10/20 22:13 22:35 22:35 WBC 12.8 H RBC 4.14 Hgb 13.0 Hct 38.1 MCV 91.9 MCH 31.5 MCHC 34.3 RDW 12.9 Plt Count 375 Neut % (Auto) 77.9 H Lymph % (Auto) 15.1 L Armstrong % (Auto) 5.1 Eos % (Auto) 1.1 L Baso % (Auto) 0.8 Neut # (Auto) 71455 H Lymph # (Auto) 1900 Armstrong # (Auto) 600 Eos # (Auto) 100 Baso # (Auto) 100 PT INR APTT ABG pH ABG pCO2 ABG pO2 ABG HCO3 ABG Total CO2 ABG O2 Saturation ABG Base Excess FiO2 Sodium 113 L* Potassium 3.2 L Chloride 78 L Carbon Dioxide 16 L BUN 15 Creatinine 1.04 Estimated GFR 51.4 L BUN/Creatinine Ratio 14.4 Glucose 290 H Calcium 9.7 Total Bilirubin 0.6 AST 50 H ALT 33 Alkaline Phosphatase 130 H Ammonia Total Creatine Kinase CK-MB (CK-2) CK-MB (CK-2) Rel Index Troponin I Total Protein 7.6 Albumin 4.6 Globulin 3.0 Albumin/Globulin Ratio 1.5 Lipase TSH Ethyl Alcohol < 10 SARS-CoV-2 (PCR) Negative 10/10/20 10/10/20 10/10/20 22:35 22:35 22:35 WBC RBC Hgb Hct MCV MCH MCHC RDW Plt Count Neut % (Auto) Lymph % (Auto) Armstrong % (Auto) Eos % (Auto) Baso % (Auto) Neut # (Auto) Lymph # (Auto) Armstrong # (Auto) Eos # (Auto) Baso # (Auto) PT 10.7 INR 1.0 APTT 29 ABG pH ABG pCO2 ABG pO2 ABG HCO3 ABG Total CO2 ABG O2 Saturation ABG Base Excess FiO2 Sodium Potassium Chloride Carbon Dioxide BUN Creatinine Estimated GFR BUN/Creatinine Ratio Glucose Calcium Total Bilirubin AST ALT Alkaline Phosphatase Ammonia Total Creatine Kinase 186 H CK-MB (CK-2) 1.93 CK-MB (CK-2) Rel Index 1.0 L Troponin I < 0.012 Total Protein Albumin Globulin Albumin/Globulin Ratio Lipase 111 TSH 4.83 H Ethyl Alcohol SARS-CoV-2 (PCR) 10/10/20 10/10/20 22:37 22:50 WBC RBC Hgb Hct MCV MCH MCHC RDW Plt Count Neut % (Auto) Lymph % (Auto) Armstrong % (Auto) Eos % (Auto) Baso % (Auto) Neut # (Auto) Lymph # (Auto) Armstrong # (Auto) Eos # (Auto) Baso # (Auto) PT INR APTT ABG pH 7.34 L ABG pCO2 42.9 ABG pO2 477 H* ABG HCO3 23 ABG Total CO2 25 ABG O2 Saturation 100 ABG Base Excess -2.0 FiO2 100 Sodium Potassium Chloride Carbon Dioxide BUN Creatinine Estimated GFR BUN/Creatinine Ratio Glucose Calcium Total Bilirubin AST ALT Alkaline Phosphatase Ammonia < 9 L Total Creatine Kinase CK-MB (CK-2) CK-MB (CK-2) Rel Index Troponin I Total Protein Albumin Globulin Albumin/Globulin Ratio Lipase TSH Ethyl Alcohol SARS-CoV-2 (PCR) Assessment & Plan Assessment & Plan narrative: This is a 79-year-old female with a past medical history significant for previous episodes of acute hypokalemia and hypo natremia, arrhythmias right related to hypokalemia, bowel obstructions, chronic constipation, hypertension, hyperlipidemia, hypothyroidism and GERD who presents to the ER intubated with EMS after being found down on the bathroom floor unresponsive. Patient subsequently extubated in the emergency department following regaining consciousness demonstrating ability to follow commands maintain respirations and airway patency. 1. Syncope, present on admission, active -patient had an unwitnessed syncopal episode resulting in a fall evidence by contusion to the left forehead. Imaging reveals no intracranial pathology, fractures or cervical injury. -labs demonstrate multiple electrolyte and metabolic abnormalities including metabolic acidosis with an anion gap of 19, CO of 16, arterial blood gas finds a pH of 7.34. Most significantly patient is hyponatremic with a sodium of 113. -no evidence of lateralizing symptoms or neuro cognitive impairment, patient most likely had seizure event and was postictal. -will continue neuro checks every 2 hours. -seizure precautions in place. -ordered lorazepam 1 mg IV as needed for seizures may repeat x1. 2. Severe hyponatremia, acute, present on admission, active. -initial sodium is 113. Patient reports being on low-sodium diet with increased consistent water intake. Patient also taking chlorthalidone 25 mg daily. -hyponatremia acute multifactorial with altered dietary intake, delusional c omponent with concomitant diuretic use. -ordered normal saline 125 cc/hour. -ordered BMP every 6 hours x4 to track repletion. 3. Hyperglycemia without diagnosis of diabetes, present on admission, active -serum glucose obtained by paramedics is 283 which was confirmed by serum glucose of 290 on initial labs in the emergency department. -patient denies a personal history of diabetes though her mother and sister both have diabetes. -ordered fingerstick glucose checks a.c. and hs, coverage with low-dose correctional insulin. 4. Hypertension, chronic, stable -initial blood pressure upon arrival was and 184/79 improving to 157/68 on admission to ICU. -will continue home regimen of antihypertensives including losartan 100 mg and diltiazem 420 mg extended release daily. 5. Acquired hypothyroidism, chronic, stable -TSH is elevated on initial labs in the ER at 4.83. Will obtain a free T4 level . -will continue home regimen of levothyroxine 75 mcg daily. 6. Gastroesophageal reflux disorder, chronic, stable. -patient complaining of epigastric discomfort, administered Protonix 40 mg IV now. -ordered Protonix 40 mg daily. -supplemental treatment with Maalox or Tums as needed. VTE prophylaxis: Enoxaparin IV fluid: Normal saline 125 cc/hour Diet: Clear liquid, small consistent carbohydrate heart healthy, advance as tolerated. Code status: Full code The patient is admitted to the hospital due to the severity of her electrolyte and metabolic derangements. Due to the severity of her the patient's hyponatremia a protracted time will be required for safe repletion therefore the patient is admitted as an inpatient with expected length of stay to be greater than 2 midnights. COVID-19 COVID-19 status: Negative Result date/Date tested (Pos, Neg/Pending): 10/11/20 Scores GCS Hodges coma scale eye opening: Spontaneous Hodges coma scale verbal response: Orientated Levon coma scale motor response: Obey commands Levon coma scale total score: 15 Quality MIPS - Admit Advanced Care Plan / Current Medications Measures: #47 ? Advanced Care Plan Clinician documentation instruction: document at admission. [X] I confirmed that the patient's Advance Care Plan is present, code status is documented, or surrogate decision maker is listed in the patient?s medical record. [SATISFIES MIPS PERFORMANCE] If Yes, Stop Here [] The patient?s Advance Care plan is not present because: (select) [MIPS PERFORMANCE EXCEPTION/EXCLUSION] [] I confirmed today that the patient does not wish or was not able to name a surrogate decision maker or provide an Advance Care Plan. [] Hospice care is currently being provided or has been provided this calendar year [] I did NOT confirm today the presence of an Advance Care Plan or surrogate decision maker documented within the patient's medical record. [DOES NOT SATISFY MIPS PERFORMANCE] #130 - Documentation of Current Medications in the Medical Record Clinician documentation instruction: use macro the first time you see a patient. [X] I have utilized all available immediate resources to obtain, update, or review the patient?s current medications. [SATISFIES MIPS PERFORMANCE] If Yes, Stop Here [] The patient is not eligible for medication reconciliation; the patient is in an emergent medical situation where delaying treatment would jeopardize the patient?s health. [MIPS PERFORMANCE EXCEPTION/EXCLUSION] [] I did NOT confirm, update or review the patient's current list of medications today. [DOES NOT SATISFY MIPS PERFORMANCE] MIPS - CL Central Venous Catheter Placement Measure: #76 ? Prevention of Central Venous Catheter (CVC) ? Related Bloodstream Infection Clinician documentation instruction: use macro every time you place a central line. [] All elements of Maximal Sterile Barrier Technique, including hand hygiene, skin prep, and sterile ultrasound technique (if used) were followed. [SATISFIES MIPS PERFORMANCE] If Yes, Stop Here [] If ?No?, the medical reason all elements were NOT used for medical reason [] (ex. emergent condition). [] Maximal Sterile Barrier Technique was not followed, no reason provided [DOES NOT SATISFY MIPS PERFORMANCE] MIPS - DC Heart Failure Measures: #5 - Heart Failure (HF): Angiotensin-Converting Enzyme (SHERLYN) Inhibitor or Angiotensin Receptor Marlene (ARB) Therapy for Left Ventricular Systolic Dysfunction (LVSD) and #8 - Heart Failure (HF): Beta-Marlene Therapy for Left Ventricular Systolic Dysfunction (LVSD) Clinician documentation instruction: use macro at every CHF discharge. [] The patient has current or prior documentation of left ventricular ejection fraction (LVEF) less than 40%, or moderate or severely depressed left ventricul ar systolic function. Answer both: [SATISFIES MIPS PERFORMANCE] [] The patient was prescribed or already taking an Angiotensin-Converting Enzyme (SHERLYN) Inhibitor, or Angiotensin Receptor Marlene (ARB). [] The patient was prescribed or already taking a beta-marlene. If Yes to Both, Stop Here [] Patient not prescribed/taking: [MIPS PERFORMANCE EXCEPTION/EXCLUSION] [] SHERLYN or ARB for medical/patient/system reason(s) including [] (ex. allergy, intolerance, contraindication) [] Beta-marlene for medical/patient/system reason(s) including [] (ex. allergy, intolerance, contraindication) [] Patient not prescribed/taking: [DOES NOT SATISFY MIPS PERFORMANCE] [] SHERLYN or ARB, no reason given [] Beta-marlene, no reason given
[2020-10-11 03:03] LABS: Magnesium 2.1 mg/dL (1.6-2.3)
[2020-10-11 03:21] LABS: Free T4, Direct Thyroxine 1.39 ng/dL (0.78-2.19)
[2020-10-11 05:28] LABS: Add Manual Diff / Slide Review NO; Basophils Absolute Auto 0 /uL (0-100); Basophils Percent Auto 0.1 % (0-2); Eosinophils Absolute Auto 0 /uL (0-450); Hematocrit 30.4 % (36-46); Hemoglobin 10.7 g/dL (12.0-16.0); Lymphocytes Absolute Auto 800 /uL (1100-4500); Mean Corpuscular HGB Conc 35.2 % (30-36); Mean Corpuscular Hemoglobin 31.7 PG (26-34); Mean Corpuscular Volume 90.1 fL (80-100); Monocytes Absolute Auto 1000 /uL (0-900); Monocytes Percent Auto 8.6 % (3-14); Neutrophils Absolute Auto 9900 /uL (1500-7000); Neutrophils Percent Auto 84.3 % (50-75); Platelet Count 249 X10^3/uL (150-400); Red Blood Cell Count 3.38 X10^6/uL (4.0-5.2); Red Cell Distribution Width 13.2 % (11.6-14.8); White Blood Cell Count 11.8 X10^3/uL (4.5-11.0)
[2020-10-11 06:27] LABS: Blood Urea Nitrogen 14 mg/dL (7-17); Calcium 8.9 mg/dL (8.4-10.2); Carbon Dioxide 24 mmol/L (22-32); Chloride 84 mmol/L (98-107); Estimated Glomerular Filt Rate > 60.0 mL/min (>60); Glucose 97 mg/dL (80-110); HEMOLYSIS < 15 (0-50); Potassium 3.7 mmol/L (3.4-5.1)
[2020-10-11 06:30] LABS: Sodium 116 mmol/L (137-145)
--- NOTE | 2020-10-11 06:46 | PC.NURSE ---
Admit/Night Note-Patient was admitted to ICU room 226 at 0100, oriented to person and place, no memory of fall at home or events that brought her to the hospital. She is lethargic, able to follow commands. 40meq K+ rider infused, IV Zofran given for nausea upon arrival, IV Protonix given for heartburn. SR, 1st degree AVB, VSS, does have 2-3 second apnea (uses a C-pap) HOB > 30 degrees. Na+ in am = 116, NS @ 100ml/hr ordered. Chidi Stephens, accompanied her to room, will be her support person, only belongings are a pair of socks in the room. Seizure pads on rails.
[2020-10-11] MEDS: DOCUSATE 100 MG CAPSULE PO ×2 (08:21→19:55)
[2020-10-11] MEDS: ASPIRIN 81 MG CHEW TAB PO (08:21)
[2020-10-11] MEDS: ENOXAPARIN 40 MG/0.4 ML SYRINGE SUBCUT (08:23)
[2020-10-11] MEDS: SODIUM CHLORIDE 0.9% 1,000 ML 100 ML IV ×2 (08:23→20:05)
[2020-10-11 08:37] LABS: PO2 ABG 477 mmHg (80-100)
[2020-10-11 11:40] LABS: BUN Creatinine Ratio 16.9 (6-22); Blood Urea Nitrogen 12 mg/dL (7-17); Calcium 8.8 mg/dL (8.4-10.2); Carbon Dioxide 26 mmol/L (22-32); Chloride 85 mmol/L (98-107); Estimated Glomerular Filt Rate > 60.0 mL/min (>60); Glucose 96 mg/dL (80-110); HEMOLYSIS < 15 (0-50); Potassium 3.4 mmol/L (3.4-5.1)
[2020-10-11 11:49] LABS: Sodium 117 mmol/L (137-145)
--- NOTE | 2020-10-11 12:42 | PC.NURSE ---
Addendum entered by Tiffanie Taylor R.N. 10/11/20 14:29: Med rec done with Patient. IV to Right wrist leaking, removed. Original Note: AM shift Pt is A/o x3, forgetful to date. Aware of day of week/situation. Pt has clear speech. Able to get up to BSC with unsteady gait, and assist of 1 gait belt and fww. Unable to collect urine sample do to stooling contamination. Pt reports GERD symtoms. Protonix given IV with some relief. Pt reports history of same symptoms at home. IV NS @ 100 mls/hr. Na up to 117 with 11 am labs. Next labs at 1700.
[2020-10-11 14:07] LABS: Bacteria Urine None Seen; WBC Urine None Seen (0-5/HPF)
[2020-10-11 14:09] LABS: Appearance Urine UA CLEAR; Bilirubin Urine UA NEGATIVE (NEGATIVE); Color Urine UA YELLOW; Glucose Urine UA TRACE g/dL (Negative); Ketones Urine UA NEGATIVE (NEGATIVE); Leukocyte Esterase Urine UA NEGATIVE (NEGATIVE); Nitrite Urine UA NEGATIVE (Negative); Occult Blood Urine UA TRACE-INTACT (Negative); Protein Urine UA NEGATIVE (Negative); Urobilinogen Urine UA 0.2 E.U./dL (0.2)
[2020-10-11 14:15] LABS: UR Morphine/Opiate cutoff 300 Negative (Negative); Ur Creatinine Normal (Normal); Ur Specific Gravity Normal (Normal); Urine Amphetamines Negative (Negative); Urine Barbiturates Negative (Negative); Urine Benzodiazepines Negative (Negative); Urine Cocaine Negative (Negative); Urine MDMA Negative (Negative); Urine Methadone Negative (Negative); Urine Methamphetamines Negative (Negative); Urine Oxycodone Negative (Negative); Urine Phencyclidine Negative (Negative); Urine Tetrahydrocannabinol Negative (Negative); Urine Tricyclic Antidepressant Negative (Negative); Urine pH Normal (Normal)
[2020-10-11 14:18] LABS: Culture Indicated Urine Cult Not Indicated; RBC Urine 1-5/HPF (0-5/HPF)
--- NOTE | 2020-10-11 14:37 | CM.DANOTE ---
Patient is a 79 year old female who was admitted on 10/11/20 for Found Unconscious. Pt has M[employer] and [employer]IRCH for insurance and her PCP is Reena Sun. EMR was reviewed. Per MD, pt was with boyfriend and went to the restroom and he found her down and unconscious in the bathroom. EMS was called and pt was intubated in the field but successfully extubated in the ED and admitted to ICU for syncope and hyponatremia and likely here a few days to stabilize sodium levels. SW met bedside with pt and explained role and pt confirms she still lives in [place] alone but has life partner Chidi who also lives in [facility] and they spend most of their time together. Pt denies any children or local family. Pt denies any hx of SNF or HH but has a hx of multiple SBO and surgical intervention but is active and independent at baseline with ADL's. Pt has some concerns with her syncope but feels that she will likely be safe for d/c home with Chidi assist when stable. Pt thinks she has completed DPOA pwk but unsure who is her designated DPOA. SW encouraged her to make sure her PCP office or hospital has a copy. PT has not been ordered yet as pt not quite medically appropriate, but eval of her mobility and ambulation could be helpful as per RN pt currently unsteady gait. Plan: SW to follow closely tomorrow for possible PT eval to determine any d/c planning needs and confirm if pt safe for d/c home with sig other assist. 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 Yes Advance Directives on File No History Provided By Patient,Significant Other, Medical Record Has Patient been admitted in last 30 No days? Prior Living Arrangements House Household Members none Type of transporation used prior to Drives own vehicle admit Independent with ADL's Yes Is patient alert and oriented? Yes Caregiver for Another No Patient/Family Preference OP PT Therapy Barriers to Discharge No Comment Patient has h/o SBO's. One in December and another in February 2020. Discharge Plan Home Transportation Arrangement Boyfriend can provide transport at d/c Referrals Initiated None needed Additional Comment Pending possible PT eval Whiteboard Updated in Patient Room with Yes name and ext. # of Lacquer Spray Booth Operator Review Status In Process Please Provide Date Initial DC 10/11/20 Assessment Was Performed Next Review Type Continued Stay Review
--- NOTE | 2020-10-11 15:34 | P.PN_ITS ---
Subjective Subjective Date Patient Seen: 10/11/20 Time Patient Seen: 08:15 Interval history: This is a 79-year-old female with a past medical history significant for previous episodes of acute hypokalemia and hypo natremia, arrhythmias right related to hypokalemia, bowel obstructions, chronic constipation, hypertension, hyperlipidemia, hypothyroidism and GERD who presents to the ER intubated with EMS after being found down on the bathroom floor unresponsive. Patient subsequently extubated in the emergency department following regaining consciousness demonstrating ability to follow commands maintain respirations and airway patency. She was admitted for severe hyponatremia with a sodium of 113. She remains awake and alert, although she feels cognitively slower than her usual self. Denies other symptoms including abdominal pain, chtest pain dyspnea, nausea, or vomiting. Sodium slowly improving with NS, up to 117, correcting appropriately. Exam Vital Signs (past 8 hours): - 10/11/20 08:00 10/11/20 08:30 10/11/20 09:00 Temperature 98.5 F Pulse Rate 78 89 81 Respiratory Rate 13 21 14 Blood Pressure 132/60 Pulse Oximetry 95 96 98 10/11/20 09:30 10/11/20 10:00 10/11/20 10:30 Temperature Pulse Rate 91 H 82 84 Respiratory Rate 19 17 18 Blood Pressure Pulse Oximetry 97 95 95 10/11/20 11:00 10/11/20 11:28 10/11/20 11:30 Temperature Pulse Rate 81 87 86 Respiratory Rate 20 9 L Blood Pressure 140/65 Pulse Oximetry 96 97 10/11/20 12:00 10/11/20 12:30 10/11/20 13:00 Temperature 98.8 F Pulse Rate 88 91 H 98 H Respiratory Rate 29 H 22 31 H Blood Pressure 140/65 Pulse Oximetry 94 97 96 10/11/20 13:30 10/11/20 14:00 10/11/20 14:30 Temperature Pulse Rate 93 H 90 88 Respiratory Rate 27 H 20 19 Blood Pressure Pulse Oximetry Oxygen Delivery Method Room Air Oxygen Flow Rate 0 Narrative Exam Narrative: GENERAL APPEARANCE: well developed, overweight female sitting upright in hospital bed with no acute distress. HEENT: 6 cm contusion to left forehead, PERRLA, sclera is anicteric, EOMs intact without nystagmus, no sinus tenderness to percussion, no rhinorrhea or epistaxis, mucous membranes are moist and pink no evidence of oral trauma. NECK/THYROID: Nontender to palpation, no palpable step-offs, no JVD, no thyromegaly, trachea midline. LYMPH NODES: no cervical or supraclavicular lymphadenopathy. SKIN: [place], warm and dry, no visible rashes or lesions HEART: regular rate and rhythm, S1-S2, 2/6 systolic murmur most prominent over the left sternal border, no rubs or gallops, brisk capillary refill, no edema LUNGS: clear to auscultation bilaterally, no coarseness crackles or wheezing, no cough present CHEST: Symmetrical movement, no accessory muscle use, good tidal volume ABDOMEN: Soft, no distention, non-tender BACK: Normal curvature, non-tender EXTREMITIES: moves all extremities, strength is 5/5 and symmetrical, no deformities or joint effusions, no clubbing or cyanosis. NEUROLOGIC: AAO x3, cranial nerves II-XII grossly intact, sensation intact to light touch, hearing grossly normal to speech. Objective Labs Result Diagrams: 10/11/20 05:05 10/11/20 11:19 Labs: Laboratory Results - last 24 hr 10/10/20 10/10/20 10/10/20 22:13 22:35 22:35 WBC 12.8 H RBC 4.14 Hgb 13.0 Hct 38.1 MCV 91.9 MCH 31.5 MCHC 34.3 RDW 12.9 Plt Count 375 Neut % (Auto) 77.9 H Lymph % (Auto) 15.1 L [place] % (Auto) 5.1 Eos % (Auto) 1.1 L Baso % (Auto) 0.8 Neut # (Auto) 30832 H Lymph # (Auto) 1900 [place] # (Auto) 600 Eos # (Auto) 100 Baso # (Auto) 100 PT INR APTT ABG pH ABG pCO2 ABG pO2 ABG HCO3 ABG Total CO2 ABG O2 Saturation ABG Base Excess FiO2 Sodium 113 L* Potassium 3.2 L Chloride 78 L Carbon Dioxide 16 L BUN 15 Creatinine 1.04 Estimated GFR 51.4 L BUN/Creatinine Ratio 14.4 Glucose 290 H Hemoglobin A1c Calcium 9.7 Magnesium Total Bilirubin 0.6 AST 50 H ALT 33 Alkaline Phosphatase 130 H Ammonia Total Creatine Kinase CK-MB (CK-2) CK-MB (CK-2) Rel Index Troponin I Total Protein 7.6 Albumin 4.6 Globulin 3.0 Albumin/Globulin Ratio 1.5 Lipase TSH Free T4 Urine Color Urine Appearance Urine pH Ur Specific [place] Urine Protein Urine Glucose (UA) Urine Ketones Urine Occult Blood Urine Nitrate Urine Bilirubin Urine Urobilinogen Ur Leukocyte Esterase Urine RBC Urine WBC Urine Bacteria Ur Culture Indicated? Nasal Screen MRSA (PCR) U Opiates 300ng/mL cut Ur Oxycodone Screen Urine Methadone Screen Ur Barbiturates Screen U Tricyclic Antidepress Ur Phencyclidine Scrn Ur Amphetamines Screen U Methamphetamines Scrn Ur MDMA Scrn (Ecstasy) U Benzodiazepines Scrn Urine Cocaine Screen U Marijuana (THC) Screen Ethyl Alcohol < 10 SARS-CoV-2 (PCR) Negative 10/10/20 10/10/20 10/10/20 22:35 22:35 22:35 WBC RBC Hgb Hct MCV MCH MCHC RDW Plt Count Neut % (Auto) Lymph % (Auto) [place] % (Auto) Eos % (Auto) Baso % (Auto) Neut # (Auto) Lymph # (Auto) [place] # (Auto) Eos # (Auto) Baso # (Auto) PT 10.7 INR 1.0 APTT 29 ABG pH 7.34 L ABG pCO2 42.9 ABG pO2 477 H* ABG HCO3 23 ABG Total CO2 25 ABG O2 Saturation 100 ABG Base Excess -2.0 FiO2 100 Sodium Potassium Chloride Carbon Dioxide BUN Creatinine Estimated GFR BUN/Creatinine Ratio Glucose Hemoglobin A1c Calcium Magnesium Total Bilirubin AST ALT Alkaline Phosphatase Ammonia Total Creatine Kinase 186 H CK-MB (CK-2) 1.93 CK-MB (CK-2) Rel Index 1.0 L Troponin I < 0.012 Total Protein Albumin Globulin Albumin/Globulin Ratio Lipase 111 TSH Free T4 Urine Color Urine Appearance Urine pH Ur Specific [place] Urine Protein Urine Glucose (UA) Urine Ketones Urine Occult Blood Urine Nitrate Urine Bilirubin Urine Urobilinogen Ur Leukocyte Esterase Urine RBC Urine WBC Urine Bacteria Ur Culture Indicated? Nasal Screen MRSA (PCR) U Opiates 300ng/mL cut Ur Oxycodone Screen Urine Methadone Screen Ur Barbiturates Screen U Tricyclic Antidepress Ur Phencyclidine Scrn Ur Amphetamines Screen U Methamphetamines Scrn Ur MDMA Scrn (Ecstasy) U Benzodiazepines Scrn Urine Cocaine Screen U Marijuana (THC) Screen Ethyl Alcohol SARS-CoV-2 (PCR) 10/10/20 10/10/2021 22:35 22:35 22:35 WBC RBC Hgb Hct MCV MCH MCHC RDW Plt Count Neut % (Auto) Lymph % (Auto) [place] % (Auto) Eos % (Auto) Baso % (Auto) Neut # (Auto) Lymph # (Auto) [place] # (Auto) Eos # (Auto) Baso # (Auto) PT INR APTT ABG pH ABG pCO2 ABG pO2 ABG HCO3 ABG Total CO2 ABG O2 Saturation ABG Base Excess FiO2 Sodium Potassium Chloride Carbon Dioxide BUN Creatinine Estimated GFR BUN/Creatinine Ratio Glucose Hemoglobin A1c 5.0 Calcium Magnesium 2.1 Total Bilirubin AST ALT Alkaline Phosphatase Ammonia Total Creatine Kinase CK-MB (CK-2) CK-MB (CK-2) Rel Index Troponin I Total Protein Albumin Globulin Albumin/Globulin Ratio Lipase TSH 4.83 H Free T4 Urine Color Urine Appearance Urine pH Ur Specific [place] Urine Protein Urine Glucose (UA) Urine Ketones Urine Occult Blood Urine Nitrate Urine Bilirubin Urine Urobilinogen Ur Leukocyte Esterase Urine RBC Urine WBC Urine Bacteria Ur Culture Indicated? Nasal Screen MRSA (PCR) U Opiates 300ng/mL cut Ur Oxycodone Screen Urine Methadone Screen Ur Barbiturates Screen U Tricyclic Antidepress Ur Phencyclidine Scrn Ur Amphetamines Screen U Methamphetamines Scrn Ur MDMA Scrn (Ecstasy) U Benzodiazepines Scrn Urine Cocaine Screen U Marijuana (THC) Screen Ethyl Alcohol SARS-CoV-2 (PCR) 10/10/20 10/10/20 10/11/20 22:35 22:50 01:15 WBC RBC Hgb Hct MCV MCH MCHC RDW Plt Count Neut % (Auto) Lymph % (Auto) [place] % (Auto) Eos % (Auto) Baso % (Auto) Neut # (Auto) Lymph # (Auto) [place] # (Auto) Eos # (Auto) Baso # (Auto) PT INR APTT ABG pH ABG pCO2 ABG pO2 ABG HCO3 ABG Total CO2 ABG O2 Saturation ABG Base Excess FiO2 Sodium Potassium Chloride Carbon Dioxide BUN Creatinine Estimated GFR BUN/Creatinine Ratio Glucose Hemoglobin A1c Calcium Magnesium Total Bilirubin AST ALT Alkaline Phosphatase Ammonia < 9 L Total Creatine Kinase CK-MB (CK-2) CK-MB (CK-2) Rel Index Troponin I Total Protein Albumin Globulin Albumin/Globulin Ratio Lipase TSH Free T4 1.39 Urine Color Urine Appearance Urine pH Ur Specific [place] Urine Protein Urine Glucose (UA) Urine Ketones Urine Occult Blood Urine Nitrate Urine Bilirubin Urine Urobilinogen Ur Leukocyte Esterase Urine RBC Urine WBC Urine Bacteria Ur Culture Indicated? Nasal Screen MRSA (PCR) Negative for mrsa U Opiates 300ng/mL cut Ur Oxycodone Screen Urine Methadone Screen Ur Barbiturates Screen U Tricyclic Antidepress Ur Phencyclidine Scrn Ur Amphetamines Screen U Methamphetamines Scrn Ur MDMA Scrn (Ecstasy) U Benzodiazepines Scrn Urine Cocaine Screen U Marijuana (THC) Screen Ethyl Alcohol SARS-CoV-2 (PCR) 10/11/20 10/11/20 10/11/20 05:05 06:00 11:19 WBC 11.8 H RBC 3.38 L Hgb 10.7 L Hct 30.4 L MCV 90.1 MCH 31.7 MCHC 35.2 RDW 13.2 Plt Count 249 Neut % (Auto) 84.3 H Lymph % (Auto) 7.0 L [place] % (Auto) 8.6 Eos % (Auto) 0.0 L Baso % (Auto) 0.1 Neut # (Auto) 9900 H Lymph # (Auto) 800 L [place] # (Auto) 1000 H Eos # (Auto) 0 Baso # (Auto) 0 PT INR APTT ABG pH ABG pCO2 ABG pO2 ABG HCO3 ABG Total CO2 ABG O2 Saturation ABG Base Excess FiO2 Sodium 116 L* 117 L* Potassium 3.7 3.4 Chloride 84 L 85 L Carbon Dioxide 24 26 BUN 14 12 Creatinine 0.70 0.71 Estimated GFR > 60.0 > 60.0 BUN/Creatinine Ratio 20.0 16.9 Glucose 97 D 96 Hemoglobin A1c Calcium 8.9 8.8 Magnesium Total Bilirubin AST ALT Alkaline Phosphatase Ammonia Total Creatine Kinase CK-MB (CK-2) CK-MB (CK-2) Rel Index Troponin I Total Protein Albumin Globulin Albumin/Globulin Ratio Lipase TSH Free T4 Urine Color Urine Appearance Urine pH Ur Specific [place] Urine Protein Urine Glucose (UA) Urine Ketones Urine Occult Blood Urine Nitrate Urine Bilirubin Urine Urobilinogen Ur Leukocyte Esterase Urine RBC Urine WBC Urine Bacteria Ur Culture Indicated? Nasal Screen MRSA (PCR) U Opiates 300ng/mL cut Ur Oxycodone Screen Urine Methadone Screen Ur Barbiturates Screen U Tricyclic Antidepress Ur Phencyclidine Scrn Ur Amphetamines Screen U Methamphetamines Scrn Ur MDMA Scrn (Ecstasy) U Benzodiazepines Scrn Urine Cocaine Screen U Marijuana (THC) Screen Ethyl Alcohol SARS-CoV-2 (PCR) 10/11/20 10/11/20 10/11/20 14:01 14:01 Unknown WBC RBC Hgb Hct MCV MCH MCHC RDW Plt Count Neut % (Auto) Lymph % (Auto) [place] % (Auto) Eos % (Auto) Baso % (Auto) Neut # (Auto) Lymph # (Auto) [place] # (Auto) Eos # (Auto) Baso # (Auto) PT INR APTT ABG pH ABG pCO2 ABG pO2 ABG HCO3 ABG Total CO2 ABG O2 Saturation ABG Base Excess FiO2 Sodium Cancelled Potassium Cancelled Chloride Cancelled Carbon Dioxide Cancelled BUN Cancelled Creatinine Cancelled Estimated GFR Cancelled BUN/Creatinine Ratio Cancelled Glucose Cancelled Hemoglobin A1c Calcium Cancelled Magnesium Total Bilirubin AST ALT Alkaline Phosphatase Ammonia Total Creatine Kinase CK-MB (CK-2) CK-MB (CK-2) Rel Index Troponin I Total Protein Albumin Globulin Albumin/Globulin Ratio Lipase TSH Free T4 Urine Color Yellow Urine Appearance Clear Urine pH 6.0 Ur Specific [place] 1.010 Urine Protein Negative Urine Glucose (UA) Trace H Urine Ketones Negative Urine Occult Blood Trace-intact Urine Nitrate Negative Urine Bilirubin Negative Urine Urobilinogen 0.2 Ur Leukocyte Esterase Negative Urine RBC 1-5/hpf Urine WBC None seen Urine Bacteria None seen Ur Culture Indicated? Cult not indicated Nasal Screen MRSA (PCR) U Opiates 300ng/mL cut Negative Ur Oxycodone Screen Negative Urine Methadone Screen Negative Ur Barbiturates Screen Negative U Tricyclic Antidepress Negative Ur Phencyclidine Scrn Negative Ur Amphetamines Screen Negative U Methamphetamines Scrn Negative Ur MDMA Scrn (Ecstasy) Negative U Benzodiazepines Scrn Negative Urine Cocaine Screen Negative U Marijuana (THC) Screen Negative Ethyl Alcohol SARS-CoV-2 (PCR) [facility] Medical History Acute hypokalemia Acute hyponatremia Asthma Atrial flutter (~05/2014) Bowel obstruction Chronic constipation Complete small bowel obstruction Depression GERD (gastroesophageal reflux disease) Graves disease Hard stool Hyperlipemia Hypertension Hypothyroid Insomnia Iron deficiency anemia (~2013) Measles Mumps Obstructive sleep apnea of adult Osteopenia (~2010) Restless legs syndrome (RLS) Surgical History H/O abdominal surgery History of knee replacement (05/2008) Hx of cholecystectomy (1996) Hx of hernia repair (03/2011) Hx of hysterectomy (1985) Hx of knee surgery (09/2008) Hx of knee surgery (2006) Hx of rotator cuff surgery (2004) Hx of surgical procedure (1995) Hx of total knee arthroplasty (2009) No pertinent past surgical history Family History Mother Diabetes mellitus CVA (cerebral vascular accident) Sister Diabetes mellitus Father Malignant neoplasm of mesothelial tissue Social History household members: none Smoking Status: Former smoker Tobacco: How many years used: 6 Smokeless tobacco user: chewing tobacco second hand exposure: [place] [employer] [place] alcohol intake: former substance use type: does not use Assessment & Plan Assessment & Plan narrative: This is a 79-year-old female with a past medical history significant for previous episodes of acute hypokalemia and hypo natremia, arrhythmias right related to hypokalemia, bowel obstructions, chronic constipation, hypertension, hyperlipidemia, hypothyroidism and GERD who presents to the ER intubated with EMS after being found down on the bathroom floor unresponsive. Patient subsequently extubated in the emergency department following regaining consciousness demonstrating ability to follow commands maintain respirations and airway patency. Admitted for severe hyponatremia now slowly improving with normal saline infusion. 1. Syncope, present on admission, active -patient had an unwitnessed syncopal episode resulting in a fall evidence by contusion to the left forehead. Imaging reveals no intracranial pathology, fractures or cervical injury. -labs demonstrate multiple electrolyte and metabolic abnormalities including metabolic acidosis with an anion gap of 19, CO of 16, arterial blood gas finds a pH of 7.34. Most significantly patient is hyponatremic with a sodium of 113. -no evidence of lateralizing symptoms or neuro cognitive impairment. Given degree of hyponatremia it is highly possible the patient suffered a seizure. -will continue neuro checks every 2 hours. -seizure precautions in place. -ordered lorazepam 1 mg IV as needed for seizures may repeat x1. 2. Severe hyponatremia, acute, present on admission, active. -initial sodium is 113. Patient reports being on low-sodium diet with increased consistent water intake. Patient also taking chlorthalidone 25 mg daily. She has been improving slowly with continued IV fluids up to 117. continue to follow q6 hours to avoid rapid rise. Consider urine sodium and osmolality as there may be a mixed picture of dehydration on admission given possible seizure with SIADH or polydipsia depending on if her Na improves as expected. -hyponatremia acute multifactorial with altered dietary intake, delusional component with concomitant diuretic use. -ordered normal saline 125 cc/hour, decreased slightly to 100 cc per hour. -ordered BMP every 6 hours x4 to track repletion. 3. Hyperglycemia without diagnosis of diabetes, present on admission, resolved -serum glucose obtained by paramedics is 283 which was confirmed by serum glucose of 290 on initial labs in the emergency department. -patient denies a personal history of diabetes though her mother and sister both have diabetes. -A1c at 5.0%, may have been secondary to medications or reactive in setting of dehydration and possible seizure. 4. Hypertension, chronic, stable -initial blood pressure upon arrival was and 184/79 improving to 157/68 on admission to ICU. -will continue home regimen of antihypertensives including losartan 100 mg and diltiazem 420 mg extended release daily. 5. Acquired hypothyroidism, chronic, stable -TSH is elevated on initial labs in the ER at 4.83. free t4 unremarkable. -will continue home regimen of levothyroxine 75 mcg daily. 6. Gastroesophageal reflux disorder, chronic, stable. -patient complaining of epigastric discomfort, administered Protonix 40 mg IV now. -ordered Protonix 40 mg daily. -supplemental treatment with Maalox or Tums as needed. VTE prophylaxis: Enoxaparin IV fluid: Normal saline as noted above Diet: advance to regular diet. Code status: Full code The patient is admitted to the hospital due to the severity of her electrolyte and metabolic derangements. Due to the severity of her the patient's hyponatremia a protracted time will be required for safe repletion therefore the patient is admitted as an inpatient with expected length of stay to be greater than 2 midnights. Quality VTE Deep Vein Thrombosis/Pulmonary Embolism Present on Admission: No
[2020-10-11] MEDS: FAMOTIDINE 20 MG TABLET PO ×2 (16:44→19:55)
[2020-10-11] MEDS: LIDOCAINE PATCH 1 EACH ADH..PATCH TOP (17:55)
[2020-10-11 18:07] LABS: BUN Creatinine Ratio 14.7 (6-22); Blood Urea Nitrogen 10 mg/dL (7-17); Calcium 8.7 mg/dL (8.4-10.2); Carbon Dioxide 26 mmol/L (22-32); Chloride 88 mmol/L (98-107); Estimated Glomerular Filt Rate > 60.0 mL/min (>60); Glucose 98 mg/dL (80-110); HEMOLYSIS < 15 (0-50); Potassium 2.9 mmol/L (3.4-5.1); Sodium 121 mmol/L (137-145)
--- NOTE | 2020-10-11 18:41 | PC.NURSE ---
[id number]- spoke with provider about pt heartburn and home med reconciliation; provider to put in orders for pepcid and to resume home meds
[2020-10-11] MEDS: POTASSIUM CHLORIDE 20 MEQ TAB 40 MEQ PO (19:54)
[2020-10-11] MEDS: LOSARTAN 50 MG TABLET 100 MG PO (20:04)
[2020-10-11] MEDS: ROSUVASTATIN 10 MG TABLET PO (20:04)
[2020-10-11 23:53] LABS: BUN Creatinine Ratio 11.1 (6-22); Blood Urea Nitrogen 10 mg/dL (7-17); Calcium 8.7 mg/dL (8.4-10.2); Carbon Dioxide 31 mmol/L (22-32); Chloride 91 mmol/L (98-107); Estimated Glomerular Filt Rate > 60.0 mL/min (>60); Glucose 92 mg/dL (80-110); HEMOLYSIS < 15 (0-50); Potassium 3.6 mmol/L (3.4-5.1); Sodium 124 mmol/L (137-145)
[2020-10-12] VITALS (7 sets, daily range): BP systolic 126–170; BP diastolic 58–74; PULSE 73–88; RESP 16–20; TEMP 36.1–37.2; O2SAT 94–98
[2020-10-12] MEDS: ACETAMINOPHEN 325 MG TABLET 650 MG PO ×2 (00:44→09:42)
[2020-10-12 05:27] LABS: Add Manual Diff / Slide Review NO; Basophils Absolute Auto 100 /uL (0-100); Basophils Percent Auto 1.1 % (0-2); Eosinophils Absolute Auto 100 /uL (0-450); Eosinophils Percent Auto 1.1 % (2-4); Hematocrit 31.8 % (36-46); Hemoglobin 11.1 g/dL (12.0-16.0); Lymphocytes Absolute Auto 2000 /uL (1100-4500); Lymphocytes Percent Auto 24.9 % (25-40); Mean Corpuscular HGB Conc 34.8 % (30-36); Mean Corpuscular Hemoglobin 31.8 PG (26-34); Mean Corpuscular Volume 91.2 fL (80-100); Monocytes Absolute Auto 800 /uL (0-900); Monocytes Percent Auto 10.6 % (3-14); Neutrophils Absolute Auto 4900 /uL (1500-7000); Neutrophils Percent Auto 62.3 % (50-75); Platelet Count 288 X10^3/uL (150-400); Red Blood Cell Count 3.49 X10^6/uL (4.0-5.2); Red Cell Distribution Width 13.4 % (11.6-14.8); White Blood Cell Count 7.9 X10^3/uL (4.5-11.0)
[2020-10-12] MEDS: LEVOTHYROXINE 75 MCG TABLET PO (05:28)
[2020-10-12 05:43] LABS: Alanine Aminotransferase 24 IU/L (<35); Albumin 3.1 g/dL (3.5-5.0); Albumin Globulin Ratio 1.2 (1.0-2.8); Alkaline Phosphatase 92 U/L (38-126); Aspartate Aminotransferase 34 IU/L (14-36); BUN Creatinine Ratio 12.3 (6-22); Bilirubin Total 0.3 mg/dL (0.2-1.3); Bilirubin Unconjugated 0.5 mg/dL (0.0-1.1); Blood Urea Nitrogen 9 mg/dL (7-17); Calcium 8.9 mg/dL (8.4-10.2); Carbon Dioxide 27 mmol/L (22-32); Chloride 94 mmol/L (98-107); Estimated Glomerular Filt Rate > 60.0 mL/min (>60); Globulin 2.5 g/dL (1.7-4.1); Glucose 93 mg/dL (80-110); HEMOLYSIS < 15 (0-50); Magnesium 1.8 mg/dL (1.6-2.3); Potassium 3.6 mmol/L (3.4-5.1); Sodium 126 mmol/L (137-145); Total Protein 5.6 g/dL (6.3-8.2)
--- NOTE | 2020-10-12 06:01 | PC.NURSE ---
Pt. is alert and oriented, VSS, tele showing SR with 1st degree block, sats on RA in the high 90's, lungs mostly CTA except for few faint crackles on left base. Pt. denies dizziness, denies AGUIRRE, on seizure precaution and without any seizure activity. Her only complain is upper mid back pain which has a lidocaine applied on pm shift yesterday and also given Tylenol last night which pt. states helps some, also offered ice pack. Will medicate with APAP again once due. Pt. up to BSC with SBA, voiding adequate clear yellow urine. Na+ level still low but improving with current result of 126. NS is infusing at 84ml/hr. Cont. to monitor.
[2020-10-12] MEDS: SODIUM CHLORIDE 0.9% 1,000 ML 84 ML IV (06:19)
--- NOTE | 2020-10-12 08:35 | PC.NURSE ---
Day shift: Pt awake and reports that she is feeling good. She said when can I go home. She was rubbing at her left eye but denies any vision changes. Denies any pain or nausea. Tolerating SCd's. Seizure precautions in place (pads). Bed alarm is on and call light in reach. Will continue w/ plan of care.
[2020-10-12] MEDS: ASPIRIN 81 MG CHEW TAB PO (09:23)
[2020-10-12] MEDS: DOCUSATE 100 MG CAPSULE PO ×2 (09:37→21:39)
[2020-10-12] MEDS: CHLORTHALIDONE 25 MG TABLET 12.5 MG PO (09:37)
[2020-10-12] MEDS: FAMOTIDINE 20 MG TABLET PO ×2 (09:37→21:38)
[2020-10-12] MEDS: SODIUM CHLORIDE 0.9% FLUSH 10 ML IV ×2 (09:38→21:39)
[2020-10-12] MEDS: dilTIAZem CD 180 MG CAP PO (09:38)
[2020-10-12] MEDS: dilTIAZem CD 240 MG CAP PO (09:38)
[2020-10-12] MEDS: ENOXAPARIN 40 MG/0.4 ML SYRINGE SUBCUT (09:38)
[2020-10-12] MEDS: LIDOCAINE PATCH 1 EACH ADH..PATCH TOP (09:38)
[2020-10-12] MEDS: PANTOPRAZOLE 40 MG VIAL IV (09:38)
[2020-10-12] MEDS: polyethylene glycoL 3350 17 GM POWD.PACK PO (09:50)
--- NOTE | 2020-10-12 10:29 | CM.DPC ---
DCP: continued: case received and discussed in Team Rounds. Dr. Lizarraga stated pt was appropriate medically for a PT/OT eval and order is placed for same. Therapy team aware.
--- NOTE | 2020-10-12 11:52 | OT.IP.EVAL ---
Current Diagnoses Other specified postprocedural states (10/11/20) Past Medical History (Last Reviewed 10/11/20 @ 02:25 by GEOVANNA Castro) Acute hypokalemia Acute hyponatremia Asthma Atrial flutter (~05/2014) Bowel obstruction Chronic constipation Complete small bowel obstruction Depression GERD (gastroesophageal reflux disease) Graves disease Hard stool Hyperlipemia Hypertension Hypothyroid Insomnia Iron deficiency anemia (~2013) Measles Mumps Obstructive sleep apnea of adult Osteopenia (~2010) Restless legs syndrome (RLS) Surgical History (Last Reviewed 10/11/20 @ 02:25 by GEOVANNA Castro) H/O abdominal surgery History of knee replacement (05/2008) Hx of cholecystectomy (1996) Hx of hernia repair (03/2011) Hx of hysterectomy (1985) Hx of knee surgery (09/2008) Hx of knee surgery (2006) Hx of rotator cuff surgery (2004) Hx of surgical procedure (1995) Hx of total knee arthroplasty (2009) No pertinent past surgical history Occupational Therapy Inpatient Evaluation/Re-Eval M1 PT/OT-IP Prior Functional Status Start: 10/12/20 13:02 Freq: NEEDED Status: Active Protocol: Document 10/12/20 11:14 [facility] (Rec: 10/12/20 13:25 [facility] [id number]) Medical Review Prior Functional Status Communication Independent. Mobility and Gait Independent with no devices. Activities of Daily Living and IADL's Completely independent with all ADL, IADL, and drives. Social History Household Members none Living Arrangements House Number of Floors (Floors) One Floor Number of Stairs To Enter/Railing? 3 steps with left rail to get into the house. Pt states has a flight of stairs with left hand rail going down to the basement. Pt states has not been going to the basement as her dog has recently passed. Home Environment Standard Height Toilet,Walk in Shower,Tub/Shower Home Equipment Straight Cane Additional Social History Comment Pt states that her boyfriend would be able to stay with her if needed. M2 OT-IP Current Condition Start: 10/12/20 13:02 Freq: Status: Active Protocol: Document 10/12/20 11:14 [facility] (Rec: 10/12/20 13:25 [facility] [id number]) Occupational Therapy Current Condition Current Condition Evaluation Date 10/12/20 Treatment Diagnosis Syncope, severe hypoatremia, decreased mobility Diagnosis Onset Date 10/11/20 M3 OT- IP Subjective and Pain Start: 10/12/20 13:02 Freq: Status: Active Protocol: Document 10/12/20 11:14 [facility] (Rec: 10/12/20 13:25 [facility] [id number]) OT- Subjective Occupational Therapy Visit Type Type Initial Evaluation Visit Start Time 11:14 Visit Stop Time 11:52 Total Visit Minutes 38 Occupational Therapy Visit Comments Patient Comments Pt agreed to do OT eval. Patient/Caregiver Goals TO go home. OT Pain Assessment Pain When Pain Assessed At Rest Pain Present Pain Present Pain Reported M4 OT- IP ADL's Start: 10/12/20 13:02 Freq: Status: Active Protocol: Document 10/12/20 11:14 [facility] (Rec: 10/12/20 13:25 [facility] [id number]) OT [id number] Comments OT Self-Feeding Comments Not at meal time. OT ADL-Grooming Comments OT Grooming Comments Pt states did earlier. OT ADL-Dressing General Eval Lower Body Dressing Ability Standby Assistance Comments OT Dressing Comments Able to don/doff socks while seated. OT ADL-Toileting General Evaluation Toileting Ability Standby Assistance Comments OT Toileting Comments SBA and use of grab bar to assist to stand from the toilet. OT ADL-Bathing Comments OT Bathing Comments Pt not wanting to shower and complains of being too cold. M5 OT- IP IADL's Start: 10/12/20 13:02 Freq: Status: Active Protocol: Document 10/12/20 11:14 [facility] (Rec: 10/12/20 13:25 [facility] [id number]) OT-Instrumental Activities of Daily Living Home Safety Awareness Awareness of Need for Assistance at Home Good Awareness Ability to Problem Solve Emergency Able to Problem Solve Situations Medication Management Medication Management Comments Due to recent fall and bruise to her left forehead , pt is aware that she is not thinking as well. Therefore she would be benefit for her boyfriend to provide at least supervision and assist as needed . Money Management Money Management Comments Due to recent fall and bruise to her left forehead , pt is aware that she is not thinking as well. Therefore she would be benefit for her boyfriend to provide at least supervision and assist as needed . Meal Preparation Meal Preparation Comments Due to recent fall and bruise to her left forehead , pt is aware that she is not thinking as well. Therefore she would be benefit for her boyfriend to provide at least supervision and assist as needed . Splunk Dashboard Developer Splunk Dashboard Developer Comments Due to recent fall and bruise to her left forehead , pt is aware that she is not thinking as well. Therefore she would be benefit for her boyfriend to provide at least supervision and assist as needed . Driving Driving Concerns Identified Regarding Safety Driving Comments Pt left eye is swollen and not seeing well out of her left eye. M6 OT- IP Functional Cognition Start: 10/12/20 13:02 Freq: Status: Active Protocol: Document 10/12/20 11:14 [facility] (Rec: 10/12/20 13:25 [facility] [id number]) Cognitive Factors Limiting Selfcare Function Cognitive Ability Level of Alertness Alert Patient Orientation Name,Age,Birthday,Month,Date, Year,Day of Week,Place, Situation Attention Span Ability Capable of Focused Attention, Capable of Sustained Attention Ability to Follow Commands Able to Follow One Step Commands Memory Description Short Term Impaired,Working Impaired Problem Solving Ability Unable to Identify Errors, Needs Assist to Identify Solutions Executive Function Ability Unable to Filter Distractions, Unable to Organize Plans, Unable to Remember Details Cognitive Tests SLUMS Pt scored 17/30 which implies cognitive deficits for the pt. A score od 27/30 is a normal score for pt's level of education. Pt not able to do math subtraction problem, unable to recall any of the 5 objects after time passes, not able to draw the hours hands on the clock correctly after time given, able to recall answer correctly 2/4 questions right after a paragraph read. Pt contusion, low sodium level, and a bit anxious could all be affecting her cognition at this time. OT- Vision and Hearing OT- Hearing Assessment OT- Hearing Assessment WFL OT- Vision Assessment Visual Acuity Glasses For Reading Pt's left eye lid swollen and having diff M7 OT- IP Mobility and Balance Start: 10/12/20 13:02 Freq: Status: Active Protocol: Document 10/12/20 11:14 [facility] (Rec: 10/12/20 13:25 [facility] [id number]) OT-Transfer Assessment Sit to and From Stand Sit to and from Stand Contact Guard Assistance Transfers Transfer Ability Contact Guard Assistance Technique Transfer Destination Chair,Toilet Transfer Technique Stand Step Pivot Devices Transfer Assistive Devices Gait Belt Comments Mobility Comments Pt CGA with gait belt at this time without at device. OT- Balance Assessment Sitting Balance and Reactions Static Sitting Balance Ability Normal Dynamic Sitting Balance Ability Good Standing Balance and Reactions Static Standing Balance Ability Fair Comments Other Balance Tests/Deviations/Treatment Pt a but unsteady on her feet : and needing CGA while walking without a device at this time. Pt feel that she is a little off due to just getting up for the first time today. Continue to assess for best device to use her functional mobility. At this time FWW would be safer. Noted pt slightly leaning to the right. M8 OT- IP Objective Assessments Start: 10/12/20 13:02 Freq: Status: Active Protocol: Document 10/12/20 11:14 [facility] (Rec: 10/12/20 13:25 [facility] [id number]) OT Gross Range of Motion Upper Extremity Range of Motion Assessment Within Functional Limits OT Strength Upper Extremity Strength Assessment Within Functional Limits OT- Coordination Assessment Upper Extremity Finger to Nose Test Bilateral UE Impaired Comments Coordination Comments Both hands .5 com off from the target. OT-Muscle Tone Assessment Muscle Tone WNL Yes OT Sensation Assessment Comments Summary Comments Intact for sensation, proprioception, and kinesthesia. M9 OT- IP Assessment and Plan Start: 10/12/20 13:02 Freq: Status: Active Protocol: Document 10/12/20 11:14 [facility] (Rec: 10/12/20 13:25 [facility] [id number]) OT Summary Assessment and Plan Potential Rehabilitation Potential Good Analytic Complexity at Evaluation Low Summary OT Impairments Balance,Coordination, Functional Cognition, Functional Mobility,Self- Feeding,Grooming,Dressing, Toileting,Bathing,Toilet Transfers,Shower Transfers, Activity Tolerance Progress Towards Goals Slow Progress due to Medical Issues,Slow Progress due to Activity Tolerance,Slow Progress due to Cognition Assessment Summary Pt low complexity and main barriers are steps, decreased short term memory, balance, and activity tolerance. Pt states has a supportive boyfriend that can assist and stay with her if needed. Pt may benefit from a shower chair and FWW at home. Suggest home with assist and possible home health pending pt's progress. Goals Grooming Goal Independent Dressing Goal Independent Toileting Goal Independent Bathing Goal Independent Toilet Transfer Goal Independent Shower Transfer Goal Independent Days to Meet Goals 7 Frequency of Treatment Frequency Of Treatment Once a Day Treatment Plan OT Treatment Plan ADL Training,Functional Cognition Training,Functional Mobility,Patient/Family Education,Discharge Planning Other Treatment Recommendations and Next Shower if pt willing. Standing Treatment Focus ADl's Discharge Recommendations OT Discharge Recommendations Home with Assistance Home Equipment Needs shower chair, FWW versus SPC Transportation Needs at Discharge Private Vehicle
--- NOTE | 2020-10-12 13:50 | PT.IIE ---
Current Diagnoses Other specified postprocedural states (10/11/20) Surgical History (Last Reviewed 10/11/20 @ 02:25 by GEOVANNA Castro) H/O abdominal surgery History of knee replacement (05/2008) Hx of cholecystectomy (1996) Hx of hernia repair (03/2011) Hx of hysterectomy (1985) Hx of knee surgery (09/2008) Hx of knee surgery (2006) Hx of rotator cuff surgery (2004) Hx of surgical procedure (1995) Hx of total knee arthroplasty (2009) No pertinent past surgical history Medical History (Last Reviewed 10/11/20 @ 02:25 by GEOVANNA Castro) Acute hypokalemia Acute hyponatremia Asthma Atrial flutter (~05/2014) Bowel obstruction Chronic constipation Complete small bowel obstruction Depression GERD (gastroesophageal reflux disease) Graves disease Hard stool Hyperlipemia Hypertension Hypothyroid Insomnia Iron deficiency anemia (~2013) Measles Mumps Obstructive sleep apnea of adult Osteopenia (~2010) Restless legs syndrome (RLS) Physical Therapy Inpatient Evaluation/Re-Eval M1 PT/OT-IP Prior Functional Status Start: 10/12/20 13:02 Freq: NEEDED Status: Active Protocol: Document 10/12/20 11:14 [facility] (Rec: 10/12/20 13:25 [facility] [id number]) Medical Review Prior Functional Status Communication Independent. Mobility and Gait Independent with no devices. Activities of Daily Living and IADL's Completely independent with all ADL, IADL, and drives. Social History Household Members none Living Arrangements House Number of Floors (Floors) One Floor Number of Stairs To Enter/Railing? 3 steps with left rail to get into the house. Pt states has a flight of stairs with left hand rail going down to the basement. Home Environment Standard Height Toilet,Walk in Shower,Tub/Shower Home Equipment Straight Cane Additional Social History Comment Pt states that her boyfriend would be able to stay with her if needed. M1 PT/OT-IP Prior Functional Status Start: 10/12/20 15:06 Freq: NEEDED Status: Active Protocol: Document 10/12/20 13:50 [facility] (Rec: 10/12/20 15:41 [facility] [id number]) Medical Review Prior Functional Status Medical History Reviewed Yes Communication able to make needs known Mobility and Gait pt stated that she is independent with all mobilities and ambulation without AD Activities of Daily Living and IADL's per OT notes: Completely independent with all ADL, IADL , and drives. Social History Household Members none Living Arrangements House Number of Floors (Floors) Two Floors Number of Stairs To Enter/Railing? 4 steps to enter the house from the garage without rails but stated that she has a L side book case that she holds on to for support pt stays on main level of the house Home Environment Standard Height Toilet,Walk in Shower,Tub/Shower Home Equipment Straight Cane Additional Social History Comment Pt stated that her boyfriend would be able to stay with her if needed. M2 PT-IP Current Condition Start: 10/12/20 15:06 Freq: NEEDED Status: Active Protocol: Document 10/12/20 13:50 [facility] (Rec: 10/12/20 15:41 [facility] [id number]) Physical Therapy Current Condition Current Condition Evaluation Date 10/12/20 Treatment Diagnosis syncope s/p fall; hyponatremia ; difficulty in walking Onset Date 10/11/20 Precautions Other Precautions falls M3 PT-IP Subjective Start: 10/12/20 15:06 Freq: NEEDED Status: Active Protocol: Document 10/12/20 13:50 [facility] (Rec: 10/12/20 15:41 [facility] [id number]) Subjective Physical Therapy Visit Type Type Initial Evaluation Visit Start Time 13:50 Visit Stop Time 14:18 Total Visit Minutes 28 Number of DOORSHAKER Visits 0 Physical Therapy Visit Comments Patient Comments pt is agreeable to do PT Therapy Pain Assessment Pain When Pain Assessed At Rest Pain Present Pain Present Pain Reported Location Generalized Scale Used stated overall soreness due to her fall Pain Management Techniques Modification of Treatment,Re- positioning,Timing of Activity with Medications M4 PT-IP Mobility and Gait Start: 10/12/20 15:06 Freq: NEEDED Status: Active Protocol: Document 10/12/20 13:50 [facility] (Rec: 10/12/20 15:41 [facility] [id number]) PT-Bed Mobility Assessment Supine to Sit Supine to Sit Independent Sit to Supine Sit to Supine Independent PT-Transfer Assessment Sit to and From Stand Sit to and from Stand Standby Assistance,Contact Guard Assistance,Use of Upper Extremities Equipment Transfer Assistive Device None,Gait Belt Orthotic/Prosthetic Devices or Brace: No Transfers Transfer Destination Bed,Chair Transfer Technique ambulated without AD Transfer Ability Level of Assist Standby Assistance,Contact Guard Assistance,1 Person Assistance,Use of Upper Extremities Comments Mobility Comments pt completed sit to stand from chair SBA to CGA. c/o overall body soreness due to fall. ambulated towards the bed SBA to CGA without AD. presents with unsteady antalgic gait. completed supine <>sit mod I. ambulated more in room ~ 35 ft without AD SBA to CGA. completed up/down step stool initially holding on to IV pole on L for support ( simulating bookcase support at home) CGA but able to do another step without AD CGA to min A. pt agreed to stay up on chair. positioned on chair. call light and table placed within reach. Gait Assessment Gait Gait Assistance Required: Standby Assistance,Contact Guard Assist Distance (Feet) 35 Able to Maintain Weight Bearing Status Yes During Gait Assistive Devices Assistive Device None,Gait Belt Orthotic/Prosthetic Devices or Brace: No Gait Deviations General Gait Pattern Antalgic,Decreased Stride Length,Decreased Feet Clearance,Step-to Gait Factors Limiting Gait Function Factors Limiting Gait Function Decreased Activity Tolerance, Decreased Strength,Pain,Poor Balance Comments Gait Comments pls refer to mobility section for details Stair Climbing Assessment Evaluation Level of Assist On Stairs Contact Guard Assistance, Minimal Assistance Technique/Endurance Stair Climbing Direction Ascend and Descend Stair Climbing Technique Step to Step Number of Steps Climbed 1 Query Text: Stair Climbing Set # Repetitions (reps) 2 Comments Stair Climbing Comments pls refer to mobiltiy section for details PT-Balance Assessment Sitting Balance and Reactions Static Sitting Balance Ability Good Dynamic Sitting Balance Ability Good Standing Balance and Reactions Static Standing Balance Ability Fair Dynamic Standing Balance Ability Fair Device Used without AD M5 PT-IP Objective Assessments Start: 10/12/20 15:06 Freq: NEEDED Status: Active Protocol: Document 10/12/20 13:50 [facility] (Rec: 10/12/20 15:41 [facility] [id number]) Orientation Orientation/Cognition Level of Alertness Alert Orientation Name,Place,Situation Language Function Ability No Deficits Noted Safety Awareness Understands Safety Issues Memory Description No Deficits Noted Gross Range of Motion Lower Extremity ROM Assessment Within Functional Limits Strength Lower Extremity Strength Hip 4-/5 Knee 4-/5 Coordination Assessment Gross Coordination Gross Coordination WNL Sensation Assessment Sensation Gross Sensation WNL Muscle Tone Muscle Tone WNL Yes M6 PT-IP Treatment Start: 10/12/20 15:06 Freq: NEEDED Status: Active Protocol: Document 10/12/20 13:50 [facility] (Rec: 10/12/20 15:41 [facility] [id number]) Physical Therapy Treatment Education Education Provided Safety M7 PT-IP Assessment and Plan Start: 10/12/20 15:06 Freq: NEEDED Status: Active Protocol: Document 10/12/20 13:50 [facility] (Rec: 10/12/20 15:41 [facility] [id number]) PT Summary Assessment and Plan Potential Rehabilitation Potential Good Status of Condition at Evaluation Stable Summary Impairments Pain,ROM,Strength,Balance, Coordination,Bed Mobility, Transfers,Gait,Activity Tolerance Assessment Summary pt requiring SBA to CGA with ambulation without AD and CGA to min A with stair climbing. pt presents with decrease activity tolerance with c/o overall body soreness affecting mobility. pt stated that her boyfriend will be able to stay with her for a few nights if needed to assist her. educated pt on safety and informed of possible use of SPC if needed for mobility and will assess next tx session and pt agreed. will continue to assess progress. Goals Transfer Goal Independent Gait Goal Independent Gait Distance 200 Other Goals up/down 4 steps without rails SBA Days to Meet Goals 5 Frequency of Treatment Frequency Of Treatment Once a Day Treatment Plan Physical Therapy Treatment Plan Bed Mobility Training,Transfer Training,Gait Training, Therapeutic Exercise,Balance Retraining,Discharge Planning, Hot or Cold Pack,Neuromuscular Re-ed,Coordination Retraining Other Recommendations and Next Treatment assess use of SPC but work Focus towards without AD; stair climbing Precautions Other Precautions falls Recommendations To Nursing Amount of Assist Needed 1 Person Assist Discharge Recommendations PT Discharge Recommendations Home with Assistance Transportation Needs at Discharge Private Vehicle
--- NOTE | 2020-10-12 15:52 | P.PN_ITS ---
Subjective Subjective Date Patient Seen: 10/12/20 Time Patient Seen: 10:30 Interval history: This is a 79-year-old female with a past medical history significant for previous episodes of acute hypokalemia and hypo natremia, arrhythmias right related to hypokalemia, bowel obstructions, chronic constipation, hypertension, hyperlipidemia, hypothyroidism and GERD who presents to the ER intubated with EMS after being found down on the bathroom floor unresponsive. Patient subsequently extubated in the emergency department following regaining consciousness demonstrating ability to follow commands maintain respirations and airway patency. She was admitted for severe hyponatremia with a sodium of 113. She remains awake and alert, memory is starting to improve slightly today. Denies other symptoms including abdominal pain, chest pain, dyspnea, nausea, or vomiting. Sodium slowly improving with NS, up to 126, correcting appropriately. Exam Vital Signs (past 8 hours): - 10/12/20 08:32 10/12/20 11:33 Temperature 96.9 F L 97.2 F L Pulse Rate 85 88 Respiratory Rate 20 18 Blood Pressure 164/74 H 170/73 H Pulse Oximetry 97 98 Oxygen Delivery Method Room Air Oxygen Flow Rate 0 Narrative Exam Narrative: GENERAL APPEARANCE: well developed, overweight female sitting upright in hospital bed with no acute distress. HEENT: 6 cm contusion to left forehead with ecchymosis, PERRLA, sclera is anicteric, EOMs intact without nystagmus, no sinus tenderness to percussion, no rhinorrhea or epistaxis, mucous membranes are moist and pink no evidence of oral trauma. NECK/THYROID: Nontender to palpation, no palpable step-offs, no JVD, no thyromegaly, trachea midline. LYMPH NODES: no cervical or supraclavicular lymphadenopathy. SKIN: [place], warm and dry, no visible rashes or lesions HEART: regular rate and rhythm, S1-S2, 2/6 systolic murmur most prominent over the left sternal border, no rubs or gallops, brisk capillary refill, no edema LUNGS: clear to auscultation bilaterally, no coarseness crackles or wheezing, no cough present CHEST: Symmetrical movement, no accessory muscle use, good tidal volume ABDOMEN: Soft, no distention, non-tender BACK: Normal curvature, non-tender EXTREMITIES: moves all extremities, strength is 5/5 and symmetrical, no deformities or joint effusions, no clubbing or cyanosis. NEUROLOGIC: AAO x3, cranial nerves II-XII grossly intact, sensation intact to light touch, hearing grossly normal to speech. Objective Labs Result Diagrams: 10/12/20 05:05 10/12/20 05:05 Labs: Laboratory Results - last 24 hr 10/11/20 10/11/20 10/12/20 17:45 23:25 05:05 WBC 7.9 RBC 3.49 L Hgb 11.1 L Hct 31.8 L MCV 91.2 MCH 31.8 MCHC 34.8 RDW 13.4 Plt Count 288 Neut % (Auto) 62.3 D Lymph % (Auto) 24.9 L [place] % (Auto) 10.6 Eos % (Auto) 1.1 L Baso % (Auto) 1.1 Neut # (Auto) 4900 Lymph # (Auto) 2000 [place] # (Auto) 800 Eos # (Auto) 100 Baso # (Auto) 100 Sodium 121 L 124 L Potassium 2.9 L 3.6 Chloride 88 L 91 L Carbon Dioxide 26 31 BUN 10 10 Creatinine 0.68 0.90 Estimated GFR > 60.0 > 60.0 BUN/Creatinine Ratio 14.7 11.1 Glucose 98 92 Calcium 8.7 8.7 Magnesium Total Bilirubin Conjugated Bilirubin Unconjugated Bilirubin AST ALT Alkaline Phosphatase Total Protein Albumin Globulin Albumin/Globulin Ratio 10/12/20 05:05 WBC RBC Hgb Hct MCV MCH MCHC RDW Plt Count Neut % (Auto) Lymph % (Auto) [place] % (Auto) Eos % (Auto) Baso % (Auto) Neut # (Auto) Lymph # (Auto) [place] # (Auto) Eos # (Auto) Baso # (Auto) Sodium 126 L Potassium 3.6 Chloride 94 L Carbon Dioxide 27 BUN 9 Creatinine 0.73 Estimated GFR > 60.0 BUN/Creatinine Ratio 12.3 Glucose 93 Calcium 8.9 Magnesium 1.8 Total Bilirubin 0.3 Conjugated Bilirubin 0.0 Unconjugated Bilirubin 0.5 AST 34 ALT 24 Alkaline Phosphatase 92 Total Protein 5.6 L Albumin 3.1 L Globulin 2.5 Albumin/Globulin Ratio 1.2 [facility] Medical History Acute hypokalemia Acute hyponatremia Asthma Atrial flutter (~05/2014) Bowel obstruction Chronic constipation Complete small bowel obstruction Depression GERD (gastroesophageal reflux disease) Graves disease Hard stool Hyperlipemia Hypertension Hypothyroid Insomnia Iron deficiency anemia (~2013) Measles Mumps Obstructive sleep apnea of adult Osteopenia (~2010) Restless legs syndrome (RLS) Surgical History H/O abdominal surgery History of knee replacement (05/2008) Hx of cholecystectomy (1996) Hx of hernia repair (03/2011) Hx of hysterectomy (1985) Hx of knee surgery (09/2008) Hx of knee surgery (2006) Hx of rotator cuff surgery (2004) Hx of surgical procedure (1995) Hx of total knee arthroplasty (2009) No pertinent past surgical history Family History Mother Diabetes mellitus CVA (cerebral vascular accident) Sister Diabetes mellitus Father Malignant neoplasm of mesothelial tissue Social History household members: none Smoking Status: Former smoker Tobacco: How many years used: 6 Smokeless tobacco user: chewing tobacco second hand exposure: [place] [employer] [place] alcohol intake: former substance use type: does not use Assessment & Plan Assessment & Plan narrative: This is a 79-year-old female with a past medical history significant for previous episodes of acute hypokalemia and hypo natremia, arrhythmias right related to hypokalemia, bowel obstructions, chronic constipation, hypertension, hyperlipidemia, hypothyroidism and GERD who presents to the ER intubated with EMS after being found down on the bathroom floor unresp onsive. Patient subsequently extubated in the emergency department following regaining consciousness demonstrating ability to follow commands maintain respirations and airway patency. Admitted for severe hyponatremia now slowly improving with normal saline infusion. 1. Syncope, present on admission, active -patient had an unwitnessed syncopal episode resulting in a fall evidence by contusion to the left forehead. Imaging reveals no intracranial pathology, fractures or cervical injury. -labs demonstrate multiple electrolyte and metabolic abnormalities including metabolic acidosis with an anion gap of 19, CO of 16, arterial blood gas finds a pH of 7.34. Most significantly patient is hyponatremic with a sodium of 113. -no evidence of lateralizing symptoms or neuro cognitive impairment. Given degree of hyponatremia it is highly possible the patient suffered a seizure, but other possibilities include more benign etiologies of syncope including vasovagal. -seizure precautions in place. -ordered lorazepam 1 mg IV as needed for seizures may repeat x1. 2. Severe hyponatremia, acute, present on admission, active. -initial sodium was 113. Patient reports being on low-sodium diet with increased consistent water intake. Patient also taking chlorthalidone 25 mg daily. She has been improving slowly with continued IV fluids up to 126 today with appropriate correction. Can reduce to q12 hour testing today. Consider urine sodium and osmolality as there may be a mixed picture of dehydration on admission given possible seizure with SIADH or polydipsia depending on if her Na improves as expected. -hyponatremia acute multifactorial with altered dietary intake, delusional component with concomitant diuretic use. -ordered normal saline 125 cc/hour intially, decreased slightly, but will continue. -ordered BMP every 12 hours today. 3. Hyperglycemia without diagnosis of diabetes, present on admission, resolved -serum glucose obtained by paramedics is 283 which was confirmed by serum glucose of 290 on initial labs in the emergency department. -patient denies a personal history of diabetes though her mother and sister both have diabetes. -A1c at 5.0%, may have been secondary to medications or reactive in setting of dehydration and possible seizure. 4. Hypertension, chronic -initial blood pressure upon arrival was and 184/79 improving to 157/68 on admission to ICU. Blood pressures have ranged from normotensive to hypertensive today. Will continue to monitor on current therapies. -will continue home regimen of antihypertensives including losartan 100 mg and diltiazem 420 mg extended release daily. 5. Acquired hypothyroidism, chronic, stable -TSH is elevated on initial labs in the ER at 4.83. free t4 unremarkable. -will continue home regimen of levothyroxine 75 mcg daily. 6. Gastroesophageal reflux disorder, chronic, stable. -patient complaining of epigastric discomfort initially, administered Protonix 40 mg IV now. -ordered Protonix 40 mg daily. and will continue -supplemental treatment with Maalox or Tums as needed. VTE prophylaxis: Enoxaparin IV fluid: Normal saline as noted above Diet: regular diet. Code status: Full code The patient is admitted as inpatient. Anticipate discharge home (pending PT/OT evaluations) in the next 1-2 days. Quality VTE Deep Vein Thrombosis/Pulmonary Embolism Present on Admission: No
--- NOTE | 2020-10-12 17:19 | DIET.PN ---
Dietary Progress Note Assessment: 79y F admitted after being found unconscious in bathroom c hyponatremia (113 on admit). HT: 167.6cm WT:76.3kg BMI: 27.1 Labs: Na+ 113 on admit up to 126 today Pt hospitalized last year 3x for SBO last requiring abdominal surgery, pt reports not being the same since. Pt reports fear and anxiety over causing another bowel blockage. Pt dealing c chronic constipation since surgery having not normal BM q2-3days. Pt felt she was constipated and worried about SBO so starting drinking a lot of water and drinking [place] chicken broth c 60mg sodium per cup while taking her usual dose of diuretic. Pt started feeling off, dizzy, and was found down in bathroom by boyfriend. Pt reports confusion about bowel regimen as surgeon recommends metamucil bid and miralax if constipated as needed while pts PCP Reena Sun recommends miralax daily. Usual Day: B: egg beater c 1 tsp shredded cheese, sometimes estonian xavier L: swiss muffin c deli meat and string cheese or canned chix c wade or [place] low sodium soup c crackers D: pork chop c broccoli crowns, pulled pork sandwich, occasional tv dinner Pt doesn't tolerate some fruits and tries to avoid stringy fiber foods. Nutrition Diagnosis: inadequate fiber intake r/t nutrition related knowledge deficit aeb pt fearful of repeat SBO, pt unaware difference between soluble and insoluble fiber, pt avoiding most soluble fiber foods, pt has chronic constipation since starting low fiber diet. Interventions: 1. Educated pt on difference between soluble and insoluble fiber, importance of thoroughly chewing food, and their role in the GI tract. 2. Idea generated safe, soluble fiber foods for pt to add to her diet daily to support regular BM including: peeled canned pears in juice, peeled apples, and 2 Tbs to 1/4c hummus. Pt amenable. 3. Discussed difference between miralax and metamucil. Recc pt discuss surgery recc of metamucil bid c PCP. Explained metamucil is gentle soluble fiber supplement safe to take with adequate water intake. 4. Discussed sx of SBO and if she is going to do a liquid diet to ensure electrolyte intake via low-sodium broth, pedialyte, gatorade. Diet Order: EER: 20g soluble fiber daily
[2020-10-12 18:20] LABS: BUN Creatinine Ratio 17.3 (6-22); Blood Urea Nitrogen 13 mg/dL (7-17); Calcium 9.3 mg/dL (8.4-10.2); Carbon Dioxide 25 mmol/L (22-32); Chloride 93 mmol/L (98-107); Estimated Glomerular Filt Rate > 60.0 mL/min (>60); Glucose 128 mg/dL (80-110); HEMOLYSIS < 15 (0-50); Potassium 3.5 mmol/L (3.4-5.1); Sodium 125 mmol/L (137-145)
[2020-10-12 21:24] LABS: Sodium Urine Random 48 mmol/L (30-90)
[2020-10-12] MEDS: LOSARTAN 50 MG TABLET 100 MG PO (21:38)
[2020-10-12] MEDS: ROSUVASTATIN 10 MG TABLET PO (21:39)
[2020-10-13 03:00] VITALS: BP 127/59; PULSE 73; RESP 18; TEMP 36.8; O2SAT 97
[2020-10-13 05:06] LABS: Alanine Aminotransferase 25 IU/L (<35); Albumin 3.2 g/dL (3.5-5.0); Albumin Globulin Ratio 1.3 (1.0-2.8); Alkaline Phosphatase 92 U/L (38-126); Aspartate Aminotransferase 42 IU/L (14-36); BUN Creatinine Ratio 19.4 (6-22); Bilirubin Total 0.3 mg/dL (0.2-1.3); Bilirubin Unconjugated 0.3 mg/dL (0.0-1.1); Blood Urea Nitrogen 14 mg/dL (7-17); Calcium 9.2 mg/dL (8.4-10.2); Carbon Dioxide 33 mmol/L (22-32); Chloride 96 mmol/L (98-107); Estimated Glomerular Filt Rate > 60.0 mL/min (>60); Globulin 2.5 g/dL (1.7-4.1); Glucose 91 mg/dL (80-110); HEMOLYSIS < 15 (0-50); Magnesium 1.8 mg/dL (1.6-2.3); Potassium 3.4 mmol/L (3.4-5.1); Sodium 131 mmol/L (137-145); Total Protein 5.7 g/dL (6.3-8.2)
[2020-10-13] MEDS: LEVOTHYROXINE 75 MCG TABLET PO (05:50)
[2020-10-13] MEDS: ACETAMINOPHEN 325 MG TABLET 650 MG PO (06:25)
[2020-10-13 08:00] VITALS: BP 142/65; PULSE 78; RESP 18; TEMP 36.1; O2SAT 97
--- NOTE | 2020-10-13 08:35 | P.DS_ITS ---
History of Present Illness History of Present Illness Date Patient Seen: 10/13/20 Time Patient Seen: 08:36 Chief complaint: Found unconscious Narrative: As per GEOVANNA Castro: Ms. Nanci Fuentes is a 79-year-old female with a past medical history significant for previous episodes of acute hypokalemia and hypo natremia, ar rhythmias right related to hypokalemia, bowel obstructions, chronic constipation, hypertension, hyperlipidemia, hypothyroidism and GERD who presents to the ER via EMS intubated following being found down. It is reported that patient was visiting with her boyfriend and and left to go to the restroom. She did not return for approximately 30 minutes S over poor friend went to check on her and found her down on the floor. The patient recalls leaving and going to the bathroom but has no recollection after that until admission into ICU. The patient was unresponsive upon arrival of EMS with little to no response to sternal rub, her serum glucose in the field was 283. . She was intubated in the field with RSI using ketamine. The patient was evaluated upon arrival in the ER with imaging and labs with the patient subsequently waking to responsive and following commands. She moved all extremities with no lateralizing symptoms. Following ABG and vent weaning the patient was extubated in the emergency department. No seizure activity was witnessed, there is no oral trauma or evidence of incontinence. The patient has sustained contusion to the left forehead. She denies complaints of headaches of the in the soft tissue injury has no visual changes or dizziness. She reports no antecedent symptoms of fevers or chills orthostatic dizziness numbness or tingling. She denies complaints of chest pain or palpitations has had no shortness of breath cough or wheezing. He does endorse a history of recent and chronic bowel problems having had multiple obstructions and having irregular stooling. She reports that she has been drinking extra water to help resolve the problem. Apparently the patient has also been on a low-sodium diet as well as taking chlorthalidone. Upon arrival to the ER the patient is afebrile with temperature 96.8?, heart rate of 97, blood pressure 184/79, respirations 16 saturation at 99% with supportive ventilations. Chest x-ray is obtained finding no acute findings, ET tube is 3.3 cm above the artie. CT of the head is obtained which finds no acute intracranial findings, notes left frontal soft tissue injury. CT of the neck also finds no acute findings. Twelve lead EKG finds sinus rhythm at 93 without ectopy, first-degree AV block with a ID interval of 256 milliseconds and LVH. On laboratory analysis she has an elevated white count of 12.8, hemoglobin 13.0, hematocrit 38.1 and platelets 375. Chemistry she has a sodium of 113 and chloride of 78, potassium of 3.2 with a CO of 16. Her BUN is 15 and creatinine is 1.04. Her nonfasting glucose is 290. Liver functions she has a bilirubin 0.6, AST of 50, ALT of 33, alkaline phosphatase of 130. Ammonia is less than 9. Total CK is 186, CK-MB is 1.93 for an index of 1.0. Troponin is negative at less than 0.012. TSH is elevated at 4.83. Alcohol level is less than 10. An ABG finds pH of 7.34, pCO2 of 42.9, PO2 of 477, bicarb 23 with a base excess of -2 on 100% FiO2. Patient was subsequently wean of then extubated successfully and is able to maintain her own airway and is alert and responsive. IV normal saline is running at 125 cc/hour and the patient is admitted to the hospitalist service for syncope, possible seizure, related to severe hyponatremia. Discharge Providers Provider Date of admission: 10/11/20 01:01 Discharge Date: 10/13/20 Primary care physician: GEOVANNA Shen Consults: 10/11/20 02:45 Consult to Dietitian, Adult Routine Comment: Reason For Exam: Severe hyponatremia Consult to Respiratory Therapy Evaluate & Treat Comment: Post intubation Physician Instructions: Evaluate and treat 10/11/20 02:55 Consult to Dietitian, Adult Routine Comment: Reason For Exam: hyponatremia 10/12/20 10:28 Consult to Occupational Therapy Evaluate & Treat Comment: Physician Instructions: Evaluate and treat Consult to Physical Therapy Evaluate & Treat Comment: Physician Instructions: Evaluate and Treat Discharge provider: Norberto Lizarraga DO Summary Hospital Course Discharge Diagnosis: Please see hospital course by problem list noted below. Hospital Course: This is a 79-year-old female with a past medical history significant for previous episodes of acute hypokalemia and hypo natremia, arrhythmias right related to hypokalemia, bowel obstructions, chronic constipation, hypertension, hyperlipidemia, hypothyroidism and GERD who presents to the ER intubated with EMS after being found down on the bathroom floor unresponsive. Patient subsequently extubated in the emergency department following regaining consciousness demonstrating ability to follow commands maintain respirations and airway patency. Admitted for severe hyponatremia which slowly improved with normal saline infusion. 1. Syncope, present on admission -patient had an unwitnessed syncopal episode resulting in a fall evidence by contusion to the left forehead. Imaging reveals no intracranial pathology, fractures or cervical injury. -labs demonstrate multiple electrolyte and metabolic abnormalities including metabolic acidosis with an anion gap of 19, CO of 16, arterial blood gas finds a pH of 7.34. Most significantly patient is hyponatremic with a sodium of 113. -no evidence of lateralizing symptoms or neuro cognitive impairment. Given degree of hyponatremia it is highly possible the patient suffered a seizure, but other possibilities include more benign etiologies of syncope including vasovagal. -no syncopal episodes were found and orthostatic vital signs were unremarkable later in her admission. 2. Severe hyponatremia, acute, present on admission, active. -initial sodium was 113. Patient reports being on low-sodium diet with increased consistent water intake. Patient also taking chlorthalidone 25 mg daily. She has been improving slowly with continued IV fluids. These stalled out and a mixed picture was suspected with elevated urine sodium, however the patient's diuretic had been continued that morning complicating this lab value. Urine osm was sent as well and is pending. Suspect hypovolemic hyponatremia and her diuretic was held on discharge as her sodium did improve to 131. 3. Hyperglycemia without diagnosis of diabetes, present on admission, resolved -serum glucose obtained by paramedics is 283 which was confirmed by serum glucose of 290 on initial labs in the emergency department. -patient denies a personal history of diabetes though her mother and sister both have diabetes. -A1c at 5.0%, may have been secondary to medications or reactive in setting of dehydration and possible seizure. 4. Hypertension, chronic -initial blood pressure upon arrival was and 184/79 improving to 157/68 on ad mission to ICU. Blood pressures have ranged from normotensive to hypertensive today. Will continue to monitor on current therapies. -will continue home regimen of antihypertensives including losartan 100 mg and diltiazem 420 mg extended release daily on discharge, diuretic was held upon discharge. 5. Acquired hypothyroidism, chronic, stable -TSH is mildly elevated on initial labs in the ER at 4.83. free t4 unremarkable. -will continue home regimen of levothyroxine 75 mcg daily. 6. Gastroesophageal reflux disorder, chronic, stable. -continue home PPI. 7. Catheter Associated UTI - patient had navas catheter placed (? in the ER or field) for accurate intake and output in setting of severe hyponatremia and given that patient was intubated in the field for metabolic encephalopathy. This was removed shortly after admission. On the day of discharge, patient complained of dysuria. UA was grossly positive. Will discharge with 3 days of oral cefdinir. Follow up symptoms and cultures with PCP. (UPDATE: Culture with E. Coli and proteus, both colon-sensitive) 8. Metabolic encephalopathy, improving. - secondary to hyponatremia as noted above or less likely post-ictal state after hyponatremic seizure. Patient Improved quickly, GCS of 3 in the field with EMS which resolved quite quickly by the following day. 9. Cognitive impairment or possible concussion - the patient had a decreased SLUMS score with OT at 17/30. This may be indicative of a chronic impairment or possible concussion given the patient's initial trauma during syncopal episode. Repeat testing is recommended as an outpatient. Status at Discharge Cognitive/behavioral status at discharge: oriented Overall status at discharge: patient is progressing back to baseline Time Spent with Patient Time spent: Greater than 30 minutes Exam Vital Signs (past 8 hours): - 10/13/20 03:00 10/13/20 08:00 Temperature 98.3 F 97.0 F L Pulse Rate 73 78 Respiratory Rate 18 18 Blood Pressure 127/59 L 142/65 H Pulse Oximetry 97 97 Oxygen Delivery Method Room Air Oxygen Flow Rate 0 Narrative Exam Narrative: GENERAL APPEARANCE: well developed, overweight female sitting upright in hospital bed with no acute distress. HEENT: 6 cm contusion to left forehead with ecchymosis, PERRLA, sclera is anicteric, EOMs intact without nystagmus, no sinus tenderness to percussion, no rhinorrhea or epistaxis, mucous membranes are moist and pink no evidence of oral trauma. NECK/THYROID: Nontender to palpation, no palpable step-offs, no JVD, no thyromegaly, trachea midline. LYMPH NODES: no cervical or supraclavicular lymphadenopathy. SKIN: [place], warm and dry, no visible rashes or lesions HEART: regular rate and rhythm, S1-S2, 2/6 systolic murmur most prominent over the left sternal border, no rubs or gallops, brisk capillary refill, no edema LUNGS: clear to auscultation bilaterally, no coarseness crackles or wheezing, no cough present CHEST: Symmetrical movement, no accessory muscle use, good tidal volume ABDOMEN: Soft, no distention, non-tender BACK: Normal curvature, non-tender EXTREMITIES: moves all extremities, strength is 5/5 and symmetrical, no deformities or joint effusions, no clubbing or cyanosis. NEUROLOGIC: AAO x3, cranial nerves II-XII grossly intact, sensation intact to light touch, hearing grossly normal to speech. Objective Labs Result Diagrams: 10/12/20 05:05 10/13/20 04:25 Labs: Laboratory Results - last 24 hr 10/12/20 10/12/20 10/13/20 18:01 20:45 04:25 Sodium 125 L 131 L Potassium 3.5 3.4 Chloride 93 L 96 L Carbon Dioxide 25 33 H BUN 13 14 Creatinine 0.75 0.72 Estimated GFR > 60.0 > 60.0 BUN/Creatinine Ratio 17.3 19.4 Glucose 128 H 91 Calcium 9.3 9.2 Magnesium 1.8 Total Bilirubin 0.3 Conjugated Bilirubin 0.0 Unconjugated Bilirubin 0.3 AST 42 H ALT 25 Alkaline Phosphatase 92 Total Protein 5.7 L Albumin 3.2 L Globulin 2.5 Albumin/Globulin Ratio 1.3 Ur Random Sodium 48 PFSH Medical History Acute hypokalemia Acute hyponatremia Asthma Atrial flutter (~05/2014) Bowel obstruction Chronic constipation Complete small bowel obstruction Depression GERD (gastroesophageal reflux disease) Graves disease Hard stool Hyperlipemia Hypertension Hypothyroid Insomnia Iron deficiency anemia (~2013) Measles Mumps Obstructive sleep apnea of adult Osteopenia (~2010) Restless legs syndrome (RLS) Surgical History H/O abdominal surgery History of knee replacement (05/2008) Hx of cholecystectomy (1996) Hx of hernia repair (03/2011) Hx of hysterectomy (1985) Hx of knee surgery (09/2008) Hx of knee surgery (2006) Hx of rotator cuff surgery (2004) Hx of surgical procedure (1995) Hx of total knee arthroplasty (2009) No pertinent past surgical history Family History Mother Diabetes mellitus CVA (cerebral vascular accident) Sister Diabetes mellitus Father Malignant neoplasm of mesothelial tissue Social History household members: none Smoking Status: Former smoker Tobacco: How many years used: 6 Smokeless tobacco user: chewing tobacco second hand exposure: [place] [employer] [place] alcohol intake: former substance use type: does not use Discharge Plan Discharge Plan Patient Disposition: Home Provider Discharge Comment: You were admitted to the hospital with hyponatremia. This is likely due to a combination of things including dehydration. I recommend you hold your diuretic for now until you can follow up with your PCP, preferrably early next week. Discharge orders & Medications Prescriptions: New cefdinir 300 mg capsule 300 mg PO BID 3 Days Qty: 6 RF: 0 Continued CO-Q-10 1 tab PO BEDTIME RF: 0 vitamin B-12 1,000 mcg PO DAILY RF: 0 Mylanta See Rx Instructions .ROUTE .COMPLEX RF: 0 Tylenol Extra Strength 500 mg PO QID PRN (Reason: Pain (Scale Score 4-6)) RF: 0 cholecalciferol (vitamin D3) 2,000 unit capsule 2,000 mcg PO DAILY RF: 0 cyclosporine [Restasis MultiDose] 0.05 % drops 1 drop EYE-BOTH BID RF: 0 naproxen sodium [Aleve] 220 mg capsule 220 mg PO DAILY PRN (Reason: Pain (Scale Score 1-3)) RF: 0 rosuvastatin 10 mg tablet See Rx Instructions .ROUTE .COMPLEX Qty: 90 RF: 3 buspirone 10 mg tablet 10 mg PO BID Qty: 180 RF: 1 estradiol 10 mcg tablet 10 mcg vaginal 2XW PRN (Reason: atrophic vaginitis) Qty: 12 RF: 3 azelastine 137 mcg (0.1 %) aerosol,spray See Rx Instructions .ROUTE .COMPLEX Qty: 30 RF: 2 levothyroxine 75 mcg tablet 75 mcg PO DAILY Qty: 90 RF: 4 cetirizine [Zyrtec] 10 mg tablet 10 mg PO DAILY PRN (Reason: Allergic Symptoms) RF: 0 simethicone [Gas-X Extra Strength] 125 mg tablet,chewable 125 mg PO DAILY PRN (Reason: Abdominal Discomfort) RF: 0 polyethylene glycol 3350 [Miralax] 17 gram/dose powder 17 gram PO DAILY Qty: 527 RF: 11 lorazepam 0.5 mg tablet 0.5 mg PO BID-TID PRN (Reason: anxiety) Qty: 30 RF: 0 omeprazole 20 mg capsule,delayed release(DR/EC) 20 mg PO DAILY RF: 0 aspirin 81 mg Tablet,Chewable 81 mg PO DAILY RF: 0 Probiotic 15 billion cell Capsule 1 cap PO DAILY RF: 0 docusate sodium 100 mg Capsule 100 mg PO DAILY PRN (Reason: Constipation) RF: 0 losartan 100 mg tablet 100 mg PO BEDTIME RF: 0 diltiazem HCl 420 mg capsule,extended release 24 hr 420 mg PO DAILY RF: 0 Discontinued chlorthalidone 25 mg tablet 12.5 mg PO DAILY RF: 0 Follow up/Referrals: Reena Sun ARNP [Primary Care Provider] - 1 Week Diet/Activity/Treatments Diet: Diet as Tolerated Activity: As tolerated Visit Report/Discharge Packet Instructions: DI for Hypokalemia, DI for Hyponatremia, Fluid Restricted Diet, Cefdinir, How to Restrict Fluids Discharge Data Primary Care Provider: Reena Sun Quality VTE Deep Vein Thrombosis/Pulmonary Embolism Present on Admission: No
[2020-10-13] MEDS: ASPIRIN 81 MG CHEW TAB PO (08:59)
[2020-10-13] MEDS: polyethylene glycoL 3350 17 GM POWD.PACK PO (08:59)
[2020-10-13] MEDS: dilTIAZem CD 180 MG CAP PO (09:00)
[2020-10-13] MEDS: dilTIAZem CD 240 MG CAP PO (09:00)
[2020-10-13] MEDS: DOCUSATE 100 MG CAPSULE PO (09:00)
[2020-10-13] MEDS: FAMOTIDINE 20 MG TABLET PO (09:01)
[2020-10-13] MEDS: LIDOCAINE PATCH 1 EACH ADH..PATCH TOP (09:01)
[2020-10-13] MEDS: ENOXAPARIN 40 MG/0.4 ML SYRINGE SUBCUT (09:01)
[2020-10-13] MEDS: SODIUM CHLORIDE 0.9% FLUSH 10 ML IV (09:02)
[2020-10-13] MEDS: PANTOPRAZOLE 40 MG VIAL IV (09:02)
--- NOTE | 2020-10-13 09:38 | OT.IP.TRT ---
Current Diagnoses Other specified postprocedural states (10/11/20) Occupational Therapy Treatment Note M2 OT-IP Current Condition Start: 10/12/20 13:02 Freq: Status: Active Protocol: Document 10/12/20 11:14 [facility] (Rec: 10/12/20 13:25 [facility] [id number]) Occupational Therapy Current Condition Current Condition Evaluation Date 10/12/20 Treatment Diagnosis Syncope, severe hypoatremia, decreased mobility Diagnosis Onset Date 10/11/20 M3 OT- IP Subjective and Pain Start: 10/12/20 13:02 Freq: Status: Active Protocol: Document 10/13/20 09:37 [facility] (Rec: 10/13/20 09:38 [facility] [id number]) OT- Subjective Occupational Therapy Visit Type Type Administrative Note Notes Attempted to see pt for OT services. Pt declines need to perform any ADLs at this time. Pt is planned for d/c home and requests to shower upon returning home. Will hold and continue to follow.
--- NOTE | 2020-10-13 10:16 | PT.IPTN ---
Current Diagnoses Other specified postprocedural states (10/11/20) Physical Therapy Treatment Note M2 PT-IP Current Condition Start: 10/12/20 15:06 Freq: NEEDED Status: Discharge Protocol: Document 10/12/20 13:50 AB (Rec: 10/12/20 15:41 AB [id number]) Physical Therapy Current Condition Current Condition Evaluation Date 10/12/20 Treatment Diagnosis syncope s/p fall; hyponatremia ; difficulty in walking Onset Date 10/11/20 Precautions Other Precautions falls M3 PT-IP Subjective Start: 10/12/20 15:06 Freq: NEEDED Status: Discharge Protocol: Document 10/13/20 10:01 [facility] (Rec: 10/13/20 12:17 [facility] [id number]) Subjective Physical Therapy Visit Type Type Treatment Note Visit Start Time 10:01 Visit Stop Time 10:16 Total Visit Minutes 15 Notes Pt boyfriend present during tx . Number of [employer]TAIN Visits 1 Physical Therapy Visit Comments Patient Comments pt is agreeable to do PT Therapy Pain Assessment Pain When Pain Assessed At Rest Pain Present Pain Present Pain Reported Location Generalized Scale Used stated overall soreness due to her fall Pain Management Techniques Modification of Treatment,Re- positioning,Timing of Activity with Medications M4 PT-IP Mobility and Gait Start: 10/12/20 15:06 Freq: NEEDED Status: Discharge Protocol: Document 10/13/20 10:01 [facility] (Rec: 10/13/20 12:17 [facility] [id number]) PT-Transfer Assessment Sit to and From Stand Sit to and from Stand Standby Assistance,Use of Upper Extremities Equipment Transfer Assistive Device None,Gait Belt Orthotic/Prosthetic Devices or Brace: No Transfers Transfer Destination Chair,Toilet Transfer Technique ambulated without AD Transfer Ability Level of Assist Standby Assistance,1 Person Assistance,Use of Upper Extremities Comments Mobility Comments Pt stood from chair SBA and transferred to . Pt climbed three steps x2 using step over step and left rail SBA, pt then ambulated from therapy stairs to room. Pt ambulated w /o AD ~250ft SBA, pt with one LOB as she turned her head to talk to [employer] but able to recover independently. Pt with no other LOB during gait. Once back in room pt ambulated to independently using toilet and washed hands before returning to sit in chair. Pt left in chair with all needs within reach. RN informed of pt mobility and stair training . Gait Assessment Gait Gait Assistance Required: Standby Assistance,1 Person Assist Distance (Feet) 250 Able to Maintain Weight Bearing Status Yes During Gait Assistive Devices Assistive Device None,Gait Belt Orthotic/Prosthetic Devices or Brace: No Gait Deviations General Gait Pattern Antalgic,Decreased Stride Length,Decreased Feet Clearance Factors Limiting Gait Function Factors Limiting Gait Function Decreased Activity Tolerance, Decreased Strength,Pain,Poor Balance Comments Gait Comments pls refer to mobility section for details Stair Climbing Assessment Evaluation Level of Assist On Stairs Standby Assistance,1 Person Assistance Devices Stair Climbing Assistive Devices Left Railing Technique/Endurance Stair Climbing Direction Ascend and Descend Stair Climbing Technique Step Over Step Number of Steps Climbed 3 Stair Climbing Set # Repetitions (reps) 2 Comments Stair Climbing Comments pls refer to mobiltiy section for details M5 PT-IP Objective Assessments Start: 10/12/20 15:06 Freq: NEEDED Status: Discharge Protocol: Document 10/12/20 13:50 AB (Rec: 10/12/20 15:41 AB [id number]) Orientation Orientation/Cognition Level of Alertness Alert Orientation Name,Place,Situation Language Function Ability No Deficits Noted Safety Awareness Understands Safety Issues Memory Description No Deficits Noted Gross Range of Motion Lower Extremity ROM Assessment Within Functional Limits Strength Lower Extremity Strength Hip 4-/5 Knee 4-/5 Coordination Assessment Gross Coordination Gross Coordination WNL Sensation Assessment Sensation Gross Sensation WNL Muscle Tone Muscle Tone WNL Yes M6 PT-IP Treatment Start: 10/12/20 15:06 Freq: NEEDED Status: Discharge Protocol: Document 10/12/20 13:50 AB (Rec: 10/12/20 15:41 AB [id number]) Physical Therapy Treatment Education Education Provided Safety M7 PT-IP Assessment and Plan Start: 10/12/20 15:06 Freq: NEEDED Status: Discharge Protocol: Document 10/13/20 10:01 [facility] (Rec: 10/13/20 12:17 [facility] [id number]) PT Summary Assessment and Plan Potential Rehabilitation Potential Good Status of Condition at Evaluation Stable Summary Impairments Pain,ROM,Strength,Balance, Coordination,Bed Mobility, Transfers,Gait,Activity Tolerance Progress Towards Goals Progressing Toward Goals Assessment Summary Pt is SBA for all mobility and able to climb three steps x2 SBA. Pt with one LOB during ambulation with head turn but was able to recover. Pt boyfriend will assist pt at home upon d/c. Goals Transfer Goal Independent Gait Goal Independent Gait Distance 200 Other Goals up/down 4 steps without rails SBA Days to Meet Goals 5 Frequency of Treatment Frequency Of Treatment Once a Day Treatment Plan Physical Therapy Treatment Plan Bed Mobility Training,Transfer Training,Gait Training, Therapeutic Exercise,Balance Retraining,Discharge Planning, Hot or Cold Pack,Neuromuscular Re-ed,Coordination Retraining Precautions Other Precautions falls Recommendations To Nursing Amount of Assist Needed 1 Person Assist Discharge Recommendations PT Discharge Recommendations Home with Assistance Transportation Needs at Discharge Private Vehicle
--- NOTE | 2020-10-13 10:21 | CM.DPC ---
DCP: continued: Dr. Lizarraga has now deemed pt stable for d/c to home setting. Per RN Melvina santos UA has been ordered and pt will d/c after results are in and Dr. Lizarraga has reviewed them. Met now with pt and her boy friend Chidi. Both confirm that Chidi will be staying with pt for a while as she stabilizes from her hospital stay as she likely had a concussion when she hit her head at home. P: home today. PCP followup planned with Reena Sun.
[2020-10-13 10:32] LABS: Appearance Urine UA SL CLOUDY; Bilirubin Urine UA NEGATIVE (NEGATIVE); Color Urine UA YELLOW; Glucose Urine UA NEGATIVE (Negative); Ketones Urine UA NEGATIVE (NEGATIVE); Leukocyte Esterase Urine UA 2+ (NEGATIVE); Nitrite Urine UA POSITIVE (Negative); Occult Blood Urine UA 3+ (Negative); Protein Urine UA NEGATIVE (Negative); Specific Gravity Urine UA 1.015 (1.000-1.035); Urobilinogen Urine UA 0.2 E.U./dL (0.2)
[2020-10-13 10:48] LABS: Bacteria Urine Many (>30); Culture Indicated Urine Specimen Cultured; RBC Urine 5-10/HPF (0-5/HPF); Squamous Epithelial Cell Urine 1-5 /HPF (0-5/HPF); WBC Urine >100/HPF (0-5/HPF)
--- NOTE | 2020-10-13 11:40 | PC.NURSE ---
Day shift: Paperwork signed and all questions answered. script went to Pt's pharmacy electronic. Pt taken to car driven by friend in by COURTNEY Fernandes. Pt informed that Dr Lizarraga wants her on fluid restriction of 40oz per day. Pt encouraged to call her PCP today to make them aware of the hospitalization. Pt has all personal belongings.
[2020-10-16 12:35] LABS: Osmolality Urine 191 mOsmol/kg (.)
== END 2020-10-13 11:43 | disposition home or self-care (01) | DRG 640 ==
LOC: ED 22:52 → ICU 10-11 09:33 → AC 10-11 15:10
PROVIDERS: Internal Medicine; Admitting Provider Nurse Practitioner Adult Health; Emergency Provider Emergency Medicine; PCP Nurse Practitioner; Referring Provider Emergency Medicine; Visit Provider Nurse Practitioner Adult Health
DX: E87.1 Hypo-osmolality and hyponatremia (principal); G93.41 Metabolic encephalopathy; T83.518A Infection and inflammatory reaction due to other urinary catheter, initial encounter; N39.0 Urinary tract infection, site not specified; R55 Syncope and collapse; R73.9 Hyperglycemia, unspecified; E87.2 Acidosis; R56.9 Unspecified convulsions; I10 Essential (primary) hypertension; S00.83XA Contusion of other part of head, initial encounter; E03.9 Hypothyroidism, unspecified; E78.5 Hyperlipidemia, unspecified; I44.0 Atrioventricular block, first degree; K21.9 Gastro-esophageal reflux disease without esophagitis; Z20.822 Contact with and (suspected) exposure to COVID-19; W19.XXXA Unspecified fall, initial encounter; Y92.002 Bathroom of unspecified non-institutional (private) residence as the place of occurrence of the external cause; B96.20 Unspecified Escherichia coli [E. coli] as the cause of diseases classified elsewhere; B96.4 Proteus (mirabilis) (morganii) as the cause of diseases classified elsewhere
CPT/HCPCS: 36415; 36600; 70450; 71045; 72125; 80048; 80053; 80076; 80305; 80320; 81001; 82140; 82550; 82553; 82805; 82962; 83036; 83690; 83735; 83935; 84300; 84439; 84443; 84484; 85025; 85610; 85730; 87040; 87077; 87086; 87186; 87635; 87797; 93005; 93010; 94002; 96360; 96361; 96375; 97116; 97161; 97165; 99285; 99291; 99292; A9270; C9113; J1650; J2405; J3480

== ENCOUNTER → 2020-10-24 15:37 | Outpatient (CLI) | payer MEDICARE, OTHER, SELFPAY ==
[2020-10-10 23:03] VITALS: PULSE 96; RESP 19; O2SAT 99
[2020-10-11 02:55] VITALS: BMI 27.3
[2020-10-24 16:02] LABS: Appearance Urine UA CLEAR; Bilirubin Urine UA NEGATIVE (NEGATIVE); Color Urine UA YELLOW; Glucose Urine UA NEGATIVE (Negative); Ketones Urine UA NEGATIVE (NEGATIVE); Leukocyte Esterase Urine UA 1+ (NEGATIVE); Nitrite Urine UA NEGATIVE (Negative); Occult Blood Urine UA TRACE-LYSED (Negative); Protein Urine UA NEGATIVE (Negative); Specific Gravity Urine UA 1.015 (1.000-1.035); Urobilinogen Urine UA 0.2 E.U./dL (0.2)
[2020-10-24 16:05] LABS: pH Urine UA 6.5 (4.5-8.0)
[2020-10-24 16:10] LABS: RBC Urine 0-1/HPF (0-5/HPF); Squamous Epithelial Cell Urine 0-1 /HPF (0-5/HPF); WBC Urine 10-30/HPF (0-5/HPF)
[2020-10-24 16:11] LABS: Bacteria Urine Many (>30); Culture Indicated Urine Specimen Cultured
== END ==
PROVIDERS: PCP Nurse Practitioner; Referring Provider Nurse Practitioner; Visit Provider Nurse Practitioner
DX: R30.0 Dysuria (principal)
CPT/HCPCS: 81001; 87077; 87086; 87186

== ENCOUNTER → 2020-10-25 09:40 | Outpatient (CLI) | payer MEDICARE, OTHER, SELFPAY ==
[2020-10-10 23:03] VITALS: PULSE 96; RESP 19; O2SAT 99
[2020-10-11 02:55] VITALS: BMI 27.3
[2020-10-25 10:58] LABS: Alanine Aminotransferase 20 IU/L (<35); Albumin 4.2 g/dL (3.5-5.0); Albumin Globulin Ratio 1.5 (1.0-2.8); Alkaline Phosphatase 144 U/L (38-126); Aspartate Aminotransferase 25 IU/L (14-36); BUN Creatinine Ratio 26.7 (6-22); Bilirubin Total 0.3 mg/dL (0.2-1.3); Blood Urea Nitrogen 27 mg/dL (7-17); Calcium 10.2 mg/dL (8.4-10.2); Carbon Dioxide 28 mmol/L (22-32); Chloride 102 mmol/L (98-107); Estimated Glomerular Filt Rate 53.1 mL/min (>60); Globulin 2.8 g/dL (1.7-4.1); Glucose 95 mg/dL (80-110); HEMOLYSIS < 15 (0-50); Potassium 3.8 mmol/L (3.4-5.1); Sodium 137 mmol/L (137-145)
== END ==
PROVIDERS: PCP Nurse Practitioner; Referring Provider Nurse Practitioner; Visit Provider Nurse Practitioner
DX: E87.1 Hypo-osmolality and hyponatremia (principal); I10 Essential (primary) hypertension; Z79.899 Other long term (current) drug therapy
CPT/HCPCS: 36415; 80053; 83735

== ENCOUNTER → 2020-10-30 08:43 | Outpatient (CLI) | payer MEDICARE, OTHER, SELFPAY ==
[2020-10-10 23:03] VITALS: PULSE 96; RESP 19; O2SAT 99
[2020-10-11 02:55] VITALS: BMI 27.3
[2020-10-30 10:40] LABS: BUN Creatinine Ratio 21.4 (6-22); Blood Urea Nitrogen 21 mg/dL (7-17); Calcium 10.5 mg/dL (8.4-10.2); Carbon Dioxide 27 mmol/L (22-32); Chloride 101 mmol/L (98-107); Glucose 96 mg/dL (80-110); HEMOLYSIS < 15 (0-50); Potassium 4.4 mmol/L (3.4-5.1); Sodium 136 mmol/L (137-145)
== END ==
PROVIDERS: PCP Nurse Practitioner; Referring Provider Nurse Practitioner; Visit Provider Nurse Practitioner
DX: E87.1 Hypo-osmolality and hyponatremia (principal); R79.9 Abnormal finding of blood chemistry, unspecified
CPT/HCPCS: 36415; 80048

== ENCOUNTER → 2020-11-20 08:38 | Outpatient (CLI) | payer MEDICARE, OTHER, SELFPAY ==
[2020-10-10 23:03] VITALS: PULSE 96; RESP 19; O2SAT 99
[2020-10-11 02:55] VITALS: BMI 27.3
[2020-11-20 09:00] LABS: WBC Urine None Seen (0-5/HPF)
[2020-11-20 10:28] LABS: Alanine Aminotransferase 19 IU/L (<35); Albumin 4.3 g/dL (3.5-5.0); Albumin Globulin Ratio 1.4 (1.0-2.8); Alkaline Phosphatase 135 U/L (38-126); Aspartate Aminotransferase 31 IU/L (14-36); BUN Creatinine Ratio 30.9 (6-22); Bilirubin Total 0.2 mg/dL (0.2-1.3); Blood Urea Nitrogen 29 mg/dL (7-17); Calcium 10.3 mg/dL (8.4-10.2); Carbon Dioxide 31 mmol/L (22-32); Chloride 101 mmol/L (98-107); Estimated Glomerular Filt Rate 57.7 mL/min (>60); Globulin 3.1 g/dL (1.7-4.1); Glucose 80 mg/dL (80-110); HEMOLYSIS < 15 (0-50); Potassium 4.7 mmol/L (3.4-5.1); Sodium 137 mmol/L (137-145); Total Protein 7.4 g/dL (6.3-8.2)
[2020-11-20 10:41] LABS: Appearance Urine UA CLEAR; Bilirubin Urine UA NEGATIVE (NEGATIVE); Color Urine UA YELLOW; Glucose Urine UA NEGATIVE (Negative); Ketones Urine UA NEGATIVE (NEGATIVE); Leukocyte Esterase Urine UA NEGATIVE (NEGATIVE); Nitrite Urine UA NEGATIVE (Negative); Occult Blood Urine UA NEGATIVE (Negative); Protein Urine UA NEGATIVE (Negative); Urobilinogen Urine UA 0.2 E.U./dL (0.2)
[2020-11-20 10:55] LABS: pH Urine UA 6.5 (4.5-8.0)
[2020-11-20 10:55] LABS: Thyroid Stimulating Hormone 2.89 uIU/mL (0.47-4.68)
[2020-11-20 12:23] LABS: RBC Urine 0-1/HPF (0-5/HPF); Squamous Epithelial Cell Urine 1-5 /HPF (0-5/HPF)
[2020-11-20 12:24] LABS: Bacteria Urine Few (2-10)
[2020-11-20 12:25] LABS: Culture Indicated Urine Cult Not Indicated
[2020-11-21 11:21] LABS: Calcium 9.3 mg/dL (8.7-10.3); Parathyroid Hormone, Intact 40 pg/mL (15-65)
== END ==
PROVIDERS: PCP Nurse Practitioner; Referring Provider Nurse Practitioner; Visit Provider Nurse Practitioner
DX: N39.0 Urinary tract infection, site not specified (principal); E83.52 Hypercalcemia; E87.1 Hypo-osmolality and hyponatremia; I10 Essential (primary) hypertension; R79.89 Other specified abnormal findings of blood chemistry; S00.83XA Contusion of other part of head, initial encounter
CPT/HCPCS: 36415; 80053; 81001; 82310; 83970; 84443

== ENCOUNTER → 2021-04-02 16:14 | Outpatient (CLI) | payer MEDICARE, OTHER, SELFPAY ==
[2020-10-10 23:03] VITALS: PULSE 96; RESP 19; O2SAT 99
[2020-10-11 02:55] VITALS: BMI 27.3
--- NOTE | 2021-04-02 16:17 | DI.MG.S_ITS ---
BILATERAL DIGITAL SCREENING MAMMOGRAM 3D/2D WITH CAD: 04/02/2021 CLINICAL: Routine screening. Family history of breast cancer. Comparison is made to exams dated: 03/07/2020 mammogram, 03/04/2019 mammogram, and 02/27/2018 mammogram - [facility]. There are scattered fibroglandular elements in both breasts. Current study was also evaluated with a Computer Aided Detection (CAD) system. There are benign calcifications in both breasts. No significant masses, calcifications, or other findings are seen in either breast. There has been no significant interval change. IMPRESSION: BENIGN There is no mammographic evidence of malignancy. A 1 year screening mammogram is recommended. This exam was interpreted at Station ID: [id number]. NOTE: For mammograms, a report in lay terms will be sent to the patient. Approximately 15% of breast malignancies will not be visualized mammographically. In the management of a palpable breast mass, a negative mammogram must not discourage biopsy of a clinically suspicious lesion. Electronically Signed By: Seven Ash acr/jennifer:04/02/2021 17:42:33 letter sent: Normal Exam ACR BI-RADS Category 2: Benign Finding(s) [id number]
== END ==
PROVIDERS: PCP Nurse Practitioner; Referring Provider Nurse Practitioner; Visit Provider Nurse Practitioner
DX: Z12.31 Encounter for screening mammogram for malignant neoplasm of breast (principal); Z80.3 Family history of malignant neoplasm of breast
CPT/HCPCS: 77063; 77067

== ENCOUNTER → 2021-04-27 07:56 | Outpatient (CLI) | payer MEDICARE, OTHER, SELFPAY ==
[2020-10-10 23:03] VITALS: PULSE 96; RESP 19; O2SAT 99
[2020-10-11 02:55] VITALS: BMI 27.3
[2021-04-27 09:27] LABS: Add Manual Diff / Slide Review NO; Basophils Absolute Auto 200 /uL (0-100); Basophils Percent Auto 2.6 % (0-2); Eosinophils Absolute Auto 300 /uL (0-450); Eosinophils Percent Auto 5.7 % (2-4); Hematocrit 37.4 % (36-46); Hemoglobin 12.2 g/dL (12.0-16.0); Lymphocytes Absolute Auto 1600 /uL (1100-4500); Lymphocytes Percent Auto 27.7 % (25-40); Mean Corpuscular HGB Conc 32.7 % (30-36); Monocytes Absolute Auto 600 /uL (0-900); Neutrophils Absolute Auto 3200 /uL (1500-7000); Platelet Count 311 X10^3/uL (150-400); Red Blood Cell Count 3.94 X10^6/uL (4.0-5.2); Red Cell Distribution Width 13.5 % (11.6-14.8); White Blood Cell Count 5.9 X10^3/uL (4.5-11.0)
[2021-04-27 09:33] LABS: BUN Creatinine Ratio 26.2 (6-22); Blood Urea Nitrogen 22 mg/dL (7-17); Calcium 9.8 mg/dL (8.4-10.2); Carbon Dioxide 33 mmol/L (22-32); Chloride 101 mmol/L (98-107); Cholesterol 183 mg/dL (140-199); Estimated Glomerular Filt Rate > 60.0 mL/min (>60); Glucose 95 mg/dL (80-110); HDL Cholesterol 76 mg/dL (40-60); HEMOLYSIS < 15 (0-50); LDL Cholesterol Calculated 90 mg/dL (<100); Potassium 4.3 mmol/L (3.4-5.1); Sodium 138 mmol/L (137-145); Triglycerides 85 mg/dL (35-150)
== END ==
PROVIDERS: PCP Nurse Practitioner; Referring Provider Internal Medicine Cardiovascular Disease; Visit Provider Internal Medicine Cardiovascular Disease
DX: I70.90 Unspecified atherosclerosis (principal); E78.5 Hyperlipidemia, unspecified; I10 Essential (primary) hypertension
CPT/HCPCS: 36415; 80048; 80061; 85025

== ENCOUNTER → 2021-10-29 07:40 | Outpatient (CLI) | payer MEDICARE, OTHER, SELFPAY ==
[2020-10-10 23:03] VITALS: PULSE 96; RESP 19; O2SAT 99
[2020-10-11 02:55] VITALS: BMI 27.3
[2021-10-29 09:14] LABS: Add Manual Diff / Slide Review NO; Basophils Absolute Auto 0 /uL (0-100); Basophils Percent Auto 0.4 % (0-2); Eosinophils Absolute Auto 300 /uL (0-450); Eosinophils Percent Auto 4.2 % (2-4); Hemoglobin 12.7 g/dL (12.0-16.0); Lymphocytes Absolute Auto 1300 /uL (1100-4500); Lymphocytes Percent Auto 21.9 % (25-40); Mean Corpuscular HGB Conc 33.4 % (30-36); Mean Corpuscular Hemoglobin 31.6 PG (26-34); Mean Corpuscular Volume 94.7 fL (80-100); Monocytes Absolute Auto 500 /uL (0-900); Monocytes Percent Auto 8.8 % (3-14); Neutrophils Absolute Auto 3900 /uL (1500-7000); Neutrophils Percent Auto 64.7 % (50-75); Platelet Count 290 X10^3/uL (150-400); Red Blood Cell Count 4.02 X10^6/uL (4.0-5.2); White Blood Cell Count 6.1 X10^3/uL (4.5-11.0)
[2021-10-29 09:40] LABS: BUN Creatinine Ratio 23.9 (6-22); Blood Urea Nitrogen 22 mg/dL (7-17); Calcium 9.7 mg/dL (8.4-10.2); Carbon Dioxide 30 mmol/L (22-32); Chloride 104 mmol/L (98-107); Cholesterol 187 mg/dL (140-199); Glucose 100 mg/dL (80-110); HDL Cholesterol 94 mg/dL (40-60); HEMOLYSIS < 15 (0-50); LDL Cholesterol Calculated 82 mg/dL (<100); Sodium 141 mmol/L (137-145); Triglycerides 56 mg/dL (35-150)
== END ==
PROVIDERS: PCP Nurse Practitioner; Referring Provider Internal Medicine Cardiovascular Disease; Visit Provider Internal Medicine Cardiovascular Disease
DX: E78.5 Hyperlipidemia, unspecified (principal); I10 Essential (primary) hypertension
CPT/HCPCS: 36415; 80048; 80061; 85025

== ENCOUNTER → 2021-11-28 07:07 | Outpatient (CLI) | payer MEDICARE, OTHER, SELFPAY ==
[2020-10-10 23:03] VITALS: PULSE 96; RESP 19; O2SAT 99
[2020-10-11 02:55] VITALS: BMI 27.3
[2021-11-28 09:07] LABS: Alanine Aminotransferase 18 IU/L (<35); Albumin 4.3 g/dL (3.5-5.0); Albumin Globulin Ratio 1.7 (1.0-2.8); Alkaline Phosphatase 101 U/L (38-126); Aspartate Aminotransferase 29 IU/L (14-36); BUN Creatinine Ratio 22.8 (6-22); Bilirubin Total 0.5 mg/dL (0.2-1.3); Blood Urea Nitrogen 21 mg/dL (7-17); Calcium 9.9 mg/dL (8.4-10.2); Carbon Dioxide 32 mmol/L (22-32); Chloride 103 mmol/L (98-107); Cholesterol 186 mg/dL (140-199); Estimated Glomerular Filt Rate > 60 mL/min (>60); Globulin 2.6 g/dL (1.7-4.1); Glucose 97 mg/dL (80-110); HDL Cholesterol 106 mg/dL (40-60); HEMOLYSIS < 15 (0-50); LDL Cholesterol Calculated 68 mg/dL (<100); Potassium 4.4 mmol/L (3.4-5.1); Sodium 138 mmol/L (137-145); Total Protein 6.9 g/dL (6.3-8.2); Triglycerides 59 mg/dL (35-150)
[2021-11-28 09:28] LABS: Thyroid Stimulating Hormone 2.81 uIU/mL (0.47-4.68)
[2021-11-28 11:13] LABS: Creatinine Urine Random 65.6 mg/dL
[2021-11-28 11:18] LABS: Microalbumin Urine Random < 0.6 mg/dL (0-1.6)
== END ==
PROVIDERS: PCP Nurse Practitioner; Referring Provider Nurse Practitioner; Visit Provider Nurse Practitioner
DX: I10 Essential (primary) hypertension (principal); E03.9 Hypothyroidism, unspecified; E78.5 Hyperlipidemia, unspecified; Z79.899 Other long term (current) drug therapy
CPT/HCPCS: 36415; 80053; 80061; 82043; 82570; 84443

== ENCOUNTER → 2021-12-04 14:34 | Outpatient (CLI) | payer MEDICARE, OTHER, SELFPAY ==
[2020-10-10 23:03] VITALS: PULSE 96; RESP 19; O2SAT 99
[2020-10-11 02:55] VITALS: BMI 27.3
--- NOTE | 2021-12-04 14:36 | DI.US.S_ITS ---
PROCEDURE: US ABDOMEN LIMITED INDICATIONS: RUQ pain TECHNIQUE: Real-time focused scanning was performed of the abdomen, with image documentation. COMPARISON: [facility], CT, CT ABDOMEN PELVIS WO CON, 04/18/2020, 16:09. [facility], US, ABDOMEN COMPLETE, 08/17/2007, 8:36. FINDINGS: The liver is normal in size and demonstrates no suspicious lesions. The main portal vein demonstrates normal size and demonstrates normal appearing, hepatopetal flow. Status post cholecystectomy. Common bile duct measures 10 mm, which is at the upper limits of normal for a post cholecystectomy patient. No stones are seen. The pancreas is overall not well seen. IMPRESSION: Status post cholecystectomy. The common bile duct measures at the upper limits of normal. Dictated by: Cresencio Cordova M.D. on 12/04/2021 at 15:23 Approved by: Cresencio Cordova M.D. on 12/04/2021 at 15:25
== END ==
PROVIDERS: PCP Nurse Practitioner; Referring Provider Nurse Practitioner; Visit Provider Nurse Practitioner
DX: R10.11 Right upper quadrant pain (principal); Z90.49 Acquired absence of other specified parts of digestive tract
CPT/HCPCS: 76705

== ENCOUNTER → 2021-12-12 06:52 | Outpatient (CLI) | payer MEDICARE, OTHER, SELFPAY ==
[2020-10-10 23:03] VITALS: PULSE 96; RESP 19; O2SAT 99
[2020-10-11 02:55] VITALS: BMI 27.3
[2021-12-12 08:57] LABS: BUN Creatinine Ratio 23.7 (6-22); Blood Urea Nitrogen 23 mg/dL (7-17); Calcium 9.7 mg/dL (8.4-10.2); Carbon Dioxide 29 mmol/L (22-32); Chloride 102 mmol/L (98-107); Estimated Glomerular Filt Rate 59 mL/min (>60); Glucose 101 mg/dL (80-110); HEMOLYSIS < 15 (0-50); Potassium 4.2 mmol/L (3.4-5.1); Sodium 138 mmol/L (137-145)
== END ==
PROVIDERS: PCP Nurse Practitioner; Referring Provider Surgery; Visit Provider Surgery
DX: K43.9 Ventral hernia without obstruction or gangrene (principal)
CPT/HCPCS: 36415; 80048

== ENCOUNTER → 2021-12-14 11:34 | Outpatient (CLI) | payer MEDICARE, OTHER, SELFPAY ==
[2020-10-10 23:03] VITALS: PULSE 96; RESP 19; O2SAT 99
[2020-10-11 02:55] VITALS: BMI 27.3
--- NOTE | 2021-12-14 11:35 | DI.CT.S_ITS ---
PROCEDURE: CT ABDOMEN PELVIS W CON INDICATIONS: ventral hernia TECHNIQUE: After the administration of oral and intravenous contrast, axial sections were acquired from the lung bases to the pubic symphysis. Coronal and sagittal reformats were performed. For radiation dose reduction, the following was used: automated exposure control, adjustment of mA and/or kV according to patient size. COMPARISON:[facility], CT, CT ABDOMEN PELVIS WO CON, 04/18/2020, 16:09. [facility], CT, CT ABDOMEN PELVIS W CON, 02/16/2019, 21:37. FINDINGS: Image quality: Excellent. Lung bases: Unremarkable. Heart: No significant findings. ABDOMEN: Liver: Unremarkable. Gallbladder: Surgically absent. Biliary ducts: Unremarkable. Pancreas: Unremarkable. Spleen: Unremarkable. Adrenal Glands: Unremarkable. Kidneys and Ureters: Unremarkable. Stomach and Bowel: The patient is likely status post fundoplication procedure. The bowel demonstrates overall normal caliber and wall thickness. There are scattered sigmoid diverticula. No evidence for diverticulitis. There is a focal dilated loop of small bowel at midline. There is a beak like transition point at the superior aspect of this dilated bowel (series 2/image 48). This loop of dilated bowel is contrast filled. There is tapered narrowing at the inferior aspect of this dilated loop of bowel (series 2/image 65). There is no contrast opacification within the downstream bowel. Peritoneum: No abnormal intraperitoneal fluid. No free air. Ventral Wall: No hernia. Abdominal Nodes: No retroperitoneal or mesenteric adenopathy by size criteria. Vessels: Aorta and inferior vena cava are normal in size. There are scattered atheromatous calcifications throughout the aorta and iliac arteries bilaterally. PELVIS: Pelvic Organs: Unremarkable. Bladder: Unremarkable. Pelvic Nodes: No enlarged lymph nodes. Miscellaneous: No inguinal hernias are seen. Bones: Unremarkable. IMPRESSION: 1. Solitary dilated loop of bowel which is opacified with contrast. There is no definite downstream contrast opacification. Findings raise the suspicion for a closed loop obstruction or internal hernia. Short interval repeat CT scan would be helpful to evaluate for continued migration of contrast through the colon to exclude bowel obstruction. Dictated by: Sherin Aggarwal M.D. on 12/14/2021 at 14:06 Approved by: Sherin Aggarwal M.D. on 12/14/2021 at 14:20
== END ==
PROVIDERS: PCP Nurse Practitioner; Referring Provider Surgery; Visit Provider Surgery
DX: K43.9 Ventral hernia without obstruction or gangrene (principal)
CPT/HCPCS: 74177; Q9967

== ENCOUNTER → 2022-04-15 12:59 | Outpatient (CLI) | payer MEDICARE, OTHER, SELFPAY ==
[2020-10-10 23:03] VITALS: PULSE 96; RESP 19; O2SAT 99
[2020-10-11 02:55] VITALS: BMI 27.3
--- NOTE | 2022-04-15 | DI.MG.S_ITS ---
BILATERAL DIGITAL SCREENING MAMMOGRAM 3D/2D WITH CAD: 04/15/2022 CLINICAL: Routine screening. Family history of breast cancer. Comparison is made to exams dated: 04/02/2021 mammogram, 03/07/2020 mammogram, and 03/04/2019 mammogram - [facility]. There are scattered areas of fibroglandular density in both breasts (category b / 25%-50% glandular tissue). Current study was also evaluated with a Computer Aided Detection (CAD) system. There are benign calcifications in both breasts. No significant masses, calcifications, or other findings are seen in either breast. There has been no significant interval change. IMPRESSION: BENIGN There is no mammographic evidence of malignancy. A 1 year screening mammogram is recommended. Based on the Tyrer Cuzick model (a risk assessment model) the patient's lifetime risk is 3.0% and her 10 year risk is 0.0%. According to the ACR, ACS, and NCCN guidelines, an annual breast MRI exam along with mammogram is recommended if the patient's lifetime risk is 20% or greater. This exam was interpreted at Station ID: [id number]. NOTE: For mammograms, a report in lay terms will be sent to the patient. Approximately 15% of breast malignancies will not be visualized mammographically. In the management of a palpable breast mass, a negative mammogram must not discourage biopsy of a clinically suspicious lesion. Electronically Signed By: Stevo de leon/jennifer:04/15/2022 14:37:54 letter sent: Normal Exam ACR BI-RADS Category 2: Benign Finding(s) 3342F
== END ==
PROVIDERS: PCP Nurse Practitioner; Referring Provider Nurse Practitioner; Visit Provider Nurse Practitioner
DX: Z12.31 Encounter for screening mammogram for malignant neoplasm of breast (principal); Z80.3 Family history of malignant neoplasm of breast
CPT/HCPCS: 77063; 77067

== ENCOUNTER → 2022-08-12 07:18 | Outpatient (CLI) | payer MEDICARE, OTHER, SELFPAY ==
[2020-10-10 23:03] VITALS: PULSE 96; RESP 19; O2SAT 99
[2020-10-11 02:55] VITALS: BMI 27.3
[2022-08-12 08:52] LABS: C-Reactive Protein Quant < 0.5 mg/dL (<1.0)
[2022-08-12 09:00] LABS: HEMOLYSIS < 15 (0-50); Iron 107 ug/dL (37-170)
[2022-08-12 09:07] LABS: Transferrin 339 mg/dL (206-381)
[2022-08-12 09:24] LABS: Ferritin 15 ng/mL (11-264)
[2022-08-14 15:08] LABS: Percent Iron Saturation 24 % (15-50); Total Iron Binding Capacity 452 ug/dL (265-497)
== END ==
PROVIDERS: PCP Nurse Practitioner; Referring Provider Internal Medicine Sleep Medicine; Visit Provider Internal Medicine Sleep Medicine
DX: E83.10 Disorder of iron metabolism, unspecified (principal); G25.81 Restless legs syndrome
CPT/HCPCS: 36415; 82728; 83540; 83550; 86140

== ENCOUNTER → 2022-11-22 07:07 | Outpatient (CLI) | payer MEDICARE, OTHER, SELFPAY ==
[2020-10-10 23:03] VITALS: PULSE 96; RESP 19; O2SAT 99
[2020-10-11 02:55] VITALS: BMI 27.3
[2022-11-22 08:35] LABS: Add Manual Diff / Slide Review NO; Basophils Absolute Auto 200 /uL (0-100); Basophils Percent Auto 3.5 % (0-2); Eosinophils Absolute Auto 200 /uL (0-450); Eosinophils Percent Auto 4.3 % (2-4); Hematocrit 36.7 % (36-46); Hemoglobin 12.6 g/dL (12.0-16.0); Lymphocytes Absolute Auto 1600 /uL (1100-4500); Lymphocytes Percent Auto 30.5 % (25-40); Mean Corpuscular HGB Conc 34.4 % (30-36); Mean Corpuscular Hemoglobin 32.3 PG (26-34); Mean Corpuscular Volume 93.9 fL (80-100); Monocytes Absolute Auto 500 /uL (0-900); Monocytes Percent Auto 9.6 % (3-14); Neutrophils Absolute Auto 2700 /uL (1500-7000); Neutrophils Percent Auto 52.1 % (50-75); Platelet Count 277 X10^3/uL (150-400); Red Blood Cell Count 3.91 X10^6/uL (4.0-5.2); Red Cell Distribution Width 13.5 % (11.6-14.8); White Blood Cell Count 5.1 X10^3/uL (4.5-11.0)
[2022-11-22 08:52] LABS: BUN Creatinine Ratio 25.6 (6-22); Blood Urea Nitrogen 23 mg/dL (7-17); Calcium 9.5 mg/dL (8.4-10.2); Carbon Dioxide 30 mmol/L (22-32); Chloride 100 mmol/L (98-107); Cholesterol 175 mg/dL (140-199); Estimated Glomerular Filt Rate > 60 mL/min (>60); Glucose 93 mg/dL (80-110); HDL Cholesterol 100 mg/dL (40-60); HEMOLYSIS 29 (0-50); LDL Cholesterol Calculated 61 mg/dL (<100); Potassium 4.7 mmol/L (3.4-5.1); Sodium 137 mmol/L (137-145); Triglycerides 71 mg/dL (35-150)
== END ==
PROVIDERS: PCP Nurse Practitioner; Referring Provider Internal Medicine Cardiovascular Disease; Visit Provider Internal Medicine Cardiovascular Disease
DX: I10 Essential (primary) hypertension (principal); E78.5 Hyperlipidemia, unspecified
CPT/HCPCS: 36415; 80048; 80061; 85025

== ENCOUNTER → 2023-01-02 07:05 | Outpatient (CLI) | payer MEDICARE, OTHER, SELFPAY ==
[2020-10-10 23:03] VITALS: PULSE 96; RESP 19; O2SAT 99
[2020-10-11 02:55] VITALS: BMI 27.3
[2023-01-02 08:10] LABS: BUN Creatinine Ratio 28.3 (6-22); Blood Urea Nitrogen 32 mg/dL (7-17); Calcium 10.3 mg/dL (8.4-10.2); Carbon Dioxide 28 mmol/L (22-32); Chloride 99 mmol/L (98-107); Estimated Glomerular Filt Rate 49 mL/min (>60); Glucose 104 mg/dL (80-110); HEMOLYSIS < 15 (0-50); Potassium 5.1 mmol/L (3.4-5.1); Sodium 134 mmol/L (137-145)
[2023-01-02 08:34] LABS: Thyroid Stimulating Hormone 2.86 uIU/mL (0.47-4.68)
== END ==
PROVIDERS: PCP Nurse Practitioner; Referring Provider Internal Medicine Cardiovascular Disease; Visit Provider Internal Medicine Cardiovascular Disease
DX: R60.0 Localized edema (principal); E03.9 Hypothyroidism, unspecified
CPT/HCPCS: 36415; 80048; 84443

== ENCOUNTER → 2023-01-20 07:01 | Outpatient (CLI) | payer MEDICARE, OTHER, SELFPAY ==
[2020-10-10 23:03] VITALS: PULSE 96; RESP 19; O2SAT 99
[2020-10-11 02:55] VITALS: BMI 27.3
[2023-01-20 08:37] LABS: BUN Creatinine Ratio 24.8 (6-22); Blood Urea Nitrogen 30 mg/dL (7-17); Carbon Dioxide 27 mmol/L (22-32); Chloride 98 mmol/L (98-107); Estimated Glomerular Filt Rate 45 mL/min (>60); Glucose 149 mg/dL (80-110); HEMOLYSIS < 15 (0-50); Magnesium 2.1 mg/dL (1.6-2.3); Potassium 4.7 mmol/L (3.4-5.1); Sodium 134 mmol/L (137-145)
== END ==
PROVIDERS: PCP Nurse Practitioner; Referring Provider Nurse Practitioner; Visit Provider Nurse Practitioner
DX: E87.1 Hypo-osmolality and hyponatremia (principal); T50.2X5A Adverse effect of carbonic-anhydrase inhibitors, benzothiadiazides and other diuretics, initial encounter
CPT/HCPCS: 36415; 80048; 83735

== ENCOUNTER → 2023-03-04 09:16 | Outpatient (CLI) | payer MEDICARE, OTHER, SELFPAY ==
[2023-02-10 16:18] VITALS: PULSE 96; RESP 19; O2SAT 99; BMI 27.3
--- NOTE | 2023-03-04 | DI.ECHO.S_ITS ---
[facility] +---------+ : : [address] [place] : : : : [id number] : : : : Phone: [phone]+ Echocardiogram Report + + :Name: ELIZABETH FELIX Study Date: 03/04/2023 Height: 66 in : :[facility] ReadingLocation: Weight: 170 lb : : Gender: Female BSA: 1.9 m2 : :: 1940 Age: 82 yrs BP: 164/81 mmHg: :Reason For Study: CHEST PAIN/ DYSPHAGIA : :Ordering Physician: RAMANDEEP, : :MIKE Performed By: Vale Antonio : :Referring: MIKE ESCALERA : + + Interpretation Summary 1) Normal left ventricular thickness, size, wall motion, and systolic function (EF 60-65%). 2) Normal right ventricular size and function. 3) Aortic valve is calcific with very mild aortic stenosis (mean gradient 10mmHg, valve area 2.2cm2). 4) There is mild luminal irregularity and echogenicity in the abdominal aorta, suggestive of aortic atherosclerotic disease. 5) Hypertension present during the study (BP 164/81mmHg). 6) Compared to the Echo done 09/17/2018, no significant change. Procedure: A two-dimensional transthoracic echocardiogram with color flow and Doppler was performed. The study quality was technically adequate. Comparison is made with the echocardiogram of 09/17/2018. The patient was in sinus rhythm with heart rates between 77-82 bpm during the exam. Left Ventricle: The estimated left ventricular end diastolic volume is 51 ml. Proximal septal thickening is noted. The left ventricle is normal in size and wall thickness. The ejection fraction is estimated to be 60-65%. Left ventricular systolic function appears normal without focal wall motion abnormalities. Diastolic parameters suggest a relaxation abnormality of the left ventricle, consistent with probable normal filling pressures. Right Ventricle: The right ventricle is normal in size and function. Atria: The left atrial size is normal. Right atrial size is normal. There is no Doppler evidence for an interatrial shunt. Mitral Valve: The mitral valve is normal in structure and function. There is trace mitral regurgitation. Aortic Valve: The aortic valve is mildly calcified. There is mild aortic valve sclerosis. The peak aortic velocity is 2.0 m/sec. The aortic valve mean gradient is 10 mmHg. The calculated aortic valve area is 2.2 cm2. No aortic regurgitation is present. Tricuspid Valve: The tricuspid valve is normal in structure and function. There is mild tricuspid regurgitation. The right ventricular systolic pressure is estimated to be at least 29 mmHg based on an estimated right atrial pressure of 3 mm Hg. Pulmonic Valve: The pulmonic valve is not well visualized. There is no pulmonic valvular regurgitation. Great Vessels: The aortic root is normal size. The dimensions of the ascending aorta are normal. There is mild luminal irregularity and echogenicity in the abdominal aorta, suggestive of aortic atherosclerotic disease. The IVC is of normal diameter and collapses greater than 50% with a sniff. This suggests a low right atrial pressure of 3 mm Hg. Pericardium/ Pleura There is no pericardial effusion. There is no pleural effusion. MMode/2D Measurements & Calculations LVIDd: 3.8 cm LVOT diam: 2.0 cm LVIDs: 2.6 cm Ao root diam: 2.6 cm FS: 31.8 % asc Aorta Diam: 3.1 cm IVSd: 1.1 cm Ao Arch Diam (Prox Trans): 2.1 cm LVPWd: 0.97 cm LV khan. diameter/BSA (cm/m^2): 2.0 LV sys. diameter/BSA (cm/m^2): 1.4 LA A2 area: 18.3 cm2 RA long axis: 4.9 cm LA A4 area: 17.1 cm2 RA area: 16.7 cm2 LA length (vol): 5.4 cm RA vol: 48.0 ml LA vol: 49.2 ml RA : 25.7 ml/m2 LA vol index: 26.4 ml/m2 IVC diam: 1.6 cm RVD1 (basal): 4.0 cm RVD2 (mid): 3.0 cm TAPSE: 2.0 cm Doppler Measurements & Calculations Ao V2 max: 198.0 cm/sec LVOT Max Brendan: 138.1 cm/sec Ao V2 mean: 140.8 cm/sec LV V1 max P.6 mmHg Ao max P.5 mmHg LV V1 VTI: 37.2 cm Ao mean P.7 mmHg DOLORES(I,D): 2.6 cm2 Ao V2 VTI: 45.0 cm DOLORES(V,D): 2.2 cm2 sev ratio: 0.83 DOLORES indexed to BSA (cm^2/m^2): 1.4 MV E max brendan: 115.1 cm/sec TR max brendan: 256.6 cm/sec MV A max brendan: 116.0 cm/sec TR max P.3 mmHg MV E/A: 0.99 PA V2 max: 133.1 cm/sec Med Peak E' Brendan: 7.0 cm/sec PA V2 mean: 85.4 cm/sec E/E' med: 16.5 PA mean P.5 mmHg Lat Peak E' Brendan: 7.3 cm/sec PA pr(Accel): 27.6 mmHg E/E' lat: 15.8 E/e' average: 16.1 MV dec time: 0.22 sec SV(LVOT): 118.2 ml Reading Physician:09:27 AM
== END ==
PROVIDERS: PCP Nurse Practitioner; Referring Provider Internal Medicine Cardiovascular Disease; Visit Provider Internal Medicine Cardiovascular Disease
DX: I08.2 Rheumatic disorders of both aortic and tricuspid valves (principal); R07.9 Chest pain, unspecified; R13.10 Dysphagia, unspecified
CPT/HCPCS: 93306

== ENCOUNTER → 2023-03-18 06:57 | Outpatient (CLI) | payer MEDICARE, OTHER, SELFPAY ==
[2023-02-10 16:18] VITALS: PULSE 96; RESP 19; O2SAT 99; BMI 27.3
[2023-03-18 08:27] LABS: Blood Urea Nitrogen 20 mg/dL (7-17); Calcium 9.8 mg/dL (8.4-10.2); Carbon Dioxide 29 mmol/L (22-32); Chloride 100 mmol/L (98-107); Estimated Glomerular Filt Rate > 60 mL/min (>60); Glucose 96 mg/dL (80-110); HEMOLYSIS < 15 (0-50); Potassium 4.5 mmol/L (3.4-5.1); Sodium 134 mmol/L (137-145)
== END ==
PROVIDERS: PCP Nurse Practitioner; Referring Provider Internal Medicine Cardiovascular Disease; Visit Provider Internal Medicine Cardiovascular Disease
DX: I10 Essential (primary) hypertension (principal)
CPT/HCPCS: 36415; 80048

== ENCOUNTER → 2023-04-17 14:37 | Outpatient (CLI) | payer MEDICARE, OTHER, SELFPAY ==
[2023-02-10 16:18] VITALS: PULSE 96; RESP 19; O2SAT 99; BMI 27.3
--- NOTE | 2023-04-17 | DI.MG.S_ITS ---
BILATERAL DIGITAL SCREENING MAMMOGRAM 3D/2D WITH CAD: 04/17/2023 CLINICAL: Routine screening. Family history of breast cancer. Comparison is made to exams dated: 04/15/2022 mammogram, 04/02/2021 mammogram, 03/07/2020 mammogram, 03/04/2019 mammogram, and 02/27/2018 mammogram - [facility]. There are scattered areas of fibroglandular density in both breasts (category b / 25%-50% glandular tissue). Current study was also evaluated with a Computer Aided Detection (CAD) system. There are benign calcifications in both breasts. No significant masses, calcifications, or other findings are seen in either breast. There has been no significant interval change. IMPRESSION: BENIGN There is no mammographic evidence of malignancy. A 1 year screening mammogram is recommended. Based on the Tyrer Cuzick model (a risk assessment model) the patient's lifetime risk is 2.5% and her 10 year risk is 0.0%. According to the ACR, ACS, and NCCN guidelines, an annual breast MRI exam along with mammogram is recommended if the patient's lifetime risk is 20% or greater. This exam was interpreted at Station ID: [id number]. NOTE: For mammograms, a report in lay terms will be sent to the patient. Approximately 15% of breast malignancies will not be visualized mammographically. In the management of a palpable breast mass, a negative mammogram must not discourage biopsy of a clinically suspicious lesion. Electronically Signed By: Luis sepulveda/jennifer:04/17/2023 16:19:15 letter sent: Normal Exam ACR BI-RADS Category 2: Benign Finding(s) 3342F
== END ==
PROVIDERS: PCP Nurse Practitioner; Referring Provider Nurse Practitioner; Visit Provider Nurse Practitioner
DX: Z12.31 Encounter for screening mammogram for malignant neoplasm of breast (principal); Z80.3 Family history of malignant neoplasm of breast
CPT/HCPCS: 77063; 77067

== ENCOUNTER → 2023-07-26 10:02 | Outpatient (CLI) | payer OTHER, SELFPAY ==
[2023-02-10 16:18] VITALS: PULSE 96; RESP 19; O2SAT 99; BMI 27.3
== END ==
PROVIDERS: PCP Nurse Practitioner; Visit Provider Registered Nurse
DX: J35.8 Other chronic diseases of tonsils and adenoids (principal)
CPT/HCPCS: 87070

== ENCOUNTER → 2023-08-15 07:05 | Outpatient (CLI) | payer MEDICARE, SELFPAY ==
[2023-02-10 16:18] VITALS: PULSE 96; RESP 19; O2SAT 99; BMI 27.3
[2023-08-15 08:39] LABS: Alanine Aminotransferase 23 IU/L (<35); Albumin Globulin Ratio 1.5 (1.0-2.8); Alkaline Phosphatase 81 U/L (38-126); Aspartate Aminotransferase 30 IU/L (14-36); BUN Creatinine Ratio 31.4 (6-22); Bilirubin Total 0.5 mg/dL (0.2-1.3); Blood Urea Nitrogen 27 mg/dL (7-17); Calcium 10.1 mg/dL (8.4-10.2); Carbon Dioxide 30 mmol/L (22-32); Chloride 99 mmol/L (98-107); Estimated Glomerular Filt Rate > 60 mL/min (>60); Globulin 2.6 g/dL (1.7-4.1); Glucose 99 mg/dL (80-110); HEMOLYSIS < 15 (0-50); Magnesium 2.1 mg/dL (1.6-2.3); Potassium 4.3 mmol/L (3.4-5.1); Sodium 134 mmol/L (137-145); Total Protein 6.6 g/dL (6.3-8.2)
== END ==
PROVIDERS: PCP Nurse Practitioner; Referring Provider Nurse Practitioner; Visit Provider Nurse Practitioner
DX: N17.9 Acute kidney failure, unspecified (principal); R35.89 Other polyuria
CPT/HCPCS: 36415; 80053; 83735

== ENCOUNTER → 2023-09-02 07:10 | Outpatient (CLI) | payer MEDICARE, SELFPAY ==
[2023-02-10 16:18] VITALS: PULSE 96; RESP 19; O2SAT 99; BMI 27.3
== END ==
PROVIDERS: PCP Nurse Practitioner; Referring Provider Nurse Practitioner; Visit Provider Nurse Practitioner
DX: M10.9 Gout, unspecified (principal)
CPT/HCPCS: 36415; 84550

== ENCOUNTER → 2023-10-29 11:01 | Outpatient (CLI) | payer MEDICARE, SELFPAY ==
[2023-02-10 16:18] VITALS: PULSE 96; RESP 19; O2SAT 99; BMI 27.3
--- NOTE | 2023-10-29 11:06 | DI.US.S_ITS ---
PROCEDURE: US PERIPH VENOUS LOW EXTREM RT INDICATIONS: PAIN TECHNIQUE: Real-time imaging, as well as color and pulse Doppler interrogation, were performed of the lower extremity deep veins from the inguinal ligament to the popliteal fossa, with documentation of the visualized calf veins. COMPARISON: None. FINDINGS: The common femoral, femoral, popliteal, and the visualized calf veins are normally compressible, and free of intraluminal thrombus. Color and pulse Doppler demonstrate normal phasic intraluminal flow. There is normal augmentation response to distal compression maneuver. Distal lower extremity edema can be seen. Areas of calcified plaque can be seen involving the arterial system. IMPRESSION: No findings of lower extremity deep venous thrombosis. Dictated by: Cresencio Cordova M.D. on 10/29/2023 at 11:59 Approved by: Cresencio Cordova M.D. on 10/29/2023 at 12:00
== END ==
PROVIDERS: PCP Nurse Practitioner; Referring Provider Nurse Practitioner Family; Visit Provider Nurse Practitioner Family
DX: M79.661 Pain in right lower leg (principal)
CPT/HCPCS: 93971

== ENCOUNTER → 2023-11-11 10:00 | Outpatient (CLI) | payer MEDICARE, OTHER, SELFPAY ==
[2023-02-10 16:18] VITALS: PULSE 96; RESP 19; O2SAT 99; BMI 27.3
[2023-11-11 10:36] LABS: Add Manual Diff / Slide Review NO; Basophils Absolute Auto 100 /uL (0-100); Basophils Percent Auto 1.1 % (0-2); Eosinophils Absolute Auto 100 /uL (0-450); Eosinophils Percent Auto 0.7 % (2-4); Hematocrit 37.3 % (36-46); Hemoglobin 12.6 g/dL (12.0-16.0); Lymphocytes Absolute Auto 1500 /uL (1100-4500); Lymphocytes Percent Auto 18.8 % (25-40); Mean Corpuscular HGB Conc 33.6 % (30-36); Mean Corpuscular Hemoglobin 31.7 PG (26-34); Mean Corpuscular Volume 94.3 fL (80-100); Monocytes Absolute Auto 700 /uL (0-900); Monocytes Percent Auto 9.1 % (3-14); Neutrophils Absolute Auto 5600 /uL (1500-7000); Neutrophils Percent Auto 70.3 % (50-75); Platelet Count 301 X10^3/uL (150-400); Red Blood Cell Count 3.96 X10^6/uL (4.0-5.2); Red Cell Distribution Width 13.5 % (11.6-14.8); White Blood Cell Count 7.9 X10^3/uL (4.5-11.0)
[2023-11-11 10:56] LABS: Blood Urea Nitrogen 27 mg/dL (7-17); Calcium 10.2 mg/dL (8.4-10.2); Carbon Dioxide 29 mmol/L (22-32); Chloride 103 mmol/L (98-107); Cholesterol 168 mg/dL (140-199); Estimated Glomerular Filt Rate > 60 mL/min (>60); Glucose 107 mg/dL (80-110); HDL Cholesterol 102 mg/dL (40-60); HEMOLYSIS < 15 (0-50); LDL Cholesterol Calculated 53 mg/dL (<100); Potassium 4.4 mmol/L (3.4-5.1); Sodium 136 mmol/L (137-145); Triglycerides 66 mg/dL (35-150)
== END ==
LOC: LAB 10:02
PROVIDERS: PCP Nurse Practitioner; Referring Provider Internal Medicine Cardiovascular Disease; Visit Provider Internal Medicine Cardiovascular Disease
DX: I10 Essential (primary) hypertension (principal); E78.5 Hyperlipidemia, unspecified
CPT/HCPCS: 36415; 80048; 80061; 85025

== ENCOUNTER → 2023-11-11 15:38 | Outpatient (CLI) | payer MEDICARE, OTHER, SELFPAY ==
[2023-02-10 16:18] VITALS: PULSE 96; RESP 19; O2SAT 99; BMI 27.3
--- NOTE | 2023-11-11 15:40 | DI.MRI.S_ITS ---
PROCEDURE: MR LUMBAR SPINE WO CON INDICATIONS: LUMBAR RADICULOPATHY TECHNIQUE: Noncontrast sagittal T1 spin echo and T2 fast echo, sagittal STIR, and T2 fast spin echo through the lumbar spine. In cases with scoliosis, additional coronal T2 fast spin echo may be performed. COMPARISON: None. FINDINGS: Image quality: Excellent. 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 Alignment and Curvature: Grade 1 anterolisthesis of L3 on L4. Bone Marrow: Marrow is of normal overall signal. No acute vertebral body compression fractures. Spinal Cord: Conus medullaris terminates at the T12-L1 level. Visualized cord demonstrates normal signal and size. Paraspinous Soft Tissues: No paravertebral masses. T11-T12: Unremarkable T12-L1: Disc bulge. Mild bilateral facet arthropathy. Right perineural cyst. No stenosis. L1-2: Mild bilateral facet arthropathy. No stenosis. L2-3: Mild disc bulge. Moderate bilateral facet arthropathy. Mild left neural foraminal stenosis. No right neural foraminal stenosis. L3-4: Posterior disc uncovering. Severe bilateral facet arthropathy. Mild central canal stenosis. No neural foraminal stenosis. L4-5: Disc bulge, superimposed central disc protrusion. Severe bilateral facet arthropathy. Mild central canal stenosis. No neural foraminal stenosis. L5-S1: Unremarkable Visualized sacrum is intact. No abdominal aortic aneurysm. IMPRESSION: 1. Multilevel degenerative changes of the lumbar spine, with mild central canal stenosis at L3-4 and L4-5. 2. Mild left neural foraminal stenosis at L2-3. Dictated by: Thao Terrell M.D. on 11/11/2023 at 16:41 Approved by: Thao Terrell M.D. on 11/11/2023 at 16:51
== END ==
PROVIDERS: PCP Nurse Practitioner; Referring Provider Anesthesiology; Visit Provider Anesthesiology
DX: M47.26 Other spondylosis with radiculopathy, lumbar region (principal); M51.16 Intervertebral disc disorders with radiculopathy, lumbar region; M48.061 Spinal stenosis, lumbar region without neurogenic claudication; I10 Essential (primary) hypertension; E78.5 Hyperlipidemia, unspecified
CPT/HCPCS: 36415; 72148; 80048; 80061; 85025

== ENCOUNTER → 2023-11-14 09:23 | Outpatient (CLI) | payer MEDICARE, OTHER, SELFPAY ==
[2023-02-10 16:18] VITALS: PULSE 96; RESP 19; O2SAT 99; BMI 27.3
--- NOTE | 2023-11-14 09:24 | DI.US.S_ITS ---
PROCEDURE: US PERIPH VENOUS LOW EXTREM BI INDICATIONS: Distal bilateral lower extremity swelling, calf pain TECHNIQUE: Real-time imaging, as well as color and pulse Doppler interrogation, were performed of the deep veins of both legs from the inguinal ligament to the popliteal fossa, with documentation of the visualized calf veins. COMPARISON: None. FINDINGS: Right: The common femoral, femoral, popliteal, and the visualized calf veins are normally compressible, and free of intraluminal thrombus. Color and pulse Doppler demonstrate normal phasic intravascular flow. There is normal augmentation response to distal compression maneuver. The visualized greater saphenous vein is patent and compressible. Left: The common femoral, femoral, popliteal, and the visualized calf veins are normally compressible, and free of intraluminal thrombus. Color and pulse Doppler demonstrate normal phasic intravascular flow. There is normal augmentation response to distal compression maneuver. The visualized greater saphenous vein is patent and compressible. IMPRESSION: No findings of deep venous thrombosis in either lower extremity. Dictated by: Lin Fraga M.D. on 11/14/2023 at 9:59 Approved by: Lin Fraga M.D. on 11/14/2023 at 10:00
== END ==
PROVIDERS: PCP Nurse Practitioner; Referring Provider Physician Assistant Surgical; Visit Provider Physician Assistant Surgical
DX: M79.89 Other specified soft tissue disorders (principal); M79.661 Pain in right lower leg; M79.662 Pain in left lower leg
CPT/HCPCS: 93970

== ENCOUNTER → 2023-11-19 09:23 | Outpatient (CLI) | payer MEDICARE, OTHER, SELFPAY ==
[2023-02-10 16:18] VITALS: PULSE 96; RESP 19; O2SAT 99; BMI 27.3
--- NOTE | 2023-11-19 09:26 | DI.RAD.S_ITS ---
PROCEDURE: XR KNEE RT 3V INDICATIONS: Right knee pain TECHNIQUE: 3 views of the knee were acquired. COMPARISON: [facility], , KNEE 3V LEFT, 11/14/2014, 11:13. [facility], KNEE 1-2 VIEWS LEFT, 10/06/2009, 10:37. FINDINGS: Bones: No fractures or dislocations. No suspicious bony lesions. Tricompartmental joint space narrowing with associated osteophytosis. Soft tissues: Small joint effusion. No suspicious soft tissue calcifications. IMPRESSION: Small knee joint effusion. [id number] tricompartmental osteoarthritis. Kellgren-Kevin Grade 2. Dictated by: Hemant Tracey M.D. on 11/19/2023 at 11:26 Approved by: Hemant Tracey M.D. on 11/19/2023 at 11:27
== END ==
PROVIDERS: PCP Nurse Practitioner; Referring Provider Anesthesiology; Visit Provider Anesthesiology
DX: M17.11 Unilateral primary osteoarthritis, right knee (principal); M25.561 Pain in right knee; M25.461 Effusion, right knee
CPT/HCPCS: 73562

== ENCOUNTER 2023-11-26 12:20 | Outpatient (CLI) | payer MEDICARE, OTHER, SELFPAY ==
[2023-02-10 16:18] VITALS: PULSE 96; RESP 19; O2SAT 99; BMI 27.3
[2023-11-26] VITALS (8 sets, daily range): BP systolic 171–208; BP diastolic 71–93; PULSE 84–96; RESP 13–20; TEMP 36.4; O2SAT 98–100
[2023-11-26] MEDS: MIDAZOLAM 2 MG/2 ML VIAL IV (13:00)
--- NOTE | 2023-11-26 13:00 | DI.RAD.S_ITS ---
PROCEDURE: PAIN SI JOINT INJECTION INDICATIONS: joint dysfunction COMPARISON: None. FINDINGS: Fluoroscopic spot filming was performed to verify placement of spinal needles overlying the right SI joint level(s), as labeled on the films. Appropriate location(s) of the needle tip(s) was confirmed by injection of iodinated contrast. IMPRESSION: Right SI joint needle and contrast localization. Dictated by: Angelita Bruner M.D. on 11/26/2023 at 21:15 Approved by: Angelita Bruner M.D. on 11/26/2023 at 21:15
[2023-11-26] MEDS: BUPIVACAINE 0.5% (PF) 10 ML VIAL 2 ML INJ (13:05)
[2023-11-26] MEDS: DEXAMETHASONE 10 MG/ML VIAL INJ (13:05)
[2023-11-26] MEDS: iopamidoL 15 ML VIAL 3 ML INJ (13:06)
--- NOTE | 2023-11-26 16:52 | P.PCN_ITS ---
Date/Time/Diagnoses Date of procedure: 11/26/23 Time of procedure: 13:00 Procedure Notes Physician: Jah Freeman Total Fluoroscopy time (seconds): 28 Total sedation minutes: 21 Procedure in detail & Post-procedure care: Right Sacroiliac Joint Injection Indications: Nanci is presenting for treatment of SI joint dysfunction with low back/buttock pain. Preoperative diagnosis: Right SI joint dysfunction Postoperative diagnosis: Same Focused Examination: Ax3 Mood and affect are normal Vital Signs: VSS ASA: 2 Consent: Following review of allergies and potential side effects/complications, including, but not necessarily limited to, infection, allergic reaction, local tissue breakdown, stroke, temporary or permanent nerve injury, paralysis, and possible , the patient indicated that they understood and agreed to proceed.? An informed consent document was signed by the patient, witnessed by a nurse and placed in the patient's chart.? Additionally, other treatment options including medications and physical therapy were reviewed with the patient. All questions were answered. Site was then marked. Anesthesia: After review of previous anesthetic history and IV conscious sedation, the patient was deemed safe to proceed with today's procedure with IV conscious sedation. IV sedation was accomplished with midazolam 1 mg administered by the RN after order by Dr. Freeman. Sedation was titrated to pat ient comfort during the course of the procedure. Patient remained responsive to all verbal commands. Position: Prone Monitoring: NIBP, Pulse oximetry, 3 lead EKG Needle used: 22 ga, 3.5 inch spinal Contrast: 2 mL Isovue M-300 Injectate: Dexamethasone 7.5 mg with 1% lidocaine 2 mL Technique: The skin was prepped with chloraprep and then draped in a sterile fashion. Time out was performed as per protocol. Oxygen applied via NC. Skin and subcutaneous structures of the needle entry site was then infiltrated with 5 mL of lidocaine 1%. Under AP and lateral fluoroscopic control, the spinal needle was guided into the right sacroiliac joint. 1 mL contrast was injected and was consistent with intra-articular placement. There was no evidence for intravascular uptake. After negative aspiration, the above-mentioned injectate was then slowly administered and the needle withdrawn. The patient expressed no unusual discomfort or paresthesias during the injection. EBL: less than 1 ml Complications: None Post Procedure: Patient was taken to the recovery and monitored. The patient was provided a Pain Log to continue to record the patient's response to the target- specific procedure prior to the patient's follow-up visit with the referring physician. Patient was stable upon discharge. Detailed post procedure instructions were provided. Patient was asked to call in the event of worsening pain, fever, weakness, numbness or bladder or bowel incontinence.
== END 2023-11-26 13:35 | disposition home or self-care (01) ==
LOC: RAD 12:22
PROVIDERS: PCP Nurse Practitioner; Referring Provider Anesthesiology; Visit Provider Anesthesiology
DX: M53.3 Sacrococcygeal disorders, not elsewhere classified (principal)
CPT/HCPCS: 27096; 99152; J1100; J2250

== ENCOUNTER → 2024-02-19 13:02 | Outpatient (CLI) | payer MEDICARE, OTHER, SELFPAY ==
[2023-02-10 16:18] VITALS: PULSE 96; RESP 19; O2SAT 99; BMI 27.3
--- NOTE | 2024-02-19 13:03 | DI.US.S_ITS ---
PROCEDURE: US CHEST COMPARISON: None. INDICATIONS: New mass chest Technique: Grayscale and color Doppler images were obtained chest the area of interest. Findings and impression At the area of clinical concern adjacent to the right sternal notch, there is a heterogeneous lesion measuring 2.3 x 1.5 x 1.8 centimeters. Internal densities may represent calcifications versus calcified cartilage. Benign considerations include synovial/articular hypertrophy. Underlying soft tissue malignancy is also possible. Consider clinical followup, MRI, and/or sampling. Dictated by: Amrik Baker M.D. on 02/20/2024 at 14:32 Approved by: Amrik Baker M.D. on 02/20/2024 at 14:34
== END ==
PROVIDERS: PCP Nurse Practitioner; Referring Provider Nurse Practitioner; Visit Provider Nurse Practitioner
DX: R22.2 Localized swelling, mass and lump, trunk (principal)
CPT/HCPCS: 76604

== ENCOUNTER → 2024-02-27 11:31 | Outpatient (CLI) | payer MEDICARE, OTHER, SELFPAY ==
[2023-02-10 16:18] VITALS: PULSE 96; RESP 19; O2SAT 99; BMI 27.3
--- NOTE | 2024-02-27 11:32 | DI.MRI.S_ITS ---
PROCEDURE: MR CHEST WO/W CON INDICATIONS: malignancy suspected on US TECHNIQUE: Noncontrast coronal T1 spin echo and STIR, sagittal T1 spin echo with fat saturation and STIR, axial T1 spin echo and T2 fast spin echo with fat saturation. After the administration of contrast, axial/sagittal/coronal T1 spin echo with fat saturation through the upper anterior chest without and with contrast with multiplanar volume re-formation imaging in axial, sagittal and coronal planes. COMPARISON: [facility], US, US CHEST, 02/19/2024, 13:33. FINDINGS: Image quality: Excellent. Bones: The visualized bone marrow demonstrates normal signal on all sequences. The overlying cortex appears intact. No abnormal intraosseous enhancement. Soft tissues: There is a pattern of synovial enhancement that is thin, and associated with a right sternoclavicular joint region of what appears to be fibrous hypertrophy. This tissue is hypoenhancing and sharply demarcated. A slight right sided synovial effusion is suspected within the right sternoclavicular joint. 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 Continued clinical follow-up is recommended. If clinical concerns persist or increase ultrasound-guided or CT-guided biopsy into this area of currently presumed benign tissue could be safely performed. Dictated by: Jann Garland M.D. on 02/27/2024 at 14:36 Approved by: Jann Garland M.D. on 02/27/2024 at 14:45
== END ==
PROVIDERS: PCP Nurse Practitioner; Referring Provider Nurse Practitioner; Visit Provider Nurse Practitioner
DX: R22.2 Localized swelling, mass and lump, trunk (principal)
CPT/HCPCS: 71552; A9579

== ENCOUNTER → 2024-03-10 11:46 | Outpatient (CLI) | payer MEDICARE, OTHER, SELFPAY ==
[2023-02-10 16:18] VITALS: PULSE 96; RESP 19; O2SAT 99; BMI 27.3
[2024-03-10 21:14] LABS: Thyroid Stimulating Hormone 0.344 uIU/mL (0.47-4.68)
== END ==
PROVIDERS: PCP Nurse Practitioner; Referring Provider Nurse Practitioner; Visit Provider Nurse Practitioner
DX: E03.9 Hypothyroidism, unspecified (principal)
CPT/HCPCS: 36415; 84443

== ENCOUNTER → 2024-04-19 | Outpatient (CLI) | payer MEDICARE, OTHER, SELFPAY ==
[2023-02-10 16:18] VITALS: PULSE 96; RESP 19; O2SAT 99; BMI 27.3
--- NOTE | 2024-04-19 15:47 | DI.MG.S_ITS ---
BILATERAL DIGITAL SCREENING MAMMOGRAM 3D/2D WITH CAD: 04/19/2024 CLINICAL: Routine screening. Family history of breast cancer. Comparison is made to exams dated: 04/17/2023 mammogram, 04/15/2022 mammogram, and 04/02/2021 mammogram - [facility]. There are scattered areas of fibroglandular density (category b / 25%-50% glandular tissue). Current study was also evaluated with a Computer Aided Detection (CAD) system. There are stable benign calcifications in both breasts. No significant masses, calcifications, or other findings are seen in either breast. There has been no significant interval change. IMPRESSION: BENIGN There is no mammographic evidence of malignancy. A 1 year screening mammogram is recommended. Based on the Tyrer Cuzick model (a risk assessment model) the patient's lifetime risk is 1.2% and her 10 year risk is 0.0%. According to the ACR, ACS, and NCCN guidelines, an annual breast MRI exam along with mammogram is recommended if the patient's lifetime risk is 20% or greater. This exam was interpreted at Station ID: [id number]. NOTE: For mammograms, a report in lay terms will be sent to the patient. Approximately 15% of breast malignancies will not be visualized mammographically. In the management of a palpable breast mass, a negative mammogram must not discourage biopsy of a clinically suspicious lesion. Electronically Signed By: Aracelis waldrop/jennifer:04/21/2024 11:04:19 letter sent: Normal Exam ACR BI-RADS Category 2: Benign
== END ==
PROVIDERS: PCP Internal Medicine; Referring Provider Internal Medicine; Visit Provider Internal Medicine
DX: Z12.31 Encounter for screening mammogram for malignant neoplasm of breast (principal); Z80.3 Family history of malignant neoplasm of breast
CPT/HCPCS: 77063; 77067

== ENCOUNTER → 2024-06-21 08:44 | Outpatient (CLI) | payer MEDICARE, OTHER, SELFPAY ==
[2023-02-10 16:18] VITALS: PULSE 96; RESP 19; O2SAT 99; BMI 27.3
[2024-06-21 11:18] LABS: Thyroid Stimulating Hormone 3.49 uIU/mL (0.47-4.68)
== END ==
PROVIDERS: PCP Internal Medicine; Referring Provider Nurse Practitioner; Visit Provider Nurse Practitioner
DX: E03.9 Hypothyroidism, unspecified (principal)
CPT/HCPCS: 36415; 84443

== ENCOUNTER → 2024-08-18 09:25 | Outpatient (CLI) | payer MEDICARE, OTHER, SELFPAY ==
[2023-02-10 16:18] VITALS: PULSE 96; RESP 19; O2SAT 99; BMI 27.3
[2024-08-18 10:03] LABS: Hematocrit 38.6 % (36-46); Hemoglobin 12.9 g/dL (12.0-16.0); Mean Corpuscular HGB Conc 33.3 % (30-36); Mean Corpuscular Hemoglobin 32.9 PG (26-34); Mean Corpuscular Volume 98.6 fL (80-100); Platelet Count 269 X10^3/uL (150-400); Red Blood Cell Count 3.91 X10^6/uL (4.0-5.2); Red Cell Distribution Width 13.6 % (11.6-14.8); White Blood Cell Count 6.5 X10^3/uL (4.5-11.0)
[2024-08-18 10:27] LABS: Alanine Aminotransferase 24 IU/L (<35); Albumin 4.3 g/dL (3.5-5.0); Albumin Globulin Ratio 1.9 (1.0-2.8); Alkaline Phosphatase 85 U/L (38-126); Aspartate Aminotransferase 31 IU/L (14-36); BUN Creatinine Ratio 30.4 (6-22); Bilirubin Total 0.3 mg/dL (0.2-1.3); Blood Urea Nitrogen 28 mg/dL (7-17); Calcium 10.3 mg/dL (8.4-10.2); Carbon Dioxide 31 mmol/L (22-32); Chloride 99 mmol/L (98-107); Cholesterol 176 mg/dL (140-199); Estimated Glomerular Filt Rate > 60 mL/min (>60); Globulin 2.3 g/dL (1.7-4.1); Glucose 79 mg/dL (80-110); HDL Cholesterol 87 mg/dL (40-60); HEMOLYSIS < 15 (0-50); LDL Cholesterol Calculated 75 mg/dL (<100); Potassium 4.6 mmol/L (3.4-5.1); Sodium 136 mmol/L (137-145); Total Protein 6.6 g/dL (6.3-8.2); Triglycerides 72 mg/dL (35-150)
== END ==
PROVIDERS: PCP Internal Medicine; Referring Provider Internal Medicine; Visit Provider Internal Medicine
DX: I10 Essential (primary) hypertension (principal); E78.2 Mixed hyperlipidemia
CPT/HCPCS: 36415; 80053; 80061; 85027

== ENCOUNTER → 2024-09-02 14:12 | Outpatient (CLI) | payer MEDICARE, OTHER, SELFPAY ==
[2023-02-10 16:18] VITALS: PULSE 96; RESP 19; O2SAT 99; BMI 27.3
--- NOTE | 2024-09-02 14:13 | DI.RAD.S_ITS ---
PROCEDURE: XR DEXA AXIAL SKELETON INDICATIONS: osteopenia COMPARISON: [facility], , DEXA AXIAL SKELETON, 05/01/2017, 14:24. [facility], , DEXA AXIAL SKELETON, 03/29/2014, 10:52. FINDINGS: Lumbar Spine (L2-L3): Bone mineral density 0.975 g/cm2, T score -0.4, previously -0.4. Left Femoral Neck: Bone mineral density 0.725 g/cm2, T score -1.1. Left Hip: Bone mineral density 0.753 g/cm2, T score -1.5, previously -0.9. Fracture Risk Calculation (when applicable): 10-year fracture risk of a major osteoporotic fracture 12 percent and of a hip fracture 2.6 percent. (T score greater or equal to -1.0 to: NORMAL) (T score from -1.1 to -2.4: OSTEOPENIA) (T score less than or equal to -2.5: OSTEOPOROSIS) IMPRESSION: 1. Normal bone density of the lumbar spine. 2. Osteopenia of the left hip and femoral neck. Follow-up guidelines as follows: Osteoporosis: Consider a repeat DEXA and Vertebral Fracture Assessment (VFA) exam in 2 years or sooner if medically necessary, to reassess this patient's status. Osteopenia: Consider a repeat DEXA in 2-3 years to reassess this patient's status, or if there is a new clinical indication. Normal: Consider a repeat DEXA in 5 years or sooner, or if there is a new clinical indication. All treatment decisions require clinical judgment and consideration of individual patient factors, including patient preferences, comorbidities, previous drug use, risk factors not captured in the FRAX model (e.g., frailty, falls, vitamin D deficiency, increased bone turnover, interval significant decline in bone density ) and possible under- or over-estimation of fracture risk by FRAX. In addition, the NOF Guide recommends that FDA-approved medical therapies be considered in postmenopausal women and men age >= 50 years with a: * Hip or vertebral (clinical or morphometric) fracture * T-score of <=-2.5 at the spine or hip * Ten-year fracture probability by FRAX of >= 3% for hip fracture or >=20% for major osteoporotic fracture. Dictated by: Garret Chamberlain M.D. on 09/02/2024 at 15:40 Approved by: Garret Chamberlain M.D. on 09/02/2024 at 15:42
== END ==
PROVIDERS: PCP Internal Medicine; Referring Provider Internal Medicine; Visit Provider Internal Medicine
DX: M85.89 Other specified disorders of bone density and structure, multiple sites (principal)
CPT/HCPCS: 77080

== ENCOUNTER → 2024-12-14 07:05 | Outpatient (CLI) | payer MEDICARE, OTHER, SELFPAY ==
[2023-02-10 16:18] VITALS: PULSE 96; RESP 19; O2SAT 99; BMI 27.3
[2024-12-14 07:53] LABS: Hematocrit 37.9 % (36-46); Hemoglobin 12.6 g/dL (12.0-16.0); Mean Corpuscular HGB Conc 33.3 % (30-36); Mean Corpuscular Hemoglobin 32.6 PG (26-34); Mean Corpuscular Volume 97.9 fL (80-100); Platelet Count 257 X10^3/uL (150-400); Red Blood Cell Count 3.87 X10^6/uL (4.0-5.2); Red Cell Distribution Width 13.9 % (11.6-14.8); White Blood Cell Count 4.7 X10^3/uL (4.5-11.0)
[2024-12-14 08:16] LABS: BUN Creatinine Ratio 20.2 (6-22); Blood Urea Nitrogen 19 mg/dL (7-17); Calcium 9.6 mg/dL (8.4-10.2); Carbon Dioxide 30 mmol/L (22-32); Chloride 100 mmol/L (98-107); Cholesterol 184 mg/dL (140-199); Estimated Glomerular Filt Rate > 60 mL/min (>60); Glucose 93 mg/dL (70-99); HDL Cholesterol 97 mg/dL (40-60); HEMOLYSIS < 15 (0-50); LDL Cholesterol Calculated 76 mg/dL (<100); Sodium 135 mmol/L (137-145); Triglycerides 54 mg/dL (35-150)
== END ==
PROVIDERS: PCP Internal Medicine; Referring Provider Internal Medicine Cardiovascular Disease; Visit Provider Internal Medicine Cardiovascular Disease
DX: E78.5 Hyperlipidemia, unspecified (principal); I10 Essential (primary) hypertension
CPT/HCPCS: 36415; 80048; 80061; 85027

== ENCOUNTER → 2025-02-21 09:06 | Outpatient (CLI) | payer MEDICARE, OTHER, SELFPAY ==
[2023-02-10 16:18] VITALS: PULSE 96; RESP 19; O2SAT 99; BMI 27.3
--- NOTE | 2025-02-21 09:10 | DI.RAD.S_ITS ---
PROCEDURE: XR LUMBAR SPINE MIN 4V INDICATIONS: BACK PAIN TECHNIQUE: 5 views of the lumbar spine were acquired, including bilateral oblique views. COMPARISON: [facility], , XR LUMBAR SPINE MIN 4V, 06/25/2018, 13:05. FINDINGS: Bones: 5 nonrib-bearing vertebrae are present. Grade 1 anterolisthesis of L3 on L4. Severe disc height loss at L4-5, L5-S1. Mild to moderate at remaining levels. Facet arthrosis of L3 through S1. No vertebral body compression fractures. No suspicious bony lesions. Soft tissues: Overlying bowel gas pattern is normal. No suspicious soft tissue calcifications. Oblique images: No pars defects. IMPRESSION: Moderate to severe, multilevel degenerative disc disease and lower lumbar facet arthrosis, not significantly changed from prior. Dictated by: Hemant Tracey M.D. on 02/21/2025 at 9:42 Approved by: Hemant Tracey M.D. on 02/21/2025 at 9:43
== END ==
PROVIDERS: PCP Internal Medicine; Referring Provider Physical Medicine & Rehabilitation; Visit Provider Physical Medicine & Rehabilitation
DX: M43.16 Spondylolisthesis, lumbar region (principal); M51.369 Other intervertebral disc degeneration, lumbar region without mention of lumbar back pain or lower extremity pain; M51.379 Other intervertebral disc degeneration, lumbosacral region without mention of lumbar back pain or lower extremity pain; M47.816 Spondylosis without myelopathy or radiculopathy, lumbar region; M47.817 Spondylosis without myelopathy or radiculopathy, lumbosacral region; M54.50 Low back pain, unspecified; G89.29 Other chronic pain; M54.9 Dorsalgia, unspecified; M35.3 Polymyalgia rheumatica; M19.90 Unspecified osteoarthritis, unspecified site; M79.10 Myalgia, unspecified site
CPT/HCPCS: 36415; 72110; 82550; 85027; 85651; 86038; 86140; 86200; 86430

== ENCOUNTER → 2025-02-21 14:10 | Outpatient (CLI) | payer MEDICARE, OTHER, SELFPAY ==
[2023-02-10 16:18] VITALS: PULSE 96; RESP 19; O2SAT 99; BMI 27.3
[2025-02-21 15:06] LABS: Creatine Kinase 85 U/L (30-135)
[2025-02-21 15:13] LABS: Hematocrit 36.6 % (36-46); Hemoglobin 12.5 g/dL (12.0-16.0); Mean Corpuscular HGB Conc 34.3 % (30-36); Mean Corpuscular Hemoglobin 33.0 PG (26-34); Mean Corpuscular Volume 96.3 fL (80-100); Platelet Count 267 X10^3/uL (150-400)
[2025-02-24 12:09] LABS: ANA Screen, IFA Negative (.)
== END ==
PROVIDERS: PCP Internal Medicine; Referring Provider Internal Medicine; Visit Provider Internal Medicine
DX: M35.3 Polymyalgia rheumatica (principal); M19.90 Unspecified osteoarthritis, unspecified site; M79.10 Myalgia, unspecified site
CPT/HCPCS: 36415; 82550; 85027; 85651; 86038; 86140; 86200; 86430

== ENCOUNTER → 2025-05-02 09:25 | Outpatient (CLI) | payer MEDICARE, OTHER, SELFPAY ==
[2023-02-10 16:18] VITALS: PULSE 96; RESP 19; O2SAT 99; BMI 27.3
--- NOTE | 2025-05-02 09:27 | DI.MG.S_ITS ---
MM diagnostic mammo BI, US breast RT limited: 05/02/2025 BI-RADS: 2 CLINICAL: 84-year old female for bilateral diagnostic mammogram and right diagnostic breast ultrasound. Tyrer-Cuzick lifetime risk of 0.8%. The patient presents for evaluation of intermittent right breast pain (1 month). PRIOR EXAMS: 04/19/2024, 04/17/2023, 04/15/2022, 04/02/2021, 03/07/2020, 03/04/2019, 02/27/2018, 02/12/2017, 02/12/2016, 02/08/2015. MAMMOGRAPHY TECHNIQUE: 2D and 3D (tomosynthesis) digital mammographic views obtained, with additional images as needed for full coverage. Current study was also evaluated with a Computer Aided Detection (CAD) system. ULTRASOUND TECHNIQUE Real-time shah scale and color doppler imaging of the area of clinical interest was performed with image documentation. Right targeted breast ultrasound of the area of clinical interest and the axilla was performed with image documentation. DENSITY C. The breasts are heterogeneously dense, which may obscure small masses. MAMMOGRAPHY FINDINGS Right (finding-1): Upper Outer Quadrant, Middle depth: A skin marker was placed in the area of concern, and no mammographic abnormalities are identified or to account for concern by the patient of pain/tenderness. No suspicious mass, asymmetry, microcalcification, or other abnormality seen. Left: No suspicious mass, asymmetry, microcalcification, or other abnormality seen. ULTRASOUND FINDINGS Right: Upper Outer at 10:00, 5.5 cm from nipple, measuring 0.5 x 0.3 x 0.5 cm: There is an intramammary lymph node. This is an incidental finding. This corresponds to a stable intramammary lymph node on mammograms dating back to at least 02/08/2015. Right (finding-1): Upper Outer at 10:00, 5.5 cm from nipple: Underlying the surface marker, there is no sonographic abnormality to account for concern by the patient of pain/tenderness. Right: Axilla: No abnormal lymph nodes are seen in the axilla. IMPRESSION: Right * No evidence of malignancy with benign findings. Left * No evidence of malignancy. RECOMMENDATIONS Right * Clinical follow-up is recommended, and further management of focal signs or symptoms should be based on the results of clinical evaluation. If a concerning symptom persists or progresses, further clinical evaluation should be considered. Bilateral * Annual screening mammography. COMMENTS: Findings and recommendations were conveyed to the patient during today's evaluation. OVERALL ASSESSMENT CATEGORY BI-RADS-2: Benign. The [employer] recommends annual screening mammography beginning at age 40 for women with average risk of breast cancer. ELECTRONICALLY SIGNED: Karen Mcgraw M.D. on 05/02/2025 at 11:41:58 AM PT Interpreting Station ID: [id number]
== END ==
LOC: MAMMO 09:26
PROVIDERS: PCP Internal Medicine; Referring Provider Internal Medicine; Visit Provider Internal Medicine
DX: N64.4 Mastodynia (principal); R92.333 Mammographic heterogeneous density, bilateral breasts
CPT/HCPCS: 76642; 77066; G0279

== ENCOUNTER → 2025-06-06 12:10 | Outpatient (CLI) | payer MEDICARE, OTHER, SELFPAY ==
[2023-02-10 16:18] VITALS: PULSE 96; RESP 19; O2SAT 99; BMI 27.3
--- NOTE | 2025-06-06 12:12 | DI.RAD.S_ITS ---
PROCEDURE: XR CERVICAL SPINE 4V OR 5V INDICATIONS: neck pain TECHNIQUE: 4 views of the cervical spine acquired. COMPARISON: None. FINDINGS: Bones: No fractures or dislocations to the T1 level. Oblique images demonstrate no significant left neuroforaminal stenosis with mild-moderate multilevel right neuroforaminal stenosis most pronounced from right C4-5 through C7-T1 levels. Soft tissues: No prevertebral soft tissue swelling. IMPRESSION: Cervical spine without acute osseous abnormalities. Multilevel spondylosis of the imaged spine with mild-moderate right-sided bony neuroforaminal stenosis most pronounced from C4-5 through C7-T1. Dictated by: Fabian Santacruz M.D. on 06/06/2025 at 17:39 Approved by: Fabian Santacruz M.D. on 06/06/2025 at 17:49
== END ==
PROVIDERS: PCP Internal Medicine; Referring Provider Internal Medicine; Visit Provider Physical Medicine & Rehabilitation
DX: M47.812 Spondylosis without myelopathy or radiculopathy, cervical region (principal); M48.02 Spinal stenosis, cervical region; M48.03 Spinal stenosis, cervicothoracic region
CPT/HCPCS: 72050

== ENCOUNTER → 2025-06-29 11:17 | Outpatient (CLI) | payer MEDICARE, OTHER, SELFPAY ==
[2023-02-10 16:18] VITALS: PULSE 96; RESP 19; O2SAT 99; BMI 27.3
[2025-06-29 12:14] LABS: Add Manual Diff / Slide Review NO; Hematocrit 38.0 % (36-46); Hemoglobin 12.8 g/dL (12.0-16.0); Lymphocytes Absolute Auto 2000 /uL (1100-4500); Mean Corpuscular HGB Conc 33.7 % (30-36); Mean Corpuscular Hemoglobin 31.9 PG (26-34); Mean Corpuscular Volume 94.8 fL (80-100); Platelet Count 285 X10^3/uL (150-400)
[2025-06-29 12:42] LABS: Alanine Aminotransferase 19 IU/L (<35); Albumin 4.3 g/dL (3.5-5.0); Albumin Globulin Ratio 1.7 (1.0-2.8); Alkaline Phosphatase 85 U/L (38-126); Blood Urea Nitrogen 24 mg/dL (7-17); Calcium 10.0 mg/dL (8.4-10.2); Carbon Dioxide 28 mmol/L (22-32); Chloride 103 mmol/L (98-107); Estimated Glomerular Filt Rate 58 mL/min (>60); Globulin 2.5 g/dL (1.7-4.1); Glucose 108 mg/dL (70-99); HEMOLYSIS < 15 (0-50); Potassium 4.5 mmol/L (3.4-5.1); Sodium 139 mmol/L (137-145); Total Protein 6.8 g/dL (6.3-8.2)
[2025-06-29 13:10] LABS: TSH w/ Reflex to FT4 4.47 uIU/mL (0.47-4.68)
== END ==
PROVIDERS: PCP Internal Medicine; Referring Provider Internal Medicine; Visit Provider Internal Medicine
DX: I10 Essential (primary) hypertension (principal); E78.2 Mixed hyperlipidemia; E03.9 Hypothyroidism, unspecified; C85.90 Non-Hodgkin lymphoma, unspecified, unspecified site
CPT/HCPCS: 36415; 80053; 83615; 84443; 85025; 85651; 86140

== ENCOUNTER → 2025-07-02 12:50 | Outpatient (CLI) | payer MEDICARE, OTHER, SELFPAY ==
[2023-02-10 16:18] VITALS: PULSE 96; RESP 19; O2SAT 99; BMI 27.3
--- NOTE | 2025-07-02 12:51 | DI.MRI.S_ITS ---
PROCEDURE: MR CERVICAL SPINE WO CON INDICATIONS: CERVICAL RADICULOPATHY TECHNIQUE: Noncontrast sagittal T1 spin echo and T2 fast spin echo, sagittal STIR, foraminal oblique sagittal T2 fast spin echo, and axial gradient echo or T2 fast spin echo through the cervical spine. COMPARISON: None. FINDINGS: Image quality: Excellent. Alignment and Curvature: Straightening of the normal cervical lordosis. Mild anterolisthesis of C4 on C5. Bone Marrow: Marrow demonstrates normal overall signal. Spinal Cord: Visualized spinal cord has normal size and signal. No cerebellar tonsillar herniation. Paraspinous Soft Tissues: No paravertebral masses. Prevertebral soft tissues are normal in thickness. C2-C3: Normal appearance. C3-C4: Disc desiccation and mild posterior disc osteophyte complex. Facet and uncovertebral arthropathy. No central canal stenosis. Mild right and no left neural foraminal stenosis. C4-C5: Disc desiccation and posterior disc osteophyte complex. Facet and uncovertebral arthropathy. No central canal stenosis. Moderate to severe right and mild to moderate left neural foraminal stenosis. C5-C6: Disc desiccation and height loss. Posterior disc osteophyte complex. Facet and uncovertebral arthropathy. No central canal stenosis. Moderate right and mild left neural foraminal stenosis. C6-C7: Disc desiccation and moderate height loss. Posterior disc osteophyte complex. Facet and uncovertebral arthropathy. No central canal stenosis. Mild bilateral neural foraminal stenosis. C7-T1: Disc desiccation and mild posterior disc osteophyte complex. No significant central canal or neural foraminal stenosis. IMPRESSION: 1. Multilevel degenerative changes of the cervical spine as described above. 2. No significant central canal stenosis. 3. Moderate to severe right neural foraminal stenosis at C4-C5. Dictated by: Levi Osorio M.D. on 07/04/2025 at 9:39 Approved by: Levi Osorio M.D. on 07/04/2025 at 9:51
== END ==
PROVIDERS: PCP Internal Medicine; Referring Provider Physical Medicine & Rehabilitation; Visit Provider Physical Medicine & Rehabilitation
DX: M47.22 Other spondylosis with radiculopathy, cervical region (principal); M48.02 Spinal stenosis, cervical region
CPT/HCPCS: 72141

== ENCOUNTER 2025-07-07 11:30 | Outpatient (RCR) | payer MEDICARE, OTHER, SELFPAY ==
[2023-02-10 16:18] VITALS: PULSE 96; RESP 19; O2SAT 99; BMI 27.3
--- NOTE | 2025-03-18 18:36 | PT.OIE ---
Current Diagnoses Other chronic pain (03/18/25) Sacroiliitis, not elsewhere classified (03/18/25) Low back pain, unspecified (03/18/25) Past Medical History (Last Updated 02/28/25 @ 09:14 by Ezekiel Son MD) Allergic rhinitis Asthma [place] esophagus Change in bowel habit Chronic low back pain Chronic SI joint pain Depression Do not resuscitate Dysphagia Fibromyalgia Generalized anxiety disorder GERD without esophagitis Gout attack Graves disease History of atrial flutter Intra-abdominal adhesions Lumbar degenerative disc disease Lumbar facet arthropathy Lumbar spondylosis Measles Menopausal syndrome Mixed hyperlipidemia Mumps Obesity (BMI 30.0-34.9) Obstructive sleep apnea of adult Osteoarthritis of both hips Osteopenia (~2010) Primary osteoarthritis of right knee Restless legs syndrome (RLS) Seasonal affective disorder SI joint arthritis Slow transit constipation Venous (peripheral) insufficiency Vitamin D deficiency Past Surgical History (Last Reviewed 02/28/25 @ 08:59 by Ezekiel Son MD) H/O abdominal surgery History of knee replacement (05/2008) History of Calvin fundoplication Hx of cholecystectomy (1996) Hx of hernia repair (03/2011) Hx of hysterectomy (1985) Hx of knee surgery (09/2008) Hx of knee surgery (2006) Hx of rotator cuff surgery (2004) Hx of surgical procedure (1995) Hx of total knee arthroplasty (2009) No pertinent past surgical history Visit Care Team Role Provider Type Ezekiel Son MD Family Provider Physician Primary Care Provider Specialty: Internal Medicine Address: [address] [place], [place] [id number] Email: [email or web address] Reginaldo Xie DO Attending Provider Physician Referring Provider Specialty: Interventional Radiology Physiatry Pain Management Address: [address] [place] [address], [id number] Phone: Fax: Email: [email or web address] Physical Therapy Initial Evaluation PT OP: Lower Back/Lower Extremity Start: 03/18/25 12:53 Freq: Status: Active Protocol: Document 03/18/25 12:54 BL (Rec: 03/18/25 15:19 BL Laptop) Out-Patient Physical Therapy Visit Information Visit Information Visit Type Initial Evaluation Visit Start Time 14:30 Visit Stop Time 15:10 Visit Number 1 (07/30) Number of MIXER OPERATOR RAW SALT Visits 0 Progress Note Due 04/17/25 OP-PT Subjective Patient Comments Patient Comments Pt presents to the clinic this date with concerns for low back pain. Pt states her pain has been present for quite some time. States she has had injections in the past that did well. Pt reports she has a history of osteoarthritis that affects multiple joints. Reports she also needs to have a R knee replaced. Pt reports symptoms start in middle of low back and wraps around to sides of hips, pt states she has pain radiating down the back of both legs, down lateral calf's. Pt reports difficulty going up/down inclines. States she needs to crawl up the steps and leads with R LE for descent. Pt states she can walk several blocks if its flat but feels incredibly stiff following. Pt reports heat seems to help along with she sees chiropractic. Pt reports sitting is the worst when she tries to get up. Pts goals for therapy are to improved her mobility without discomfort. Pt reports slight tingling in the back of minnie thighs as well as mild coordination deficits, states her feet feel real heavy. Patient Reported Same Progress Patient Questionnaires Oswestry Low Back Index Oswestry Score 26% disability Balance Tests Single Limb Standing Single Limb- Right 2 Single Limb- Left 2 Posture Evaluation Comments Posture Comments Pt stand with relative neutral posturing Palpation Assessment Location low back Palpation Details Increased tension and tenderness noted to bilateral paraspinals and SI area Lumbar Spine Range of Motion Lumbar Spine Active Percentage Testing Position Standing Flexion 100 Extension 50 Rotation Left 100 Rotation Right 100 Lateral Flexion Left 100 Lateral Flexion 100 Right Comments more discomfort with L lat flexion Hip Goniometric Range of Motion Hip right Hip ROM WFL Yes left Hip ROM WFL Yes Knee Goniometric Range of Motion Knee Right Knee ROM WFL Yes Left Knee ROM WFL Yes Special Tests Lumbar Spine Special Tests Other- 1 Test Results SI cluster- positive Straight Leg Raise Test Results negative Jaylon Test Results negative Slump Test Results negative Hip Strength Hip Manual Muscle Testing Right Flexion (L2) 4 Good Extension (S1) 4+ Good+ Abduction 4+ Good+ Adduction 4+ Good+ External Rotation 4+ Good+ Internal Rotation 4+ Good+ Left Flexion (L2) 4 Good Extension (S1) 4+ Good+ Abduction 4+ Good+ Adduction 4+ Good+ External Rotation 4+ Good+ Internal Rotation 4+ Good+ Knee Strength Knee Manual Muscle Testing Right Flexion (S2) 4+ Good+ Extension (L3) 4+ Good+ Left Flexion (S2) 4+ Good+ Extension (L3) 4+ Good+ Therapeutic Exercises Supine Exercises ROM Supine Exercise Name LTR, Pelvic Tilt Comments cues for TA activation Physical Therapy Assessment Rehab Potential Rehabilitation Fair Potential Evaluation Complexity Number of Personal 1-2 Factors/ Comorbidities Number of Body 3 Systems Impaired Clinical Evolving Presentation at Evaluation Impairments Impairments Activity Tolerance,Balance,Functional Activities, Functional Mobility,Gait,Pain,Posture,ROM,Soft Tissue Mobility,Strength,Transfers Goals Three Correction Goal (LTG) Pt will demo improved Oswestry score to 20% disability or better by DC for improved quality of life. Two Detailer Goal (LTG) Pt will demo improved minnie hip flexion strength to 4+/5 by DC for improved functional mobility with ADLS. One Short Term Goal (STG pt will be ind with HEP within 2 visits in order to ) progress toward fdc therapy goals outside of therapy sessions. Detailer Goal (LTG) Pt will report being able to ambulate up and down her block without increased discomfort by DC for improved quality of life. Assessment Summary Assessment Pt presents to the clinic this date with concerns for long standing low back pain. Pt demos full AROM in minnie LE and mild limitations into extension of lumbar spine. Pt demos decreased LE strength and core stability. Pt also demos positive SI cluster. Imaging reveals degenerative changes in lumbar spine. Pt would benefit from skilled Physical Therapy intervention to focus on strength and endurance training for core and LE. Pt educated on arthritic changes and importance of mobility to decrease symptoms. Physical Therapy Plan Frequency and Duration Frequency of 2x/Week Treatment Duration of 12 treatment (weeks) Plan of Care Start 03/18/25 Date Plan of Care End 06/10/25 Date Therapeutic Interventions Therapeutic Balance Training,Coordination Training,Gait Training, Interventions Home Exercise Program,Joint Mobilizations,Manual Therapy,Neuromuscular Re-education,Orthotic/Prosthetic Management,Patient/Caregiver Education,Self-Care/Home Management,Sensory Integration,Soft Tissue Mobilization ,Taping,Therapeutic Activities,Therapeutic Exercises Modalities Cold Pack/Ice Massage,Electric Stimulation,Hot Packs, Infrared Therapy,Iontophoresis,Ultrasound Next Visit Focus/Plan Next Note Type Treatment Note Next Visit Plan Advance HEP for LE strength and endurance training.
--- NOTE | 2025-03-25 13:41 | PT.OTN ---
Current Diagnoses Other chronic pain (03/25/25) Sacroiliitis, not elsewhere classified (03/25/25) Low back pain, unspecified (03/25/25) Physical Therapy Treatment Note PT OP: Lower Back/Lower Extremity Start: 03/18/25 12:53 Freq: Status: Active Protocol: Document 03/25/25 13:00 BL (Rec: 03/25/25 13:41 BL Laptop) Out-Patient Physical Therapy Visit Information Visit Information Visit Type Treatment Note Visit Start Time 13:00 Visit Stop Time 13:40 Visit Number 2 (08/30) Number of WOVEN PAPER HAT MENDER Visits 0 Progress Note Due 04/17/25 OP-PT Subjective Patient Comments Patient Comments Pt presents to the clinic this date and reports she is doing fairly well today. States the HEP is going well, feels a pull and slight pain over the bones on the sides of her hips. Therapeutic Exercises Supine Exercises strength Supine Exercise Name SLR, Bridge with band Resistance lvl 3 band Sidelying Exercises strength Sidelying Exercise clamshells Name Resistance 0# Manual Therapy Treatment Consent Patient gave verbal Yes consent for manual treatment Soft Tissue Mobilization minnie hips Comments TPR and CR to minnie hip flexors with improved tissue mobility following. Physical Therapy Assessment Goals Three Cost Accounting Analyst Goal (LTG) Pt will demo improved Oswestry score to 20% disability or better by DC for improved quality of life. Two Nursing Home Goal (LTG) Pt will demo improved minnie hip flexion strength to 4+/5 by DC for improved functional mobility with ADLS. One Short Term Goal (STG pt will be ind with HEP within 2 visits in order to ) progress toward assisted therapy goals outside of therapy sessions. Cost Accounting Analyst Goal (LTG) Pt will report being able to ambulate up and down her block without increased discomfort by DC for improved quality of life. Assessment Summary Assessment Pt tolerates session well, able to advance HEP this date for improved hip stability strengthening. Continue to focus on hip and core stability. Physical Therapy Plan Frequency and Duration Frequency of 2x/Week Treatment Duration of 12 treatment (weeks) Plan of Care Start 03/18/25 Date Plan of Care End 06/10/25 Date Next Visit Focus/Plan Next Note Type Treatment Note Next Visit Plan Advance HEP for LE strength and endurance training.
--- NOTE | 2025-04-01 09:29 | PT.OTN ---
Current Diagnoses Other chronic pain (04/01/25) Sacroiliitis, not elsewhere classified (04/01/25) Low back pain, unspecified (04/01/25) Physical Therapy Treatment Note PT OP: Lower Back/Lower Extremity Start: 03/18/25 12:53 Freq: Status: Active Protocol: Document 04/01/25 08:51 BL (Rec: 04/01/25 09:29 BL Laptop) Out-Patient Physical Therapy Visit Information Visit Information Visit Type Treatment Note Visit Start Time 09:00 Visit Stop Time 09:40 Visit Number 3 (09/27) Number of PRECISION LENS TECHNICIAN Visits 0 Progress Note Due 04/17/25 OP-PT Subjective Patient Comments Patient Comments Pt presents to the clinic this date and reports she is doing well, reports happy with her progress, continues to focus on hip strength. Was able to walk in [place] this week, but was sore following. Therapeutic Exercises Supine Exercises core stability Supine Exercise Name TA activation with bent knee fall outs Resistance lvl 3 band Comments 2x10 strength Supine Exercise Name SLR, Bridge with band, 90/90 pelvic hold with breathing Resistance lvl 3 band Sidelying Exercises strength Sidelying Exercise clamshells Name Resistance 3# Standing Exercises strength Standing Exercise Calf Raises Name Comments 2x10 Other Exercises Rythym Other Exercise Name [id number] Resistance lvl 12 Manual Therapy Treatment Soft Tissue Mobilization minnie hips Comments TPR and CR to minnie hip flexors with improved tissue mobility following. Physical Therapy Assessment Goals Three Fci Goal (LTG) Pt will demo improved Oswestry score to 20% disability or better by DC for improved quality of life. Two Fci Goal (LTG) Pt will demo improved minnie hip flexion strength to 4+/5 by DC for improved functional mobility with ADLS. One Short Term Goal (STG pt will be ind with HEP within 2 visits in order to ) progress toward longwall shearer operator therapy goals outside of therapy sessions. Fci Goal (LTG) Pt will report being able to ambulate up and down her block without increased discomfort by DC for improved quality of life. Assessment Summary Assessment Pt tolerates session well, able to advance HEP this date for improved hip stability strengthening. Continue to focus on hip and core stability. Physical Therapy Plan Frequency and Duration Frequency of 2x/Week Treatment Duration of 12 treatment (weeks) Plan of Care Start 03/18/25 Date Plan of Care End 06/10/25 Date Next Visit Focus/Plan Next Note Type Treatment Note Next Visit Plan Advance HEP for LE strength and endurance training.
--- NOTE | 2025-04-08 09:51 | PT.OTN ---
Current Diagnoses Other chronic pain (04/08/25) Sacroiliitis, not elsewhere classified (04/08/25) Low back pain, unspecified (04/08/25) Physical Therapy Treatment Note PT OP: Lower Back/Lower Extremity Start: 03/18/25 12:53 Freq: Status: Active Protocol: Document 04/08/25 08:43 JZ (Rec: 04/08/25 09:50 JZ [id number]) Out-Patient Physical Therapy Visit Information Visit Information Visit Type Treatment Note Visit Start Time 09:00 Visit Stop Time 09:40 Visit Number 4 (10/28) Number of AIRCRAFT ENGINE CYLINDER MECHANIC Visits 0 Progress Note Due 04/17/25 OP-PT Subjective Patient Comments Patient Comments Patient reports her back pain has been chronic and she recently started PT because her back pain increased in intensity. She reports she does have radicular symptoms that start when she walks extended distances, stair negotiation, and walking up hills. She reports her back is feeling okay this morning. She reports she was using heat this morning. Cardio Equipment Bicycle (Upright) Duration (Minutes) 10 Resistance level 10 Seat Position 2 Therapeutic Exercises Supine Exercises Supine SLR Equipment Used plinth Reps/Minutes 2x10 each side Supine bridge Equipment Used plinth Reps/Minutes 3x10 Sitting Exercises Knee extension machine Resistance 10# Reps/Minutes 2x10 Seated hip hinge Resistance 10# Equipment Used Dumbell Reps/Minutes 2x10 Physical Therapy Assessment Goals Three Garment Worker Goal (LTG) Pt will demo improved Oswestry score to 20% disability or better by DC for improved quality of life. Two Garment Worker Goal (LTG) Pt will demo improved minnie hip flexion strength to 4+/5 by DC for improved functional mobility with ADLS. One Short Term Goal (STG pt will be ind with HEP within 2 visits in order to ) progress toward rn long term care therapy goals outside of therapy sessions. Long-Term Goal (LTG) Pt will report being able to ambulate up and down her block without increased discomfort by DC for improved quality of life. Assessment Summary Assessment Treatment focused on low back and hip strengthening. Patient tolerated treatment well with no increases in pain levels and reported muscular fatigue near end of sets. Plan next session to follow up on lasting response to today's session and continue with plan of care. Physical Therapy Plan Frequency and Duration Frequency of 2x/Week Treatment Duration of 12 treatment (weeks) Plan of Care Start 03/18/25 Date Plan of Care End 06/10/25 Date Next Visit Focus/Plan Next Note Type Treatment Note Next Visit Plan Follow up on response to last session and progress loading as appropriate. Also plan to add squat pattern strengthening and consider standing hip hinge. Updated HEP: Access Code: [email or web address] URL: [email or web address] Date: 04/08/2025 Prepared by: Terrie Soares Exercises - Recumbent Bike - 1 x daily - 4 x weekly - 20 hold - Clamshell - 1 x daily - 4 x weekly - 3 sets - 10 reps - 3 hold - Supine Bridge - 1 x daily - 4 x weekly - 3 sets - 10 reps - 3 hold - Supine Straight Leg Raises - 1 x daily - 4 x weekly - 3 sets - 10 reps - 3 hold - Seated Hip Hinge - 1 x daily - 4 x weekly - 3 sets - 10 reps - 3 hold - Heel raise - 1 x daily - 4 x weekly - 3 sets - 10 reps - 3 hold
--- NOTE | 2025-04-15 10:46 | PT.OTN ---
Current Diagnoses Other chronic pain (04/15/25) Sacroiliitis, not elsewhere classified (04/15/25) Low back pain, unspecified (04/15/25) Physical Therapy Treatment Note PT OP: Lower Back/Lower Extremity Start: 03/18/25 12:53 Freq: Status: Active Protocol: Document 04/15/25 09:05 AB (Rec: 04/15/25 09:50 AB [id number]) Out-Patient Physical Therapy Visit Information Visit Information Visit Type Treatment Note Visit Note Visit [email or web address]: [email or web address] Visit Start Time 09:05 Visit Stop Time 09:48 Visit Number 5 Number of CODE MACHINE OPERATOR Visits 1 Progress Note Due 04/17/25 OP-PT Subjective Patient Comments Patient Comments Patient reports hip and knee pain with sit to stand, stand to sit with knee pain, ambulates with antalgic pattern. Patient reports she had a lot of pain post previous session attributes to gym equipment, comments it is too heavy. Patient Questionnaires Oswestry Low Back Index Oswestry Score 26% disability Hip Strength Hip Manual Muscle Testing Right Flexion (L2) 4 Good Left Flexion (L2) 4 Good Therapeutic Exercises Supine Exercises Modified Jaylon stretch Side bilateral Reps/Minutes 60 sec with AROM knee flexion X 10 Comments Verbal cues Supine SLR Reps/Minutes X 10each side Comments VC to quad set and relax between reps Supine bridge Reps/Minutes X 2 pre mod Jaylon test Comments VC to push into heels ROM Supine Exercise Name LTR, pelvic tilt Reps/Minutes X 10 each Comments tactile cues for pelvic tilt, VC for pain free range LTR Sitting Exercises Seated hip abd with band Side bilateral Resistance level 3 latex free Reps/Minutes one min X 2 Comments Verbal cues sit to stand Sitting Exercise from varying seat heights Name Reps/Minutes X 2 and X 5 then X2 Comments Patient ed use of self tactile cues for hip hinge Therapeutic Activity Therapeutic Activity Prone to sit Comments X 2 Verbal and visual cues occ tactile * Pt request due to difficulty getting of table and chiropractor Physical Therapy Assessment Goals Three Usp Goal (LTG) Pt will demo improved Oswestry score to 20% disability or better by DC for improved quality of life. 04/15/2025 Oswestry 22% Two Sparker And Patcher Goal (LTG) Pt will demo improved minnie hip flexion strength to 4+/5 by DC for improved functional mobility with ADLS. 04/15/2025 no change One Short Term Goal (STG pt will be ind with HEP within 2 visits in order to ) progress toward prison therapy goals outside of therapy sessions. 04/15/2025 Patient reports doing HEP morning and some at night, some are harder than others, leg gets heavy and the hips are hard to lift HEP review, performs bridge not PPT, VC to rest btw each rep of SLR, and quad set prior to lift, reports pain end Range LTR, VC to perform in pain free range. Usp Goal (LTG) Pt will report being able to ambulate up and down her block without increased discomfort by DC for improved quality of life. 04/15/2025 Patient reports she cannot walk up and down the hills on her block has not attempted yet. Assessment Summary Assessment Patient able to perform sit to stand with improved hip hinge and reports of decreased pain. SLS increased L LE post glute med activation end of session. Patient made progress toward Oswestry goal from 26 to 22% but not met. Patient reports performing HEP regularly, but required cues this day to perform correctly without increased pain. Physical Therapy Plan Frequency and Duration Frequency of 2x/Week Treatment Duration of 12 treatment (weeks) Plan of Care Start 03/18/25 Date Plan of Care End 06/10/25 Date Next Visit Focus/Plan Next Note Type Treatment Note Next Visit Plan Patient comments I can do all of them, when given cues to perform PPT not bridge as written on HEP,
--- NOTE | 2025-04-15 14:56 | PT.OPPN ---
Current Diagnoses Other chronic pain (04/15/25) Sacroiliitis, not elsewhere classified (04/15/25) Low back pain, unspecified (04/15/25) Physical Therapy Progress Note PT OP: Lower Back/Lower Extremity Start: 03/18/25 12:53 Freq: Status: Active Protocol: Document 04/15/25 14:49 JZ (Rec: 04/15/25 14:56 JZ [id number]) Out-Patient Physical Therapy Visit Information Visit Information Visit Type Progress Note Visit Start Time 09:05 Visit Stop Time 09:48 Visit Number 5 Number of RACKING TECHNICIAN Visits 1 Progress Note Due 05/15/25 Physical Therapy Assessment Goals Three Assisted Goal (LTG) Pt will demo improved Oswestry score to 20% disability or better by DC for improved quality of life. In progress (04/15/2025) Oswestry 22% Two Foreman Shipping Department Goal (LTG) Pt will demo improved minnie hip flexion strength to 4+/5 by DC for improved functional mobility with ADLS. 04/15/2025 no change One Short Term Goal (STG pt will be ind with HEP within 2 visits in order to ) progress toward technician support association therapy goals outside of therapy sessions. 04/15/2025 Patient reports doing HEP morning and some at night, some are harder than others, leg gets heavy and the hips are hard to lift HEP review, performs bridge not PPT, VC to rest btw each rep of SLR, and quad set prior to lift, reports pain end Range LTR, VC to perform in pain free range. Foreman Shipping Department Goal (LTG) Pt will report being able to ambulate up and down her block without increased discomfort by DC for improved quality of life. 04/15/2025 Patient reports she cannot walk up and down the hills on her block has not attempted yet. Assessment Summary Assessment Patient presenting to PT after 4 PT sessions for chronic low back pain. Patient has made improvements with reported disability (see oswestry score above) and has been compliant with HEP thus far. Patient will continue to benefit from PT to address deficits and return to prior level of function. Physical Therapy Plan Frequency and Duration Frequency of 2x/Week Treatment Duration of 12 treatment (weeks) Plan of Care Start 03/18/25 Date Plan of Care End 06/10/25 Date Next Visit Focus/Plan Next Note Type Treatment Note Next Visit Plan Patient comments I can do all of them, when given cues to perform PPT not bridge as written on HEP,
--- NOTE | 2025-04-18 10:49 | PT.OTN ---
Current Diagnoses Other chronic pain (04/18/25) Sacroiliitis, not elsewhere classified (04/18/25) Low back pain, unspecified (04/18/25) Physical Therapy Treatment Note PT OP: Lower Back/Lower Extremity Start: 03/18/25 12:53 Freq: Status: Active Protocol: Document 04/18/25 08:15 VIV (Rec: 04/18/25 10:49 VIV [id number]) Out-Patient Physical Therapy Visit Information Visit Information Visit Type Treatment Note Visit Start Time 09:50 Visit Stop Time 10:30 Visit Number 6 Number of DATA SYSTEMS MANAGER Visits 0 Progress Note Due 05/15/25 OP-PT Subjective Patient Comments Patient Comments Patient reports she is feeling good today. She thinks her fibromyalgia has flared recently in her arms. Cardio Equipment Bicycle (Upright) Duration (Minutes) 8 Resistance level 10 Seat Position 2 Therapeutic Exercises Supine Exercises Supine SLR Reps/Minutes 2x10 each side Comments VC to quad set and relax between reps Supine bridge Reps/Minutes 2x15 Comments VC to push into heels Sitting Exercises sit to stand Sitting Exercise Mini squats Name Reps/Minutes 3x10 Comments UE support at stairs Knee extension machine Resistance 10# Reps/Minutes 3x10 Seated hip hinge Resistance 10# Equipment Used Dumbell Reps/Minutes 2x10 Physical Therapy Assessment Goals Three Group Home Goal (LTG) Pt will demo improved Oswestry score to 20% disability or better by DC for improved quality of life. In progress (04/15/2025) Oswestry 22% Two Group Home Goal (LTG) Pt will demo improved minnie hip flexion strength to 4+/5 by DC for improved functional mobility with ADLS. 04/15/2025 no change One Short Term Goal (STG pt will be ind with HEP within 2 visits in order to ) progress toward [facility] therapy goals outside of therapy sessions. 04/15/2025 Patient reports doing HEP morning and some at night, some are harder than others, leg gets heavy and the hips are hard to lift HEP review, performs bridge not PPT, VC to rest btw each rep of SLR, and quad set prior to lift, reports pain end Range LTR, VC to perform in pain free range. Air Bag Curer Goal (LTG) Pt will report being able to ambulate up and down her block without increased discomfort by DC for improved quality of life. 04/15/2025 Patient reports she cannot walk up and down the hills on her block has not attempted yet. Assessment Summary Assessment Treatment focused on LE strengthening in pain-free ranges. Patient tolerated treatment well with no increase in pain levels. Plan next session to trial step ups and add band TKEs. Physical Therapy Plan Frequency and Duration Frequency of 2x/Week Treatment Duration of 12 treatment (weeks) Plan of Care Start 03/18/25 Date Plan of Care End 06/10/25 Date Next Visit Focus/Plan Next Note Type Treatment Note Next Visit Plan Trial step ups, band TKE, standing hip hinge
--- NOTE | 2025-04-22 10:42 | PT.OTN ---
Current Diagnoses Other chronic pain (04/22/25) Sacroiliitis, not elsewhere classified (04/22/25) Low back pain, unspecified (04/22/25) Physical Therapy Treatment Note PT OP: Lower Back/Lower Extremity Start: 03/18/25 12:53 Freq: Status: Active Protocol: Document 04/22/25 09:47 JZ (Rec: 04/22/25 10:42 JZ [id number]) Out-Patient Physical Therapy Visit Information Visit Information Visit Type Treatment Note Visit Start Time 09:50 Visit Stop Time 10:30 Visit Number 7 Number of CONSUMER AFFAIRS MANAGER Visits 0 Progress Note Due 05/15/25 OP-PT Subjective Patient Comments Patient Comments Patient repots a good deal of general stiffness today. Cardio Equipment Recumbent Stepper (Sci-Fit) Duration (Minutes) 6 Resistance level 5 Therapeutic Exercises Supine Exercises Supine bridge Reps/Minutes 2x15 Comments VC to push into heels Sitting Exercises Step ups Reps/Minutes x10 Band TKE Side right Resistance Level 5 band Reps/Minutes 2x20 sit to stand Sitting Exercise Sit to stands Name Reps/Minutes 3x10 Knee extension machine Resistance 20# Reps/Minutes 3x10 Seated hip hinge Resistance 10# Equipment Used Dumbell Reps/Minutes 3x10 Physical Therapy Assessment Goals Three Retirement Goal (LTG) Pt will demo improved Oswestry score to 20% disability or better by DC for improved quality of life. In progress (04/15/2025) Oswestry 22% Two Nematologist Goal (LTG) Pt will demo improved minnie hip flexion strength to 4+/5 by DC for improved functional mobility with ADLS. 04/15/2025 no change One Short Term Goal (STG pt will be ind with HEP within 2 visits in order to ) progress toward senior living therapy goals outside of therapy sessions. 04/15/2025 Patient reports doing HEP morning and some at night, some are harder than others, leg gets heavy and the hips are hard to lift HEP review, performs bridge not PPT, VC to rest btw each rep of SLR, and quad set prior to lift, reports pain end Range LTR, VC to perform in pain free range. Nematologist Goal (LTG) Pt will report being able to ambulate up and down her block without increased discomfort by DC for improved quality of life. 04/15/2025 Patient reports she cannot walk up and down the hills on her block has not attempted yet. Assessment Summary Assessment Treatment focused on quad and hip strengthening. Patient tolerated treatment well overall with no lasting increases in pain. She noted discomfort in her R knee with step ups so these were held after one set. Plan to continue with band TKEs as entry point to this movement and continue to progress loads with remaining exercises. Physical Therapy Plan Frequency and Duration Frequency of 2x/Week Treatment Duration of 12 treatment (weeks) Plan of Care Start 03/18/25 Date Plan of Care End 06/10/25 Date Next Visit Focus/Plan Next Note Type Treatment Note Next Visit Plan Continue with current plan of care, focusing on gross LE strengthening, particularly on quad, and hip extension strengthening.
--- NOTE | 2025-04-25 11:32 | PT.OTN ---
Current Diagnoses Other chronic pain (04/25/25) Sacroiliitis, not elsewhere classified (04/25/25) Low back pain, unspecified (04/25/25) Physical Therapy Treatment Note PT OP: Lower Back/Lower Extremity Start: 03/18/25 12:53 Freq: Status: Active Protocol: Document 04/25/25 10:48 JZ (Rec: 04/25/25 11:28 JZ [id number]) Out-Patient Physical Therapy Visit Information Visit Information Visit Type Treatment Note Visit Start Time 10:45 Visit Stop Time 11:25 Visit Number 8 Number of DISPLAY CARD WRITER Visits 0 Progress Note Due 05/15/25 OP-PT Subjective Patient Comments Patient Comments Patient reports mild stiffness after last session. Cardio Equipment Recumbent Stepper (Sci-Fit) Duration (Minutes) 6 Resistance level 5 Therapeutic Exercises Supine Exercises Supine bridge Reps/Minutes 2x15 Comments VC to push into heels Sitting Exercises Hip abduction machine Resistance 30# Reps/Minutes 2x10 Band TKE Side right Resistance Level 5 band Reps/Minutes 2x20 sit to stand Sitting Exercise Sit to stands Name Reps/Minutes 3x10 Knee extension machine Resistance 20# Reps/Minutes 3x10 Seated hip hinge Resistance 10# Equipment Used Dumbell Reps/Minutes 3x10 Standing Exercises Step ups Equipment Used 4 step Reps/Minutes 2x10 each side Physical Therapy Assessment Goals Three Accounting Teacher Goal (LTG) Pt will demo improved Oswestry score to 20% disability or better by DC for improved quality of life. In progress (04/15/2025) Oswestry 22% Two Accounting Teacher Goal (LTG) Pt will demo improved minnie hip flexion strength to 4+/5 by DC for improved functional mobility with ADLS. 04/15/2025 no change One Short Term Goal (STG pt will be ind with HEP within 2 visits in order to ) progress toward shelter therapy goals outside of therapy sessions. 04/15/2025 Patient reports doing HEP morning and some at night, some are harder than others, leg gets heavy and the hips are hard to lift HEP review, performs bridge not PPT, VC to rest btw each rep of SLR, and quad set prior to lift, reports pain end Range LTR, VC to perform in pain free range. Shelter Goal (LTG) Pt will report being able to ambulate up and down her block without increased discomfort by DC for improved quality of life. 04/15/2025 Patient reports she cannot walk up and down the hills on her block has not attempted yet. Assessment Summary Assessment Treatment focused on progressing strengthening exercises. Patient tolerated treatment well with no increases in pain levels and reported muscular fatigue near end of sets. Plan next session to continue with plan of care and follow up on home exercises. Physical Therapy Plan Frequency and Duration Frequency of 2x/Week Treatment Duration of 12 treatment (weeks) Plan of Care Start 03/18/25 Date Plan of Care End 06/10/25 Date Next Visit Focus/Plan Next Note Type Treatment Note Next Visit Plan Continue with current plan of care, focusing on gross LE strengthening, particularly on quad, and hip extension strengthening.
--- NOTE | 2025-04-29 16:17 | PT.OTN ---
Current Diagnoses Other chronic pain (04/29/25) Sacroiliitis, not elsewhere classified (04/29/25) Low back pain, unspecified (04/29/25) Physical Therapy Treatment Note PT OP: Lower Back/Lower Extremity Start: 03/18/25 12:53 Freq: Status: Active Protocol: Document 04/29/25 14:35 AB (Rec: 04/29/25 15:21 AB [id number]) Out-Patient Physical Therapy Visit Information Visit Information Visit Type Treatment Note Visit Note Access Code [email or web address] Visit Start Time 14:36 Visit Stop Time 15:18 Visit Number 9 Number of ORTHOTIST PROSTHETIST Visits 1 Progress Note Due 05/15/25 OP-PT Subjective Patient Comments Patient Comments Patient reports she thinks she is getting better, reports if she does too much outside she gets really stiff and sore ( back/ hips ) Patient rate pain in back is 4-5/10 start start of session. Gym Equipment Shuttle Recovery bilateral Resistance 50# Reps/Time X 15 X 2 Therapeutic Exercises Supine Exercises Modified restorative pose with breathing from diaphragm Reps/Minutes 3 min Comments verbal and tactile cues for breathing from diahragm Modified Jaylon stretch Side bilateral Reps/Minutes 60 sec with AROM knee flexion X 10 Comments Verbal cues Supine bridge Reps/Minutes 2x15 Comments VC to push into heels, second set segmental Sitting Exercises sit to stand Sitting Exercise Sit to stands Name Resistance LEVEL 3 BAND ABOVE KNEES HEP Reps/Minutes 2x10 Comments verbal and visual cues for hip hinge and VC Standing Exercises prone hip ext resting on raised mat Standing Exercise HEP upper body resting on raised mat Name Reps/Minutes X 10 Comments Verbal and visual cues strength Standing Exercise Calf Raises Name Comments 2x10 Physical Therapy Assessment Goals Three Wireless Watcher Goal (LTG) Pt will demo improved Oswestry score to 20% disability or better by DC for improved quality of life. In progress (04/15/2025) Oswestry 22% Two Wireless Watcher Goal (LTG) Pt will demo improved minnie hip flexion strength to 4+/5 by DC for improved functional mobility with ADLS. 04/15/2025 no change One Short Term Goal (STG pt will be ind with HEP within 2 visits in order to ) progress toward continuous churn buttermaker therapy goals outside of therapy sessions. 04/15/2025 Patient reports doing HEP morning and some at night, some are harder than others, leg gets heavy and the hips are hard to lift HEP review, performs bridge not PPT, VC to rest btw each rep of SLR, and quad set prior to lift, reports pain end Range LTR, VC to perform in pain free range. Wireless Watcher Goal (LTG) Pt will report being able to ambulate up and down her block without increased discomfort by DC for improved quality of life. 04/15/2025 Patient reports she cannot walk up and down the hills on her block has not attempted yet. Assessment Summary Assessment Good cezar to leg press this session, advanced sit to stand to sit to stand with band, and added prone hip ext resting on mat with pillows (IE standing upper body on mat with pillows) to HEP Physical Therapy Plan Frequency and Duration Frequency of 2x/Week Treatment Duration of 12 treatment (weeks) Plan of Care Start 03/18/25 Date Plan of Care End 06/10/25 Date Next Visit Focus/Plan Next Note Type Treatment Note Next Visit Plan Continue with current plan of care, focusing on gross LE strengthening, particularly on quad, and hip extension strengthening. Assess cezar to hip ext and sit to stand with bands to HEP
--- NOTE | 2025-05-04 12:17 | PT.OTN ---
Current Diagnoses Other chronic pain (05/04/25) Sacroiliitis, not elsewhere classified (05/04/25) Low back pain, unspecified (05/04/25) Physical Therapy Treatment Note PT OP: Lower Back/Lower Extremity Start: 03/18/25 12:53 Freq: Status: Active Protocol: Document 05/04/25 11:35 JZ (Rec: 05/04/25 12:17 JZ [id number]) Out-Patient Physical Therapy Visit Information Visit Information Visit Type Treatment Note Visit Note Access Code [email or web address] Visit Start Time 11:35 Visit Stop Time 12:10 Visit Number 10 Number of CREDIT REFERENCE CLERK Visits 0 Progress Note Due 05/15/25 OP-PT Subjective Patient Comments Patient Comments Patient reports general soreness today. Cardio Equipment Recumbent Stepper (Sci-Fit) Duration (Minutes) 6 Resistance level 5 Therapeutic Exercises Sitting Exercises Hip abduction machine Resistance 40# Reps/Minutes 3x10 Band TKE Resistance Level 5 band Reps/Minutes 2x10 each side sit to stand Sitting Exercise Sit to stands Name Reps/Minutes 3x10 Comments verbal and visual cues for hip hinge and VC Knee extension machine Resistance 20# Reps/Minutes 3x10 Seated hip hinge Resistance 10# Equipment Used Dumbell Reps/Minutes 3x10 Standing Exercises Step ups Equipment Used 4 step Reps/Minutes 2x10 each side Physical Therapy Assessment Goals Three Clinical Biochemist Goal (LTG) Pt will demo improved Oswestry score to 20% disability or better by DC for improved quality of life. In progress (04/15/2025) Oswestry 22% Two Clinical Biochemist Goal (LTG) Pt will demo improved minnie hip flexion strength to 4+/5 by DC for improved functional mobility with ADLS. 04/15/2025 no change One Short Term Goal (STG pt will be ind with HEP within 2 visits in order to ) progress toward [facility] goals outside of therapy sessions. 04/15/2025 Patient reports doing HEP morning and some at night, some are harder than others, leg gets heavy and the hips are hard to lift HEP review, performs bridge not PPT, VC to rest btw each rep of SLR, and quad set prior to lift, reports pain end Range LTR, VC to perform in pain free range. Usp Goal (LTG) Pt will report being able to ambulate up and down her block without increased discomfort by DC for improved quality of life. 04/15/2025 Patient reports she cannot walk up and down the hills on her block has not attempted yet. Assessment Summary Assessment Treatment focused on continued LE strengthening. Patient tolerated treatment well with no lasting increases in pain levels. Band TKE was modified with band around calf on R side due to reported bakers cyst. Plan next session to progress loading as tolerated. Physical Therapy Plan Frequency and Duration Frequency of 2x/Week Treatment Duration of 12 treatment (weeks) Plan of Care Start 03/18/25 Date Plan of Care End 06/10/25 Date Next Visit Focus/Plan Next Note Type Treatment Note Next Visit Plan Continue with current plan of care, focusing on gross LE strengthening, particularly on quad, and hip extension strengthening. Assess cezar to hip ext and sit to stand with bands to HEP
--- NOTE | 2025-05-06 12:17 | PT.OTN ---
Current Diagnoses Other chronic pain (05/06/25) Sacroiliitis, not elsewhere classified (05/06/25) Low back pain, unspecified (05/06/25) Physical Therapy Treatment Note PT OP: Lower Back/Lower Extremity Start: 03/18/25 12:53 Freq: Status: Active Protocol: Document 05/06/25 11:34 JZ (Rec: 05/06/25 12:17 JZ [id number]) Out-Patient Physical Therapy Visit Information Visit Information Visit Type Treatment Note Visit Note Access Code [email or web address] Visit Start Time 11:35 Visit Stop Time 12:15 Visit Number 11 Number of FIRESTOPPER INSTALLER Visits 0 Progress Note Due 05/15/25 OP-PT Subjective Patient Comments Patient Comments Patient reports her R knee is bothering her today. Cardio Equipment Recumbent Stepper (Sci-Fit) Duration (Minutes) 6 Resistance level 5 Therapeutic Exercises Sitting Exercises Hip abduction machine Resistance 40# Reps/Minutes 3x10 Band TKE Resistance Level 5 band Reps/Minutes 2x10 each side sit to stand Sitting Exercise Sit to stands Name Reps/Minutes 2x10 Comments verbal and visual cues for hip hinge and VC Knee extension machine Resistance 20# Reps/Minutes 3x10 Seated hip hinge Resistance 20# Equipment Used Dumbell Reps/Minutes 3x10 Standing Exercises Standing hip hinge Resistance 10# Reps/Minutes 3x10 Step ups Equipment Used 4 step Reps/Minutes 2x10 each side Physical Therapy Assessment Goals Three Intelligence Agent Goal (LTG) Pt will demo improved Oswestry score to 20% disability or better by DC for improved quality of life. In progress (04/15/2025) Oswestry 22% Two Intelligence Agent Goal (LTG) Pt will demo improved minnie hip flexion strength to 4+/5 by DC for improved functional mobility with ADLS. 04/15/2025 no change One Short Term Goal (STG pt will be ind with HEP within 2 visits in order to ) progress toward superintendent container terminal therapy goals outside of therapy sessions. 04/15/2025 Patient reports doing HEP morning and some at night, some are harder than others, leg gets heavy and the hips are hard to lift HEP review, performs bridge not PPT, VC to rest btw each rep of SLR, and quad set prior to lift, reports pain end Range LTR, VC to perform in pain free range. [facility] Goal (LTG) Pt will report being able to ambulate up and down her block without increased discomfort by DC for improved quality of life. 04/15/2025 Patient reports she cannot walk up and down the hills on her block has not attempted yet. Assessment Summary Assessment Treatment focused on progressing strengthening loads. Patient tolerated treatment well with no increases in pain and reported muscular fatigue near end of sets. Plan next session to follow up on today's session and continue with plan of care. Physical Therapy Plan Frequency and Duration Frequency of 2x/Week Treatment Duration of 12 treatment (weeks) Plan of Care Start 03/18/25 Date Plan of Care End 06/10/25 Date Next Visit Focus/Plan Next Note Type Treatment Note Next Visit Plan Continue with current plan of care, focusing on gross LE strengthening, particularly on quad, and hip extension strengthening. Assess cezar to hip ext and sit to stand with bands to HEP
--- NOTE | 2025-05-09 12:20 | PT.OTN ---
Current Diagnoses Other chronic pain (05/09/25) Sacroiliitis, not elsewhere classified (05/09/25) Low back pain, unspecified (05/09/25) Physical Therapy Treatment Note PT OP: Lower Back/Lower Extremity Start: 03/18/25 12:53 Freq: Status: Active Protocol: Document 05/09/25 11:38 JZ (Rec: 05/09/25 12:20 JZ [id number]) Out-Patient Physical Therapy Visit Information Visit Information Visit Type Treatment Note Visit Note Access Code [email or web address] Visit Start Time 11:35 Visit Stop Time 12:15 Visit Number 11 Number of STOVE POLISHER Visits 0 Progress Note Due 05/15/25 OP-PT Subjective Patient Comments Patient Comments Patient reports her she was feeling good after last week. Cardio Equipment Recumbent Stepper (Sci-Fit) Duration (Minutes) 9 Resistance level 5 Therapeutic Exercises Sitting Exercises Hip abduction machine Resistance 40# Reps/Minutes 3x10 Band TKE Resistance Level 5 band Reps/Minutes 2x10 each side sit to stand Sitting Exercise Sit to stands Name Reps/Minutes 2x10 Comments verbal and visual cues for hip hinge and VC Knee extension machine Resistance 30# Reps/Minutes 3x10 Seated hip hinge Resistance 20# Equipment Used Dumbell Reps/Minutes 3x10 Standing Exercises Standing hip hinge Resistance 10# Reps/Minutes 2x10 Step ups Equipment Used 4 step Reps/Minutes 2x10 each side Physical Therapy Assessment Goals Three Correction Goal (LTG) Pt will demo improved Oswestry score to 20% disability or better by DC for improved quality of life. In progress (04/15/2025) Oswestry 22% Two Correction Goal (LTG) Pt will demo improved minnie hip flexion strength to 4+/5 by DC for improved functional mobility with ADLS. 04/15/2025 no change One Short Term Goal (STG pt will be ind with HEP within 2 visits in order to ) progress toward middle or intermediate school principal therapy goals outside of therapy sessions. 04/15/2025 Patient reports doing HEP morning and some at night, some are harder than others, leg gets heavy and the hips are hard to lift HEP review, performs bridge not PPT, VC to rest btw each rep of SLR, and quad set prior to lift, reports pain end Range LTR, VC to perform in pain free range. Project Mgr Goal (LTG) Pt will report being able to ambulate up and down her block without increased discomfort by DC for improved quality of life. 04/15/2025 Patient reports she cannot walk up and down the hills on her block has not attempted yet. Assessment Summary Assessment Treatment focused on progressing strengthening loads. Patient tolerated treatment well with no increases in pain and reported muscular fatigue near end of sets. Plan next session to follow up on today's session and continue with plan of care. Physical Therapy Plan Frequency and Duration Frequency of 2x/Week Treatment Duration of 12 treatment (weeks) Plan of Care Start 03/18/25 Date Plan of Care End 06/10/25 Date Next Visit Focus/Plan Next Note Type Treatment Note Next Visit Plan Continue with current plan of care, focusing on gross LE strengthening, particularly on quad, and hip extension strengthening.
--- NOTE | 2025-05-12 12:22 | PT.OPPN ---
Current Diagnoses Other chronic pain (05/12/25) Sacroiliitis, not elsewhere classified (05/12/25) Low back pain, unspecified (05/12/25) Physical Therapy Progress Note PT OP: Lower Back/Lower Extremity Start: 03/18/25 12:53 Freq: Status: Active Protocol: Document 05/12/25 11:35 JEnio (Rec: 05/12/25 12:22 VIV [id number]) Out-Patient Physical Therapy Visit Information Visit Information Visit Type Progress Note Visit Start Time 11:38 Visit Stop Time 12:18 Visit Number 13 Number of GRAIN DISTRIBUTOR Visits 0 Progress Note Due 06/11/25 OP-PT Subjective Patient Comments Patient Comments Patient reports she feels she is doing better overall than she was. She reports her back still bothers her sometimes when she is standing for an extended period, or after she walks an extended distance and sits down. She reports her GROC is 25%. She notes improve with walking tolerance, standing up from a chair. She reports her current pain in her back is a 4/10. She reports the pain at worst is a 5/10. Patient Questionnaires Oswestry Low Back Index Oswestry Score 7 Oswestry Impairment 1 to 19% Impaired (Score 1-19) Therapeutic Exercises Sitting Exercises sit to stand Sitting Exercise Sit to stands Name Reps/Minutes 2x10 Comments verbal and visual cues for hip hinge and VC Knee extension machine Resistance 30# Reps/Minutes 3x10 Seated hip hinge Resistance 20# Equipment Used Dumbell Reps/Minutes 2x10 Standing Exercises Standing hip hinge Resistance 10# Reps/Minutes 2x10 Physical Therapy Assessment Goals Four Impairment Walking capacity Short Term Goal (STG Patient will ambulate 4,000 steps per day with no more ) than 3/10 pain intensity while walking. (updated 2024) STG Duration 4 weeks Three Prison Goal (LTG) Pt will demo improved Oswestry score to 20% disability or better by DC for improved quality of life. In progress (04/15/2025) Oswestry 22% Two Prison Goal (LTG) Pt will demo improved minnie hip flexion strength to 4+/5 by DC for improved functional mobility with ADLS. 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 04/15/2025 Patient reports doing HEP morning and some at night, some are harder than others, leg gets heavy and the hips are hard to lift HEP review, performs bridge not PPT, VC to rest btw each rep of SLR, and quad set prior to lift, reports pain end Range LTR, VC to perform in pain free range. Bridge Leverman Goal (LTG) Pt will report being able to ambulate up and down her block without increased discomfort by DC for improved quality of life. 04/15/2025 Patient reports she cannot walk up and down the hills on her block has not attempted yet. 05/12/2025: Patient has not walked or attempted to walk around her home because of the hills. She does not improvement in her ability to walk in the grocery store . Assessment Summary Assessment Patient presenting to PT after 12 visits for low back pain. Patient has reported improvement with pain levels and walking capacity. Objective investigation revealed improvement in bilateral hip strength (see goal section: hip flexion MMT), and function (see measures: Chel). Patient still has symptoms that limit her ability to walk and stand extended periods. Patient will continue to benefit from PT for four more weeks to address remaining deficits, improve walking capacity and maximize functional independence. Physical Therapy Plan Frequency and Duration Frequency of 2x/Week Treatment Duration of 12 treatment (weeks) Plan of Care Start 03/18/25 Date Plan of Care End 06/10/25 Date Next Visit Focus/Plan Next Note Type Treatment Note Next Visit Plan Continue with current plan of care, focusing on gross LE strengthening, particularly on quad, and hip extension strengthening.
--- NOTE | 2025-05-19 14:57 | PT.OTN ---
Current Diagnoses Other chronic pain (05/19/25) Sacroiliitis, not elsewhere classified (05/19/25) Low back pain, unspecified (05/19/25) Physical Therapy Treatment Note PT OP: Lower Back/Lower Extremity Start: 03/18/25 12:53 Freq: Status: Active Protocol: Document 05/19/25 13:44 JZ (Rec: 05/19/25 14:55 JZ [id number]) Out-Patient Physical Therapy Visit Information Visit Information Visit Type Treatment Note Visit Start Time 13:50 Visit Stop Time 14:30 Visit Number 14 Number of AUTOMATIC SPLICING MACHINE OPERATOR Visits 0 Progress Note Due 06/11/25 OP-PT Subjective Patient Comments Patient Comments Patient reports her osteoarthritis symptoms are a bit elevated today. She thinks maybe because of the weather . Therapeutic Exercises Sitting Exercises Hip abduction machine Resistance 40# Reps/Minutes 3x10 Band TKE Resistance Level 5 band Reps/Minutes 2x10 each side sit to stand Sitting Exercise Sit to stands Name Reps/Minutes 2x10 Comments verbal and visual cues for hip hinge and VC Knee extension machine Resistance 30# Reps/Minutes 3x10 Seated hip hinge Resistance 20# Equipment Used Dumbell Reps/Minutes 2x10 Standing Exercises Calf raises Reps/Minutes 2x10 Comments B UE support, cues for PF Standing hip hinge Resistance 10# Reps/Minutes 2x10 Step ups Equipment Used 4 step Reps/Minutes 2x10 each side Physical Therapy Assessment Goals Four Impairment Walking capacity Short Term Goal (STG Patient will ambulate 4,000 steps per day with no more ) than 3/10 pain intensity while walking. (updated 2024) STG Duration 4 weeks Three Customer Support Advisor Goal (LTG) Pt will demo improved Oswestry score to 20% disability or better by DC for improved quality of life. In progress (04/15/2025) Oswestry 22% Two Chcf Goal (LTG) Pt will demo improved minnie hip flexion strength to 4+/5 by DC for improved functional mobility with ADLS. 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 04/15/2025 Patient reports doing HEP morning and some at night, some are harder than others, leg gets heavy and the hips are hard to lift HEP review, performs bridge not PPT, VC to rest btw each rep of SLR, and quad set prior to lift, reports pain end Range LTR, VC to perform in pain free range. Customer Support Advisor Goal (LTG) Pt will report being able to ambulate up and down her block without increased discomfort by DC for improved quality of life. 04/15/2025 Patient reports she cannot walk up and down the hills on her block has not attempted yet. 05/12/2025: Patient has not walked or attempted to walk around her home because of the hills. She does not improvement in her ability to walk in the grocery store . Assessment Summary Assessment Treatment focused on continued LE strengthening. Patient tolerated treatment well with reported reduction in pain levels post treatment. Plan next session to follow up on response to today's session and continue with plan of care. Also plan to progress weight with standing hip hinge. Physical Therapy Plan Frequency and Duration Frequency of 2x/Week Treatment Duration of 12 treatment (weeks) Plan of Care Start 03/18/25 Date Plan of Care End 06/10/25 Date Next Visit Focus/Plan Next Note Type Treatment Note Next Visit Plan Continue with current plan of care, focusing on gross LE strengthening, particularly on quad, and hip extension strengthening. 1
--- NOTE | 2025-05-20 12:22 | PT.OTN ---
Current Diagnoses Other chronic pain (05/20/25) Sacroiliitis, not elsewhere classified (05/20/25) Low back pain, unspecified (05/20/25) Physical Therapy Treatment Note PT OP: Lower Back/Lower Extremity Start: 03/18/25 12:53 Freq: Status: Active Protocol: Document 05/20/25 11:35 AB (Rec: 05/20/25 12:22 AB [id number]) Out-Patient Physical Therapy Visit Information Visit Information Visit Type Treatment Note Visit Start Time 11:35 Visit Stop Time 12:18 Visit Number 15 Number of ENROLLMENT COORDINATOR Visits 1 Progress Note Due 06/11/25 OP-PT Subjective Patient Comments Patient Comments Patient reports she felt like the tin man last night, stiff. Patient report L shoulder is sore today, which she reports is all the time and she has an appt for her shoulders and will be getting x rays. Therapeutic Exercises Supine Exercises piriformis knee to opp sh and fig 4 Side bilateral Reps/Minutes 60 sec each stretch Comments verbal and tactile cues Modified restorative pose with breathing from diaphragm Reps/Minutes 3 min Comments verbal and tactile cues for breathing from diahragm Modified Jaylon stretch Side bilateral Reps/Minutes 60 sec with AROM knee flexion X 10 Comments Verbal cues strength Supine Exercise Name SLR, Bridge with band, 90/90 pelvic hold with breathing Resistance lvl 3 band Sitting Exercises Hip abduction machine Resistance 40# Reps/Minutes 3x10 sit to stand Sitting Exercise Sit to stands Name Resistance level 4 blue band Reps/Minutes 3x10 Comments verbal and visual cues for hip hinge and VC Standing Exercises Pallof press Side bilateral Resistance level one band Reps/Minutes X 15 each side hands clasped Comments verbal cues glute med isometric Standing Exercise HEP Name Reps/Minutes one min each LE Comments verbal cues and visual cues prone hip ext resting on raised mat Standing Exercise HEP upper body resting on raised mat Name Reps/Minutes X 20 Comments Verbal and visual cues Physical Therapy Assessment Goals Four Impairment Walking capacity Short Term Goal (STG Patient will ambulate 4,000 steps per day with no more ) than 3/10 pain intensity while walking. (updated 2024) STG Duration 4 weeks Three Diesel Engine Erector Goal (LTG) Pt will demo improved Oswestry score to 20% disability or better by DC for improved quality of life. In progress (04/15/2025) Oswestry 22% Two Diesel Engine Erector Goal (LTG) Pt will demo improved minnie hip flexion strength to 4+/5 by DC for improved functional mobility with ADLS. 04/15/2025 no change 05/12/2025: Met One Short Term Goal (STG pt will be ind with HEP within 2 visits in order to ) progress toward terminal clerk therapy goals outside of therapy sessions. 04/15/2025 Patient reports doing HEP morning and some at night, some are harder than others, leg gets heavy and the hips are hard to lift HEP review, performs bridge not PPT, VC to rest btw each rep of SLR, and quad set prior to lift, reports pain end Range LTR, VC to perform in pain free range. Diesel Engine Erector Goal (LTG) Pt will report being able to ambulate up and down her block without increased discomfort by DC for improved quality of life. 04/15/2025 Patient reports she cannot walk up and down the hills on her block has not attempted yet. 05/12/2025: Patient has not walked or attempted to walk around her home because of the hills. She does not improvement in her ability to walk in the grocery store . Assessment Summary Assessment Patient reports feeling better end of session, progressed glute med activation and increased band level for sit to stand this session. Physical Therapy Plan Frequency and Duration Frequency of 2x/Week Treatment Duration of 12 treatment (weeks) Plan of Care Start 03/18/25 Date Plan of Care End 06/10/25 Date Next Visit Focus/Plan Next Note Type Treatment Note Next Visit Plan Continue with current plan of care, focusing on gross LE strengthening, particularly on quad, and hip extension strengthening.
--- NOTE | 2025-05-24 12:24 | PT.OTN ---
Current Diagnoses Other chronic pain (05/24/25) Sacroiliitis, not elsewhere classified (05/24/25) Low back pain, unspecified (05/24/25) Physical Therapy Treatment Note PT OP: Lower Back/Lower Extremity Start: 03/18/25 12:53 Freq: Status: Active Protocol: Document 05/24/25 11:32 AB (Rec: 05/24/25 12:24 AB [id number]) Out-Patient Physical Therapy Visit Information Visit Information Visit Type Treatment Note Visit Start Time 11:33 Visit Stop Time 12:20 Visit Number 16 Number of ONCOLOGY REP Visits 2 Progress Note Due 06/11/25 OP-PT Subjective Patient Comments Patient Comments Patient reports she is sore didn't sleep last night had pain all over. Patient reports she was flared up. Nanci rates pain 5/10 entire body. Therapeutic Exercises Supine Exercises piriformis knee to opp sh and fig 4 Side right Reps/Minutes 60 sec each stretch Modified restorative pose with breathing from diaphragm Reps/Minutes 3 min Comments verbal and tactile cues for breathing from diahragm Modified Jaylon stretch Side bilateral Reps/Minutes 60 sec with AROM knee flexion X 10 Comments Verbal cues Supine bridge Reps/Minutes X10 Comments VC, monitored for pain Standing Exercises glute med isometric Standing Exercise HEP Name Reps/Minutes one min each LE Comments verbal cues and visual cues prone hip ext resting on raised mat Standing Exercise HEP upper body resting on raised mat Name Side bilateral Resistance level 2 orange latex free band ( HEP) Reps/Minutes X 10 X2 Comments Verbal and visual cues Manual Therapy Treatment Consent Patient gave verbal Yes consent for manual treatment Soft Tissue Mobilization minnie hips Body Location R hip this session ant, post, lateral Mobilization Type Cross-Friction,Rolling,Sustained Pressure Intensity/Depth Moderate Body Position Hooklying Comments and sidelying Physical Therapy Assessment Goals Four Impairment Walking capacity Short Term Goal (STG Patient will ambulate 4,000 steps per day with no more ) than 3/10 pain intensity while walking. (updated 2024) STG Duration 4 weeks Three Intermediate Goal (LTG) Pt will demo improved Oswestry score to 20% disability or better by DC for improved quality of life. In progress (04/15/2025) Oswestry 22% Two Electro Plater Goal (LTG) Pt will demo improved minnie hip flexion strength to 4+/5 by DC for improved functional mobility with ADLS. 04/15/2025 no change 05/12/2025: Met One Short Term Goal (STG pt will be ind with HEP within 2 visits in order to ) progress toward terrazzo polisher therapy goals outside of therapy sessions. 04/15/2025 Patient reports doing HEP morning and some at night, some are harder than others, leg gets heavy and the hips are hard to lift HEP review, performs bridge not PPT, VC to rest btw each rep of SLR, and quad set prior to lift, reports pain end Range LTR, VC to perform in pain free range. Electro Plater Goal (LTG) Pt will report being able to ambulate up and down her block without increased discomfort by DC for improved quality of life. 04/15/2025 Patient reports she cannot walk up and down the hills on her block has not attempted yet. 05/12/2025: Patient has not walked or attempted to walk around her home because of the hills. She does not improvement in her ability to walk in the grocery store . Assessment Summary Assessment Patient into session with reports of decreased sleep due to increased pain all over her body. Progressed to band at ankles for prone hip extension. End of session Nanci reports pain she feels good end of session, reports R hip and back are less painful. Physical Therapy Plan Frequency and Duration Frequency of 2x/Week Treatment Duration of 12 treatment (weeks) Plan of Care Start 03/18/25 Date Plan of Care End 06/10/25 Date Next Visit Focus/Plan Next Note Type Treatment Note Next Visit Plan Continue with current plan of care, focusing on gross LE strengthening, particularly on quad, and hip extension strengthening.
--- NOTE | 2025-05-26 12:15 | PT.OTN ---
Current Diagnoses Other chronic pain (05/26/25) Sacroiliitis, not elsewhere classified (05/26/25) Low back pain, unspecified (05/26/25) Physical Therapy Treatment Note PT OP: Lower Back/Lower Extremity Start: 03/18/25 12:53 Freq: Status: Active Protocol: Document 05/26/25 11:43 VIV (Rec: 05/26/25 12:15 VIV [id number]) Out-Patient Physical Therapy Visit Information Visit Information Visit Type Treatment Note Visit Start Time 11:32 Visit Stop Time 12:13 Visit Number 17 Number of WHARF HELPER Visits 0 Progress Note Due 06/11/25 OP-PT Subjective Patient Comments Patient Comments Patient reports her increased pain and soreness has continued. She notes that she still is not sleeping. Therapeutic Exercises Sitting Exercises Knee flexion machine Resistance 20# Reps/Minutes 2x10 Hip abduction machine Resistance 40# Reps/Minutes 3x10 sit to stand Sitting Exercise Sit to stands Name Reps/Minutes x10 Knee extension machine Resistance 20# Reps/Minutes 3x10 Seated hip hinge Resistance 10# Equipment Used Dumbell Reps/Minutes 2x10 Standing Exercises Pallof press Side bilateral Resistance 10# cable column Reps/Minutes 2x10 Standing hip hinge Resistance 10# Reps/Minutes 2x10 Step ups Equipment Used 4 step Reps/Minutes 2x10 each side Physical Therapy Assessment Goals Four Impairment Walking capacity Short Term Goal (STG Patient will ambulate 4,000 steps per day with no more ) than 3/10 pain intensity while walking. (updated 2024) STG Duration 4 weeks Three Manager Staffing Goal (LTG) Pt will demo improved Oswestry score to 20% disability or better by DC for improved quality of life. In progress (04/15/2025) Oswestry 22% Two Manager Staffing Goal (LTG) Pt will demo improved minnie hip flexion strength to 4+/5 by DC for improved functional mobility with ADLS. 04/15/2025 no change 05/12/2025: Met One Short Term Goal (STG pt will be ind with HEP within 2 visits in order to ) progress toward fpc therapy goals outside of therapy sessions. 04/15/2025 Patient reports doing HEP morning and some at night, some are harder than others, leg gets heavy and the hips are hard to lift HEP review, performs bridge not PPT, VC to rest btw each rep of SLR, and quad set prior to lift, reports pain end Range LTR, VC to perform in pain free range. Manager Staffing Goal (LTG) Pt will report being able to ambulate up and down her block without increased discomfort by DC for improved quality of life. 04/15/2025 Patient reports she cannot walk up and down the hills on her block has not attempted yet. 05/12/2025: Patient has not walked or attempted to walk around her home because of the hills. She does not improvement in her ability to walk in the grocery store . Assessment Summary Assessment Treatment focused on gross LE strengthening. Loads were reduced today relative to previous sessions due to increased global pain levels. Patient tolerated treatment well with no increases in pain. Plan next session to follow up on response to today's session and continue with plan of care. Physical Therapy Plan Frequency and Duration Frequency of 2x/Week Treatment Duration of 12 treatment (weeks) Plan of Care Start 03/18/25 Date Plan of Care End 06/10/25 Date Next Visit Focus/Plan Next Note Type Treatment Note Next Visit Plan Continue with current plan of care, focusing on gross LE strengthening, particularly on quad, and hip extension strengthening.
--- NOTE | 2025-06-08 10:33 | PT.OTN ---
Current Diagnoses Other chronic pain (06/08/25) Sacroiliitis, not elsewhere classified (06/08/25) Low back pain, unspecified (06/08/25) Physical Therapy Treatment Note PT OP: Lower Back/Lower Extremity Start: 03/18/25 12:53 Freq: Status: Active Protocol: Document 06/08/25 09:44 JZ (Rec: 06/08/25 10:33 JZ [id number]) Out-Patient Physical Therapy Visit Information Visit Information Visit Type Treatment Note Visit Start Time 09:50 Visit Stop Time 10:30 Visit Number 18 Number of FORECLOSURE SPECIALIST Visits 0 Progress Note Due 06/11/25 OP-PT Subjective Patient Comments Patient Comments Patient reports she has had a lot of pain generally throughout her body. She thinks this is her osteoarthritis. She reports she has been doing her home exercises. Therapeutic Exercises Sitting Exercises Knee flexion machine Resistance 30# Reps/Minutes 2x10 Hip abduction machine Resistance 40# Reps/Minutes 3x10 sit to stand Sitting Exercise Sit to stands Name Reps/Minutes 3x10 Knee extension machine Resistance 20# Reps/Minutes 3x10 Seated hip hinge Resistance 10# Equipment Used Dumbell Reps/Minutes 2x10 Standing Exercises Pallof press Side bilateral Resistance 10# cable column Reps/Minutes 2x10 Calf raises Reps/Minutes 2x10 Comments B UE support, cues for PF Standing hip hinge Resistance 10# Reps/Minutes 2x10 Step ups Equipment Used 4 step Reps/Minutes 2x10 each side Physical Therapy Assessment Goals Four Impairment Walking capacity Short Term Goal (STG Patient will ambulate 4,000 steps per day with no more ) than 3/10 pain intensity while walking. (updated 2024) STG Duration 4 weeks Three Senior Care Goal (LTG) Pt will demo improved Oswestry score to 20% disability or better by DC for improved quality of life. In progress (04/15/2025) Oswestry 22% Two Senior Care Goal (LTG) Pt will demo improved minnie hip flexion strength to 4+/5 by DC for improved functional mobility with ADLS. 04/15/2025 no change 05/12/2025: Met One Short Term Goal (STG pt will be ind with HEP within 2 visits in order to ) progress toward equipment operator intermodal yard therapy goals outside of therapy sessions. 04/15/2025 Patient reports doing HEP morning and some at night, some are harder than others, leg gets heavy and the hips are hard to lift HEP review, performs bridge not PPT, VC to rest btw each rep of SLR, and quad set prior to lift, reports pain end Range LTR, VC to perform in pain free range. Senior Care Goal (LTG) Pt will report being able to ambulate up and down her block without increased discomfort by DC for improved quality of life. 04/15/2025 Patient reports she cannot walk up and down the hills on her block has not attempted yet. 05/12/2025: Patient has not walked or attempted to walk around her home because of the hills. She does not improvement in her ability to walk in the grocery store . Assessment Summary Assessment Treatment focused on continued LE strengthening. Patient tolerated treatment well with no lasting increases in pain levels and reported reduction in stiffness. Plan next session to complete another treatment session then complete progress note next week to determine plan of care moving forward. Physical Therapy Plan Frequency and Duration Frequency of 2x/Week Treatment Duration of 12 treatment (weeks) Plan of Care Start 03/18/25 Date Plan of Care End 06/10/25 Date Next Visit Focus/Plan Next Note Type Treatment Note Next Visit Plan Continue with current plan of care, focusing on gross LE strengthening, particularly on quad, and hip extension strengthening. Next session: complete treatment session and then complete progress note and plan of care next week.
--- NOTE | 2025-06-10 15:50 | PT.OTN ---
Current Diagnoses Other chronic pain (06/10/25) Sacroiliitis, not elsewhere classified (06/10/25) Low back pain, unspecified (06/10/25) Physical Therapy Treatment Note PT OP: Lower Back/Lower Extremity Start: 03/18/25 12:53 Freq: Status: Active Protocol: Document 06/10/25 15:41 AB (Rec: 06/10/25 15:50 AB [id number]) Out-Patient Physical Therapy Visit Information Visit Information Visit Type Treatment Note Visit Start Time 13:02 Visit Stop Time 13:44 Visit Number 19 Number of COMMAND CENTER OFFICER Visits 1 Progress Note Due 06/11/25 OP-PT Subjective Patient Comments Patient Comments Patient reports she is sore all over today. Gym Equipment Shuttle Recovery single Resistance 25# Shuttle Recovery Unstable Platform bilateral Resistance 62# Reps/Time X 15 X 2 Therapeutic Exercises Sitting Exercises seated hip flexor stretch Sitting Exercise HEP Name Side bilateral Reps/Minutes 60 sec each LE X 2 Comments verbal cues sit to stand Sitting Exercise Sit to stands Name Resistance level 3 band Reps/Minutes 3x10 Comments monitored for pain Standing Exercises Pallof press Side bilateral Resistance level 4 band Reps/Minutes X 15 Comments monitored for pain glute med isometric Standing Exercise HEP Name Reps/Minutes one min each LE Comments verbal cues and visual cues prone hip ext resting on raised mat Standing Exercise HEP upper body resting on raised mat Name Side bilateral Resistance 2 lb each ankle Reps/Minutes X 15 X 2 Comments Verbal and visual cues Physical Therapy Assessment Goals Four Impairment Walking capacity Short Term Goal (STG Patient will ambulate 4,000 steps per day with no more ) than 3/10 pain intensity while walking. (updated 2024) STG Duration 4 weeks Three Canning Machine Operator Goal (LTG) Pt will demo improved Oswestry score to 20% disability or better by DC for improved quality of life. In progress (04/15/2025) Oswestry 22% Two Canning Machine Operator Goal (LTG) Pt will demo improved minnie hip flexion strength to 4+/5 by DC for improved functional mobility with ADLS. 04/15/2025 no change 05/12/2025: Met One Short Term Goal (STG pt will be ind with HEP within 2 visits in order to ) progress toward halfway therapy goals outside of therapy sessions. 04/15/2025 Patient reports doing HEP morning and some at night, some are harder than others, leg gets heavy and the hips are hard to lift HEP review, performs bridge not PPT, VC to rest btw each rep of SLR, and quad set prior to lift, reports pain end Range LTR, VC to perform in pain free range. Canning Machine Operator Goal (LTG) Pt will report being able to ambulate up and down her block without increased discomfort by DC for improved quality of life. 04/15/2025 Patient reports she cannot walk up and down the hills on her block has not attempted yet. 05/12/2025: Patient has not walked or attempted to walk around her home because of the hills. She does not improvement in her ability to walk in the grocery store . Assessment Summary Assessment Band for sit to stand decreased due to reports of knee pain with level 4 band, and was able to perform this session with level 3 band and no pain. End of session Nanci reports having no pain. Physical Therapy Plan Frequency and Duration Frequency of 2x/Week Treatment Duration of 12 treatment (weeks) Plan of Care Start 03/18/25 Date Plan of Care End 06/10/25 Date Next Visit Focus/Plan Next Note Type Progress Note Next Visit Plan Continue with current plan of care, focusing on gross LE strengthening, particularly on quad, and hip extension strengthening. Next session: complete progress note and plan of care next week.
--- NOTE | 2025-06-13 12:12 | PT.OPPOC ---
Physical, Occupational & Speech Therapy At [facility] Current Diagnoses Other chronic pain (06/13/25) Sacroiliitis, not elsewhere classified (06/13/25) Low back pain, unspecified (06/13/25) Visit Care Team Role Provider Type Ezekiel Son MD Family Provider Physician Primary Care Provider Specialty: Internal Medicine Address: [address] [place] [address], [id number] Email: [email or web address] Reginaldo Xie DO Attending Provider Physician Referring Provider Specialty: Interventional Radiology Physiatry Pain Management Address: [address] [place] [address], [id number] Phone: Fax: Email: [email or web address] Plan Of Care PT OP: Lower Back/Lower Extremity Start: 03/18/25 12:53 Freq: Status: Active Protocol: Document 06/13/25 07:28 VIV (Rec: 06/13/25 12:10 VIV [id number]) Out-Patient Physical Therapy Visit Information Visit Information Visit Type Progress Note Visit Start Time 08:18 Visit Stop Time 08:58 Visit Number 20 Number of CUSTOMER SERVICE MANAGER Visits 0 Progress Note Due 07/13/25 OP-PT Subjective Patient Comments Patient Comments Patient reports she is doing well overall but still has a lot of day to day fluctuations. She reports that her back pain is still around a 5/10. She reports that she is considering a cortisone shot in her SI joint previously and she has had success with those in the past. She reports that her GROC is 50%. She notes improvement with getting up out of a chair, walking capacity, and stair negotiation. She still has deficits with getting out of a low chair, and going up and down stairs (step-to pattern). She reports that she is doing exercises at home. Therapeutic Exercises Sitting Exercises sit to stand Sitting Exercise Sit to stands Name Reps/Minutes 3x10 Comments monitored for pain Standing Exercises Step ups Equipment Used 4 step on R, 6 on L Reps/Minutes 2x10 each side Physical Therapy Assessment Goals Four Impairment Walking capacity Short Term Goal (STG Patient will ambulate 4,000 steps per day with no more ) than 3/10 pain intensity while walking. (updated 2024) In progress (3,000 day average) - 06/13/2025 STG Duration 4 weeks Three Mechanical Operator Goal (LTG) Pt will demo improved Oswestry score to 20% disability or better by DC for improved quality of life. In progress (04/15/2025) Oswestry 22% In progress (06/13/2025) - 22% Two Mechanical Operator Goal (LTG) Pt will demo improved minnie hip flexion strength to 4+/5 by DC for improved functional mobility with ADLS. 04/15/2025 no change 05/12/2025: Met One Short Term Goal (STG pt will be ind with HEP within 2 visits in order to ) progress toward residential therapy goals outside of therapy sessions. 04/15/2025 Patient reports doing HEP morning and some at night, some are harder than others, leg gets heavy and the hips are hard to lift HEP review, performs bridge not PPT, VC to rest btw each rep of SLR, and quad set prior to lift, reports pain end Range LTR, VC to perform in pain free range. Custodial Goal (LTG) Pt will report being able to ambulate up and down her block without increased discomfort by DC for improved quality of life. 04/15/2025 Patient reports she cannot walk up and down the hills on her block has not attempted yet. 05/12/2025: Patient has not walked or attempted to walk around her home because of the hills. She does not improvement in her ability to walk in the grocery store . Assessment Summary Assessment Patient presenting to PT after 19 visits for low back pain and general LE strengthening. Patient has noted improvement with ambulation and getting out of a chair but continues to struggle with standing from a low chair and stair negotiation. Patient has shown improvement with ambulation volume without pain (see goal section), as well as general function (see subjective: GROC). Patient will benefit from PT for 4-6 more weeks, focused on transitioning plan of care to independent program at gym and starting exercise classes. Physical Therapy Plan Frequency and Duration Frequency of 2x/Week Treatment Duration of 6 treatment (weeks) Plan of Care Start 06/13/25 Date Plan of Care End 07/25/25 Date Next Visit Focus/Plan Next Note Type Treatment Note Next Visit Plan Continue with current plan of care, focusing on gross LE strengthening, particularly on quad, and hip extension strengthening. Plan of Care Dates Plan of Care Start Date 06/13/25 Plan of Care End Date 07/25/25 Electronically Signed by: Terrie Soares, PT 06/13/25 [id number] If you are in agreement with this Plan of Care, please return a signed and dated copy. I have reviewed this Plan of Care and certify that the skilled therapy services above are required to meet the patient?s needs. Physician Signature Date Printed Name and Credentials Clinical Instructor Signature Printed Name and Credentials
--- NOTE | 2025-06-15 12:22 | PT.OTN ---
Current Diagnoses Other chronic pain (06/15/25) Sacroiliitis, not elsewhere classified (06/15/25) Low back pain, unspecified (06/15/25) Physical Therapy Treatment Note PT OP: Lower Back/Lower Extremity Start: 03/18/25 12:53 Freq: Status: Active Protocol: Document 06/15/25 10:48 JZ (Rec: 06/15/25 12:21 JEnio [id number]) Out-Patient Physical Therapy Visit Information Visit Information Visit Type Treatment Note Visit Start Time 10:50 Visit Stop Time 11:30 Visit Number 21 Number of MILLING MACHINE OPERATOR Visits 0 Progress Note Due 07/13/25 OP-PT Subjective Patient Comments Patient Comments Patient reports she is sore and stiff today. She went to the chiropracter today and reports she had a good deal of manual therapy done to her. Therapeutic Exercises Sitting Exercises Knee flexion machine Resistance 30# Reps/Minutes 2x10 Hip abduction machine Sitting Exercise And adduction machine Name Resistance 30# Reps/Minutes 3x10, each direction sit to stand Sitting Exercise Sit to stands Name Reps/Minutes 3x10 Knee extension machine Resistance 20# Reps/Minutes 3x10 Seated hip hinge Resistance 10# Equipment Used Dumbell Reps/Minutes 2x10 Standing Exercises Pallof press Side bilateral Resistance 10# on cable column Reps/Minutes 2x10 each side Calf raises Reps/Minutes 2x10 Comments B UE support, cues for PF Step ups Equipment Used 4 step on R, 6 on L Reps/Minutes 2x10 each side Physical Therapy Assessment Goals Four Impairment Walking capacity Short Term Goal (STG Patient will ambulate 4,000 steps per day with no more ) than 3/10 pain intensity while walking. (updated 2024) In progress (3,000 day average) - 06/13/2025 STG Duration 4 weeks Three Fern Gatherer Goal (LTG) Pt will demo improved Oswestry score to 20% disability or better by DC for improved quality of life. In progress (04/15/2025) Oswestry 22% In progress (06/13/2025) - 22% Two Fdc Goal (LTG) Pt will demo improved minnie hip flexion strength to 4+/5 by DC for improved functional mobility with ADLS. 04/15/2025 no change 05/12/2025: Met One Short Term Goal (STG pt will be ind with HEP within 2 visits in order to ) progress toward retirement therapy goals outside of therapy sessions. 04/15/2025 Patient reports doing HEP morning and some at night, some are harder than others, leg gets heavy and the hips are hard to lift HEP review, performs bridge not PPT, VC to rest btw each rep of SLR, and quad set prior to lift, reports pain end Range LTR, VC to perform in pain free range. Fdc Goal (LTG) Pt will report being able to ambulate up and down her block without increased discomfort by DC for improved quality of life. 04/15/2025 Patient reports she cannot walk up and down the hills on her block has not attempted yet. 05/12/2025: Patient has not walked or attempted to walk around her home because of the hills. She does not improvement in her ability to walk in the grocery store . Assessment Summary Assessment Treatment focused on continued LE strengthening. Patient tolerated treatment well with no increases in pain levels and reported muscular fatigue at end of sets. Plan next session to continue with strength training regimen and follow up on pain levels. Physical Therapy Plan Frequency and Duration Frequency of 2x/Week Treatment Duration of 6 treatment (weeks) Plan of Care Start 06/13/25 Date Plan of Care End 07/25/25 Date Next Visit Focus/Plan Next Note Type Treatment Note Next Visit Plan Continue with current plan of care, focusing on gross LE strengthening, particularly on quad, and hip extension strengthening.
--- NOTE | 2025-06-20 12:04 | PT.OTN ---
Current Diagnoses Other chronic pain (06/20/25) Sacroiliitis, not elsewhere classified (06/20/25) Low back pain, unspecified (06/20/25) Physical Therapy Treatment Note PT OP: Lower Back/Lower Extremity Start: 03/18/25 12:53 Freq: Status: Active Protocol: Document 06/20/25 10:45 SK (Rec: 06/20/25 12:00 [id number]) Out-Patient Physical Therapy Visit Information Visit Information Visit Type Treatment Note Visit Start Time 10:45 Visit Stop Time 11:30 Visit Number 22 Number of SECURITY SME Visits 0 Progress Note Due 07/13/25 OP-PT Subjective Patient Comments Patient Comments Patient reports her legs feel heavy today. Reports neck and back pain at 5/10 today. Reports pain increased by prolonged standing, reports unable to stand greater than 20 minutes. Reports good compliance with home program. Reports interest in episode of physical therapy for neck in new year after completing physical therapy for her back. Therapeutic Exercises Supine Exercises Supine SLR Supine Exercise Name SLR Reps/Minutes 2x10 each side Comments VC to quad set and relax between reps core stability Supine Exercise Name TA activation, repeated w/B Knee Sway and with bent knee fall outs Resistance lvl 3 band Comments 2x10 Sidelying Exercises Clam Shell Circuit Sidelying Exercise Clam Shell, Reverse Clam, Advanced Clam, Hip Abd w/Ext Name Knee Side bilateral Reps/Minutes 10x each Comments Cues for core and hip stabilization and not letting hip drop back Standing Exercises Monster Walks Standing Exercise Monster Walks - Sidestepping and Forwards Diagono w/ Name Green Band around knees Reps/Minutes 10x Comments at Table for Balance Pallof press Standing Exercise Pallof Press Name Side bilateral Resistance 10# on cable column Reps/Minutes 2x10 each side Physical Therapy Assessment Goals Four Impairment Walking capacity Short Term Goal (STG Patient will ambulate 4,000 steps per day with no more ) than 3/10 pain intensity while walking. (updated 2024) In progress (3,000 day average) - 06/13/2025 STG Duration 4 weeks Three Residential Goal (LTG) Pt will demo improved Oswestry score to 20% disability or better by DC for improved quality of life. In progress (04/15/2025) Oswestry 22% In progress (06/13/2025) - 22% Two Motion Picture Set Up Worker Goal (LTG) Pt will demo improved minnie hip flexion strength to 4+/5 by DC for improved functional mobility with ADLS. 04/15/2025 no change 05/12/2025: Met One Short Term Goal (STG pt will be ind with HEP within 2 visits in order to ) progress toward termite treater therapy goals outside of therapy sessions. 04/15/2025 Patient reports doing HEP morning and some at night, some are harder than others, leg gets heavy and the hips are hard to lift HEP review, performs bridge not PPT, VC to rest btw each rep of SLR, and quad set prior to lift, reports pain end Range LTR, VC to perform in pain free range. Motion Picture Set Up Worker Goal (LTG) Pt will report being able to ambulate up and down her block without increased discomfort by DC for improved quality of life. 04/15/2025 Patient reports she cannot walk up and down the hills on her block has not attempted yet. 05/12/2025: Patient has not walked or attempted to walk around her home because of the hills. She does not improvement in her ability to walk in the grocery store . Assessment Summary Assessment Patient demonstrating good compliance, form and understanding with home program. Patient demonstrating good motivation for PT. Physical Therapy Plan Frequency and Duration Frequency of 2x/Week Treatment Duration of 6 treatment (weeks) Plan of Care Start 06/13/25 Date Plan of Care End 07/25/25 Date Next Visit Focus/Plan Next Note Type Treatment Note Next Visit Plan Review and progress HEP as able. Continue with current plan of care, focusing on gross LE strengthening, particularly on quad, and hip extension strengthening.
--- NOTE | 2025-06-23 13:50 | PT.OTN ---
Current Diagnoses Other chronic pain (06/23/25) Sacroiliitis, not elsewhere classified (06/23/25) Low back pain, unspecified (06/23/25) Physical Therapy Treatment Note PT OP: Lower Back/Lower Extremity Start: 03/18/25 12:53 Freq: Status: Active Protocol: Document 06/23/25 09:37 (Rec: 06/23/25 09:38 [id number]) Out-Patient Physical Therapy Visit Information Visit Information Visit Type Treatment Note Visit Start Time 13:05 Visit Number 23 Number of REGISTERED SAFETY ENGINEER Visits 0 Progress Note Due 07/13/25 OP-PT Subjective Patient Comments Patient Comments Reports saw Dr Xie earlier today. Reports has ordered MRI for neck and agreed to refer to physical therapy for her neck. Reports she is stiff and sore today. Rates back pain (tail bone and to the right) as 5/10. Reports hips were a little sore from laying sideline on hard table last session. Reports sees chiropractor 1xweek (Wednesdays.) Uses activator. Therapeutic Exercises Supine Exercises Single Knee to Chest Stretch Supine Exercise Name Single Knee to Chest Stretch Side bilateral Reps/Minutes 30 sec x3 core stability Supine Exercise Name TA activation, repeated w/Marching,B Knee Sway and with bent knee fall outs Reps/Minutes 10x each, SLR 5x Standing Exercises Monster Walks Standing Exercise Monster Walks - Sidestepping and Forwards Diagono w/ Name Green Band around knees Equipment Used L3 Band Reps/Minutes 10x Comments at Table for Balance Pallof press Standing Exercise Pallof Press Name Side bilateral Resistance L3 Band Reps/Minutes 2x10 each side Therapeutic Activity Therapeutic Activity Stairs Name Stair Training Comments Ascending 4 inch step 10x, B Ascending/Descending 2 inch steps in parallel bars Ascending/Descending 4 inch steps in parallel bars VC's for bending knee rather than straight knee ascending/descending Limited tolerance w/four inch step due to right knee pain Physical Therapy Assessment Goals Four Impairment Walking capacity Short Term Goal (STG Patient will ambulate 4,000 steps per day with no more ) than 3/10 pain intensity while walking. (updated 2024) In progress (3,000 day average) - 06/13/2025 STG Duration 4 weeks Three Shelving Supervisor Goal (LTG) Pt will demo improved Oswestry score to 20% disability or better by DC for improved quality of life. In progress (04/15/2025) Oswestry 22% In progress (06/13/2025) - 22% Two Shelving Supervisor Goal (LTG) Pt will demo improved minnie hip flexion strength to 4+/5 by DC for improved functional mobility with ADLS. 04/15/2025 no change 05/12/2025: Met One Short Term Goal (STG pt will be ind with HEP within 2 visits in order to ) progress toward prison therapy goals outside of therapy sessions. 04/15/2025 Patient reports doing HEP morning and some at night, some are harder than others, leg gets heavy and the hips are hard to lift HEP review, performs bridge not PPT, VC to rest btw each rep of SLR, and quad set prior to lift, reports pain end Range LTR, VC to perform in pain free range. Alf Goal (LTG) Pt will report being able to ambulate up and down her block without increased discomfort by DC for improved quality of life. 04/15/2025 Patient reports she cannot walk up and down the hills on her block has not attempted yet. 05/12/2025: Patient has not walked or attempted to walk around her home because of the hills. She does not improvement in her ability to walk in the grocery store . Assessment Summary Assessment Higher pain levels today. Patient limited in PT by R Knee pain in particular. Able to tolerate stair training w/2 inch steps but only limited tolerance w/4 inch steps due to right knee pain. Physical Therapy Plan Frequency and Duration Frequency of 2x/Week Treatment Duration of 6 treatment (weeks) Plan of Care Start 06/13/25 Date Plan of Care End 07/25/25 Date Next Visit Focus/Plan Next Note Type Treatment Note Next Visit Plan Review and progress HEP as able. Continue with current plan of care, focusing on gross LE strengthening and core strengthening. Warm-Uo w/Core exercise in supine, then standing exercise as able - stairs, and hip. Progress scapular/core strengthening - add rows and pull downs.
--- NOTE | 2025-06-27 12:24 | PT.OTN ---
Current Diagnoses Other chronic pain (06/27/25) Sacroiliitis, not elsewhere classified (06/27/25) Low back pain, unspecified (06/27/25) Physical Therapy Treatment Note PT OP: Lower Back/Lower Extremity Start: 03/18/25 12:53 Freq: Status: Active Protocol: Document 06/27/25 10:08 SK (Rec: 06/27/25 10:24 [id number]) Out-Patient Physical Therapy Visit Information Visit Information Visit Type Treatment Note Visit Start Time 11:35 Visit Stop Time 12:15 Visit Number 24 Number of ETHANOL OPERATIONS MANAGER Visits 0 Progress Note Due 07/13/25 OP-PT Subjective Patient Comments Patient Comments Reports Dr Xie has ordered MRI for neck and agreed to refer to physical therapy for her neck. Rates back pain (tail bone and to the right) as 5/10. Reports sees chiropractor 1xweek (Wednesdays.) Uses activator. Patient Questionnaires Oswestry Low Back Index Oswestry Score 7 Oswestry Impairment 1 to 19% Impaired (Score 1-19) Balance Tests Single Limb Standing Single Limb- Right 2 Single Limb- Left 2 Posture Evaluation Comments Posture Comments Pt stand with relative neutral posturing Palpation Assessment Location low back Palpation Details Increased tension and tenderness noted to bilateral paraspinals and SI area Cardio Equipment Bicycle (Upright) Duration (Minutes) 8 Resistance level 10 Seat Position 2 Gym Equipment Shuttle Recovery single Shuttle Recovery Unstable Platform Therapeutic Exercises Supine Exercises Single Knee to Chest Stretch Supine Exercise Name Single Knee to Chest Stretch Side bilateral Reps/Minutes 30 sec x3 Supine bridge Supine Exercise Name Supine Bridge Reps/Minutes X10 Comments VC, monitored for pain core stability Supine Exercise Name TA activation, repeated w/Marching,B Knee Sway and with bent knee fall outs Reps/Minutes 10x each, SLR 5x Comments Add Alt March w/Hip/Knee Flex/Ext Sitting Exercises Seated hip abd with band Side bilateral Resistance level 3 latex free Reps/Minutes one min X 2 Comments Verbal cues sit to stand Sitting Exercise Sit to stands Name Reps/Minutes 3x10 Knee extension machine Resistance 20# Reps/Minutes 3x10 Seated hip hinge Resistance 10# Equipment Used Dumbell Reps/Minutes 2x10 Standing Exercises Mini Squat Standing Exercise Mini Squat Name Side bilateral Equipment Used in parallel bars Reps/Minutes 10x Monster Walks Standing Exercise Monster Walks - Sidestepping and Forwards Diagono w/ Name Green Band around knees Equipment Used L3 Band Reps/Minutes 10x Comments at Table for Balance Pallof press Standing Exercise Pallof Press Name Side bilateral Resistance L3 Band Reps/Minutes 2x10 each side strength Standing Exercise Calf Raises Name Comments 2x10 Therapeutic Activity Therapeutic Activity Stairs Name Stair Training Comments Ascending/Descending 2 inch steps in parallel bars Ascending/Descending 4 inch steps in parallel bars VC's for bending knee rather than straight knee ascending/descending Limited tolerance w/four inch step due to right knee pain Physical Therapy Assessment Rehab Potential Rehabilitation Fair Potential Impairments Impairments Activity Tolerance,Balance,Functional Activities, Functional Mobility,Gait,Pain,Posture,ROM,Soft Tissue Mobility,Strength,Transfers Goals Four Impairment Walking capacity Short Term Goal (STG Patient will ambulate 4,000 steps per day with no more ) than 3/10 pain intensity while walking. (updated 2024) In progress (3,000 day average) - 06/13/2025 STG Duration 4 weeks Three Correction Goal (LTG) Pt will demo improved Oswestry score to 20% disability or better by DC for improved quality of life. In progress (04/15/2025) Oswestry 22% In progress (06/13/2025) - 22% Two Correction Goal (LTG) Pt will demo improved minnie hip flexion strength to 4+/5 by DC for improved functional mobility with ADLS. 04/15/2025 no change 05/12/2025: Met One Short Term Goal (STG pt will be ind with HEP within 2 visits in order to ) progress toward detention therapy goals outside of therapy sessions. 04/15/2025 Patient reports doing HEP morning and some at night, some are harder than others, leg gets heavy and the hips are hard to lift HEP review, performs bridge not PPT, VC to rest btw each rep of SLR, and quad set prior to lift, reports pain end Range LTR, VC to perform in pain free range. School Childcare Attendant Goal (LTG) Pt will report being able to ambulate up and down her block without increased discomfort by DC for improved quality of life. 04/15/2025 Patient reports she cannot walk up and down the hills on her block has not attempted yet. 05/12/2025: Patient has not walked or attempted to walk around her home because of the hills. She does not improvement in her ability to walk in the grocery store . Assessment Summary Assessment Patient demonstrating greater tolerance to exercise today including greater ease with ascending and descending stairs. This and next week continue to progress patient to independent symptom management w/ low back. Consider new episode of PT w/new referral for neck pain for new year. Physical Therapy Plan Frequency and Duration Frequency of 2x/Week Treatment Duration of 6 treatment (weeks) Plan of Care Start 06/13/25 Date Plan of Care End 07/25/25 Date Therapeutic Interventions Therapeutic Balance Training,Coordination Training,Gait Training, Interventions Home Exercise Program,Joint Mobilizations,Manual Therapy,Neuromuscular Re-education,Orthotic/Prosthetic Management,Patient/Caregiver Education,Self-Care/Home Management,Sensory Integration,Soft Tissue Mobilization ,Taping,Therapeutic Activities,Therapeutic Exercises Modalities Cold Pack/Ice Massage,Electric Stimulation,Hot Packs, Infrared Therapy,Iontophoresis,Ultrasound Next Visit Focus/Plan Next Note Type Treatment Note Next Visit Plan Review and progress HEP as able. Continue with current plan of care, focusing on gross LE strengthening and core strengthening. Warm-Uo w/Core exercise in supine, then standing exercise as able - stairs, and hip. Progress scapular/core strengthening - add rows and pull downs.
--- NOTE | 2025-06-30 12:18 | PT.OTN ---
Addendum entered and electronically signed by Dana Foss PTA 06/30/25 12:32: Pt states has a palates table and 5# dumbbells at home can use. Original Note: Current Diagnoses Other chronic pain (06/30/25) Sacroiliitis, not elsewhere classified (06/30/25) Low back pain, unspecified (06/30/25) Physical Therapy Treatment Note PT OP: Lower Back/Lower Extremity Start: 03/18/25 12:53 Freq: Status: Active Protocol: Document 06/30/25 11:37 SP (Rec: 06/30/25 12:30 SP [id number]) Out-Patient Physical Therapy Visit Information Visit Information Visit Type Treatment Note Visit Note *Yoga mat on table to comfort cushion for hip in SL. Visit Start Time 11:37 Visit Stop Time 12:18 Visit Number 25 Number of SPRAY RIG OPERATOR Visits 1 Progress Note Due 07/13/25 OP-PT Subjective Patient Comments Patient Comments Pt reports was over in [facility] yesterday and so little stiff. Has her back on ice alot this am. Cardio Equipment Recumbent Elliptical (NuStep) Duration (Minutes) 8 Resistance 4 Seat Position see 9 Other BUEs& BLEs, 68 RPMs Therapeutic Exercises Supine Exercises core stability Supine Exercise Name TA activation, alternate w/heel slide,B LTR, BKFO, SLR Resistance AROM Reps/Minutes 20 reps alternating each, single repeated SLR 10 each LE Comments Occ cues for PPT/lower ribcage toward table Sidelying Exercises strength Sidelying Exercise Hip Abduction Name Side bilateral Resistance AROM Reps/Minutes 10 Comments good stacked alignment, lateral and post hip Sitting Exercises Seated hip hinge Resistance 10# Equipment Used Dumbell Reps/Minutes 2x10 Comments cued elongated posture, rhomboid fac, hip hinge Standing Exercises Trunk Lateral SB Standing Exercise added to HEP with HO Name Side bilateral Resistance 5# DB- glide down lat. thigh Equipment Used front mirror self alignment Reps/Minutes 10 reps each side Comments cued tall posture, lateral SB pnfree range for oblique Resisted Rows & Extension Standing Exercise added to HEP with HO Name Side bilateral Resistance TB #2 Reps/Minutes 20 reps each Comments cued upright posture, scap enagement end feel. Physical Therapy Assessment Goals Four Impairment Walking capacity Short Term Goal (STG Patient will ambulate 4,000 steps per day with no more ) than 3/10 pain intensity while walking. (updated 2024) In progress (3,000 day average) - 06/13/2025 STG Duration 4 weeks Three Bioinformatics Programmer Goal (LTG) Pt will demo improved Oswestry score to 20% disability or better by DC for improved quality of life. In progress (04/15/2025) Oswestry 22% In progress (06/13/2025) - 22% Two Bioinformatics Programmer Goal (LTG) Pt will demo improved minnie hip flexion strength to 4+/5 by DC for improved functional mobility with ADLS. 04/15/2025 no change 05/12/2025: Met One Short Term Goal (STG pt will be ind with HEP within 2 visits in order to ) progress toward termite renewal inspector therapy goals outside of therapy sessions. 04/15/2025 Patient reports doing HEP morning and some at night, some are harder than others, leg gets heavy and the hips are hard to lift HEP review, performs bridge not PPT, VC to rest btw each rep of SLR, and quad set prior to lift, reports pain end Range LTR, VC to perform in pain free range. Detention Goal (LTG) Pt will report being able to ambulate up and down her block without increased discomfort by DC for improved quality of life. 04/15/2025 Patient reports she cannot walk up and down the hills on her block has not attempted yet. 05/12/2025: Patient has not walked or attempted to walk around her home because of the hills. She does not improvement in her ability to walk in the grocery store . Assessment Summary Assessment Pt required decreased minimal cues for PPT and TA engagement to support low back toward bed during AROM LE mobility ther ex to continue core strengthening. Pt good feedback response to added resisted Shld ext and rows and standing SB with DBs. Pt reports my back feels alot better end tx. Physical Therapy Plan Frequency and Duration Frequency of 2x/Week Treatment Duration of 6 treatment (weeks) Plan of Care Start 06/13/25 Date Plan of Care End 07/25/25 Date Therapeutic Interventions Therapeutic Balance Training,Coordination Training,Gait Training, Interventions Home Exercise Program,Joint Mobilizations,Manual Therapy,Neuromuscular Re-education,Orthotic/Prosthetic Management,Patient/Caregiver Education,Self-Care/Home Management,Sensory Integration,Soft Tissue Mobilization ,Taping,Therapeutic Activities,Therapeutic Exercises Modalities Cold Pack/Ice Massage,Electric Stimulation,Hot Packs, Infrared Therapy,Iontophoresis,Ultrasound Next Visit Focus/Plan Next Note Type Treatment Note Next Visit Plan Review and progress HEP as able, newly added standing UE resisted HEP for core strengthening. Continue with current plan of care, focusing on gross LE strengthening and core strengthening. Warm-Up w/Core exercise in supine, then standing exercise as able - stairs, and hip.
--- NOTE | 2025-07-05 10:56 | PT.OTN ---
Current Diagnoses Other chronic pain (07/05/25) Sacroiliitis, not elsewhere classified (07/05/25) Low back pain, unspecified (07/05/25) Physical Therapy Treatment Note PT OP: Lower Back/Lower Extremity Start: 03/18/25 12:53 Freq: Status: Active Protocol: Document 07/05/25 09:57 JZ (Rec: 07/05/25 10:55 JZ [id number]) Out-Patient Physical Therapy Visit Information Visit Information Visit Type Treatment Note Visit Start Time 09:55 Visit Stop Time 10:35 Visit Number 26 Number of COMMERCIAL CONSTRUCTION SUPERINTENDENT Visits 1 Progress Note Due 07/13/25 OP-PT Subjective Patient Comments Patient Comments Patient reports she is feeling good today. Cardio Equipment Recumbent Stepper (Sci-Fit) Duration (Minutes) 5 Resistance level 5 Therapeutic Exercises Sitting Exercises Knee flexion machine Resistance 30# Reps/Minutes 2x10 Hip abduction machine Sitting Exercise And adduction machine Name Resistance 30# Reps/Minutes 3x10, each direction sit to stand Sitting Exercise Sit to stands Name Reps/Minutes 3x10 Knee extension machine Resistance 20# Reps/Minutes 3x10 Seated hip hinge Resistance 10# Equipment Used Dumbell Reps/Minutes 2x10 Standing Exercises Calf raises Reps/Minutes 2x10 Comments B UE support, cues for PF Standing hip hinge Resistance 10# Reps/Minutes 2x10 Step ups Equipment Used 4 step on R, 6 on L Reps/Minutes 2x10 each side Physical Therapy Assessment Goals Four Impairment Walking capacity Short Term Goal (STG Patient will ambulate 4,000 steps per day with no more ) than 3/10 pain intensity while walking. (updated 2024) In progress (3,000 day average) - 06/13/2025 STG Duration 4 weeks Three Shelter Goal (LTG) Pt will demo improved Oswestry score to 20% disability or better by DC for improved quality of life. In progress (04/15/2025) Oswestry 22% In progress (06/13/2025) - 22% Two Shelter Goal (LTG) Pt will demo improved minnie hip flexion strength to 4+/5 by DC for improved functional mobility with ADLS. 04/15/2025 no change 05/12/2025: Met One Short Term Goal (STG pt will be ind with HEP within 2 visits in order to ) progress toward correction therapy goals outside of therapy sessions. 04/15/2025 Patient reports doing HEP morning and some at night, some are harder than others, leg gets heavy and the hips are hard to lift HEP review, performs bridge not PPT, VC to rest btw each rep of SLR, and quad set prior to lift, reports pain end Range LTR, VC to perform in pain free range. Shelter Goal (LTG) Pt will report being able to ambulate up and down her block without increased discomfort by DC for improved quality of life. 04/15/2025 Patient reports she cannot walk up and down the hills on her block has not attempted yet. 05/12/2025: Patient has not walked or attempted to walk around her home because of the hills. She does not improvement in her ability to walk in the grocery store . Assessment Summary Assessment Treatment focused on resuming gross LE strengthening. Patient tolerated treatment well with no increases in pain levels. Plan next session to complete discharge and discuss home/ gym exercises to continue with. Physical Therapy Plan Frequency and Duration Frequency of 2x/Week Treatment Duration of 6 treatment (weeks) Plan of Care Start 06/13/25 Date Plan of Care End 07/25/25 Date Next Visit Focus/Plan Next Note Type Treatment Note Next Visit Plan Review and progress HEP as able, newly added standing UE resisted HEP for core strengthening. Continue with current plan of care, focusing on gross LE strengthening and core strengthening. Warm-Up w/Core exercise in supine, then standing exercise as able - stairs, and hip.
--- NOTE | 2025-07-07 12:26 | PT.OPDS ---
Current Diagnoses Other chronic pain (07/07/25) Sacroiliitis, not elsewhere classified (07/07/25) Low back pain, unspecified (07/07/25) Visit Care Team Role Provider Type Ezekiel Son MD Family Provider Physician Primary Care Provider Specialty: Internal Medicine Address: [address] [place], [place] [id number] Email: [email or web address] Reginaldo Xie DO Attending Provider Physician Referring Provider Specialty: Interventional Radiology Physiatry Pain Management Address: [address] [place] [address], [id number] Phone: Fax: Email: [email or web address] Visit Number Visit Number 27 Discharge Summary PT OP: Lower Back/Lower Extremity Start: 03/18/25 12:53 Freq: Status: Active Protocol: Document 07/07/25 11:44 JZ (Rec: 07/07/25 12:25 JZ [id number]) Out-Patient Physical Therapy Visit Information Visit Information Visit Type Discharge Summary Visit Start Time 11:40 Visit Stop Time 12:20 Visit Number 27 Number of PULLEY MAINTAINER Visits 0 Progress Note Due 07/13/25 OP-PT Subjective Patient Comments Patient Comments Patient reports she is good with today being her last PT session. She reports her neck is her primary complaint and she will look to start PT for that when a referral is obtained. Therapeutic Exercises Sitting Exercises Knee flexion machine Resistance 30# Reps/Minutes 2x10 Hip abduction machine Sitting Exercise And adduction machine Name Resistance 30# Reps/Minutes 3x10, each direction sit to stand Sitting Exercise Sit to stands Name Reps/Minutes 3x10 Knee extension machine Resistance 20# Reps/Minutes 3x10 Standing Exercises Calf raises Reps/Minutes 2x10 Comments B UE support, cues for PF Standing hip hinge Resistance 10# Reps/Minutes 2x10 Step ups Equipment Used 4 step on R, 6 on L Reps/Minutes 2x10 each side Physical Therapy Assessment Goals Four Impairment Walking capacity Short Term Goal (STG Patient will ambulate 4,000 steps per day with no more ) than 3/10 pain intensity while walking. (updated 2024) In progress (3,000 day average) - 06/13/2025 STG Duration 4 weeks Three Fdc Goal (LTG) Pt will demo improved Oswestry score to 20% disability or better by DC for improved quality of life. In progress (04/15/2025) Oswestry 22% In progress (06/13/2025) - 22% Two Fdc Goal (LTG) Pt will demo improved minnie hip flexion strength to 4+/5 by DC for improved functional mobility with ADLS. 04/15/2025 no change 05/12/2025: Met One Short Term Goal (STG pt will be ind with HEP within 2 visits in order to ) progress toward [facility] therapy goals outside of therapy sessions. 04/15/2025 Patient reports doing HEP morning and some at night, some are harder than others, leg gets heavy and the hips are hard to lift HEP review, performs bridge not PPT, VC to rest btw each rep of SLR, and quad set prior to lift, reports pain end Range LTR, VC to perform in pain free range. Preparation Plant Repairer Goal (LTG) Pt will report being able to ambulate up and down her block without increased discomfort by DC for improved quality of life. 04/15/2025 Patient reports she cannot walk up and down the hills on her block has not attempted yet. 05/12/2025: Patient has not walked or attempted to walk around her home because of the hills. She does not improvement in her ability to walk in the grocery store . Assessment Summary Assessment Treatment focused on reviewing home and gym exercises. Patient tolerated treatment well and reported confidence in her ability to continue them independently. Because of previously documented improvement, today will be patient's last formal PT session. Physical Therapy Plan Frequency and Duration Frequency of 2x/Week Treatment Duration of 6 treatment (weeks) Plan of Care Start 06/13/25 Date Plan of Care End 07/25/25 Date Next Visit Focus/Plan Next Note Type Treatment Note Next Visit Plan N/A - Discharge episode of care
== END 2025-07-08 09:55 | disposition home or self-care (01) ==
LOC: PHYS 11:30
PROVIDERS: Family Provider Internal Medicine; PCP Internal Medicine; Referring Provider Physical Medicine & Rehabilitation; Visit Provider Physical Medicine & Rehabilitation
DX: G89.29 Other chronic pain (principal); M54.50 Low back pain, unspecified; M46.1 Sacroiliitis, not elsewhere classified
CPT/HCPCS: 97110; 97140; 97162; 97530